=== PATIENT | female | born 1960 | race Caucasian/White ===

== ENCOUNTER → 2017-07-28 | Outpatient (CLI) | payer BC ==
--- NOTE | 2017-07-28 18:06 | Diagnostic Imaging Report ---
INDICATION: Peripheral vascular disease. FINDINGS: The right ankle-brachial index was 1.08. Left ankle-brachial index was 1.18. IMPRESSION: Normal bilateral ankle-brachial indices. Dictated by: Dictated on workstation # [id number]
== END ==
LOC: RAD 16:49
PROVIDERS: ATTEND Nurse Practitioner Family
DX: I73.9 Peripheral vascular disease, unspecified (principal)
CPT/HCPCS: 93922

== ENCOUNTER 2018-07-08 19:09 | Emergency (ER) | payer BC ==
[~2018-07-08] VITALS: Ht 160 cm; Wt 72.1 kg
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
--- OUTSIDE RECORDS SUMMARY | 2018-07-08 19:15 | XMS REPORT ---
Author Author MATTHIEU VALENZUELA Organization [facility] Address [address] 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 Active 003005684 Problem Allergic rhinitis, unspecified allergic rhinitis trigger, unspecified rhinitis seasonality J30.9 Active 62472833 Problem Peripheral polyneuropathy G62.9 Active 30238585 Problem Peripheral vascular disease I73.9 Active 950415795 Problem 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 580373113 ALLERGIES No Information ENCOUNTERS Encounter Location Date Diagnosis [facility] [id number] [place] [address] 34745- 0440 Mar, [facility] [id number] [place] [address] 44038- 4626 Mar, 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 and Hepatitis C B19.20 [facility] [id number] [place] [address] 77842- 5060 Mar, Methamphetamine abuse, 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 ; Hepatitis C B19.20 ; 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 and 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 [facility] [id number] [place] [address] 50997- 8094 Mar, Rheumatoid arthritis with positive rheumatoid factor, involving unspecified site M05.9 ; Hepatitis C B19.20 ; 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 ; 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 and Essential hypertension I10 [facility] [address] [address]- 3062 Dec, Rheumatoid arthritis with positive rheumatoid factor, involving unspecified site M05.9 [facility] [id number] [place] [address] 83472- 7791 Nov, Pain in joint involving right ankle and foot M25.571 [place] [address] 09598- 9147 Sep, Essential hypertension I10 ; Rheumatoid arthritis with positive rheumatoid factor, involving unspecified site M05.9 and 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 [place] [address] 66592- 6621 Sep, [place] [address] 11516- 9031 Sep, [place] [address] 79435- 7904 Aug, Essential hypertension I10 ; Acute midline low back pain, with sciatica presence unspecified M54.5 and Localized edema R60.0 [place] [address] 83205- 1811 Aug, [place] [id number] [place] [address] 88300- 5267 Aug, Rheumatoid arthritis with positive rheumatoid factor, involving unspecified site M05.9 ; Raynauds disease without gangrene I73.00 ; 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 and Hepatitis C B19.20 [place] [address] 32442- 5257 Aug, Peripheral polyneuropathy G62.9 and Essential hypertension I10 [facility] [id number] [place] [address] 81424- 5114 Jul, Essential hypertension I10 [facility] [address] 36[address] -2151 Jun, [place] [id number] [place] [address] 68068- 8753 Jun, [place] [id number] [place] [address] 05124- 1753 May, Peripheral polyneuropathy G62.9 [place] [id number] [place] [address] 69503- 8950 May, Essential hypertension I10 ; Chest discomfort R07.89 ; Peripheral vascular disease I73.9 and Rheumatoid arthritis with positive rheumatoid factor, involving unspecified site M05.9 [place] [id number] [place] [address] 33079- 4661 May, Essential hypertension I10 ; Peripheral vascular disease I73.9 ; Rheumatoid arthritis with positive rheumatoid factor, involving unspecified site M05.9 and Chest discomfort R07.89 [facility] [place] [id number] [place] [address] 99700 -1489 Mar, Peripheral vascular disease I73.9 [place] [id number] [place] [address] 31279- 6628 Mar, Essential hypertension I10 ; Rheumatoid arthritis with positive rheumatoid factor, involving unspecified site M05.9 ; Peripheral polyneuropathy G62.9 and 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 [place] [id number] [place] [address] 30640- 3326 Feb, Cellulitis of right lower extremity L03.115 [place] [address] [place] [address] 91297- 5556 Feb, [facility] [id number] [place] [address] 12255 -4945 Feb, Cellulitis of right lower extremity L03.115 and Cellulitis of left lower limb L03.116 [place] [id number] [place] [address] 26923- 3827 15 Feb, 2017 Essential hypertension I10 [place] [address] [address]- 2442 October, [facility] [address] [place] [address] 27426- 6671 October, Rheumatoid arthritis with positive rheumatoid factor, involving unspecified site M05.9 [facility] [address] [address]- 3989 October, [facility] [address] [address] -4990 Sep, Cellulitis of left leg L03.116 [facility] [address] [place] [address] 48572- 4961 Sep, [facility] [address] [place] [address] 96264- 3515 Aug, [place] [address] [place] [address] 09721- 2734 Aug, [facility] [address] [place] [address] 32257- 6982 Aug, Peripheral polyneuropathy G62.9 ; Essential hypertension I10 ; Raynauds disease without gangrene I73.00 ; Rheumatoid arthritis with positive rheumatoid factor, involving unspecified site M05.9 and Allergic rhinitis, unspecified allergic rhinitis trigger, unspecified rhinitis seasonality J30.9 [facility] [address] [address]- 5157 Jul, [facility] [address] [address]- 4532 May, Peripheral polyneuropathy G62.9 ; Essential hypertension I10 ; Raynauds disease without gangrene I73.00 and Rheumatoid arthritis with positive rheumatoid factor, involving unspecified site M05.9 [facility] [address] [address]- 4064 Feb, Essential hypertension I10 and Numbness in feet R20.0 [facility] [id number] [place] [address] 88631 -8209 17 Nov, 2015 Rash R21 [facility] [id number] [place] [address] 795800- 5244 10 Aug, 2015 Essential hypertension I10 ; 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 ; Numbness in feet R20.0 ; Hepatitis C B19.20 and Left shoulder pain M25.512 [facility] [address] 261486- 3535 07 Jun, 2015 Essential hypertension I10 ; Hepatitis C B19.20 ; Numbness in feet R20.0 and 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 [facility] [address] 564144- 0887 30 May, 2015 Essential hypertension I10 ; 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 ; Numbness in feet R20.0 ; Hepatitis C B19.20 and Left shoulder pain M25.512 [facility] [id number] [place] [address] 98697- 8587 14 Sep, 2014 [facility] [id number] [place] [address] 25824- 1954 Sep, [facility] [id number] [place] [address] 28104- 8328 May, [facility] [id number] [place] [address] 092084- 2127 May, [facility] [id number] [place] [address] 059913- 3197 Apr, [facility] [id number] [place] [address] 822906- 8947 Apr, [facility] [id number] [place] [address] 66300- 3096 Mar, [facility] [id number] [place] [address] 71227- 1486 Mar, [facility] [id number] [place] [address] 11122- 9575 13 Nov, 2013 [facility] [place] [facility] [address] [id number] [place] [address]- 5874 13 Nov, 2013 [facility] [place] [facility] [address] [id number] [place] [address]- 7859 October, [facility] [place] [facility] [address] [id number] [place] [address]- 0842 October, [facility] [place] [facility] [address] [id number] [place] [address]- 9544 13 Aug, 2013 [facility] [place] [facility] [address] [id number] [place] [address]- 4522 13 Aug, 2013 [facility] [place] [facility] [address] [id number] [place] [address]- 1719 13 Aug, 2013 [facility] [place] [facility] [address] [id number] [place] [address]- 8164 Aug, [facility] [place] [facility] [address] [id number] [place] [address]- 3479 Aug, [facility] [place] [facility] [address] [id number] [place] [address]- 6766 Aug, [facility] [place] [facility] [address] [id number] [place] [address]- 2683 Aug, [facility] [place] [facility] [address] [id number] [address]- 9985 Aug, [facility] [place] [facility] [address] [id number] [address]- 9556 Apr, [facility] [place] [facility] [address] [id number] [place] [address]- 5721 Apr, [facility] [place] [facility] [address] [id number] [place] [address]- 4018 Mar, [facility] [place] [facility] [address] [id number] [place] [address]- 9844 Mar, [facility] [place] [facility] [address] [id number] [place] [address]- 3330 18 Mar, 2013 [facility] [address] [id number] [place] [id number] 25 Feb, 2013 [facility] [address] [id number] [place] 6476 17 Feb, 2013 [facility] [address] [id number] [place] [address]- 8166 16 Feb, 2013 [facility] [address] [id number] [place] [address]- 6688 Jan, [facility] [address] [id number] [place] [address]- 1470 Jan, [facility] [address] [id number] [place] [address]- 6354 Jan, [facility] [address] [id number] [place] [address]- 1171 Jan, [facility] [address] [id number] [place] [address]- 5926 Nov, [facility] [address] [id number] [place] [address]- 6052 Nov, [facility] [address] [id number] [place] [address]- 7018 Nov, [facility] [address] [id number] [place] 6739 October, [facility] [address] [id number] [place] [address]- 8239 October, [facility] [address] [id number] [place] [address]- 3811 October, [facility] [place] [facility] [address] [id number] [place] 2345 October, [facility] [address] [id number] [place] [address]- 6414 October, [facility] [address] [id number] [place] [address]- 9220 16 Oct, 2012 [facility] [address] [id number] [place] [address]- 8098 October, [facility] [address] [id number] [place] [address]- 8950 October, [facility] [address] [id number] [place] [address]- 5278 20 Sep, 2012 [facility] [address] [id number] [place] [address]- 5190 19 Sep, 2012 [facility] [address] [id number] [place] [address]- 6313 15 Sep, 2012 [facility] [address] [id number] [place] [address]- 6850 Sep, [facility] [address] [id number] [place] [address]- 4022 Sep, [facility] [address] [id number] [place] [address]- 5062 22 Aug, 2012 [facility] [address] [id number] [place] [address]- 1852 14 Aug, 2012 [facility] [address] [id number] [place] [address]- 5301 13 Aug, 2012 [facility] [address] [id number] [place] [address]- 4028 08 Aug, 2012 [facility] [address] [id number] [place] [address]- 0759 06 Aug, 2012 [facility] [place] [facility] [address] [id number] [place] [address]- 3033 05 Aug, 2012 [facility] [address] [id number] [place] [address]- 2316 04 Aug, 2012 [facility] [address] [id number] [place] [address]- 8710 Aug, [facility] [place] [facility] [address] [id number] [place] [address]- 3971 May, [facility] [place] [facility] [address] [id number] [place] [address]- 7057 May, [facility] [place] [facility] [address] [facility] [id number] [place] [address]- 4293 Apr, [facility] [place] [facility] [address] [id number] [place] [address]- 4304 Apr, [facility] [place] [facility] [address] [id number] [place] [address]- 5238 Apr, [facility] [place] [facility] [address] [id number] [place] [address]- 3610 16 Apr, 2012 [facility] [place] [facility] [address] [id number] [place] [address]- 5795 16 Apr, 2012 [facility] [place] [facility] [address] [id number] [place] [address]- 3829 14 Apr, 2012 [facility] [place] [facility] [address] [id number] [place] [address]- 9759 Apr, [facility] [place] [facility] [address] [id number] [place] [address]- 3927 Apr, [facility] [place] [facility] [address] [id number] [place] [address]- 3281 05 Apr, 2012 [facility] [place] [facility] [address] [id number] [address]- 3521 Apr, [facility] [place] [facility] [address] [id number] [place] [address]- 9602 Apr, [facility] [place] [facility] [address] [facility] [id number] [address]- 9618 Apr, [facility] [place] [facility] [address] [id number] [place] [address]- 9166 Mar, [facility] [place] [facility] [address] [address]- 1380 Mar, [facility] [address] [address]- 5612 Feb, [facility] [address] [address]- 7085 Nov, [facility] [address] [address]- 8438 Nov, [facility] [address] [address]- 8025 October, [facility] [address] [address]- 2140 October, [facility] [address] [address]- 6917 October, [facility] [address] [address]- 9532 October, [facility] [address] [address]- 6733 Sep, [facility] [address] [address]- 9816 Sep, [facility] [address] [address]- 4442 Sep, [facility] [id number] [address]- 0031 Sep, IMMUNIZATIONS No Known Immunizations SOCIAL HISTORY Never Assessed REASON FOR VISIT Refill request PLAN OF CARE VITAL SIGNS MEDICATIONS Medication Instructions Dosage Frequency Start Date End Date Duration Status Potassium Chloride [facility] ER 10 MEQ TAKE ONE TABLET BY MOUTH ONCE DAILY Jun, 90 days Active Zoloft 100 mg Orally Once a day 1 tablet 24h Mar, 90 days Active Celebrex 200 mg TAKE ONE CAPSULE BY MOUTH ONCE DAILY Jun, 90 days Active Hydrochlorothiazide 25 mg oral daily 1 tablet by Oral route 1 time per day 24h 90 days Active Losartan Potassium 50 mg Orally Once a day at hs 1 tablet 90 days Active RESULTS No Results PROCEDURES No Known procedures [...]
--- OUTSIDE RECORDS SUMMARY | 2018-07-08 19:15 | XMS REPORT ---
Author Author MATTHIEU VALENZUELA Organization [facility] Address [address] 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 Active 022049089 Problem Allergic rhinitis, unspecified allergic rhinitis trigger, unspecified rhinitis seasonality J30.9 Active 82568780 Problem Peripheral polyneuropathy G62.9 Active 20907296 Problem Peripheral vascular disease I73.9 Active 408099904 Problem 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 451937723 ALLERGIES No Information ENCOUNTERS Encounter Location Date Diagnosis [facility] [id number] [place] [address] 37779- 0733 Apr, [facility] [id number] [place] [address] 17635- 3565 Mar, [facility] [id number] [place] [address] 23380- 8185 Mar, [facility] [id number] [place] [address] 17339- 2188 Mar, 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 and Hepatitis C B19.20 [facility] [id number] [place] [address] 01795- 6950 04 Mar, 2018 Methamphetamine abuse, 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 ; Hepatitis C B19.20 ; 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 and 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 [facility] [address] [address] Mar, Rheumatoid arthritis with positive rheumatoid factor, involving unspecified site M05.9 ; Hepatitis C B19.20 ; 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 ; 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 and Essential hypertension I10 [facility] [id number] [place] [address] 72171- 7967 Dec, Rheumatoid arthritis with positive rheumatoid factor, involving unspecified site M05.9 [facility] [id number] [place] [address] 37749- 8066 Nov, Pain in joint involving right ankle and foot M25.571 [facility] [id number] [place] [address] 02228- 2890 Sep, Essential hypertension I10 ; Rheumatoid arthritis with positive rheumatoid factor, involving unspecified site M05.9 and 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 [facility] [id number] [place] [address] 66674- 2697 Sep, [facility] [id number] [place] [address] 53116- 7773 Sep, [facility] [id number] [place] [address] 54798- 9767 Aug, Essential hypertension I10 ; Acute midline low back pain, with sciatica presence unspecified M54.5 and Localized edema R60.0 [facility] [id number] [place] [address] 45572- 9280 Aug, [facility] [id number] [place] [address] 07780- 7563 Aug, Rheumatoid arthritis with positive rheumatoid factor, involving unspecified site M05.9 ; Raynauds disease without gangrene I73.00 ; 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 and Hepatitis C B19.20 [facility] [id number] [place] [address] 49098- 6589 Aug, Peripheral polyneuropathy G62.9 and Essential hypertension I10 [facility] [address], [place] [address] 0190 Jul, Essential hypertension I10 [facility] [id number] [place] [address] 80728 -1195 Jun, [facility] [id number] [place] [address] 84800- 8674 Jun, [facility] [id number] [place] [address] 73771- 8047 May, Peripheral polyneuropathy G62.9 [facility] [id number] [place] [address] 87830- 1302 May, Essential hypertension I10 ; Chest discomfort R07.89 ; Peripheral vascular disease I73.9 and Rheumatoid arthritis with positive rheumatoid factor, involving unspecified site M05.9 [facility] [id number] [place] [address] 64726- 0087 May, Essential hypertension I10 ; Peripheral vascular disease I73.9 ; Rheumatoid arthritis with positive rheumatoid factor, involving unspecified site M05.9 and Chest discomfort R07.89 [facility] [id number] [place] [address] 09857 -7964 Mar, Peripheral vascular disease I73.9 [facility] [id number] [place] [address] 79024- 3628 Mar, Essential hypertension I10 ; Rheumatoid arthritis with positive rheumatoid factor, involving unspecified site M05.9 ; Peripheral polyneuropathy G62.9 and 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 [facility] [address], [place] [address]- 1435 Feb, Cellulitis of right lower extremity L03.115 [facility] [id number] [place] [address] 31739- 5029 Feb, [facility] [address] [place] [address] 74309 -5897 Feb, Cellulitis of right lower extremity L03.115 and Cellulitis of left lower limb L03.116 [facility] [address] [place] [address] 6620 Feb, Essential hypertension I10 [facility] [address], [place] [address]- 0400 October, [facility] [id number] [place] [address] 02401- 2388 October, Rheumatoid arthritis with positive rheumatoid factor, involving unspecified site M05.9 [facility] [address], [place] [address]- 2888 October, [facility] [address] [place] [address] 53601 -4388 Sep, Cellulitis of left leg L03.116 [facility] [address] [place] [address] 44730- 0692 Sep, [facility] [address] [address]- 7750 Aug, [facility] [address] [address]- 2178 Aug, [facility] [address] [place] [address]- 1493 Aug, Peripheral polyneuropathy G62.9 ; Essential hypertension I10 ; Raynauds disease without gangrene I73.00 ; Rheumatoid arthritis with positive rheumatoid factor, involving unspecified site M05.9 and Allergic rhinitis, unspecified allergic rhinitis trigger, unspecified rhinitis seasonality J30.9 [facility] [address], [place] [address]- 6755 Jul, [facility] [address] [place] [address] 88707- 8639 May, Peripheral polyneuropathy G62.9 ; Essential hypertension I10 ; Raynauds disease without gangrene I73.00 and Rheumatoid arthritis with positive rheumatoid factor, involving unspecified site M05.9 [facility] [address] [address]- 3535 28 Feb, 2016 Essential hypertension I10 and Numbness in feet R20.0 [facility] [address] [address] 17 Nov, 2015 Rash R21 [facility] [id number] [place] [address] 07375- 6813 10 Aug, 2015 Essential hypertension I10 ; 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 ; Numbness in feet R20.0 ; Hepatitis C B19.20 and Left shoulder pain M25.512 [facility] [id number] [place] [address] 97602- 6635 07 Jun, 2015 Essential hypertension I10 ; Hepatitis C B19.20 ; Numbness in feet R20.0 and 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 [facility] [id number] [place] [address] 23185- 7976 30 May, 2015 Essential hypertension I10 ; 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 ; Numbness in feet R20.0 ; Hepatitis C B19.20 and Left shoulder pain M25.512 [facility] [id number] [place] [address] 54982- 9286 14 Sep, 2014 [facility] [id number] [place] [address] 13591- 9825 Sep, [facility] [id number] [place] [address] 66179- 2209 May, [facility] [id number] [place] [address] 75698- 0495 May, [facility] [id number] [place] [address] 83236- 8493 Apr, [facility] [id number] [place] [address] 53069- 0323 Apr, [facility] [id number] [place] [address] 59078- 7624 07 Mar, 2014 [facility] [place] [facility] [address] [id number] [place] [address]- 6070 07 Mar, 2014 [facility] [place] [facility] [address] [id number] [place] [address]- 8728 13 Nov, 2013 [facility] [place] [facility] [address] [id number] [place] [address]- 9206 Nov, [facility] [place] [facility] [address] [id number] [place] [address]- 0886 October, [facility] [place] [facility] [address] [id number] [place] [address]- 7557 October, [facility] [place] [facility] [address] [id number] [place] [address]- 7997 Aug, [facility] [place] [facility] [address] [id number] [place] [address]- 5783 Aug, [facility] [place] [facility] [address] [id number] [place] [address]- 8183 Aug, [facility] [place] [facility] [address] [id number] [place] [address]- 7577 Aug, [facility] [place] [facility] [address] [id number] [place] [address]- 8723 Aug, [facility] [place] [facility] [address] [id number] [place] [address]- 1944 Aug, [facility] [place] [facility] [address] [id number] [address]- 2703 Aug, [facility] [place] [facility] [address] [id number] [place] [address]- 5083 Aug, [facility] [place] [facility] [address] [id number] [place] [address]- 7153 Apr, [facility] [place] [facility] [address] [id number] [place] [address]- 8704 Apr, [facility] [place] [facility] [address] [id number] [place] [address]- 0438 Mar, [facility] [address] [id number] [place] [address]- 3590 Mar, [facility] [address] [id number] [place] [address]- 1157 Mar, [facility] [address] [id number] [place] [id number] Feb, [facility] [address] [id number] [place] [address]- 6805 17 Feb, 2013 [facility] [address] [id number] [place] [address]- 1450 16 Feb, 2013 [facility] [address] [id number] [place] [address]- 5654 Jan, [facility] [address] [id number] [place] [address]- 5909 Jan, [facility] [address] [id number] [place] [address]- 5441 Jan, [facility] [address] [id number] [place] 9126 Jan, [facility] [address] [id number] [place] [address]- 6154 Nov, [facility] [address] [id number] [place] [address]- 0276 Nov, [facility] [address] [id number] [place] [address]- 4561 Nov, [facility] [address] [id number] [place] [address]- 6230 October, [facility] [address] [id number] [place] [address]- 3657 October, [facility] [address] [id number] [place] [address]- 5376 October, [facility] [address] [id number] [place] [address]- 8558 October, [facility] [address] [id number] [place] [address]- 8428 October, [facility] [address] [id number] [place] [address]- 1926 October, [facility] [address] [id number] [place] [address]- 3741 October, [facility] [address] [id number] [place] [address]- 1328 October, [facility] [address] [id number] [place] [address]- 4361 Sep, [facility] [address] [id number] [place] [address]- 9812 Sep, [facility] [address] [id number] [place] [address]- 3035 15 Sep, 2012 [facility] [address] [id number] [place] [address]- 6725 Sep, [facility] [address] [id number] [place] [address]- 2377 Sep, [facility] [address] [id number] [place] [address]- 0795 22 Aug, 2012 [facility] [address] [id number] [place] [address]- 7035 14 Aug, 2012 [facility] [address] [id number] [place] [address]- 7032 13 Aug, 2012 [facility] [place] [facility] [address] [id number] [place] [address]- 7571 08 Aug, 2012 [facility] [address] [id number] [place] [address]- 8889 06 Aug, 2012 [facility] [address] [id number] [place] [address]- 6071 05 Aug, 2012 [facility] [place] [facility] [address] [id number] [place] [address]- 5706 Aug, [facility] [place] [facility] [address] [id number] [place] [address]- 4141 04 Aug, 2012 [facility] [place] [facility] [address] [facility] [id number] [place] [address]- 7976 May, [facility] [place] [facility] [address] [id number] [place] [address]- 8556 May, [facility] [place] [facility] [address] [id number] [place] [address]- 9143 Apr, [facility] [place] [facility] [address] [id number] [place] [address]- 9461 Apr, [facility] [place] [facility] [address] [id number] [place] [address]- 5769 Apr, [facility] [place] [facility] [address] [id number] [place] [address]- 0407 16 Apr, 2012 [facility] [place] [facility] [address] [id number] [place] [address]- 5301 16 Apr, 2012 [facility] [place] [facility] [address] [id number] [place] [address]- 2561 14 Apr, 2012 [facility] [place] [facility] [address] [id number], [place] [address]- 4096 Apr, [facility] [place] [facility] [address] [id number], [place] [address]- 0717 06 Apr, 2012 [facility] [place] [facility] [address] [id number] [place] [address]- 7895 05 Apr, 2012 [facility] [place] [facility] [address] [facility] [id number], [place] [address]- 0636 03 Apr, 2012 [facility] [place] [facility] [address] [id number] [place] [address]- 4092 Apr, [facility] [place] [facility] [address], [place] [address]- 7217 Apr, [facility] [address] [place] [address]- 8335 Mar, [facility] [address] [place] [address]- 0189 Mar, [facility] [address], [place] [address]- 4321 Feb, [facility] [address] [place] [address]- 3672 Nov, [facility] [address] [place] [address] 173885- 2523 Nov, [facility] [address] [place] [address]- 8046 October, [facility] [address] [place] [address] 45629- 7958 October, [facility] [address], [place] [address]- 3418 October, [facility] [address] [place] [address]- 9291 October, [facility] [address] [place] [address]- 0772 Sep, [facility] [address] [place] [address]- 0257 Sep, [facility] [id number] [address]- 2983 Sep, [facility] [address] [address] 7463 Sep, IMMUNIZATIONS No Known Immunizations SOCIAL HISTORY Never Assessed REASON FOR VISIT Hep C note PLAN OF CARE VITAL SIGNS MEDICATIONS Unknown Medications RESULTS No Results PROCEDURES No Known procedures INSTRUCTIONS MEDICATIONS ADMINISTERED No Known Medications MEDICAL (GENERAL) HISTORY Type Description Date Medical History Osteoporosis Medical History Rheumatoid Arthritis Medical History Hepatitis C- backed out of 2013 Medical History Hypertension Medical History Meth Addiction -2015 Medical History 

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
--- OUTSIDE RECORDS SUMMARY | 2018-07-08 19:16 | XMS REPORT ---
Author Author MATTHIEU VALENZUELA Organization [facility] Address [address] 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 243628452 Problem Raynauds disease without gangrene I73.00 Active 803356150 Problem Hepatitis C B19.20 Active 02824891 Problem Allergic rhinitis, unspecified allergic rhinitis trigger, unspecified rhinitis seasonality J30.9 Active 43500530 Problem Peripheral polyneuropathy G62.9 Active 77720546 ALLERGIES No Information ENCOUNTERS Encounter Location Date Diagnosis [place] [id number] [id number] [place] [address]- [address]289 Dec, Rheumatoid arthritis with positive rheumatoid factor, involving unspecified site M05.9 [place] [address] [address] Nov, Pain in joint involving right ankle and foot M25.571 [facility] [id number] [place] [address] 95927- 4481 Sep, Essential hypertension I10 ; Rheumatoid arthritis with positive rheumatoid factor, involving unspecified site M05.9 and 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 [facility] [id number] [place] [address] 54097- 5706 16 Sep, 2017 [place] [address] [address] Sep, [place] [id number] [place] [address] 62075- 6486 Aug, Essential hypertension I10 ; Acute midline low back pain, with sciatica presence unspecified M54.5 and Localized edema R60.0 [facility] [id number] [place] [address] 19999- 2564 Aug, [facility] [address] [address]- [address] Aug, Rheumatoid arthritis with positive rheumatoid factor, involving unspecified site M05.9 ; Raynauds disease without gangrene I73.00 ; 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 and Hepatitis C B19.20 [place] [address] 16308- 4479 Aug, Peripheral polyneuropathy G62.9 and Essential hypertension I10 [place] [address] [address]- [address]394 Jul, Essential hypertension I10 [facility] [id number] [place] [address]45 -0289 Jun, [place] [address] [address]- 244[address] Jun, [facility] [address] [address]62- 7865 May, Peripheral polyneuropathy G62.9 [facility] [id number] [place] [address] 22238- 0166 May, Essential hypertension I10 ; Chest discomfort R07.89 ; Peripheral vascular disease I73.9 and Rheumatoid arthritis with positive rheumatoid factor, involving unspecified site M05.9 [facility] [address] 64645- 8931 May, Essential hypertension I10 ; Peripheral vascular disease I73.9 ; Rheumatoid arthritis with positive rheumatoid factor, involving unspecified site M05.9 and Chest discomfort R07.89 [facility] [address] [address]39 -6105 Mar, Peripheral vascular disease I73.9 [facility] [id number] [place] [address] 46576- 2883 Mar, Essential hypertension I10 ; Rheumatoid arthritis with positive rheumatoid factor, involving unspecified site M05.9 ; Peripheral polyneuropathy G62.9 and 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 [place] [id number] [place] [address] 67855- 3517 Feb, Cellulitis of right lower extremity L03.115 [place] [id number] [place] [address] 15588- 9779 Feb, [facility] [id number] [place] [address] 64760 -2532 Feb, Cellulitis of right lower extremity L03.115 and Cellulitis of left lower limb L03.116 [place] [id number] [place] [address] 18550- 8052 Feb, Essential hypertension I10 [place] [id number] [place] [address] 34265- 6205 October, [place] [id number] [place] [address] 89759- 8429 October, Rheumatoid arthritis with positive rheumatoid factor, involving unspecified site M05.9 [place] [id number] [place] [address] 26869- 5281 October, [facility] [id number] [place] [address] 63177 -3038 Sep, Cellulitis of left leg L03.116 [place] [id number] [place] [address] 77172- 1010 Sep, [place] [id number] [place] [address] 96668- 0615 Aug, [place] [id number] [place] [address] 07976- 0095 Aug, [place] [id number] [place] [address] 97921- 1042 Aug, Peripheral polyneuropathy G62.9 ; Essential hypertension I10 ; Raynauds disease without gangrene I73.00 ; Rheumatoid arthritis with positive rheumatoid factor, involving unspecified site M05.9 and Allergic rhinitis, unspecified allergic rhinitis trigger, unspecified rhinitis seasonality J30.9 [place] [address] 61247- 4434 Jul, [place] [address] 14356- 3962 May, Peripheral polyneuropathy G62.9 ; Essential hypertension I10 ; Raynauds disease without gangrene I73.00 and Rheumatoid arthritis with positive rheumatoid factor, involving unspecified site M05.9 [place] [address] 04066- 0066 Feb, Essential hypertension I10 and Numbness in feet R20.0 [facility] [place] [address] 89940 -3486 Nov, Rash R21 [address] [address]- 1877 Aug, Essential hypertension I10 ; 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 ; Numbness in feet R20.0 ; Hepatitis C B19.20 and Left shoulder pain M25.512 [place] [id number] [place] [address] 18385- 5979 Jun, Essential hypertension I10 ; Hepatitis C B19.20 ; Numbness in feet R20.0 and 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 [address]- 4640 30 May, 2015 Essential hypertension I10 ; 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 ; Numbness in feet R20.0 ; Hepatitis C B19.20 and Left shoulder pain M25.512 [place] [address] 29501- 1402 14 Sep, 2014 [facility] [place] [facility] [address] [id number] [place] [address] 2521 Sep, [facility] [place] [facility] [address] [id number] [place] [address]- 3457 May, [facility] [place] [facility] [address] [id number] [place] [address]- 9214 May, [facility] [place] [facility] [address] [id number] [place] [address]- 0565 Apr, [facility] [place] [facility] [address] [id number] [place] [address]- 5013 Apr, [facility] [place] [facility] [address] [id number] [place] [address]- 2316 Mar, [facility] [place] [facility] [address] [id number] [place] [address]- 0790 Mar, [facility] [place] [facility] [address] [id number] [place] [address]- 2305 Nov, [facility] [place] [facility] [address] [id number] [place] [address]- 8159 Nov, [facility] [place] [facility] [address] [id number] [place] [address]- 9098 October, [facility] [place] [facility] [address] [id number] [address]- 6748 October, [facility] [place] [facility] [address] [id number] [address]- 7619 13 Aug, 2013 [facility] [place] [facility] [address] [id number] [place] [address]- 1904 13 Aug, 2013 [facility] [place] [facility] [address] [id number] [place] [address]- 1155 13 Aug, 2013 [facility] [place] [facility] [address] [id number] [place] [address]- 4771 13 Aug, 2013 [facility] [place] [facility] [address] [id number] [place] [address]- 1088 Aug, [facility] [place] [facility] [address] [id number] [place] [address]- 7480 Aug, [facility] [place] [facility] [address] [id number] [place] [address] Aug, [facility] [place] [facility] [address] [id number] [place] [address]- 9449 Aug, [facility] [place] [facility] [address] [id number] [place] [address]- 1224 Apr, [facility] [place] [facility] [address] [id number] [place] [address]- 8473 Apr, [facility] [place] [facility] [address] [id number] [place] [address]- 0970 Mar, [facility] [place] [facility] [address] [id number] [place] [address]- 1637 Mar, [facility] [place] [facility] [address] [id number] [place] [address]- 8895 Mar, [facility] [place] [facility] [address] [facility] [id number] [place] [address] 25 Feb, 2013 [facility] [place] [facility] [address] [id number] [place] [address]- 2065 17 Feb, 2013 [facility] [place] [facility] [address] [id number] [place] [address]- 1723 16 Feb, 2013 [facility] [place] [facility] [address] [id number] [place] [address]- 2060 Jan, [facility] [place] [facility] [address] [id number] [place] [address]- 9763 Jan, [facility] [place] [facility] [address] [id number] [place] [address]- 9918 Jan, [facility] [place] [facility] [address] [facility] [id number] [place] [address]- 4439 Jan, [facility] [place] [facility] [address] [id number] [place] [address]- 5967 Nov, [facility] [address] [id number] [place] [address]- 8734 Nov, [facility] [address] [id number] [place] [address]- 3539 Nov, [facility] [address] [id number] [place] [address]- 5192 October, [facility] [address] [id number] [place] [address]- 7018 October, [facility] [address] [id number] [place] [address]- 3654 October, [facility] [address] [id number] [place] [address]- 7241 October, [facility] [address] [id number] [place] [address]- 2061 October, [facility] [address] [id number] [place] [address]- 7624 October, [facility] [address] [id number] [place] [address]- 0588 October, [facility] [address] [id number] [place] [address]- 7807 October, [facility] [address] [id number] [place] [address]- 6402 Sep, [facility] [address] [id number] [place] [address]- 2008 19 Sep, 2012 [facility] [place] [facility] [address] [id number] [place] [address]- 4102 15 Sep, 2012 [facility] [place] [facility] [address] [id number] [place] [address]- 6661 11 Sep, 2012 [facility] [place] [facility] [address] [id number] [place] [address]- 0672 11 Sep, 2012 [facility] [place] [facility] [address] [id number] [place] [address]- 8421 22 Aug, 2012 [facility] [place] [facility] [address] [id number] [place] [address]- 0158 14 Aug, 2012 [facility] [place] [facility] [address] [id number] [place] [address]- 0017 13 Aug, 2012 [facility] [place] [facility] [address] [id number] [place] [address]- 2496 08 Aug, 2012 [facility] [place] [facility] [address] [id number] [place] [address]- 9468 06 Aug, 2012 [facility] [place] [facility] [address] [id number] [place] [address]- 1558 05 Aug, 2012 [facility] [place] [facility] [address] [id number] [place] [address]- 3672 04 Aug, 2012 [facility] [place] [facility] [address] [id number] [place] [address]- 3984 04 Aug, 2012 [facility] [place] [facility] [address] [id number] [place] [address]- 7584 May, [facility] [place] [facility] [address] [id number] [place] [address]- 4910 May, [facility] [place] [facility] [address] [id number] [address]- 4754 Apr, [facility] [place] [facility] [address] [id number] [address]- 3904 Apr, [facility] [place] [facility] [address] [id number] [place] [address]- 7606 Apr, [facility] [place] [facility] [address] [id number] [place] [address]- 3151 16 Apr, 2012 [facility] [place] [facility] [address] [id number] [place] [address]- 5301 16 Apr, 2012 [facility] [place] [facility] [address] [id number] [place] [address]- 8747 Apr, [facility] [address] [id number] [place] [address]- 0542 Apr, [facility] [place] [facility] [address] [id number] [place] [address]250 Apr, [facility] [address] [id number] [place] [address]- 0579 Apr, [facility] [place] [facility] [address] [id number] [place] [address]- 1918 Apr, [facility] [place] [facility] [address] [id number] [place] [address]- 3540 Apr, [facility] [place] [facility] [address] [id number] [place] [address]- 7462 Apr, [facility] [place] [facility] [address] [id number] [place] [address]- 2824 Mar, [facility] [place] [facility] [address] [id number] [place] [address]- 9111 Mar, [facility] [place] [facility] [address] [id number] [place] [address]- 3399 Feb, [facility] [place] [facility] [address] [id number] [place] [address]- 8649 Nov, [facility] [place] [facility] [address] [id number] [place] [address]- 4995 Nov, [facility] [place] [facility] [address] [id number] [place] [address]- 8307 October, [facility] [place] [facility] [address] [id number] [place] [address]- 8321 October, [facility] [place] [facility] [address] [id number] [place] [address]- 0597 October, [facility] [place] [facility] [address] [id number] [place] [address]- 3839 October, [facility] [address] [facility] [id number] [place] [address]- 9076 Sep, [facility] [address] [facility] [id number] [address] 2546 Sep, [facility] [address] [facility] [id number] [place] [address]- 1576 Sep, [facility] [address] [facility] [id number] [address] 2546 Sep, IMMUNIZATIONS No Known Immunizations SOCIAL HISTORY Never Assessed REASON FOR VISIT Refill request PLAN OF CARE VITAL SIGNS MEDICATIONS Medication Instructions Dosage Frequency Start Date End Date Duration Status Gabapentin 100 MG Orally 2 times a day 1 capsule 12h Aug, 30 days Active RESULTS No Results PROCEDURES No [...]
--- OUTSIDE RECORDS SUMMARY | 2018-07-08 19:16 | XMS REPORT ---
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 896672102 Problem Raynauds disease without gangrene I73.00 Active 586269581 Problem Hepatitis C B19.20 Active 85669759 Problem Allergic rhinitis, unspecified allergic rhinitis trigger, unspecified rhinitis seasonality J30.9 Active 68105753 Problem Peripheral polyneuropathy G62.9 Active 23228823 ALLERGIES Substance Reaction Event Type Date Status Indomethacin hives Drug Allergy Sep, Active Clindamycin HCl rash/swelling Drug Allergy Sep, Active Hydrocodone Failed UDS Non Drug Allergy Sep, Active Benzodiazepines Failed UDS Non Drug Allergy Sep, Active Amphetamine Failed UDS Non Drug Allergy Sep, Active ENCOUNTERS Encounter Location Date Diagnosis [facility] [id number] [address] Jan, [facility] [id number] [address] Dec, Rheumatoid arthritis with positive rheumatoid factor, involving unspecified site M05.9 [facility] [id number] [address] Nov, Pain in joint involving right ankle and foot M25.571 [id number] [address] Sep, Essential hypertension I10 ; Rheumatoid arthritis with positive rheumatoid factor, involving unspecified site M05.9 and 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 [facility] [id number] [place] [address] 09660- 2776 Sep, [facility] [id number] [place] [address] 82256- 7971 Sep, [facility] [id number] [place] [address] 09876- 1670 Aug, Essential hypertension I10 ; Acute midline low back pain, with sciatica presence unspecified M54.5 and Localized edema R60.0 [facility] [id number] [place] [address] 76620- 0597 Aug, [facility] [id number] [place] [address] 17460- 4295 Aug, Rheumatoid arthritis with positive rheumatoid factor, involving unspecified site M05.9 ; Raynauds disease without gangrene I73.00 ; 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 and Hepatitis C B19.20 [facility] [id number] [place] [address] 02459- 6530 Aug, Peripheral polyneuropathy G62.9 and Essential hypertension I10 [facility] [address] [place] [address] 17309- 3885 Jul, Essential hypertension I10 [facility] [id number] [place] [address] 56189 -5164 Jun, [facility] [id number] [place] [address] 06686- 3211 Jun, [facility] [id number] [place] [address] 46603- 8543 May, Peripheral polyneuropathy G62.9 [facility] [address] [place] [address] 78285- 7561 May, Essential hypertension I10 ; Chest discomfort R07.89 ; Peripheral vascular disease I73.9 and Rheumatoid arthritis with positive rheumatoid factor, involving unspecified site M05.9 [facility] [address], [place] [address] May, Essential hypertension I10 ; Peripheral vascular disease I73.9 ; Rheumatoid arthritis with positive rheumatoid factor, involving unspecified site M05.9 and Chest discomfort R07.89 [facility] [id number] [place] [address] 64992 -0408 Mar, Peripheral vascular disease I73.9 [facility] [id number] [place] [address] 28474- 7441 Mar, Essential hypertension I10 ; Rheumatoid arthritis with positive rheumatoid factor, involving unspecified site M05.9 ; Peripheral polyneuropathy G62.9 and 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 [place] [id number] [place] [address] 07334- 0926 Feb, Cellulitis of right lower extremity L03.115 [place] [id number] [place] [address] 23453- 7718 Feb, [facility] [id number] [place] [address] 70867 -0209 Feb, Cellulitis of right lower extremity L03.115 and Cellulitis of left lower limb L03.116 [place] [id number] [address] Feb, Essential hypertension I10 [place] [id number] [place] [address] 45319- 6905 October, [place] [id number] [place] [address] 98879- 3697 October, Rheumatoid arthritis with positive rheumatoid factor, involving unspecified site M05.9 [place] [address] [place] [address] 71609- 5089 October, [facility] [id number] [place] [address] 68132 -1304 Sep, Cellulitis of left leg L03.116 [address] [address], [place] [address] 0161 Sep, [place] [id number] [place] [address] 62901- 7304 Aug, [place] [id number] [place] [address] 21611- 3600 Aug, [place] [id number] [place] [address] 68489- 3610 Aug, Peripheral polyneuropathy G62.9 ; Essential hypertension I10 ; Raynauds disease without gangrene I73.00 ; Rheumatoid arthritis with positive rheumatoid factor, involving unspecified site M05.9 and Allergic rhinitis, unspecified allergic rhinitis trigger, unspecified rhinitis seasonality J30.9 [place] [id number] [place] [address] 42542- 2095 Jul, [place] [id number] [place] [address] 06273- 8321 May, Peripheral polyneuropathy G62.9 ; Essential hypertension I10 ; Raynauds disease without gangrene I73.00 and Rheumatoid arthritis with positive rheumatoid factor, involving unspecified site M05.9 [place] [address] [place] [address] 38048- 3008 Feb, Essential hypertension I10 and Numbness in feet R20.0 [facility] [address] [place] [address] 96290 -3160 17 Nov, 2015 Rash R21 [place] [id number] [place] [address] 49507- 7083 10 Aug, 2015 Essential hypertension I10 ; 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 ; Numbness in feet R20.0 ; Hepatitis C B19.20 and Left shoulder pain M25.512 [address] [address] [address] 95[address] Jun, Essential hypertension I10 ; Hepatitis C B19.20 ; Numbness in feet R20.0 and 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 [facility] [address] [address] 30 May, 2015 Essential hypertension I10 ; 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 ; Numbness in feet R20.0 ; Hepatitis C B19.20 and Left shoulder pain M25.512 [facility] [address] [address]- 8791 14 Sep, 2014 [facility] [address] [facility] [id number] [place] [address] 11692- 3859 Sep, [facility] [id number] [place] [address] 88635- 3226 May, [facility] [id number] [place] [address] 12962- 6013 May, [facility] [id number] [place] [address] 10696- 5068 Apr, [facility] [id number] [place] [address] 80527- 2862 Apr, [facility] [id number] [place] [address] 76958- 9946 Mar, [facility] [id number] [address]- 5125 Mar, [facility] [address] [address]- 1069 Nov, [facility] [address] [address]- 2299 Nov, [facility] [id number] [place] [address] 41306- 6816 October, [facility] [id number] [address]- 1554 October, [facility] [address], [place] [address]- 2903 Aug, [facility] [place] [facility] [address] [facility] [id number] [place] [address]- 8077 13 Aug, 2013 [facility] [place] [facility] [address] [id number] [place] [address]- 7852 13 Aug, 2013 [facility] [place] [facility] [address] [id number] [place] [address]- 7159 13 Aug, 2013 [facility] [place] [facility] [address] [id number] [place] [address]- 0831 12 Aug, 2013 [facility] [place] [facility] [address] [id number] [place] [address]- 9681 12 Aug, 2013 [facility] [place] [facility] [address] [id number] [place] [address]263 12 Aug, 2013 [facility] [place] [facility] [address] [id number] [place] [address]- 6703 Aug, [facility] [place] [facility] [address] [id number] [place] [address]- 1763 Apr, [facility] [place] [facility] [address] [id number] [place] [address]- 2955 Apr, [facility] [place] [facility] [address] [id number] [place] [address]- 2496 Mar, [facility] [place] [facility] [address] [id number] [place] [address]- 7601 Mar, [facility] [place] [facility] [address] [id number] [place] [address]- 0023 18 Mar, 2013 [facility] [place] [facility] [address] [id number] [place] [id number] 25 Feb, 2013 [facility] [place] [facility] [address] [id number] [place] [address]- 1835 17 Feb, 2013 [facility] [place] [facility] [address] [id number] [place] [address]- 1636 16 Feb, 2013 [facility] [place] [facility] [address] [id number] [place] [address] Jan, [facility] [address] [id number] [place] [address]- 8214 Jan, [facility] [place] [facility] [address] [id number] [place] [address]- 7974 Jan, [facility] [place] [facility] [address] [id number] [place] [address]- 2144 Jan, [facility] [place] [facility] [address] [id number] [place] [address]- 9563 Nov, [facility] [place] [facility] [address] [id number] [place] [address]- 9994 Nov, [facility] [place] [facility] [address] [id number] [place] [address]- 4109 Nov, [facility] [place] [facility] [address] [id number] [place] [address]- 4191 October, [facility] [place] [facility] [address] [id number] [place] [address]- 2815 October, [facility] [place] [facility] [address] [id number] [place] [address]- 5751 October, [facility] [place] [facility] [address] [id number] [place] [address]- 6956 October, [facility] [place] [facility] [address] [id number] [place] [address]- 4970 October, [facility] [place] [facility] [address] [id number] [address]- 7000 October, [facility] [place] [facility] [address] [id number] [place] [address]- 7879 October, [facility] [place] [facility] [address] [id number] [place] [address]- 1792 October, [facility] [place] [facility] [address] [id number] [place] [address]- 7856 Sep, [facility] [place] [facility] [address] [id number] [address]- 6505 19 Sep, 2012 [facility] [address] [id number] [place] [address]- 4788 15 Sep, 2012 [facility] [address] [id number] [place] [address]- 6807 11 Sep, 2012 [facility] [address] [facility] [id number] [place] [address]- 7846 11 Sep, 2012 [facility] [address] [id number] [place] [address]- 7576 22 Aug, 2012 [facility] [address] [id number] [place] [address]- 1099 14 Aug, 2012 [facility] [address] [id number] [place] [address]- 2036 13 Aug, 2012 [facility] [address] [facility] [id number] [place] [address]- 8007 08 Aug, 2012 [facility] [address] [id number] [place] [address]- 8320 06 Aug, 2012 [facility] [address] [facility] [id number] [place] [address]- 5495 05 Aug, 2012 [facility] [address] [facility] [id number] [place] [address]- 7726 04 Aug, 2012 [facility] [address] [id number] [place] [address]- 2459 04 Aug, 2012 [facility] [address] [id number] [place] [address]- 1748 May, [facility] [address] [id number] [place] [address]- 2197 May, [facility] [address] [facility] [id number] [place] [address]- 1530 Apr, [facility] [address] [facility] [id number] [place] [address]- 7813 Apr, [facility] [place] [facility] [address] [id number] [place] [address]- 3067 Apr, [facility] [place] [facility] [address] [id number] [place] [address]- 6506 16 Apr, 2012 [facility] [place] [facility] [address] [id number] [place] [address]- 4608 16 Apr, 2012 [facility] [place] [facility] [address] [id number] [place] [address]- 8111 14 Apr, 2012 [facility] [place] [facility] [address] [id number] [place] [address]- 5778 Apr, [facility] [place] [facility] [address] [id number] [place] [address]- 6410 Apr, [facility] [place] [facility] [address] [id number] [place] [address]- 9497 Apr, [facility] [place] [facility] [address] [id number] [place] [address]- 2946 Apr, [facility] [place] [facility] [address] [id number] [place] [address]- 3726 Apr, [facility] [place] [facility] [address] [id number] [place] [address]- 4155 Apr, [facility] [place] [facility] [address] [id number] [place] [address]- 5845 Mar, [facility] [place] [facility] [address] [id number] [place] [address]- 4341 Mar, [facility] [place] [facility] [address] [id number] [place] [address]- 5791 Feb, [facility] [place] [facility] [address] [id number] [place] [address]- 2937 Nov, [facility] [place] [facility] [address] [id number] [place] [address]- 3227 Nov, [facility] [place] [facility] [address] [id number] [place] [address]- 3226 October, [facility] [address] [facility] [id number] [address]- 7467 October, [facility] [address] 5123 October, [facility] [id number] [address]- 3424 October, [facility] [address] 7064 Sep, [facility] [address] 5793 Sep, [facility] [address] 9911 Sep, [facility] [address] [place] [address]- 8069 Sep, IMMUNIZATIONS No Known Immunizations SOCIAL HISTORY Never Assessed REASON FOR VISIT BP/Headache--Chetan pt explains she has been having daily headaches PLAN OF CARE Activity Details Follow Up 2 Weeks Reason:HTN f/u VITAL SIGNS Height 64 in 2017-10-16 Weight 158.8 lbs 2017-10-16 Temperature 98.3 degrees Fahrenheit 2017-10-16 Heart Rate 90 bpm 2017-10-16 Respiratory Rate 20 2017-10-16 BMI 27.25 kg/m2 2017-10-16 Blood pressure systolic 128 mmHg 2017-10-16 Blood pressure diastolic 80 mmHg 2017-10-16 MEDICATIONS Medication Instructions Dosage Frequency Start Date End Date Duration Status Potassium Chloride Aubree ER 10 MEQ TAKE ONE TABLET BY MOUTH ONCE DAILY. Active Vitamin D 1000 UNIT Orally Once a day 1 tablet 24h Active Methotrexate 2.5 MG Orally once weekly 4 tablets 90 days Active Hydrochlorothiazide 25 mg oral daily 1 tablet by Oral route 1 time per day 24h Active Fish Oil Concentrate 1000 mg 1 Capsule by Oral route 1 time per day Mar, Active Losartan Potassium 50 MG Orally twice daily 1 tablet Active Celebrex 200 mg Orally Once a day 1 capsule with food 24h May, Active Gabapentin 100 mg Orally 2 times a day 1 capsule 12h Aug, Active Folic Acid 1 MG Orally Once a day 1 tablet 24h 90 Active RESULTS No Results PROCEDURES No Known [...]
--- OUTSIDE RECORDS SUMMARY | 2018-07-08 19:16 | XMS REPORT ---
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 456865448 Problem Raynauds disease without gangrene I73.00 Active 171206519 Problem Hepatitis C B19.20 Active 13976942 Problem Allergic rhinitis, unspecified allergic rhinitis trigger, unspecified rhinitis seasonality J30.9 Active 42102934 Problem Peripheral polyneuropathy G62.9 Active 90751924 ALLERGIES No Information ENCOUNTERS Encounter Location Date Diagnosis [place] [address] [address] Jan, [place] [address] [place] [id number] [place] [address] 14847- 0895 Dec, Rheumatoid arthritis with positive rheumatoid factor, involving unspecified site M05.9 [place] [address] [place] [id number] [place] [address] 05384- 7142 Nov, Pain in joint involving right ankle and foot M25.571 [place] [address] [place] [id number] [place] [address] 70136- 1189 Sep, Essential hypertension I10 ; Rheumatoid arthritis with positive rheumatoid factor, involving unspecified site M05.9 and 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 [place] [address] [place] [id number] [place] [address] 51906- 7082 Sep, [place] [address] [place] [id number] [place] [address] 42496- 7890 Sep, [place] [address] 89378- [address]15 Aug, Essential hypertension I10 ; Acute midline low back pain, with sciatica presence unspecified M54.5 and Localized edema R60.0 [place] [address] 65382- 2088 Aug, [facility] [address] [address]30- 6811 Aug, Rheumatoid arthritis with positive rheumatoid factor, involving unspecified site M05.9 ; Raynauds disease without gangrene I73.00 ; 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 and Hepatitis C B19.20 [place] [address] [place] [id number] [place] [address] 57780- 8075 Aug, Peripheral polyneuropathy G62.9 and Essential hypertension I10 [place] [address] [place] [id number] [place] [address] 47564- 9360 Jul, Essential hypertension I10 [facility] [address] [place] [id number] [place] [address] 73836 -2197 Jun, [facility] [address] [place] [id number] [place] [address] 67042- 7600 Jun, [place] [address] [place] [id number] [place] [address] 73867- 5675 May, Peripheral polyneuropathy G62.9 [place] [address] [place] [id number] [place] [address] 60502- 7710 May, Essential hypertension I10 ; Chest discomfort R07.89 ; Peripheral vascular disease I73.9 and Rheumatoid arthritis with positive rheumatoid factor, involving unspecified site M05.9 [facility] [address] [place] [id number] [place] [address] 83161- 0826 May, Essential hypertension I10 ; Peripheral vascular disease I73.9 ; Rheumatoid arthritis with positive rheumatoid factor, involving unspecified site M05.9 and Chest discomfort R07.89 [facility] [address] [address] Mar, Peripheral vascular disease I73.9 [facility] [address] [place] [id number] [place] [address] 51599- 3877 Mar, Essential hypertension I10 ; Rheumatoid arthritis with positive rheumatoid factor, involving unspecified site M05.9 ; Peripheral polyneuropathy G62.9 and 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 [facility] [address] [place] [id number] [place] [address] 88689- 5770 Feb, Cellulitis of right lower extremity L03.115 [place] [address] [place] [id number] [place] [address] 35135- 3630 Feb, [facility] [address] [place] [id number] [place] [address] 74171 -3321 Feb, Cellulitis of right lower extremity L03.115 and Cellulitis of left lower limb L03.116 [facility] [address] [place] [id number] [place] [address] 69833- 9982 Feb, Essential hypertension I10 [place] [address] [place] [id number] [place] [address] 84329- 1825 October, [facility] [address] [place] [id number] [place] [address] 03191- 2850 October, Rheumatoid arthritis with positive rheumatoid factor, involving unspecified site M05.9 [facility] [address] [place] [id number] [place] [address] 34113- 8877 October, [facility] [address] [place] [id number] [place] [address] 02349 -1478 Sep, Cellulitis of left leg L03.116 [facility] [address] [place] [id number] [place] [address] 46678- 1819 Sep, [place] [address] [place] [id number] [place] [address] 77426- 4718 Aug, [place] [id number] [place] [address] 81041- 7091 Aug, [place] [address] [place] [id number] [place] [address] 13027- 7389 Aug, Peripheral polyneuropathy G62.9 ; Essential hypertension I10 ; Raynauds disease without gangrene I73.00 ; Rheumatoid arthritis with positive rheumatoid factor, involving unspecified site M05.9 and Allergic rhinitis, unspecified allergic rhinitis trigger, unspecified rhinitis seasonality J30.9 [place] [address] [place] [id number] [place] [address] 53466- 8074 Jul, [place] [address] [place] [id number] [place] [address] 13851- 2185 May, Peripheral polyneuropathy G62.9 ; Essential hypertension I10 ; Raynauds disease without gangrene I73.00 and Rheumatoid arthritis with positive rheumatoid factor, involving unspecified site M05.9 [place] [address] [place] [id number] [place] [address] 77179- 7422 Feb, Essential hypertension I10 and Numbness in feet R20.0 [facility] [address] [place] [id number] [place] [address] 50553 -2797 Nov, Rash R21 [place] [address] [place] [id number] [place] [address] 33666- 3072 Aug, Essential hypertension I10 ; 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 ; Numbness in feet R20.0 ; Hepatitis C B19.20 and Left shoulder pain M25.512 [place] [address] [place] [address] 49577- 0636 Jun, Essential hypertension I10 ; Hepatitis C B19.20 ; Numbness in feet R20.0 and 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 [place] [address] [place] [address] 01484- 5671 May, Essential hypertension I10 ; 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 ; Numbness in feet R20.0 ; Hepatitis C B19.20 and Left shoulder pain M25.512 [facility] [address] [id number] [place] [address]- 3090 14 Sep, 2014 [facility] [address] [id number] [address] 0851 Sep, [facility] [address] [facility] [id number] [place] [address]- 3376 May, [facility] [address] [id number] [address]- 4356 May, [facility] [address] [id number] [place] [address]- 2400 Apr, [facility] [address] [facility] [id number] [address]- 8334 Apr, [facility] [address] [id number] [address]- 4516 Mar, [facility] [address] [id number] [address]- 8848 Mar, [facility] [address] [id number] [address]- 5548 Nov, [facility] [address] [facility] [id number] [address]- 3372 Nov, [facility] [address] [id number] [address]- 4158 October, [facility] [address] [id number] [address]- 1532 October, [facility] [address] [id number] [address]- 5259 Aug, [facility] [place] [facility] [address] [facility] [id number] [address]- 8253 Aug, [facility] [address] [facility] [id number] [address]- 0161 Aug, [facility] [place] [facility] [address] [id number] [place] [address]- 4386 13 Aug, 2013 [facility] [place] [facility] [address] [id number] [place] [address]- 8880 Aug, [facility] [place] [facility] [address] [id number] [place] [address]- 4376 Aug, [facility] [place] [facility] [address] [id number] [place] [address]- 1038 Aug, [facility] [place] [facility] [address] [id number] [place] [address]- 7206 Aug, [facility] [place] [facility] [address] [id number] [place] [address]- 7351 Apr, [facility] [place] [facility] [address] [id number] [place] [address]- 5575 Apr, [facility] [place] [facility] [address] [id number] [place] [address]- 8095 Mar, [facility] [address] [id number] [place] [address]- 4883 Mar, [facility] [place] [facility] [address] [id number] [place] [address]- 5277 Mar, [facility] [address] [id number] [place] [id number] Feb, [facility] [place] [facility] [address] [id number] [place] [address]- 4978 17 Feb, 2013 [facility] [place] [facility] [address] [id number] [place] [address]- 0101 16 Feb, 2013 [facility] [place] [facility] [address] [id number] [place] [address]- 5018 Jan, [facility] [place] [facility] [address] [id number] [place] [address]- 6156 Jan, [facility] [place] [facility] [address] [id number] [place] [address]- 4717 Jan, [facility] [address] [id number] [place] [address]- 4672 Jan, [facility] [address] [id number] [place] [address]- 7773 Nov, [facility] [place] [facility] [address] [id number] [place] [address]- 7524 Nov, [facility] [place] [facility] [address] [id number] [place] [address]- 3236 Nov, [facility] [address] [id number] [place] [address]- 2360 October, [facility] [place] [facility] [address] [id number] [place] [address]- 2994 October, [facility] [address] [id number] [place] [address]- 4692 October, [facility] [address] [id number] [place] [address]- 0863 October, [facility] [address] [id number] [place] [address]- 9020 October, [facility] [address] [id number] [place] [address]- 2051 October, [facility] [place] [facility] [address] [id number] [place] [address]- 0109 October, [facility] [place] [facility] [address] [id number] [place] [address]- 4617 October, [facility] [place] [facility] [address] [id number] [place] [address]- 5865 Sep, [facility] [place] [facility] [address] [id number] [place] [address]- 5221 Sep, [facility] [place] [facility] [address] [id number] [place] [address]- 6933 Sep, [facility] [place] [facility] [address] [id number] [place] [address]- 2224 11 Sep, 2012 [facility] [address] [id number] [place] [address]- 2770 11 Sep, 2012 [facility] [place] [facility] [address] [id number] [place] [address]- 0928 22 Aug, 2012 [facility] [address] [id number] [place] [address]- 7648 14 Aug, 2012 [facility] [place] [facility] [address] [id number] [place] [address]- 0717 13 Aug, 2012 [facility] [address] [id number] [place] [address]- 4250 08 Aug, 2012 [facility] [place] [facility] [address] [id number] [place] [address]- 7041 06 Aug, 2012 [facility] [address] [facility] [id number] [place] [address]- 1806 05 Aug, 2012 [facility] [place] [facility] [address] [id number] [place] [address]- 0613 04 Aug, 2012 [facility] [address] [id number] [place] [address]- 1989 04 Aug, 2012 [facility] [place] [facility] [address] [facility] [id number] [place] [address]- 0654 May, [facility] [address] [id number] [place] [address]- 4088 07 May, 2012 [facility] [place] [facility] [address] [id number] [place] [address]- 1126 27 Apr, 2012 [facility] [place] [facility] [address] [id number] [place] [address]- 4621 20 Apr, 2012 [facility] [place] [facility] [address] [id number] [place] [address]- 1484 20 Apr, 2012 [facility] [place] [facility] [address] [facility] [id number] [place] [address]- 9722 16 Apr, 2012 [facility] [place] [facility] [address] [id number] [place] [address]- 6563 16 Apr, 2012 [facility] [place] [facility] [address] [id number] [place] [address]- 1821 14 Apr, 2012 [facility] [place] [facility] [address] [id number] [place] [address]- 7846 Apr, [facility] [place] [facility] [address] [id number] [place] [address]- 2459 Apr, [facility] [place] [facility] [address] [id number] [place] [address]- 0648 Apr, [facility] [place] [facility] [address] [id number] [place] [address]- 9061 Apr, [facility] [place] [facility] [address] [id number] [place] [address]- 7502 Apr, [facility] [place] [facility] [address] [id number] [place] [address]- 5502 Apr, [facility] [place] [facility] [address] [id number] [place] [address]- 0116 Mar, [facility] [place] [facility] [address] [id number] [place] [address]- 1341 Mar, [facility] [place] [facility] [address] [facility] [id number] [place] [address]- 5219 Feb, [facility] [place] [facility] [address] [id number] [place] [address]- 4797 Nov, [facility] [place] [facility] [address] [id number] [place] [address]- 8795 Nov, [facility] [place] [facility] [address] [id number] [place] [address]- 8453 October, [facility] [place] [facility] [address] [id number] [place] [address]- 3866 October, [facility] [place] [facility] [address] [id number] [place] [address]- 0862 October, [facility] [address] [facility] [id number] [address]- 3874 October, [facility] [address] [id number] [address]- 5627 Sep, [facility] [address] [facility] [id number], [place] [address]- 4524 Sep, [facility] [address] [place] [id number] [address]- 6732 Sep, [facility] [address] [facility] [id number] 8546 Sep, IMMUNIZATIONS No Known Immunizations SOCIAL HISTORY Never Assessed REASON FOR VISIT medication questions PLAN OF CARE VITAL SIGNS MEDICATIONS Unknown [...]
--- OUTSIDE RECORDS SUMMARY | 2018-07-08 19:16 | XMS REPORT ---
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 872542706 Problem Raynauds disease without gangrene I73.00 Active 839561270 Problem Hepatitis C B19.20 Active 29394087 Problem Allergic rhinitis, unspecified allergic rhinitis trigger, unspecified rhinitis seasonality J30.9 Active 45537238 Problem Peripheral polyneuropathy G62.9 Active 10963239 ALLERGIES Substance Reaction Event Type Date Status Indomethacin hives Drug Allergy Nov, Active Clindamycin HCl rash/swelling Drug Allergy Nov, Active Hydrocodone Failed UDS Non Drug Allergy Nov, Active Benzodiazepines Failed UDS Non Drug Allergy Nov, Active Amphetamine Failed UDS Non Drug Allergy Nov, Active ENCOUNTERS Encounter Location Date Diagnosis [facility] [address] [id number], [place] [address] Dec, Rheumatoid arthritis with positive rheumatoid factor, involving unspecified site M05.9 [facility] [address] [id number], [place] [address] Nov, Pain in joint involving right ankle and foot M25.571 [facility] [address] [id number], [place] [address] Sep, Essential hypertension I10 ; Rheumatoid arthritis with positive rheumatoid factor, involving unspecified site M05.9 and 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 [facility] [id number] [place] [address] 75895- 2685 Sep, [facility] [id number] [place] [address] 65728- 7736 Sep, [facility] [id number] [place] [address] 51825- 0453 Aug, Essential hypertension I10 ; Acute midline low back pain, with sciatica presence unspecified M54.5 and Localized edema R60.0 [facility] [id number] [place] [address] 09068- 2476 Aug, [facility] [id number] [place] [address] 18927- 9036 Aug, Rheumatoid arthritis with positive rheumatoid factor, involving unspecified site M05.9 ; Raynauds disease without gangrene I73.00 ; 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 and Hepatitis C B19.20 [place] [id number] [place] [address] 90855- 3372 Aug, Peripheral polyneuropathy G62.9 and Essential hypertension I10 [facility] [id number] [place] [address] 92479- 2013 Jul, Essential hypertension I10 [facility] [id number] [place] [address] 56924 -0920 Jun, [facility] [id number] [place] [address] 20479- 9544 Jun, [facility] [id number] [place] [address] 84050- 5627 May, Peripheral polyneuropathy G62.9 [facility] [id number] [place] [address] 40259- 0991 May, Essential hypertension I10 ; Chest discomfort R07.89 ; Peripheral vascular disease I73.9 and Rheumatoid arthritis with positive rheumatoid factor, involving unspecified site M05.9 [facility] [id number] [place] [address] 32973- 4527 May, Essential hypertension I10 ; Peripheral vascular disease I73.9 ; Rheumatoid arthritis with positive rheumatoid factor, involving unspecified site M05.9 and Chest discomfort R07.89 [facility] [id number] [place] [address] 64343 -1563 Mar, Peripheral vascular disease I73.9 [facility] [id number] [place] [address] 82746- 3780 Mar, Essential hypertension I10 ; Rheumatoid arthritis with positive rheumatoid factor, involving unspecified site M05.9 ; Peripheral polyneuropathy G62.9 and 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 [place] [address] [address] Feb, Cellulitis of right lower extremity L03.115 [place] [id number] [place] [address] 74911- 7065 Feb, [facility] [address] [address] -[address] Feb, Cellulitis of right lower extremity L03.115 and Cellulitis of left lower limb L03.116 [place] [address] 60846- 3329 Feb, Essential hypertension I10 [place] [id number] [place] [address] 79358- 7049 October, [place] [id number] [place] [address] 69363- 8583 October, Rheumatoid arthritis with positive rheumatoid factor, involving unspecified site M05.9 [place] [id number] [place] [address] 91086- 1948 October, [facility] [id number] [place] [address] 78103 -1309 Sep, Cellulitis of left leg L03.116 [place] [id number] [place] [address] 86872- 0348 Sep, [facility] [id number] [place] [address] 41957- 9086 Aug, [facility] [id number] [place] [address] 29986- 4172 Aug, [place] [id number] [place] [address] 08709- 5650 Aug, Peripheral polyneuropathy G62.9 ; Essential hypertension I10 ; Raynauds disease without gangrene I73.00 ; Rheumatoid arthritis with positive rheumatoid factor, involving unspecified site M05.9 and Allergic rhinitis, unspecified allergic rhinitis trigger, unspecified rhinitis seasonality J30.9 [place] [id number] [place] [address] 32176- 0268 Jul, [place] [id number] [place] [address] 84704- 8672 May, Peripheral polyneuropathy G62.9 ; Essential hypertension I10 ; Raynauds disease without gangrene I73.00 and Rheumatoid arthritis with positive rheumatoid factor, involving unspecified site M05.9 [place] [id number] [place] [address] 82796- 5794 Feb, Essential hypertension I10 and Numbness in feet R20.0 [facility] [id number] [place] [address] 82522 -4526 Nov, Rash R21 [facility] [id number] [place] [address] 00530- 7400 Aug, Essential hypertension I10 ; 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 ; Numbness in feet R20.0 ; Hepatitis C B19.20 and Left shoulder pain M25.512 [place] [id number] [place] [address] 64711- 3819 Jun, Essential hypertension I10 ; Hepatitis C B19.20 ; Numbness in feet R20.0 and 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 [place] [id number] [place] [address] 66516- 4821 May, Essential hypertension I10 ; 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 ; Numbness in feet R20.0 ; Hepatitis C B19.20 and Left shoulder pain M25.512 [facility] [address], [place] [address]36 14 Sep, 2014 [facility] [address], [place] [address] 6552 Sep, [facility] [id number], [place] [address] 5268 May, [facility] [address] [address] May, [facility] [id number] [place] [address] 801148- 5665 Apr, [facility] [address] Apr, [facility] [address], [place] [address] 0440 Mar, [facility] [address] 7[address] Mar, [facility] [address], [place] [address]- 0880 Nov, [facility] [address], [place] [address] 2081 Nov, [facility] [address] 2958 October, [facility] [address] [address]201 October, [facility] [address], [place] [address]- 1093 Aug, [facility] [address], [place] [address]- 1648 Aug, [facility] [id number] [place] [address]- 1394 13 Aug, 2013 [facility] [address] [id number] [place] [address] 13 Aug, 2013 [facility] [place] [facility] [address] [id number] [place] [address]86 12 Aug, 2013 [facility] [address] [id number] [place] [address]- 7320 Aug, [facility] [place] [facility] [address] [id number] [place] [address]- 6797 Aug, [facility] [address] [id number] [place] 9576 Aug, [facility] [place] [facility] [address] [id number] [place] [address]- 1036 Apr, [facility] [address] [id number] [place] [address]- 1796 Apr, [facility] [address] [id number] [place] [address]- 7442 Mar, [facility] [place] [facility] [address] [id number] [place] [address]- 9230 Mar, [facility] [address] [facility] [id number] [place] [address]- 5501 Mar, [facility] [place] [facility] [address] [id number] [place] [id number] Feb, [facility] [place] [facility] [address] [id number] [place] [address]- 2224 17 Feb, 2013 [facility] [place] [facility] [address] [id number] [place] [address]- 7950 16 Feb, 2013 [facility] [place] [facility] [address] [id number] [place] [address]- 2966 Jan, [facility] [place] [facility] [address] [id number] [place] [address]- 2017 Jan, [facility] [place] [facility] [address] [id number] [place] [address]- 1484 Jan, [facility] [address] [id number] [place] [address]- 9460 Jan, [facility] [address] [id number] [place] [address]- 1309 Nov, [facility] [address] [id number] [place] [address]- 6058 Nov, [facility] [address] [id number] [place] [address]- 4841 Nov, [facility] [address] [id number] [place] [address]- 8302 October, [facility] [address] [id number] [place] [address]- 8607 October, [facility] [address] [id number] [place] [address]- 4210 October, [facility] [address] [id number] [place] [address]- 1560 October, [facility] [address] [id number] [place] [address]- 0255 October, [facility] [address] [id number] [place] [address]- 5350 October, [facility] [address] [id number] [place] [address]- 0948 October, [facility] [address] [id number] [place] [address]- 9100 October, [facility] [address] [id number] [place] [address]- 0367 Sep, [facility] [address] [id number] [place] [address]- 5448 Sep, [facility] [address] [id number] [place] [address]- 2546 15 Sep, 2012 [facility] [address] [id number] [place] [address]- 8318 11 Sep, 2012 [facility] [place] [facility] [address] [id number] [place] [address]- 6599 11 Sep, 2012 [facility] [place] [facility] [address] [id number] [place] [address]- 9817 22 Aug, 2012 [facility] [place] [facility] [address] [id number] [place] [address]- 3937 14 Aug, 2012 [facility] [place] [facility] [address] [id number] [place] [address]- 2598 13 Aug, 2012 [facility] [place] [facility] [address] [id number] [place] [address]- 2142 08 Aug, 2012 [facility] [place] [facility] [address] [id number] [place] [address]- 4383 06 Aug, 2012 [facility] [place] [facility] [address] [id number] [place] [address]- 3191 05 Aug, 2012 [facility] [place] [facility] [address] [id number] [place] [address]- 3411 04 Aug, 2012 [facility] [place] [facility] [address] [id number] [place] [address]- 9290 04 Aug, 2012 [facility] [place] [facility] [address] [id number] [place] [address]- 5357 May, [facility] [place] [facility] [address] [id number] [place] [address]- 8095 May, [facility] [place] [facility] [address] [id number] [place] [address]- 5492 Apr, [facility] [place] [facility] [address] [id number] [place] [address]- 1597 Apr, [facility] [place] [facility] [address] [id number] [place] [address]- 2781 Apr, [facility] [place] [facility] [address] [id number] [place] [address]- 2110 16 Apr, 2012 [facility] [place] [facility] [address] [id number] [place] [address]- 7955 16 Apr, 2012 [facility] [place] [facility] [address] [id number] [place] [address]- 6863 14 Apr, 2012 [facility] [place] [facility] [address] [id number] [place] [address]- 0515 Apr, [facility] [place] [facility] [address] [id number] [place] [address]- 5206 Apr, [facility] [place] [facility] [address] [id number] [place] [address]- 6471 Apr, [facility] [place] [facility] [address] [id number] [place] [address]- 1802 Apr, [facility] [place] [facility] [address] [id number] [place] [address]- 6845 Apr, [facility] [place] [facility] [address] [id number] [place] [address]- 0538 Apr, [facility] [place] [facility] [address] [id number] [place] [address]- 0018 Mar, [facility] [place] [facility] [address] [id number] [place] [address]- 5239 Mar, [facility] [place] [facility] [address] [id number] [place] [address]- 0021 Feb, [facility] [place] [facility] [address] [id number] [place] [address]- 7240 Nov, [facility] [place] [facility] [address] [id number] [place] [address]- 7323 Nov, [facility] [place] [facility] [address] [id number] [place] [address]- 4615 October, [facility] [place] [facility] [address] [id number] [place] [address]- 2341 October, [facility] [address] [facility] [id number] [address]- 3166 October, [facility] [address] [facility] [id number], [place] [address]- 5416 October, [facility] [address] [facility] [id number], [place] [address]- 1204 Sep, [facility] [address] [facility] [id number], [place] [address]- 4206 Sep, [facility] [address] [facility] [id number], [place] [address]- 4630 Sep, [facility] [address] [facility] [id number], [place] [address]- 2446 Sep, IMMUNIZATIONS No Known Immunizations SOCIAL HISTORY Never Assessed REASON FOR VISIT Swelling in bilat feet and ankles x 3 days, states goes down slightly as day goes on, worse in mornings todd fu, Would like to discuss increasing neurontin PLAN OF CARE Activity Details Follow Up prn Reason: VITAL SIGNS Height 64 in 2017-12-21 Weight 156.9 lbs 2017-12-21 Temperature 98.1 degrees Fahrenheit 2017-12-21 Heart Rate 92 bpm 2017-12-21 Respiratory Rate 20 2017-12-21 BMI 26.93 kg/m2 2017-12-21 Blood pressure systolic 134 mmHg 2017-12-21 Blood pressure diastolic 80 mmHg 2017-12-21 MEDICATIONS Medication Instructions Dosage Frequency Start Date End Date Duration Status Losartan Potassium 50 MG Orally twice daily 1 tablet Active Fish Oil Concentrate 1000 mg 1 Capsule by Oral route 1 time per day Mar, Active Gabapentin 100 mg Orally 2 times a day 1 capsule 12h 07 Aug, 2016 Active Methotrexate 2.5 MG Orally once weekly 4 tablets 90 days Active PredniSONE 20 mg Orally Once a day 2 tablets 24h Nov, Nov, 05 days Active Vitamin D 1000 UNIT Orally Once a day 1 tablet 24h Active Potassium Chloride Aubree ER 10 MEQ TAKE ONE TABLET BY MOUTH ONCE DAILY 30 Active Hydrochlorothiazide 25 mg oral daily 1 tablet by Oral route 1 time per day 24h Active Celebrex 200 MG TAKE ONE CAPSULE BY MOUTH ONCE DAILY 30 Active Folic Acid 1 MG Orally Once [...]
--- OUTSIDE RECORDS SUMMARY | 2018-07-08 19:17 | XMS REPORT ---
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 531177239 Problem Raynauds disease without gangrene I73.00 Active 451730309 Problem Hepatitis C B19.20 Active 65789867 Problem Allergic rhinitis, unspecified allergic rhinitis trigger, unspecified rhinitis seasonality J30.9 Active 77609667 Problem Peripheral polyneuropathy G62.9 Active 25818213 ALLERGIES No Information ENCOUNTERS Encounter Location Date Diagnosis [place] [address] [address] Jan, [place] [address] [place] [id number] [place] [address]472- 3086 Dec, Rheumatoid arthritis with positive rheumatoid factor, involving unspecified site M05.9 [place] [address] [place] [id number] [place] [address] 95179- 1335 Nov, Pain in joint involving right ankle and foot M25.571 [place] [address] [place] [id number] [place] [address] 63140- 1042 Sep, Essential hypertension I10 ; Rheumatoid arthritis with positive rheumatoid factor, involving unspecified site M05.9 and 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 [place] [address] [place] [id number] [place] [address] 04445- 9948 Sep, [place] [address] [place] [id number] [place] [address] 83813- 9066 Sep, [place] [address] [address]- [address] Aug, Essential hypertension I10 ; Acute midline low back pain, with sciatica presence unspecified M54.5 and Localized edema R60.0 [place] [address] 7[address]98- 0357 Aug, [facility] [address] [address]- [address]89 Aug, Rheumatoid arthritis with positive rheumatoid factor, involving unspecified site M05.9 ; Raynauds disease without gangrene I73.00 ; 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 and Hepatitis C B19.20 [place] [address] [place] [id number] [place] [address] 12587- 0615 Aug, Peripheral polyneuropathy G62.9 and Essential hypertension I10 [place] [address] [place] [id number] [place] [address] 37863- 7694 Jul, Essential hypertension I10 [facility] IN [facility] [address] [place] [id number] [place] [address] 42405 -4635 Jun, [facility] [address] [place] [id number] [place] [address] 09058- 2077 Jun, [place] [address] [place] [id number] [place] [address] 27757- 2893 May, Peripheral polyneuropathy G62.9 [place] [address] [place] [id number] [place] [address] 19435- 3266 May, Essential hypertension I10 ; Chest discomfort R07.89 ; Peripheral vascular disease I73.9 and Rheumatoid arthritis with positive rheumatoid factor, involving unspecified site M05.9 [facility] [address] [place] [id number] [place] [address] 99131- 1147 May, Essential hypertension I10 ; Peripheral vascular disease I73.9 ; Rheumatoid arthritis with positive rheumatoid factor, involving unspecified site M05.9 and Chest discomfort R07.89 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 [address] [place] [id number] [place] [address] 71733 -0505 Feb, Cellulitis of right lower extremity L03.115 and Cellulitis of left lower limb L03.116 [facility] [address] [place] [id number] [place] [address] 86986- 6167 Feb, Essential hypertension I10 [place] [address] [place] [id number] [place] [address] 78359- 1493 October, [facility] [address] [place] [id number] [place] [address] 08534- 0551 October, Rheumatoid arthritis with positive rheumatoid factor, involving unspecified site M05.9 [facility] [address] [place] [id number] [place] [address] 74599- 6885 October, [facility] [address] [place] [id number] [place] [address] 39043 -5561 Sep, Cellulitis of left leg L03.116 [facility] [address] [place] [id number] [place] [address] 68040- 6433 Sep, [place] [address] [place] [id number] [place] [address] 35003- 1845 Aug, [place] [id number] [place] [address] 92924- 4108 Aug, [place] [address] [place] [id number] [place] [address] 75980- 1471 Aug, Peripheral polyneuropathy G62.9 ; Essential hypertension I10 ; Raynauds disease without gangrene I73.00 ; Rheumatoid arthritis with positive rheumatoid factor, involving unspecified site M05.9 and Allergic rhinitis, unspecified allergic rhinitis trigger, unspecified rhinitis seasonality J30.9 [place] [address] [place] [id number] [place] [address] 64963- 0543 Jul, [place] [address] [place] [id number] [place] [address] 94082- 3363 May, Peripheral polyneuropathy G62.9 ; Essential hypertension I10 ; Raynauds disease without gangrene I73.00 and Rheumatoid arthritis with positive rheumatoid factor, involving unspecified site M05.9 [place] [address] [place] [id number] [place] [address] 45631- 8508 Feb, Essential hypertension I10 and Numbness in feet R20.0 [facility] [address] [place] [id number] [place] [address] 81457 -9753 Nov, Rash R21 [place] [address] [place] [id number] [place] [address] 95894- 7378 Aug, Essential hypertension I10 ; 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 ; Numbness in feet R20.0 ; Hepatitis C B19.20 and Left shoulder pain M25.512 [place] [address] [place] [address] 38870- 2923 Jun, Essential hypertension I10 ; Hepatitis C B19.20 ; Numbness in feet R20.0 and 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 [place] [address] [place] [address] 75604- 1370 May, Essential hypertension I10 ; 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 ; Numbness in feet R20.0 ; Hepatitis C B19.20 and Left shoulder pain M25.512 [facility] [address] [id number] [place] [address]- 4879 14 Sep, 2014 [facility] [address] [id number] [address]- 0723 Sep, [facility] [address] [facility] [id number] [place] [address]- 6549 May, [facility] [address] [id number] [address]- 4410 May, [facility] [address] [id number] [place] [address]- 7388 Apr, [facility] [address] [facility] [id number], [place] [address]- 1475 Apr, [facility] [address] [id number] [address]- 3640 Mar, [facility] [address] [id number], [place] [address]- 5215 Mar, [facility] [address] [id number][place] [address]- 3042 Nov, [facility] [address] [facility] [id number] [address]- [address] Nov, [facility] [address] [id number], [place] [address]- 3528 October, [facility] [address] [id number], [place] [address]- 6198 October, [facility] [address] [id number] [address]- 1187 Aug, [facility] [place] [facility] [address] [facility] [id number], [place] [address]- 0956 Aug, [facility] [address] [facility] [id number], [place] [address]- 2553 Aug, [facility] [place] [facility] [address] [id number] [place] [address]- 4656 13 Aug, 2013 [facility] [place] [facility] [address] [id number] [place] [address]- 1664 Aug, [facility] [place] [facility] [address] [id number] [place] [address]- 3426 Aug, [facility] [place] [facility] [address] [id number] [place] [address]- 9481 Aug, [facility] [place] [facility] [address] [id number] [place] [address]- 5242 Aug, [facility] [place] [facility] [address] [id number] [place] [address]- 2630 Apr, [facility] [place] [facility] [address] [id number] [place] [address]- 3098 Apr, [facility] [place] [facility] [address] [id number] [place] [address]- 2474 Mar, [facility] [address] [id number] [place] [address]- 9680 Mar, [facility] [place] [facility] [address] [id number] [place] [address]- 5257 Mar, [facility] [address] [id number] [place] [id number] Feb, [facility] [place] [facility] [address] [id number] [place] [address]- 4268 17 Feb, 2013 [facility] [place] [facility] [address] [id number] [place] [address]- 8663 16 Feb, 2013 [facility] [place] [facility] [address] [id number] [place] [address]- 8486 Jan, [facility] [place] [facility] [address] [id number] [place] [address]- 0706 Jan, [facility] [place] [facility] [address] [id number] [place] [address]- 6905 Jan, [facility] [address] [id number] [place] [address]- 8142 Jan, [facility] [address] [id number] [place] [address]- 0000 Nov, [facility] [place] [facility] [address] [id number] [place] [address]- 2856 Nov, [facility] [place] [facility] [address] [id number] [place] [address]- 6898 Nov, [facility] [address] [id number] [place] [address]- 5239 October, [facility] [place] [facility] [address] [id number] [place] [address]- 4241 October, [facility] [address] [id number] [place] [address]- 1592 October, [facility] [address] [id number] [place] [address]- 5867 October, [facility] [address] [id number] [place] [address]- 8681 October, [facility] [address] [id number] [place] [address]- 1619 October, [facility] [place] [facility] [address] [id number] [place] [address]- 8948 October, [facility] [place] [facility] [address] [id number] [place] [address]- 0294 October, [facility] [place] [facility] [address] [id number] [place] [address]- 2069 Sep, [facility] [place] [facility] [address] [id number] [place] [address]- 9017 Sep, [facility] [place] [facility] [address] [id number] [place] [address]- 1020 Sep, [facility] [place] [facility] [address] [id number] [place] [address]- 5678 11 Sep, 2012 [facility] [address] [id number] [place] [address]- 5367 11 Sep, 2012 [facility] [place] [facility] [address] [id number] [place] [address]- 3065 22 Aug, 2012 [facility] [address] [id number] [place] [address]- 4401 14 Aug, 2012 [facility] [place] [facility] [address] [id number] [place] [address]- 1079 13 Aug, 2012 [facility] [address] [id number] [place] [address]- 3112 08 Aug, 2012 [facility] [place] [facility] [address] [id number] [place] [address]- 0609 06 Aug, 2012 [facility] [address] [facility] [id number] [place] [address]- 7632 05 Aug, 2012 [facility] [place] [facility] [address] [id number] [place] [address]- 9005 04 Aug, 2012 [facility] [address] [id number] [place] [address]- 5159 04 Aug, 2012 [facility] [place] [facility] [address] [facility] [id number] [place] [address]- 1812 May, [facility] [address] [id number] [place] [address]- 1574 07 May, 2012 [facility] [place] [facility] [address] [id number] [place] [address]- 8121 27 Apr, 2012 [facility] [place] [facility] [address] [id number] [place] [address]- 4863 20 Apr, 2012 [facility] [place] [facility] [address] [id number] [place] [address]- 1007 20 Apr, 2012 [facility] [place] [facility] [address] [facility] [id number] [place] [address]- 1742 16 Apr, 2012 [facility] [place] [facility] [address] [id number] [place] [address]- 5027 16 Apr, 2012 [facility] [place] [facility] [address] [id number] [place] [address]- 2184 14 Apr, 2012 [facility] [place] [facility] [address] [id number] [place] [address]- 4906 Apr, [facility] [place] [facility] [address] [id number] [place] [address]- 7862 Apr, [facility] [place] [facility] [address] [id number] [place] [address]- 0738 Apr, [facility] [place] [facility] [address] [id number] [place] [address]- 8451 Apr, [facility] [place] [facility] [address] [id number] [place] [address]- 1703 Apr, [facility] [place] [facility] [address] [id number] [place] [address]- 9749 Apr, [facility] [place] [facility] [address] [id number] [place] [address]- 2549 Mar, [facility] [place] [facility] [address] [id number] [place] [address]- 6914 Mar, [facility] [place] [facility] [address] [facility] [id number] [place] [address]- 3003 Feb, [facility] [place] [facility] [address] [id number] [place] [address]- 0757 Nov, [facility] [place] [facility] [address] [id number] [place] [address]- 4996 Nov, [facility] [place] [facility] [address] [id number] [place] [address]- 1262 October, [facility] [place] [facility] [address] [id number] [place] [address]- 3156 October, [facility] [place] [facility] [address] [id number] [place] [address]- 2284 October, [facility] [address] [facility] [id number], [place] [address]- 5532 October, [facility] [address] [id number], [place] [address]- 9341 Sep, [facility] [address] [facility] [id number], [place] [address]- 3146 Sep, [facility] [address] [place] [id number], [place] [address]- 0046 Sep, [facility] [address] [facility] [id number] [address]303 Sep, IMMUNIZATIONS No Known Immunizations SOCIAL HISTORY Never Assessed REASON FOR VISIT eye exam PLAN OF CARE VITAL SIGNS MEDICATIONS Unknown [...]
--- OUTSIDE RECORDS SUMMARY | 2018-07-08 19:17 | XMS REPORT ---
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 937850264 Problem Raynauds disease without gangrene I73.00 Active 527992396 Problem Hepatitis C B19.20 Active 84266558 Problem Allergic rhinitis, unspecified allergic rhinitis trigger, unspecified rhinitis seasonality J30.9 Active 28776117 Problem Peripheral polyneuropathy G62.9 Active 33326959 ALLERGIES No Information ENCOUNTERS Encounter Location Date Diagnosis [place] [id number] [place] [address] 10359- 7976 Jan, [place] [id number] [place] [address] 69455- 8343 Dec, Rheumatoid arthritis with positive rheumatoid factor, involving unspecified site M05.9 [place] [id number] [place] [address] 06855- 6029 Nov, Pain in joint involving right ankle and foot M25.571 [place] [id number] [place] [address] 26995- 6070 Sep, Essential hypertension I10 ; Rheumatoid arthritis with positive rheumatoid factor, involving unspecified site M05.9 and 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 [place] [id number] [place] [address] 16769- 6906 Sep, [place] [id number] [place] [address] 9649 Sep, [facility] [id number] [place] [address] 14163- 7690 Aug, Essential hypertension I10 ; Acute midline low back pain, with sciatica presence unspecified M54.5 and Localized edema R60.0 [facility] [id number] [place] [address] 64617- 0050 Aug, [facility] [address] 23555- 4947 Aug, Rheumatoid arthritis with positive rheumatoid factor, involving unspecified site M05.9 ; Raynauds disease without gangrene I73.00 ; 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 and Hepatitis C B19.20 [place] [id number] [place] [address] 74642- 4371 Aug, Peripheral polyneuropathy G62.9 and Essential hypertension I10 [place] [id number] [place] [address] 53695- 8480 Jul, Essential hypertension I10 [facility] [id number] [place] [address] 01400 -5268 Jun, [facility] [id number] [place] [address] 20085- 9724 Jun, [place] [id number] [place] [address] 98979- 6123 May, Peripheral polyneuropathy G62.9 [facility] [id number] [place] [address] 97991- 1406 May, Essential hypertension I10 ; Chest discomfort R07.89 ; Peripheral vascular disease I73.9 and Rheumatoid arthritis with positive rheumatoid factor, involving unspecified site M05.9 [facility] [id number] [place] [address] 37169- 1557 May, Essential hypertension I10 ; Peripheral vascular disease I73.9 ; Rheumatoid arthritis with positive rheumatoid factor, involving unspecified site M05.9 and Chest discomfort R07.89 [facility] [id number] [place] [address] 19226 -6820 Mar, Peripheral vascular disease I73.9 [facility] [id number] [place] [address] 87946- 6190 Mar, Essential hypertension I10 ; Rheumatoid arthritis with positive rheumatoid factor, involving unspecified site M05.9 ; Peripheral polyneuropathy G62.9 and 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 [facility] [id number] [place] [address] 26971- 8414 Feb, Cellulitis of right lower extremity L03.115 [place] [id number] [place] [address] 17388- 0706 Feb, [facility] [id number] [place] [address] 03392 -9719 Feb, Cellulitis of right lower extremity L03.115 and Cellulitis of left lower limb L03.116 [place] [id number] [place] [address] 50145- 2022 Feb, Essential hypertension I10 [place] [id number] [place] [address] 11333- 6958 October, [place] [id number] [place] [address] 81227- 2722 October, Rheumatoid arthritis with positive rheumatoid factor, involving unspecified site M05.9 [facility] [id number] [place] [address] 95027- 7220 October, [facility] [id number] [place] [address] 19223 -2193 Sep, Cellulitis of left leg L03.116 [facility] [id number] [place] [address] 87706- 0880 Sep, [place] [id number] [place] [address] 09139- 8168 Aug, [place] [id number] [place] [address] 65964- 6914 Aug, [place] [id number] [place] [address] 37229- 8789 Aug, Peripheral polyneuropathy G62.9 ; Essential hypertension I10 ; Raynauds disease without gangrene I73.00 ; Rheumatoid arthritis with positive rheumatoid factor, involving unspecified site M05.9 and Allergic rhinitis, unspecified allergic rhinitis trigger, unspecified rhinitis seasonality J30.9 [place] [id number] [place] [address] 93409- 6006 Jul, [place] [address] 63611- 2545 May, Peripheral polyneuropathy G62.9 ; Essential hypertension I10 ; Raynauds disease without gangrene I73.00 and Rheumatoid arthritis with positive rheumatoid factor, involving unspecified site M05.9 [place] [id number] [place] [address] 55417- 6209 Feb, Essential hypertension I10 and Numbness in feet R20.0 [place] [id number] [place] [address] 73718 -9087 Nov, Rash R21 [place] [address] 93507- 1921 10 Aug, 2015 Essential hypertension I10 ; 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 ; Numbness in feet R20.0 ; Hepatitis C B19.20 and Left shoulder pain M25.512 [place] [id number] [place] [address] 27518- 7858 Jun, Essential hypertension I10 ; Hepatitis C B19.20 ; Numbness in feet R20.0 and 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 [place] [id number] [place] [address] 33343- 1589 30 May, 2015 Essential hypertension I10 ; 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 ; Numbness in feet R20.0 ; Hepatitis C B19.20 and Left shoulder pain M25.512 [facility] [address] [id number] [place] [address]- 1543 14 Sep, 2014 [facility] [address] [id number] [place] [address]- 2728 Sep, [facility] [address] [facility] [id number] [place] 7053 May, [facility] [place] [facility] [address] [id number] [place] 5929 May, [facility] [address] [id number] [place] 5847 Apr, [facility] [address] [id number] [place] 8465 Apr, [facility] [address] [facility] [id number] [place] [address]- 6329 Mar, [facility] [place] [facility] [address] [id number] [place] [address]- 6490 Mar, [facility] [address] [id number] [place] [address]- 8894 Nov, [facility] [place] [facility] [address] [facility] [id number] [place] [address]- 3522 Nov, [facility] [place] [facility] [address] [id number] [place] [address]- 9700 October, [facility] [place] [facility] [address] [id number] [place] [address]- 3114 October, [facility] [place] [facility] [address] [id number] [place] [address]- 9726 Aug, [facility] [place] [facility] [address] [id number] [place] 5786 Aug, [facility] [place] [facility] [address] [facility] [id number] [place] [address]- 4570 Aug, [facility] [place] [facility] [address] [id number] [place] [address]- 2152 13 Aug, 2013 [facility] [place] [facility] [address] [id number] [place] [address]- 9276 Aug, [facility] [place] [facility] [address] [id number] [place] [address]- 7378 Aug, [facility] [place] [facility] [address] [id number] [place] [address]- 5508 Aug, [facility] [place] [facility] [address] [id number] [place] [address]- 8075 Aug, [facility] [place] [facility] [address] [id number] [place] [address]- 0930 Apr, [facility] [place] [facility] [address] [id number] [place] [address]- 3308 Apr, [facility] [place] [facility] [address] [id number] [place] [address]- 5445 Mar, [facility] [place] [facility] [address] [id number] [place] [address]- 4772 Mar, [facility] [place] [facility] [address] [id number] [place] [address]- 4239 Mar, [facility] [place] [facility] [address] [facility] [id number] [place] [id number] Feb, [facility] [place] [facility] [address] [id number] [place] [address]- 3557 17 Feb, 2013 [facility] [place] [facility] [address] [id number] [place] [address]- 2924 16 Feb, 2013 [facility] [place] [facility] [address] [id number] [place] [address]- 6453 Jan, [facility] [place] [facility] [address] [id number] [place] [address]- 6151 Jan, [facility] [place] [facility] [address] [id number] [place] [address]- 4909 Jan, [facility] [place] [facility] [address] [id number] [place] [address]- 1854 Jan, [facility] [address] [id number] [place] [address]- 5321 Nov, [facility] [address] [id number] [place] [address]- 5897 Nov, [facility] [address] [id number] [place] [address]- 8174 Nov, [facility] [address] [id number] [place] [address]- 7735 October, [facility] [address] [id number] [place] [address]- 3399 October, [facility] [address] [id number] [place] [address]- 7941 October, [facility] [address] [id number] [place] [address]- 2724 October, [facility] [address] [id number] [place] [address]- 9354 October, [facility] [address] [id number] [place] [address]- 9379 October, [facility] [address] [id number] [place] [address]- 6543 October, [facility] [address] [id number] [place] [address]- 7705 October, [facility] [address] [id number] [place] [address]- 6790 Sep, [facility] [place] [facility] [address] [id number] [place] [address]- 0107 Sep, [facility] [address] [id number] [place] [address]- 6901 15 Sep, 2012 [facility] [address] [id number] [place] [address]- 4782 11 Sep, 2012 [facility] [place] [facility] [address] [id number] [place] [address]- 1606 11 Sep, 2012 [facility] [place] [facility] [address] [id number] [place] [address]- 3353 22 Aug, 2012 [facility] [place] [facility] [address] [id number] [place] [address]- 3671 14 Aug, 2012 [facility] [place] [facility] [address] [id number] [place] [address]- 2660 13 Aug, 2012 [facility] [place] [facility] [address] [id number] [place] [address]- 2535 08 Aug, 2012 [facility] [place] [facility] [address] [id number] [place] [address]- 5484 06 Aug, 2012 [facility] [place] [facility] [address] [id number] [place] [address]- 4121 05 Aug, 2012 [facility] [place] [facility] [address] [id number] [place] [address]- 6531 04 Aug, 2012 [facility] [place] [facility] [address] [id number] [place] [address]- 7495 04 Aug, 2012 [facility] [place] [facility] [address] [id number] [place] [address]- 4995 May, [facility] [place] [facility] [address] [id number] [place] [address]- 9123 May, [facility] [place] [facility] [address] [id number] [place] [address]- 0173 27 Apr, 2012 [facility] [place] [facility] [address] [id number] [place] [address]- 8569 Apr, [facility] [place] [facility] [address] [id number] [place] [address]- 8120 Apr, [facility] [place] [facility] [address] [id number] [place] [address]- 2568 16 Apr, 2012 [facility] [place] [facility] [address] [id number] [place] [address]- 7632 16 Apr, 2012 [facility] [address] [id number] [place] [address]- 8993 14 Apr, 2012 [facility] [place] [facility] [address] [id number] [place] [address]- 8601 Apr, [facility] [place] [facility] [address] [id number] [place] [address]- 3590 Apr, [facility] [place] [facility] [address] [id number] [place] [address]- 4900 Apr, [facility] [place] [facility] [address] [id number] [place] [address]- 8458 Apr, [facility] [place] [facility] [address] [id number] [place] [address]- 2864 Apr, [facility] [place] [facility] [address] [id number] [place] [address]- 6264 Apr, [facility] [place] [facility] [address] [id number] [place] [address]- 4537 Mar, [facility] [place] [facility] [address] [id number] [place] [address]- 9002 Mar, [facility] [place] [facility] [address] [facility] [id number] [place] [address]- 6595 Feb, [facility] [place] [facility] [address] [id number] [place] [address]- 9852 Nov, [facility] [place] [facility] [address] [id number] [place] [address]- 0405 Nov, [facility] [place] [facility] [address] [id number] [place] [address]- 8870 October, [facility] [place] [facility] [address] [id number] [place] [address]- 3777 October, [facility] [place] [facility] [address] [id number] [place] [address]- 6735 October, [facility] [address] [facility] [id number] [place] [address]- 6666 October, [facility] [address] [facility] [id number] [place] [address]- 0556 Sep, [facility] [address] [facility] [id number] [place] [address]- 9168 Sep, [facility] [address] [facility] [id number] [place] [address]- 0144 Sep, [facility] [address] [facility] [id number] [place] [address]- 1512 Sep, IMMUNIZATIONS No Known Immunizations SOCIAL HISTORY Never Assessed REASON FOR VISIT Brief PLAN OF CARE VITAL SIGNS MEDICATIONS Unknown Medications RESULTS No Results PROCEDURES Procedure Date Ordered Result Body Site Alcohol and/or drug services September 07, 2017 INSTRUCTIONS MEDICATIONS ADMINISTERED No Known Medications MEDICAL [...]
--- OUTSIDE RECORDS SUMMARY | 2018-07-08 19:17 | XMS REPORT ---
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 660376553 Problem Raynauds disease without gangrene I73.00 Active 886580821 Problem Hepatitis C B19.20 Active 54288972 Problem Allergic rhinitis, unspecified allergic rhinitis trigger, unspecified rhinitis seasonality J30.9 Active 35618239 Problem Peripheral polyneuropathy G62.9 Active 90790368 ALLERGIES Substance Reaction Event Type Date Status Indomethacin hives Drug Allergy Aug, Active Clindamycin HCl rash/swelling Drug Allergy Aug, Active Hydrocodone Failed UDS Non Drug Allergy Aug, Active Benzodiazepines Failed UDS Non Drug Allergy Aug, Active Amphetamine Failed UDS Non Drug Allergy Aug, Active ENCOUNTERS Encounter Location Date Diagnosis [facility] [id number], [place] [address] Jan, [facility] [id number], [place] [address] Dec, Rheumatoid arthritis with positive rheumatoid factor, involving unspecified site M05.9 [facility] [id number], [place] [address] Nov, Pain in joint involving right ankle and foot M25.571 [id number], [place] [address] Sep, Essential hypertension I10 ; Rheumatoid arthritis with positive rheumatoid factor, involving unspecified site M05.9 and 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 [facility] [id number] [place] [address] 13050- 8179 Sep, [facility] [id number] [place] [address] 42263- 9007 Sep, [facility] [id number] [place] [address] 14167- 9481 Aug, Essential hypertension I10 ; Acute midline low back pain, with sciatica presence unspecified M54.5 and Localized edema R60.0 [facility] [id number] [place] [address] 97611- 5131 Aug, [facility] [id number] [place] [address] 12287- 8013 Aug, Rheumatoid arthritis with positive rheumatoid factor, involving unspecified site M05.9 ; Raynauds disease without gangrene I73.00 ; 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 [id number] [place] [address] 59930 -9540 Jun, [facility] [id number] [place] [address] 28286- 4942 Jun, [facility] [id number] [place] [address] 66695- 4235 May, Peripheral polyneuropathy G62.9 [facility] [id number] [place] [address] 16986- 0188 May, Essential hypertension I10 ; Chest discomfort R07.89 ; Peripheral vascular disease I73.9 and Rheumatoid arthritis with positive rheumatoid factor, involving unspecified site M05.9 [facility] [address], [place] [address] 57[address] May, Essential hypertension I10 ; Peripheral vascular disease I73.9 ; Rheumatoid arthritis with positive rheumatoid factor, involving unspecified site M05.9 and Chest discomfort R07.89 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 [id number] [place] [address] 54262 -8747 Feb, Cellulitis of right lower extremity L03.115 and Cellulitis of left lower limb L03.116 [place] [id number], [place] [address] 0474 Feb, Essential hypertension I10 [place] [id number] [place] [address] 99707- 4725 October, [place] [id number] [place] [address] 42855- 5670 October, Rheumatoid arthritis with positive rheumatoid factor, involving unspecified site M05.9 [place] [id number] [place] [address] 33087- 6076 October, [facility] [id number] [place] [address] 44838 -1058 Sep, Cellulitis of left leg L03.116 [place] [address], [place] [address]- 7264 Sep, [place] [facility] [id number] [place] [address] 18188- 4097 Aug, [place] [id number] [place] [address] 28286- 8041 Aug, [place] [id number] [place] [address] 87733- 3890 Aug, Peripheral polyneuropathy G62.9 ; Essential hypertension I10 ; Raynauds disease without gangrene I73.00 ; Rheumatoid arthritis with positive rheumatoid factor, involving unspecified site M05.9 and Allergic rhinitis, unspecified allergic rhinitis trigger, unspecified rhinitis seasonality J30.9 [place] [id number] [place] [address] 13531- 1388 Jul, [place] [id number] [place] [address] 19686- 2559 May, Peripheral polyneuropathy G62.9 ; Essential hypertension I10 ; Raynauds disease without gangrene I73.00 and Rheumatoid arthritis with positive rheumatoid factor, involving unspecified site M05.9 [place] [id number] [place] [address] 07544- 7366 Feb, Essential hypertension I10 and Numbness in feet R20.0 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 [facility] [address], [place] [address]- 5077 30 May, 2015 Essential hypertension I10 ; 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 ; Numbness in feet R20.0 ; Hepatitis C B19.20 and Left shoulder pain M25.512 [facility] [address], [place] [address]- 4871 14 Sep, 2014 [facility] [address] [facility] [id number] [place] [address] 05025- 4084 Sep, [facility] [id number] [place] [address] 15661- 4943 May, [facility] [id number] [place] [address] 09661- 9551 May, [facility] [id number] [place] [address] 13771- 0510 Apr, [facility] [id number] [place] [address] 04749- 4014 Apr, [facility] [id number] [place] [address] 67966- 9010 Mar, [facility] [id number] [address]- 1173 Mar, [facility] [address], [place] [address]- 4939 Nov, [facility] [id number] [address]- 2551 Nov, [facility] [id number] [place] [address] 71307- 9469 October, [facility] [id number] [address] 5318 October, [facility] [address], [place] [address]- 5008 Aug, [facility] [place] [facility] [address] [facility] [id number] [place] [address]- 5329 13 Aug, 2013 [facility] [place] [facility] [address] [id number] [place] [address]- 5057 13 Aug, 2013 [facility] [place] [facility] [address] [id number] [place] [address]- 0798 13 Aug, 2013 [facility] [place] [facility] [address] [id number] [place] [address]- 0198 12 Aug, 2013 [facility] [place] [facility] [address] [id number] [place] [address]- 8625 12 Aug, 2013 [facility] [place] [facility] [address] [id number] [place] [address]49 12 Aug, 2013 [facility] [place] [facility] [address] [id number] [place] [address]- 1335 Aug, [facility] [place] [facility] [address] [id number] [place] [address]- 4878 Apr, [facility] [place] [facility] [address] [id number] [place] [address]- 5444 Apr, [facility] [place] [facility] [address] [id number] [place] [address]- 7564 Mar, [facility] [place] [facility] [address] [id number] [place] [address]- 4361 Mar, [facility] [place] [facility] [address] [id number] [place] [address]- 8816 18 Mar, 2013 [facility] [place] [facility] [address] [id number] [place] [id number] 25 Feb, 2013 [facility] [place] [facility] [address] [id number] [place] [address]- 6676 17 Feb, 2013 [facility] [place] [facility] [address] [id number] [place] [address]- 9086 16 Feb, 2013 [facility] [place] [facility] [address] [id number] [place] [address]145 Jan, [facility] [address] [id number] [place] [address]- 7913 Jan, [facility] [place] [facility] [address] [id number] [place] [address]- 0640 Jan, [facility] [place] [facility] [address] [id number] [place] [address]- 4996 Jan, [facility] [place] [facility] [address] [id number] [place] [address]- 9615 Nov, [facility] [place] [facility] [address] [id number] [place] [address]- 4504 Nov, [facility] [place] [facility] [address] [id number] [place] [address]- 5850 Nov, [facility] [place] [facility] [address] [id number] [place] [address]- 6452 October, [facility] [place] [facility] [address] [id number] [place] [address]- 7613 October, [facility] [place] [facility] [address] [id number] [place] [address]- 4806 October, [facility] [place] [facility] [address] [id number] [place] [address]- 8960 October, [facility] [place] [facility] [address] [id number] [place] [address]- 9795 October, [facility] [place] [facility] [address] [id number], [place] [address]- 5542 October, [facility] [place] [facility] [address] [id number] [place] [address]- 0693 October, [facility] [place] [facility] [address] [id number] [place] [address]- 0525 October, [facility] [place] [facility] [address] [id number] [place] [address]- 3990 Sep, [facility] [place] [facility] [address] [id number], [place] [address]- 0645 19 Sep, 2012 [facility] [address] [id number] [place] [address]- 1798 15 Sep, 2012 [facility] [address] [id number] [place] [address]- 4008 11 Sep, 2012 [facility] [address] [facility] [id number] [place] [address]- 9214 11 Sep, 2012 [facility] [address] [id number] [place] [address]- 7757 22 Aug, 2012 [facility] [address] [id number] [place] [address]- 2242 14 Aug, 2012 [facility] [address] [id number] [place] [address]- 9180 13 Aug, 2012 [facility] [address] [facility] [id number] [place] [address]- 9943 08 Aug, 2012 [facility] [address] [id number] [place] [address]- 2416 06 Aug, 2012 [facility] [address] [facility] [id number] [place] [address]- 4068 05 Aug, 2012 [facility] [address] [facility] [id number] [place] [address]- 0333 04 Aug, 2012 [facility] [address] [id number] [place] [address]- 5967 04 Aug, 2012 [facility] [address] [id number] [place] [address]- 0427 May, [facility] [address] [id number] [place] [address]- 5671 May, [facility] [address] [facility] [id number] [place] [address]- 3194 Apr, [facility] [address] [facility] [id number] [place] [address]- 1048 Apr, [facility] [place] [facility] [address] [id number] [place] [address]- 4670 Apr, [facility] [place] [facility] [address] [id number] [place] [address]- 3318 16 Apr, 2012 [facility] [place] [facility] [address] [id number] [place] [address]- 6101 16 Apr, 2012 [facility] [place] [facility] [address] [id number] [place] [address]- 6991 14 Apr, 2012 [facility] [place] [facility] [address] [id number] [place] [address]- 9273 Apr, [facility] [place] [facility] [address] [id number] [place] [address]- 1872 Apr, [facility] [place] [facility] [address] [id number] [place] [address]- 9977 Apr, [facility] [place] [facility] [address] [id number] [place] [address]- 8953 Apr, [facility] [place] [facility] [address] [id number] [place] [address]- 0281 Apr, [facility] [place] [facility] [address] [id number] [place] [address]- 5211 Apr, [facility] [place] [facility] [address] [id number] [place] [address]- 9020 Mar, [facility] [place] [facility] [address] [id number] [place] [address]- 8762 Mar, [facility] [place] [facility] [address] [id number] [place] [address]- 2881 Feb, [facility] [place] [facility] [address] [id number] [place] [address]- 1247 Nov, [facility] [place] [facility] [address] [id number] [place] [address]- 2104 Nov, [facility] [place] [facility] [address] [id number] [place] [address]- 6878 October, [facility] [address] [facility] [id number], [place] [address]- 7125 October, [facility] [address], [place] [address]- 9816 October, [facility] [id number], [place] [address]- 4016 October, [facility] [address], [place] [address]- 3008 Sep, [facility] [address], [place] [address]- 2335 Sep, [facility] [address], [place] [address]- 8385 Sep, [facility] [address], [place] [address]- 2913 Sep, IMMUNIZATIONS No Known Immunizations SOCIAL HISTORY Never Assessed REASON FOR VISIT Blood Pressure-Adair, States back has hurt since last week at work, 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 PLAN OF CARE Activity Details Follow Up 4 Weeks Reason:BP VITAL SIGNS Height 64 in 2017-09-15 Weight 157.1 lbs 2017-09-15 Temperature 97.6 degrees Fahrenheit 2017-09-15 Heart Rate 84 bpm 2017-09-15 Respiratory Rate 20 2017-09-15 BMI 26.96 kg/m2 2017-09-15 Blood pressure systolic 130 mmHg 2017-09-15 Blood pressure diastolic 78 mmHg 2017-09-15 MEDICATIONS Medication Instructions Dosage Frequency Start Date End Date Duration Status Cyclobenzaprine HCl 5 mg Orally at bedtime 1 tablet Aug,Aug 7 days Active Celebrex 200 mg Orally Once a day 1 capsule with food 24h May, 90 days Active Potassium Chloride Aubree ER 10 MEQ TAKE ONE TABLET BY MOUTH ONCE DAILY. Active Gabapentin 100 mg Orally at bedtime 1 capsule Aug, Active Fish Oil Concentrate 1000 mg 1 Capsule by Oral route 1 time per day Mar, Active Vitamin D 1000 UNIT Orally Once a day 1 tablet 24h Active Methotrexate 2.5 MG Orally once weekly 4 tablets 90 days Active Folic Acid 1 MG Orally Once a day 1 tablet 24h 90 Active Losartan Potassium 50 MG Orally twice daily 1 tablet 30 days Active Hydrochlorothiazide 25 mg oral daily 1 tablet by Oral route 1 time per day 24h Active RESULTS No Results PROCEDURES No Known [...]
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
--- OUTSIDE RECORDS SUMMARY | 2018-07-08 19:18 | XMS REPORT ---
Author Author MATTHIEU VALENZUELA Organization [facility] Address [address] 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 067064207 Problem Raynauds disease without gangrene I73.00 Active 658400130 Problem Hepatitis C B19.20 Active 11730052 Problem Allergic rhinitis, unspecified allergic rhinitis trigger, unspecified rhinitis seasonality J30.9 Active 45864653 Problem Peripheral polyneuropathy G62.9 Active 51735246 ALLERGIES Substance Reaction Event Type Date Status Indomethacin hives Drug Allergy Aug, Active Clindamycin HCl rash/swelling Drug Allergy Aug, Active Hydrocodone Failed UDS Non Drug Allergy Aug, Active Benzodiazepines Failed UDS Non Drug Allergy Aug, Active Amphetamine Failed UDS Non Drug Allergy Aug, Active ENCOUNTERS Encounter Location Date Diagnosis [facility] [id number], [place] [address] Nov, Pain in joint involving right ankle and foot M25.571 [facility] [id number], [place] [address] Sep, Essential hypertension I10 ; Rheumatoid arthritis with positive rheumatoid factor, involving unspecified site M05.9 and 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 [facility] [id number], [place] [address] 16 Sep, 2017 [facility] [id number], [place] [address] Sep, [place] [id number] [place] [address]- [address]708 Aug, Essential hypertension I10 ; Acute midline low back pain, with sciatica presence unspecified M54.5 and Localized edema R60.0 [place] [id number] [place] [address]8890- 1864 Aug, [place] [address] [address] Aug, Rheumatoid arthritis with positive rheumatoid factor, involving unspecified site M05.9 ; Raynauds disease without gangrene I73.00 ; 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 and Hepatitis C B19.20 [place] [id number] [place] [address]11- 8136 Aug, Peripheral polyneuropathy G62.9 and Essential hypertension I10 [place] [address] [address] Jul, Essential hypertension I10 [facility] [id number] [place] [address]33 -3803 Jun, [place] [id number] [place] [address] 09868- 0425 Jun, [place] [id number] [place] [address] 82135- 9574 May, Peripheral polyneuropathy G62.9 [place] [id number] [place] [address] 44851- 1086 May, Essential hypertension I10 ; Chest discomfort R07.89 ; Peripheral vascular disease I73.9 and Rheumatoid arthritis with positive rheumatoid factor, involving unspecified site M05.9 [place] [id number] [place] [address] 66616- 0438 May, Essential hypertension I10 ; Peripheral vascular disease I73.9 ; Rheumatoid arthritis with positive rheumatoid factor, involving unspecified site M05.9 and Chest discomfort R07.89 [facility] [address], [place] [address] Mar, Peripheral vascular disease I73.9 [facility] [id number] [place] [address] 54910- 6764 Mar, Essential hypertension I10 ; Rheumatoid arthritis with positive rheumatoid factor, involving unspecified site M05.9 ; Peripheral polyneuropathy G62.9 and 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 [facility] [id number] [place] [address] 05686- 1333 Feb, Cellulitis of right lower extremity L03.115 [place] [id number] [place] [address] 96638- 0344 Feb, [facility] [id number] [place] [address]9931 -[address]951 Feb, Cellulitis of right lower extremity L03.115 and Cellulitis of left lower limb L03.116 [place] [id number] [place] [address] 90558- 6145 Feb, Essential hypertension I10 [place] [id number] [place] [address] 29916- 9900 October, [place] [id number] [place] [address] 51738- 4315 October, Rheumatoid arthritis with positive rheumatoid factor, involving unspecified site M05.9 [facility] [id number] [place] [address] 29543- 1365 October, [facility] [id number] [place] [address] 25178 -9985 Sep, Cellulitis of left leg L03.116 [facility] [id number] [place] [address] 18139- 2470 Sep, [place] [id number] [place] [address] 96737- 4993 Aug, [facility] [id number] [place] [address] 30173- 6314 Aug, [place] [id number] [place] [address] 64754- 0193 Aug, Peripheral polyneuropathy G62.9 ; Essential hypertension I10 ; Raynauds disease without gangrene I73.00 ; Rheumatoid arthritis with positive rheumatoid factor, involving unspecified site M05.9 and Allergic rhinitis, unspecified allergic rhinitis trigger, unspecified rhinitis seasonality J30.9 [place] [id number] [place] [address] 75184- 8485 Jul, [place] [address] [address]- 3[address] May, Peripheral polyneuropathy G62.9 ; Essential hypertension I10 ; Raynauds disease without gangrene I73.00 and Rheumatoid arthritis with positive rheumatoid factor, involving unspecified site M05.9 [place] [id number] [place] [address] 23619- 0405 Feb, Essential hypertension I10 and Numbness in feet R20.0 [facility] [address] [place] [id number] [place] [address]3919 -[address]79 Nov, Rash R21 [place] [address] [address]- 9491 Aug, Essential hypertension I10 ; 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 ; Numbness in feet R20.0 ; Hepatitis C B19.20 and Left shoulder pain M25.512 [place] [id number] [place] [address] 64599- 0737 Jun, Essential hypertension I10 ; Hepatitis C B19.20 ; Numbness in feet R20.0 and 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 [place] [id number] [place] [address] 27088- 3103 30 May, 2015 Essential hypertension I10 ; 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 ; Numbness in feet R20.0 ; Hepatitis C B19.20 and Left shoulder pain M25.512 [place] [address] [facility] [id number] [place] [address]- 0928 14 Sep, 2014 [facility] [address] [id number] [place] [address]- 1721 13 Sep, 2014 [facility] [place] [facility] [address] [id number] [place] [address]- 1786 May, [facility] [place] [facility] [address] [id number] [place] [address]- 1516 May, [facility] [place] [facility] [address] [id number] [place] [address]- 9427 Apr, [facility] [place] [facility] [address] [id number] [place] [address]- 2698 Apr, [facility] [place] [facility] [address] [id number] [place] [address]- 2613 Mar, [facility] [place] [facility] [address] [id number] [place] [address]- 0304 Mar, [facility] [place] [facility] [address] [id number] [place] [address]- 6580 Nov, [facility] [place] [facility] [address] [id number] [place] [address]- 3443 Nov, [facility] [place] [facility] [address] [id number] [place] [address]- 5873 October, [facility] [place] [facility] [address] [id number] [place] [address]- 3243 October, [facility] [place] [facility] [address] [id number] [place] [address]- 4299 Aug, [facility] [place] [facility] [address] [id number] [place] [address]- 5628 Aug, [facility] [place] [facility] [address] [id number] [place] [address]- 4693 13 Aug, 2013 [facility] [place] [facility] [address] [id number] [place] [address]- 4881 Aug, [facility] [place] [facility] [address] [id number] [place] [address]- 2424 Aug, [facility] [place] [facility] [address] [id number] [place] [address]- 9324 Aug, [facility] [place] [facility] [address] [id number] [place] [address]- 8877 Aug, [facility] [place] [facility] [address] [id number] [place] [address]- 0918 Aug, [facility] [place] [facility] [address] [id number] [place] [address] Apr, [facility] [place] [facility] [address] [id number] [place] [address]- 7850 Apr, [facility] [place] [facility] [address] [id number] [place] [address]- 7512 Mar, [facility] [place] [facility] [address] [id number], [place] [address]- 9114 Mar, [facility] [place] [facility] [address] [id number] [place] [address]- 1899 Mar, [facility] [place] [facility] [address] [facility] [id number] [address] Feb, [facility] [place] [facility] [address] [id number], [place] [address]- 4834 17 Feb, 2013 [facility] [place] [facility] [address] [id number], [place] [address]- 0551 16 Feb, 2013 [facility] [place] [facility] [address] [id number], [place] [address]- 5175 Jan, [facility] [place] [facility] [address] [id number], [place] [address]- 5909 Jan, [facility] [place] [facility] [address] [id number] 0813 Jan, [facility] [place] [facility] [address] [id number], [place] [address]- 7888 Jan, [facility] [address] [id number] [place] [address]- 5951 Nov, [facility] [address] [id number] [place] [address]- 5823 Nov, [facility] [address] [id number] [place] [address]- 1030 Nov, [facility] [address] [id number] [place] [address]- 3403 October, [facility] [address] [id number] [place] [address]- 9008 October, [facility] [address] [id number] [place] [address]- 6392 October, [facility] [address] [id number] [place] [address]- 7818 October, [facility] [address] [id number] [place] [address]- 8117 October, [facility] [address] [id number] [place] [address]- 9083 October, [facility] [address] [id number] [place] [address]- 6389 October, [facility] [address] [id number] [place] [address]- 2476 October, [facility] [address] [id number] [place] [address]- 8139 Sep, [facility] [address] [id number] [place] [address]- 8717 19 Sep, 2012 [facility] [address] [id number] [place] [address]- 5547 15 Sep, 2012 [facility] [address] [id number] [place] [address]- 0459 Sep, [facility] [place] [facility] [address] [id number] [place] [address]- 9277 11 Sep, 2012 [facility] [place] [facility] [address] [id number] [place] [address]- 8918 22 Aug, 2012 [facility] [place] [facility] [address] [id number] [place] [address]- 4576 14 Aug, 2012 [facility] [place] [facility] [address] [id number] [place] [address]- 9036 13 Aug, 2012 [facility] [place] [facility] [address] [id number] [place] [address]- 2520 08 Aug, 2012 [facility] [place] [facility] [address] [id number] [place] [address]- 8069 06 Aug, 2012 [facility] [place] [facility] [address] [id number] [place] [address]- 4680 05 Aug, 2012 [facility] [place] [facility] [address] [id number] [place] [address]- 2369 04 Aug, 2012 [facility] [place] [facility] [address] [id number] [place] [address]- 3750 04 Aug, 2012 [facility] [place] [facility] [address] [id number] [place] [address]- 6307 07 May, 2012 [facility] [place] [facility] [address] [id number] [place] [address]- 1932 07 May, 2012 [facility] [place] [facility] [address] [id number] [place] [address]- 7245 27 Apr, 2012 [facility] [place] [facility] [address] [id number] [place] [address]- 2815 Apr, [facility] [place] [facility] [address] [id number] [place] [address]- 0194 20 Apr, 2012 [facility] [place] [facility] [address] [id number] [place] [address]- 2546 16 Apr, 2012 [facility] [place] [facility] [address] [id number] [place] [address]- 3598 Apr, [facility] [place] [facility] [address] [id number] [place] [address]- 2544 Apr, [facility] [place] [facility] [address] [id number] [place] [address]- 2187 Apr, [facility] [place] [facility] [address] [facility] [id number] [place] [address]- 4501 Apr, [facility] [place] [facility] [address] [id number] [place] [address]- 2222 Apr, [facility] [place] [facility] [address] [id number] [place] [address]- 9291 Apr, [facility] [place] [facility] [address] [id number] [place] [address]- 0484 Apr, [facility] [place] [facility] [address] [facility] [id number] [place] [address]- 8150 Apr, [facility] [place] [facility] [address] [id number] [place] [address]- 1091 Mar, [facility] [place] [facility] [address] [id number] [place] [address]- 6699 Mar, [facility] [place] [facility] [address] [facility] [id number] [place] [address]- 2981 Feb, [facility] [place] [facility] [address] [id number], [place] [address]- 6314 Nov, [facility] [place] [facility] [address] [id number], [place] [address]- 6860 Nov, [facility] [place] [facility] [address] [id number], [place] [address]- 0062 October, [facility] [place] [facility] [address] [facility] [id number], [place] [address]- 4811 October, [facility] [place] [facility] [address] [facility] [id number], [place] [address]- 5013 October, [facility] [place] [facility] [address] [facility] [id number] [place] [address]- 1330 October, [facility] [address] [facility] [id number], [place] [address]- 7480 Sep, [facility] [address] [facility] [id number], [place] [address]- 9015 Sep, [facility] [address] [facility] [id number], [place] [address]- 3809 Sep, [facility] [address] [facility] [id number], [place] [address]- 2245 Sep, IMMUNIZATIONS No Known Immunizations SOCIAL HISTORY Never Assessed REASON FOR VISIT RA debbie/aisha Riddle RN, Interested in ATS services PLAN OF CARE Activity Details Follow Up 3 Months Reason:RA VITAL SIGNS Height 64 in 2017-09-07 Weight 154.5 lbs 2017-09-07 Temperature 98.3 degrees Fahrenheit 2017-09-07 Heart Rate 80 bpm 2017-09-07 Respiratory Rate 20 2017-09-07 BMI 26.52 kg/m2 2017-09-07 Blood pressure systolic 120 mmHg 2017-09-07 Blood pressure diastolic 72 mmHg 2017-09-07 MEDICATIONS Medication Instructions Dosage Frequency Start Date End Date Duration Status Folic Acid 1 MG Orally Once a day 1 tablet 24h 90 Active Methotrexate 2.5 MG Orally once weekly 4 tablets 90 days Active Fish Oil Concentrate 1000 mg 1 Capsule by Oral route 1 time per day Mar, Active Potassium Chloride Aubree ER 10 MEQ TAKE ONE TABLET BY MOUTH ONCE DAILY. Active Vitamin D 1000 UNIT Orally Once a day 1 tablet 24h Active amlodipine 5 mg oral daily 1 tablet by Oral route 1 time per day 24h Active Gabapentin 100 mg Orally at bedtime 1 capsule Aug, Active Celebrex 200 mg Orally Once a day 1 capsule with food 24h May, 90 days Active Losartan Potassium 50 MG Orally Once a day at hs 1 tablet 30 days Active Hydrochlorothiazide 25 [...]
--- OUTSIDE RECORDS SUMMARY | 2018-07-08 19:18 | XMS REPORT ---
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 017684387 Problem Raynauds disease without gangrene I73.00 Active 302829134 Problem Hepatitis C B19.20 Active 11771185 Problem Allergic rhinitis, unspecified allergic rhinitis trigger, unspecified rhinitis seasonality J30.9 Active 50516241 Problem Peripheral polyneuropathy G62.9 Active 25585934 ALLERGIES No Information ENCOUNTERS Encounter Location Date Diagnosis [place] [id number] [place] [address] 74307- 4061 Nov, Pain in joint involving right ankle and foot M25.571 [place] [id number] [place] [address] 12700- 2472 Sep, Essential hypertension I10 ; Rheumatoid arthritis with positive rheumatoid factor, involving unspecified site M05.9 and 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 [facility] [id number] [place] [address] 88492- 0315 Sep, [facility] [id number] [place] [address] 67967- 0859 Sep, [facility] [id number] [place] [address] 92837- 6648 Aug, Essential hypertension I10 ; Acute midline low back pain, with sciatica presence unspecified M54.5 and Localized edema R60.0 [place] [id number] [place] [address] 11031- 0926 Aug, [place] [address] 80666- 1561 Aug, Rheumatoid arthritis with positive rheumatoid factor, involving unspecified site M05.9 ; Raynauds disease without gangrene I73.00 ; 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 and Hepatitis C B19.20 [place] [id number] [place] [address] 00409- 0410 Aug, Peripheral polyneuropathy G62.9 and Essential hypertension I10 [place] [address] 94374- 8219 Jul, Essential hypertension I10 [facility] [place] [id number] [place] [address] 36140 -0219 Jun, [place] [id number] [place] [address] 70796- 1154 Jun, [place] [id number] [place] [address] 71167- 7751 May, Peripheral polyneuropathy G62.9 [place] [id number] [place] [address] 47805- 2383 May, Essential hypertension I10 ; Chest discomfort R07.89 ; Peripheral vascular disease I73.9 and Rheumatoid arthritis with positive rheumatoid factor, involving unspecified site M05.9 [place] [id number] [place] [address] 59553- 6603 May, Essential hypertension I10 ; Peripheral vascular disease I73.9 ; Rheumatoid arthritis with positive rheumatoid factor, involving unspecified site M05.9 and Chest discomfort R07.89 [facility] [id number] [place] [address] 53012 -8030 Mar, Peripheral vascular disease I73.9 [place] [id number] [place] [address] 62317- 5776 Mar, Essential hypertension I10 ; Rheumatoid arthritis with positive rheumatoid factor, involving unspecified site M05.9 ; Peripheral polyneuropathy G62.9 and 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 [facility] [id number] [place] [address] 84852- 6175 Feb, Cellulitis of right lower extremity L03.115 [facility] [id number] [place] [address] 11731- 6300 Feb, [facility] [id number] [place] [address] 44062 -2083 Feb, Cellulitis of right lower extremity L03.115 and Cellulitis of left lower limb L03.116 [place] [id number] [place] [address] 09100- 1679 Feb, Essential hypertension I10 [place] [id number] [place] [address] 65868- 9289 October, [facility] [id number] [place] [address] 63152- 2785 October, Rheumatoid arthritis with positive rheumatoid factor, involving unspecified site M05.9 [facility] [id number] [place] [address] 57724- 5669 October, [facility] [id number] [place] [address] 57415 -1240 Sep, Cellulitis of left leg L03.116 [facility] [id number] [place] [address] 42485- 7581 Sep, [facility] [id number] [place] [address] 50693- 2794 Aug, [place] [id number] [place] [address] 29727- 1529 Aug, [facility] [id number] [place] [address] 65600- 1653 Aug, Peripheral polyneuropathy G62.9 ; Essential hypertension I10 ; Raynauds disease without gangrene I73.00 ; Rheumatoid arthritis with positive rheumatoid factor, involving unspecified site M05.9 and Allergic rhinitis, unspecified allergic rhinitis trigger, unspecified rhinitis seasonality J30.9 [place] [id number] [place] [address] 10646- 8332 15 Jul, 2016 [place] [address] 12387- 7817 May, Peripheral polyneuropathy G62.9 ; Essential hypertension I10 ; Raynauds disease without gangrene I73.00 and Rheumatoid arthritis with positive rheumatoid factor, involving unspecified site M05.9 [place] [address] 56517- 5118 28 Feb, 2016 Essential hypertension I10 and Numbness in feet R20.0 [facility] [address] 43736 -2533 17 Nov, 2015 Rash R21 [place] [address] 96925- 8381 10 Aug, 2015 Essential hypertension I10 ; 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 ; Numbness in feet R20.0 ; Hepatitis C B19.20 and Left shoulder pain M25.512 [place] [id number] [place] [address] 16450- 3263 07 Jun, 2015 Essential hypertension I10 ; Hepatitis C B19.20 ; Numbness in feet R20.0 and 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 [place] [id number] [place] [address] 46425- 5478 30 May, 2015 Essential hypertension I10 ; 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 ; Numbness in feet R20.0 ; Hepatitis C B19.20 and Left shoulder pain M25.512 [place] [id number] [place] [address] 40662- 5290 Sep, [place] [address] 75795- 1778 Sep, [facility] [place] [facility] [address] [id number] [place] [address]- 5890 May, [facility] [place] [facility] [address] [id number] [place] [address]62 May, [facility] [place] [facility] [address] [id number] [place] [address]- 0030 Apr, [facility] [place] [facility] [address] [id number] [place] [address]- 6716 Apr, [facility] [place] [facility] [address] [id number] [place] [address]- 2328 Mar, [facility] [place] [facility] [address] [id number] [place] [address]- 1382 Mar, [facility] [place] [facility] [address] [id number] [place] [address]- 4965 Nov, [facility] [place] [facility] [address] [id number] [place] [address]- 5527 Nov, [facility] [place] [facility] [address] [id number] [place] [address]- 9812 October, [facility] [place] [facility] [address] [id number] [place] [address]- 0461 October, [facility] [place] [facility] [address] [id number] [place] [address]- 3053 13 Aug, 2013 [facility] [place] [facility] [address] [id number] [place] [address]- 8073 13 Aug, 2013 [facility] [place] [facility] [address] [id number] [place] [address]- 4486 13 Aug, 2013 [facility] [place] [facility] [address] [id number] [place] [address]- 7821 13 Aug, 2013 [facility] [place] [facility] [address] [id number] [place] [address]- 4311 12 Aug, 2013 [facility] [place] [facility] [address] [id number] [place] [address]- 7015 Aug, [facility] [place] [facility] [address] [id number] [place] Aug, [facility] [place] [facility] [address] [id number] [place] [address]90 Aug, [facility] [place] [facility] [address] [id number] [place] [address]- 1964 Apr, [facility] [place] [facility] [address] [id number] [place] [address]- 9269 Apr, [facility] [place] [facility] [address] [id number] [place] [address]- 9738 Mar, [facility] [place] [facility] [address] [id number] [place] [address]- 0386 Mar, [facility] [place] [facility] [address] [id number] [place] [address]- 2533 Mar, [facility] [place] [facility] [address] [id number] [id number] 25 Feb, 2013 [facility] [place] [facility] [address] [id number] [place] [address]- 1755 17 Feb, 2013 [facility] [place] [facility] [address] [id number] [place] [address]- 8909 16 Feb, 2013 [facility] [place] [facility] [address] [id number], [place] [address]- 4688 Jan, [facility] [place] [facility] [address] [id number], [place] [address]- 7900 Jan, [facility] [place] [facility] [address] [id number] [place] [address]- 7407 Jan, [facility] [place] [facility] [address] [id number] [place] 2959 Jan, [facility] [place] [facility] [address] [id number] [place] [address]- 0109 Nov, [facility] [place] [facility] [address] [id number] [place] [address]- 0128 Nov, [facility] [address] [id number] [place] [address]- 7330 Nov, [facility] [address] [id number] [place] [address]- 1564 October, [facility] [address] [id number] [place] [address]- 9329 October, [facility] [address] [id number] [place] [address]- 3527 October, [facility] [address] [id number] [place] 5076 October, [facility] [address] [id number] [place] [address]- 2114 October, [facility] [address] [id number] [place] [address]- 5632 October, [facility] [address] [id number] [place] [address]- 4870 October, [facility] [address] [id number] [place] [address]- 2570 October, [facility] [address] [id number] [place] [address]- 0533 Sep, [facility] [address] [id number] [place] [address]- 4681 19 Sep, 2012 [facility] [address] [id number] [place] [address]- 2088 15 Sep, 2012 [facility] [place] [facility] [address] [id number] [place] [address]- 9738 Sep, [facility] [place] [facility] [address] [id number] [place] [address]- 8293 Sep, [facility] [address] [id number] [place] [address]- 0270 Aug, [facility] [address] [id number] [place] [address]- 9831 14 Aug, 2012 [facility] [place] [facility] [address] [id number] [place] [address]- 5065 13 Aug, 2012 [facility] [place] [facility] [address] [id number] [place] [address]- 5404 08 Aug, 2012 [facility] [address] [id number] [place] [address]- 1445 06 Aug, 2012 [facility] [address] [id number] [place] [address]- 7806 05 Aug, 2012 [facility] [address] [id number] [place] [address]- 8659 04 Aug, 2012 [facility] [address] [id number] [place] [address]- 3588 04 Aug, 2012 [facility] [address] [id number] [place] [address]- 6848 07 May, 2012 [facility] [address] [id number] [place] [address]- 6377 07 May, 2012 [facility] [address] [id number] [place] [address]- 0391 27 Apr, 2012 [facility] [address] [id number] [place] [address]- 7097 20 Apr, 2012 [facility] [place] [facility] [address] [id number] [place] [address]- 3949 20 Apr, 2012 [facility] [place] [facility] [address] [id number] [place] [address]- 7789 16 Apr, 2012 [facility] [place] [facility] [address] [id number] [place] [address]- 0590 16 Apr, 2012 [facility] [place] [facility] [address] [id number] [place] [address]- 5410 14 Apr, 2012 [facility] [place] [facility] [address] [id number] [place] [address]- 2546 Apr, [facility] [place] [facility] [address] [id number] [place] 5051 Apr, [facility] [place] [facility] [address] [id number] [place] [address]- 8387 Apr, [facility] [place] [facility] [address] [id number] [place] [address]- 9871 Apr, [facility] [place] [facility] [address] [id number] [place] [address]- 1331 Apr, [facility] [place] [facility] [address] [id number] [place] [address]- 0083 Apr, [facility] [place] [facility] [address] [id number] [place] [address]- 7502 Mar, [facility] [place] [facility] [address] [id number] [place] [address]- 9490 Mar, [facility] [place] [facility] [address] [id number] [place] [address]- 9465 Feb, [facility] [place] [facility] [address] [id number] [place] [address]- 6916 Nov, [facility] [place] [facility] [address] [id number] [place] [address]- 3232 Nov, [facility] [place] [facility] [address] [id number] [place] [address]- 3020 October, [facility] [place] [facility] [address] [id number] [place] [address]- 8506 October, [facility] [place] [facility] [address] [id number] [place] [address]- 3601 October, [facility] [place] [facility] [address] [id number] [place] [address]- 1266 October, [facility] [place] [facility] [address] [id number] [place] [address]- 9501 Sep, [facility] [place] [facility] [address] [facility] [id number] [place] [address]- 8587 Sep, [facility] [address] [facility] [id number] [place] [address]- 0163 Sep, [facility] [address] [facility] [id number] [place] [address]- 5277 Sep, IMMUNIZATIONS No Known Immunizations SOCIAL HISTORY Never Assessed REASON FOR VISIT Repository Medication PLAN OF CARE VITAL SIGNS MEDICATIONS Medication Instructions Dosage Frequency Start Date End Date Duration Status Losartan Potassium 50 MG Orally Once a day at hs 1 tablet 30 days Active amlodipine 5 mg oral daily 1 tablet by Oral route 1 time per day 24h Active Gabapentin 100 mg Orally at bedtime 1 capsule Aug, Active Hydrochlorothiazide 25 mg oral daily 1 [...]
--- OUTSIDE RECORDS SUMMARY | 2018-07-08 19:19 | XMS REPORT ---
Author Author RICARDO BURCH [facility] [place] eClinical[employer] Address Unknown Phone Unavailable Care Team Providers Care Talk Show Host Name Role Phone RICARDO BRUCH CP Unavailable Allergies, Adverse Reactions, Alerts Substance Reaction Event Type Amphetamine Failed UDS Non Drug Allergy Benzodiazepines Failed UDS Non Drug Allergy Hydrocodone Failed UDS Non Drug Allergy Problems Problem Type Condition Code Onset Dates Condition Status Problem Chest pain, unspecified 786.50 Active Assessment Left shoulder pain M25.512 Active Problem Raynaud's syndrome 443.0 Active Assessment Hepatitis C B19.20 Active Problem STATE HEP A (ADULT) DX V05.3 Active Problem Varices of other sites 456.8 Active Problem Unspecified urticaria 708.9 Active Problem 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 Active Problem Numbness in feet R20.0 Active Assessment Essential hypertension I10 Active Assessment 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 Active Problem Essential hypertension I10 Active Assessment Numbness in feet R20.0 Active Problem Pain in joint, site unspecified 719.40 Active Problem Rheumatoid arthritis 714.0 Active Problem Hepatitis C B19.20 Active Problem Left shoulder pain M25.512 Active Problem Unspecified breast screening V76.10 Active Problem Unspecified viral hepatitis C without hepatic coma 070.70 Active Problem Viral warts, unspecified 078.10 Active Problem Screening for malignant neoplasm of the cervix V76.2 Active Problem Essential hypertension, benign 401.1 Active Problem Accidental cut, puncture, perforation, or hemorrhage during injection or vaccination E870.3 Active Problem Unspecified arthropathy, site unspecified 716.90 Active Problem Routine general medical examination at health care facility V70.0 Active Medications Medication Code System Code Instructions Start Date End Date Status Dosage amlodipine [facility] [address]-52 5 mg oral daily Jun 16, 2014 1 tablet by Oral route 1 time per day Hydrochlorothiazide [facility] [address]-53 25 mg oral daily Jun 16, 2014 1 tablet by Oral route 1 time per day Potassium Chloride [facility] [address]-81 10 mEq oral daily Jun 16, 2014 10 mEq by Oral route 1 time per day Celebrex [facility] [address]-68 200 mg oral daily Jun 16, 2014 1 capsule by Oral route 1 time per day Procedures Procedure Coding System Code Date Office Visit, Est Pt., Level 5 CPT-4 81852 Jun 27, 2015 Vital Signs Date/Time: Jun 27, 2015 Temperature 98.1 F Weight 158.9 lbs Height 64 in BMI 27.27 Index Blood Pressure Diastolic 98 mmHg Blood Pressure Systolic 136 mmHg Cardiac Monitoring Heart Rate 96 bpm Results No Known Results Summary Purpose eClinicalWorks Submission
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
--- OUTSIDE RECORDS SUMMARY | 2018-07-08 19:19 | XMS REPORT ---
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 749081169 Problem Raynauds disease without gangrene I73.00 Active 528793288 Problem Hepatitis C B19.20 Active 10465163 Problem Allergic rhinitis, unspecified allergic rhinitis trigger, unspecified rhinitis seasonality J30.9 Active 08222962 Problem Peripheral polyneuropathy G62.9 Active 72663165 ALLERGIES No Information ENCOUNTERS Encounter Location Date Diagnosis [place] [id number] [place] [address] 91178- 7285 Nov, Pain in joint involving right ankle and foot M25.571 [place] [id number] [place] [address] 27230- 4341 Sep, Essential hypertension I10 ; Rheumatoid arthritis with positive rheumatoid factor, involving unspecified site M05.9 and 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 [facility] [id number] [place] [address] 32990- 1098 Sep, [facility] [id number] [place] [address] 96795- 1811 Sep, [facility] [id number] [place] [address] 63055- 3050 Aug, Essential hypertension I10 ; Acute midline low back pain, with sciatica presence unspecified M54.5 and Localized edema R60.0 [place] [id number] [place] [address] 16979- 3305 Aug, [place] [address] 87161- 4267 Aug, Rheumatoid arthritis with positive rheumatoid factor, involving unspecified site M05.9 ; Raynauds disease without gangrene I73.00 ; 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 and Hepatitis C B19.20 [place] [id number] [place] [address] 30263- 3718 Aug, Peripheral polyneuropathy G62.9 and Essential hypertension I10 [place] [address] 41259- 8077 Jul, Essential hypertension I10 [facility] [place] [id number] [place] [address] 71277 -5798 Jun, [place] [id number] [place] [address] 36879- 0211 Jun, [place] [id number] [place] [address] 36002- 4406 May, Peripheral polyneuropathy G62.9 [place] [id number] [place] [address] 14245- 4604 May, Essential hypertension I10 ; Chest discomfort R07.89 ; Peripheral vascular disease I73.9 and Rheumatoid arthritis with positive rheumatoid factor, involving unspecified site M05.9 [place] [id number] [place] [address] 13196- 8461 May, Essential hypertension I10 ; Peripheral vascular disease I73.9 ; Rheumatoid arthritis with positive rheumatoid factor, involving unspecified site M05.9 and Chest discomfort R07.89 [facility] [id number] [place] [address] 47498 -6676 Mar, Peripheral vascular disease I73.9 [place] [id number] [place] [address] 72273- 9641 Mar, Essential hypertension I10 ; Rheumatoid arthritis with positive rheumatoid factor, involving unspecified site M05.9 ; Peripheral polyneuropathy G62.9 and 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 [facility] [id number] [place] [address] 46367- 9629 Feb, Cellulitis of right lower extremity L03.115 [facility] [id number] [place] [address] 48141- 9469 Feb, [facility] [id number] [place] [address] 28065 -5545 Feb, Cellulitis of right lower extremity L03.115 and Cellulitis of left lower limb L03.116 [place] [id number] [place] [address] 95251- 4884 Feb, Essential hypertension I10 [place] [id number] [place] [address] 69539- 7950 October, [facility] [id number] [place] [address] 11700- 9522 October, Rheumatoid arthritis with positive rheumatoid factor, involving unspecified site M05.9 [facility] [id number] [place] [address] 27058- 0597 October, [facility] [id number] [place] [address] 23196 -8919 Sep, Cellulitis of left leg L03.116 [facility] [address] [place] [address] 72790- 7080 Sep, [facility] [id number] [place] [address] 28826- 3797 Aug, [place] [id number] [place] [address] 49070- 9333 Aug, [facility] [id number] [place] [address] 92633- 3008 Aug, Peripheral polyneuropathy G62.9 ; Essential hypertension I10 ; Raynauds disease without gangrene I73.00 ; Rheumatoid arthritis with positive rheumatoid factor, involving unspecified site M05.9 and Allergic rhinitis, unspecified allergic rhinitis trigger, unspecified rhinitis seasonality J30.9 [place] [id number] [place] [address] 41457- 8117 15 Jul, 2016 [place] [address] 76159- 0152 May, Peripheral polyneuropathy G62.9 ; Essential hypertension I10 ; Raynauds disease without gangrene I73.00 and Rheumatoid arthritis with positive rheumatoid factor, involving unspecified site M05.9 [place] [address] 10264- 0462 28 Feb, 2016 Essential hypertension I10 and Numbness in feet R20.0 [facility] [address] 89391 -2151 17 Nov, 2015 Rash R21 [place] [address] 00614- 6571 10 Aug, 2015 Essential hypertension I10 ; 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 ; Numbness in feet R20.0 ; Hepatitis C B19.20 and Left shoulder pain M25.512 [place] [id number] [place] [address] 56205- 9962 07 Jun, 2015 Essential hypertension I10 ; Hepatitis C B19.20 ; Numbness in feet R20.0 and 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 [place] [id number] [place] [address] 75436- 4156 30 May, 2015 Essential hypertension I10 ; 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 ; Numbness in feet R20.0 ; Hepatitis C B19.20 and Left shoulder pain M25.512 [place] [id number] [place] [address] 46317- 6601 Sep, [place] [address] 46730- 1324 Sep, [facility] [place] [facility] [address] [id number] [place] [address]- 2311 May, [facility] [place] [facility] [address] [id number] [place] [address]63 May, [facility] [place] [facility] [address] [id number] [place] [address]- 0843 Apr, [facility] [place] [facility] [address] [id number] [place] [address]- 6921 Apr, [facility] [place] [facility] [address] [id number] [place] [address]- 6025 Mar, [facility] [place] [facility] [address] [id number] [place] [address]- 9422 Mar, [facility] [place] [facility] [address] [id number] [place] [address]- 8685 Nov, [facility] [place] [facility] [address] [id number] [place] [address]- 5835 Nov, [facility] [place] [facility] [address] [id number] [place] [address]- 6986 October, [facility] [place] [facility] [address] [id number] [place] [address]- 5151 October, [facility] [place] [facility] [address] [id number] [place] [address]- 2252 13 Aug, 2013 [facility] [place] [facility] [address] [id number] [place] [address]- 3050 13 Aug, 2013 [facility] [place] [facility] [address] [id number] [place] [address]- 6280 13 Aug, 2013 [facility] [place] [facility] [address] [id number] [place] [address]- 9092 13 Aug, 2013 [facility] [place] [facility] [address] [id number] [place] [address]- 6547 12 Aug, 2013 [facility] [place] [facility] [address] [id number] [place] [address]- 4502 Aug, [facility] [place] [facility] [address] [id number] [place] [address]861 Aug, [facility] [place] [facility] [address] [id number] [place] 0235 Aug, [facility] [place] [facility] [address] [id number] [place] [address]- 1157 Apr, [facility] [place] [facility] [address] [id number] [place] [address]- 9622 Apr, [facility] [place] [facility] [address] [id number] [place] [address]- 7634 Mar, [facility] [place] [facility] [address] [id number] [place] [address]- 2311 Mar, [facility] [place] [facility] [address] [id number] [place] [address]- 0067 Mar, [facility] [place] [facility] [address] [id number] [address] 25 Feb, 2013 [facility] [place] [facility] [address] [id number] [place] [address]- 4384 17 Feb, 2013 [facility] [place] [facility] [address] [id number] [place] [address]- 6024 16 Feb, 2013 [facility] [place] [facility] [address] [id number] [address]- 6104 Jan, [facility] [place] [facility] [address] [id number] [address]- 8327 Jan, [facility] [place] [facility] [address] [id number] [place] [address]- 7143 Jan, [facility] [place] [facility] [address] [id number] [place] 5588 Jan, [facility] [place] [facility] [address] [id number] [place] [address]- 7078 Nov, [facility] [place] [facility] [address] [id number] [place] [address]- 7080 Nov, [facility] [address] [id number] [place] [address]- 6700 Nov, [facility] [address] [id number] [place] [address]- 6547 October, [facility] [address] [id number] [place] [address]- 4399 October, [facility] [address] [id number] [place] [address]- 3231 October, [facility] [address] [id number] [place] 8810 October, [facility] [address] [id number] [place] [address]- 5349 October, [facility] [address] [id number] [place] [address]- 7134 October, [facility] [address] [id number] [place] [address]- 9355 October, [facility] [address] [id number] [place] [address]- 0312 October, [facility] [address] [id number] [place] [address]- 8204 Sep, [facility] [address] [id number] [place] [address]- 0902 19 Sep, 2012 [facility] [address] [id number] [place] [address]- 6464 15 Sep, 2012 [facility] [place] [facility] [address] [id number] [place] [address]- 1397 Sep, [facility] [place] [facility] [address] [id number] [place] [address]- 3230 Sep, [facility] [address] [id number] [place] [address]- 3972 Aug, [facility] [address] [id number] [place] [address]- 0047 14 Aug, 2012 [facility] [place] [facility] [address] [id number] [place] [address]- 0720 13 Aug, 2012 [facility] [place] [facility] [address] [id number] [place] [address]- 3868 08 Aug, 2012 [facility] [address] [id number] [place] [address]- 5314 06 Aug, 2012 [facility] [address] [id number] [place] [address]- 0650 05 Aug, 2012 [facility] [address] [id number] [place] [address]- 4879 04 Aug, 2012 [facility] [address] [id number] [place] [address]- 8656 04 Aug, 2012 [facility] [address] [id number] [place] [address]- 4211 07 May, 2012 [facility] [address] [id number] [place] [address]- 2965 07 May, 2012 [facility] [address] [id number] [place] [address]- 0929 27 Apr, 2012 [facility] [address] [id number] [place] [address]- 1159 20 Apr, 2012 [facility] [place] [facility] [address] [id number] [place] [address]- 5546 20 Apr, 2012 [facility] [place] [facility] [address] [id number] [place] [address]- 7465 16 Apr, 2012 [facility] [place] [facility] [address] [id number] [place] [address]- 5349 16 Apr, 2012 [facility] [place] [facility] [address] [id number] [place] [address]- 3601 14 Apr, 2012 [facility] [place] [facility] [address] [id number] [place] [address]- 2546 Apr, [facility] [place] [facility] [address] [id number] [place] 0385 Apr, [facility] [place] [facility] [address] [id number] [place] [address]- 3063 Apr, [facility] [place] [facility] [address] [id number] [place] [address]- 9473 Apr, [facility] [place] [facility] [address] [id number] [place] [address]- 2387 Apr, [facility] [place] [facility] [address] [id number] [place] [address]- 6153 Apr, [facility] [place] [facility] [address] [id number] [place] [address]- 0867 Mar, [facility] [place] [facility] [address] [id number] [place] [address]- 9335 Mar, [facility] [place] [facility] [address] [id number] [place] [address]- 3243 Feb, [facility] [place] [facility] [address] [id number] [place] [address]- 2851 Nov, [facility] [place] [facility] [address] [id number] [place] [address]- 7255 Nov, [facility] [place] [facility] [address] [id number] [place] [address]- 9478 October, [facility] [place] [facility] [address] [id number] [place] [address]- 0498 October, [facility] [place] [facility] [address] [id number] [place] [address]- 3378 October, [facility] [place] [facility] [address] [id number] [place] [address]- 1674 October, [facility] [place] [facility] [address] [id number] [place] [address]- 6934 Sep, [facility] [place] [facility] [address] [facility] [id number] [place] [address]- 0914 Sep, [facility] [address] [facility] [id number] [place] [address]- 1472 Sep, [facility] [address] [facility] [id number] [place] [address]- 7481 Sep, IMMUNIZATIONS No Known Immunizations SOCIAL HISTORY Never Assessed REASON FOR VISIT Refill PLAN OF CARE VITAL SIGNS MEDICATIONS Medication Instructions Dosage Frequency Start Date End Date Duration Status Losartan Potassium 50 MG Orally Once a day at hs 1 tablet 30 days Active RESULTS No Results PROCEDURES [...]
--- OUTSIDE RECORDS SUMMARY | 2018-07-08 19:19 | XMS REPORT ---
Author Author RICARDO BURCH Organization [facility] Address [address] [place] [address] Care Team Providers Care Strand Galvanizer Name Role Phone RICARDO BURCH Unavailable PROBLEMS Type Condition ICD9-CM Code EQO20-XY Code Onset Dates Condition Status SNOMED Code Problem Numbness in feet R20.0 Active 997393716 Problem Rheumatoid arthritis with positive rheumatoid factor, involving unspecified site M05.9 Active 605398178 Problem Allergic rhinitis, unspecified allergic rhinitis trigger, unspecified rhinitis seasonality J30.9 Active 13287961 Problem Peripheral polyneuropathy G62.9 Active 53176944 Problem Essential hypertension I10 Active 88855697 Problem Left shoulder pain M25.512 Active 68154988 Problem Raynauds disease without gangrene I73.00 Active 623249382 Problem Hepatitis C B19.20 Active 41392994 ALLERGIES No Information SOCIAL HISTORY Never Assessed PLAN OF CARE VITAL SIGNS MEDICATIONS Medication Instructions Dosage Frequency Start Date End Date Duration Status Gabapentin 100 mg Orally at bedtime 1 capsule Aug, 90 days Active RESULTS No Results PROCEDURES No Known procedures IMMUNIZATIONS No Known Immunizations MEDICAL (GENERAL) HISTORY Type Description Date Medical [...]
--- OUTSIDE RECORDS SUMMARY | 2018-07-08 19:20 | XMS REPORT ---
Author Author RICARDO BURCH Organization [facility] Address [address] [place] [address] Care Team Providers Care Steel Plate Printer Name Role Phone RICARDO BURCH Unavailable PROBLEMS Type Condition ICD9-CM Code EAD11-YI Code Onset Dates Condition Status SNOMED Code Problem Numbness in feet R20.0 Active 950806343 Problem Rheumatoid arthritis with positive rheumatoid factor, involving unspecified site M05.9 Active 526701178 Problem Allergic rhinitis, unspecified allergic rhinitis trigger, unspecified rhinitis seasonality J30.9 Active 24692643 Problem Peripheral polyneuropathy G62.9 Active 73416824 Problem Essential hypertension I10 Active 19088188 Problem Left shoulder pain M25.512 Active 33345853 Problem Raynauds disease without gangrene I73.00 Active 171977286 Problem Hepatitis C B19.20 Active 02312641 ALLERGIES Substance Reaction Event Type Date Status Hydrocodone Failed UDS Non Drug Allergy Aug, Active Benzodiazepines Failed UDS Non Drug Allergy Aug, Active Amphetamine Failed UDS Non Drug Allergy Aug, Active SOCIAL HISTORY Never Assessed PLAN OF CARE Activity Details Follow Up 6 Months RA sooner with Dr. Chamberlain Reason:BP VITAL SIGNS Height 64 in 2016-08-27 Weight 165.4 lbs 2016-08-27 Temperature 98.5 degrees Fahrenheit 2016-08-27 Heart Rate 90 bpm 2016-08-27 Respiratory Rate 18 2016-08-27 BMI 28.39 kg/m2 2016-08-27 Blood pressure systolic 136 mmHg 2016-08-27 Blood pressure diastolic 82 mmHg 2016-08-27 MEDICATIONS Medication Instructions Dosage Frequency Start Date End Date Duration Status Fish Oil Concentrate 1000 mg 1 Capsule by Oral route 1 time per day Mar, Active amlodipine 5 mg oral daily 1 tablet by Oral route 1 time per day 24h Active Indomethacin 50 mg Orally Twice a day 1 capsule with food or milk 12h Aug, October, 90 days Active Amlodipine Besylate 5 MG TAKE ONE TABLET BY MOUTH ONCE DAILY 90 Active Losartan Potassium 100 mg Orally Once a day at hs 1/2 tablet 10 Aug, 2015 90 Active Potassium Chloride 10 mEq oral daily 10 mEq by Oral route 1 time per day 24h Active Hydrochlorothiazide 25 mg oral daily 1 tablet by Oral route 1 time per day 24h Active PredniSONE 20 mg Orally Once a day 1 tablet 24h Aug, Aug, 07 days Active Potassium Chloride Aubree ER 10 MEQ TAKE ONE TABLET BY MOUTH ONCE DAILY. 90 Active Gabapentin 300 MG Orally at bedtime 1 capsule 30 Active RESULTS No Results PROCEDURES No Known [...]
--- OUTSIDE RECORDS SUMMARY | 2018-07-08 19:20 | XMS REPORT ---
Author Author RICARDO BURCH Organization [facility] Address [address] [place] [address] Care Team Providers Care Finisher Fine Diamond Dies Name Role Phone RICARDO BURCH Unavailable PROBLEMS Type Condition ICD9-CM Code [id number] Code Onset Dates Condition Status SNOMED Code Problem Left shoulder pain M25.512 Active 01465915 Problem Rheumatoid arthritis with positive rheumatoid factor, involving unspecified site M05.9 Active 531368075 Problem Allergic rhinitis, unspecified allergic rhinitis trigger, unspecified rhinitis seasonality J30.9 Active 61150205 Problem Peripheral polyneuropathy G62.9 Active 53533488 Problem Numbness in feet R20.0 Active 909812996 Problem Hepatitis C B19.20 Active 22054512 Problem Raynauds disease without gangrene I73.00 Active 489306886 Problem Essential hypertension I10 Active 68573054 ALLERGIES Substance Reaction Event Type Date Status Benzodiazepines Failed UDS Non Drug Allergy May, Active Amphetamine Failed UDS Non Drug Allergy May, Active Hydrocodone Failed UDS Non Drug Allergy May, Active SOCIAL HISTORY No smoking Hx information available PLAN OF CARE Activity Details Follow Up 2-3 months for Amira, referral to Dr. Chamberlain for rhematoid treatmetnt Reason: VITAL SIGNS Height 64 in 2016-06-12 Weight 167.8 lbs 2016-06-12 Temperature 97.4 degrees Fahrenheit 2016-06-12 Heart Rate 88 bpm 2016-06-12 Respiratory Rate 20 2016-06-12 BMI 28.80 kg/m2 2016-06-12 Blood pressure systolic 136 mmHg 2016-06-12 Blood pressure diastolic 80 mmHg 2016-06-12 MEDICATIONS Medication Instructions Dosage Frequency Start Date End Date Duration Status Potassium Chloride 10 mEq oral daily 10 mEq by Oral route 1 time per day 24h Active Hydrochlorothiazide 25 mg oral daily 1 tablet by Oral route 1 time per day 24h Active amlodipine 5 mg oral daily 1 tablet by Oral route 1 time per day 24h Active Losartan Potassium 100 MG Orally Once a day at hs 1/2 tablet Aug, 90 Active Fish Oil Concentrate 1000 mg 1 Capsule by Oral route 1 time per day Mar, Active HydrOXYzine HCl 10 mg 1 tablet by Oral route 4 times per day PRN for anxiety May, Active Celebrex 200 mg oral daily 1 capsule by Oral route 1 time per day 24h Active Gabapentin 300 MG Orally at bedtime 1 capsule May, 30 day(s) Active RESULTS No Results PROCEDURES Procedure Date Ordered Related Diagnosis Body Site Office Visit, Est Pt., Level 4 Jun 12, 2016 IMMUNIZATIONS No Known Immunizations
--- OUTSIDE RECORDS SUMMARY | 2018-07-08 19:20 | XMS REPORT ---
Author Author MATTHIEU VALENZUELA Organization [facility] Address [address] 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 389563290 Problem Raynauds disease without gangrene I73.00 Active 234789398 Problem Hepatitis C B19.20 Active 19725044 Problem Allergic rhinitis, unspecified allergic rhinitis trigger, unspecified rhinitis seasonality J30.9 Active 61937936 Problem Peripheral polyneuropathy G62.9 Active 53630630 ALLERGIES No Information ENCOUNTERS Encounter Location Date Diagnosis [facility] [address] [address] Sep, Essential hypertension I10 ; Rheumatoid arthritis with positive rheumatoid factor, involving unspecified site M05.9 and 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 [place] [id number] [place] [address]006- 6415 Sep, [facility] [address] [id number] [place] [address] 41625- 6976 Sep, [facility] [id number] [place] [address] 81008- 4878 Aug, Essential hypertension I10 ; Acute midline low back pain, with sciatica presence unspecified M54.5 and Localized edema R60.0 [facility] [address] [place] [id number] [place] [address] 07016- 9279 Aug, [facility] [address] [place] [address] Aug, Rheumatoid arthritis with positive rheumatoid factor, involving unspecified site M05.9 ; Raynauds disease without gangrene I73.00 ; 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 and Hepatitis C B19.20 [facility] [address] [id number] [place] [address] 59445- 7630 Aug, Peripheral polyneuropathy G62.9 and Essential hypertension I10 [facility] [address] [place] [id number] [place] [address] 12034- 5453 Jul, Essential hypertension I10 [facility] [id number] [place] [address] 27262 -3682 Jun, [facility] [id number] [place] [address] 96345- 5563 Jun, [place] [id number] [place] [address] 31224- 2580 May, Peripheral polyneuropathy G62.9 [place] [id number] [place] [id number] [place] [address] 24005- 7273 May, Essential hypertension I10 ; Chest discomfort R07.89 ; Peripheral vascular disease I73.9 and Rheumatoid arthritis with positive rheumatoid factor, involving unspecified site M05.9 [place] [id number] [place] [address] 98367- 5057 May, Essential hypertension I10 ; Peripheral vascular disease I73.9 ; Rheumatoid arthritis with positive rheumatoid factor, involving unspecified site M05.9 and Chest discomfort R07.89 [facility] [id number] [place] [address] 83723 -1121 Mar, Peripheral vascular disease I73.9 [place] [address] [id number] [place] [address] 52678- 1474 Mar, Essential hypertension I10 ; Rheumatoid arthritis with positive rheumatoid factor, involving unspecified site M05.9 ; Peripheral polyneuropathy G62.9 and 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 [facility] [address] [address] 26 Feb, 2017 Cellulitis of right lower extremity L03.115 [facility] [address] [address] [id number] [place] [address] 57552- 8099 Feb, [facility] [id number] [place] [address] 00934 -0408 Feb, Cellulitis of right lower extremity L03.115 and Cellulitis of left lower limb L03.116 [facility] [address] [place] [id number] [place] [address] 30807- 0905 15 Feb, 2017 Essential hypertension I10 [place] [address] [address] [id number] [place] [address] 59968- 5705 October, [place] [address] [place] [id number] [place] [address] 02068- 1738 October, Rheumatoid arthritis with positive rheumatoid factor, involving unspecified site M05.9 [place] [id number] [place] [address] 92155- 4645 October, [facility] [id number] [place] [address] 12152 -1041 Sep, Cellulitis of left leg L03.116 [place] [id number] [place] [address] 59549- 1211 Sep, [place] [id number] [place] [address] 47334- 1764 Aug, [place] [id number] [place] [address] 37788- 5018 Aug, [place] [address] [place] [id number] [place] [address] 21765- 6772 Aug, Peripheral polyneuropathy G62.9 ; Essential hypertension I10 ; Raynauds disease without gangrene I73.00 ; Rheumatoid arthritis with positive rheumatoid factor, involving unspecified site M05.9 and Allergic rhinitis, unspecified allergic rhinitis trigger, unspecified rhinitis seasonality J30.9 [place] [id number] [place] [address] 09923- 2870 15 Jul, 2016 [facility] [address] [place] [id number] [place] [address] 39290- 7477 15 May, 2016 Peripheral polyneuropathy G62.9 ; Essential hypertension I10 ; Raynauds disease without gangrene I73.00 and Rheumatoid arthritis with positive rheumatoid factor, involving unspecified site M05.9 [facility] [address] [place] [id number] [place] [address] 36485- 0422 28 Feb, 2016 Essential hypertension I10 and Numbness in feet R20.0 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 [place] [address] [place] [id number] [place] [address] 60366- 6284 30 May, 2015 Essential hypertension I10 ; 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 ; Numbness in feet R20.0 ; Hepatitis C B19.20 and Left shoulder pain M25.512 [facility] [address] [place] [id number] [place] [address] 72723- 3682 Sep, [place] [address] [address]- 8934 Sep, [facility] [address] [place] [id number] [place] [address] 93484- 1913 May, [facility] [address] [address]376- 5310 May, [facility] [place] [facility] [address] [id number] [place] [address] Apr, [facility] [place] [facility] [address] [id number] [place] [address]- 0285 Apr, [facility] [place] [facility] [address] [id number] [place] [address]204 Mar, [facility] [place] [facility] [address] [id number] [place] 7912 Mar, [facility] [place] [facility] [address] [id number] [place] [address]- 1615 Nov, [facility] [place] [facility] [address] [id number] [place] [address]- 5041 Nov, [facility] [place] [facility] [address] [id number] [place] [address]- 6678 October, [facility] [place] [facility] [address] [id number] [place] [address]- 5605 October, [facility] [place] [facility] [address] [id number] [place] [address]- 6234 Aug, [facility] [place] [facility] [address] [id number] [place] [address]- 9062 Aug, [facility] [place] [facility] [address] [id number] [address] 1213 Aug, [facility] [place] [facility] [address] [id number] [address]- 0413 Aug, [facility] [place] [facility] [address] [id number] [place] [address]- 2723 Aug, [facility] [place] [facility] [address] [id number] [place] [address]- 2444 Aug, [facility] [place] [facility] [address] [id number] [place] [address]- 2257 Aug, [facility] [place] [facility] [address] [id number] [place] [address]- 8161 Aug, [facility] [address] [id number] [place] [address]- 3454 Apr, [facility] [address] [id number] [place] [address]- 8730 Apr, [facility] [address] [id number] [place] [address]- 0980 Mar, [facility] [address] [id number] [place] [address]- 4673 Mar, [facility] [address] [id number] [place] [address]- 5184 Mar, [facility] [address] [id number] [place] [id number] Feb, [facility] [address] [id number] [place] [address]- 6321 17 Feb, 2013 [facility] [address] [id number] [place] [address]- 7351 16 Feb, 2013 [facility] [address] [id number] [place] [address]- 3247 Jan, [facility] [address] [id number] [place] [address]- 6221 Jan, [facility] [place] [facility] [address] [id number] [place] [address]- 2845 Jan, [facility] [address] [id number] [place] [address]- 6240 Jan, [facility] [place] [facility] [address] [id number] [place] 9249 Nov, [facility] [place] [facility] [address] [id number] [place] 2022 Nov, [facility] [place] [facility] [address] [id number] [place] [address]- 7600 Nov, [facility] [place] [facility] [address] [id number] [place] [address]- 5561 October, [facility] [address] [id number] [place] [address]- 1577 October, [facility] [address] [id number] [place] [address]- 4918 October, [facility] [address] [id number] [place] [address]- 2895 October, [facility] [address] [id number] [place] [address]- 3960 October, [facility] [address] [id number] [place] [address]- 6623 October, [facility] [address] [id number] [place] [address]- 5134 October, [facility] [address] [id number] [place] [address]- 5828 October, [facility] [address] [id number] [place] [address]- 8633 Sep, [facility] [address] [id number] [place] [address]- 1620 Sep, [facility] [address] [id number] [place] [address]- 7234 15 Sep, 2012 [facility] [address] [id number] [place] [address]- 4663 Sep, [facility] [address] [id number] [place] [address]- 6965 Sep, [facility] [address] [id number] [place] [address]- 6266 22 Aug, 2012 [facility] [address] [id number] [place] [address]- 7393 14 Aug, 2012 [facility] [address] [id number] [place] [address]- 4786 13 Aug, 2012 [facility] [place] [facility] [address] [id number] [place] [address]- 4265 08 Aug, 2012 [facility] [place] [facility] [address] [id number] [place] 4232 06 Aug, 2012 [facility] [place] [facility] [address] [id number] [place] [address]- 2381 05 Aug, 2012 [facility] [place] [facility] [address] [id number] [place] [address]- 0086 04 Aug, 2012 [facility] [place] [facility] [address] [id number] [place] [address]- 4409 04 Aug, 2012 [facility] [place] [facility] [address] [id number] [place] [address]- 8906 07 May, 2012 [facility] [place] [facility] [address] [id number] [place] [address]- 0919 May, [facility] [place] [facility] [address] [id number] [place] [address]- 6249 27 Apr, 2012 [facility] [place] [facility] [address] [id number] [place] [address]- 7354 Apr, [facility] [place] [facility] [address] [id number] [place] [address]- 9996 20 Apr, 2012 [facility] [place] [facility] [address] [id number] [place] [address]- 6252 16 Apr, 2012 [facility] [place] [facility] [address] [id number] [place] [address]- 4434 16 Apr, 2012 [facility] [place] [facility] [address] [id number] [place] [address]- 5132 14 Apr, 2012 [facility] [place] [facility] [address] [id number] [place] [address]- 0311 09 Apr, 2012 [facility] [place] [facility] [address] [id number] [place] [address]- 4600 06 Apr, 2012 [facility] [place] [facility] [address] [id number] [place] [address]- 5164 05 Apr, 2012 [facility] [place] [facility] [address] [id number] [place] [address]- 7015 Apr, [facility] [place] [facility] [address] [id number] [place] [address]- 2246 Apr, [facility] [place] [facility] [address] [id number] [place] [address]- 5342 Apr, [facility] [place] [facility] [address] [id number] [place] [address]- 4278 Mar, [facility] [place] [facility] [address] [id number] [place] [address]- 2162 Mar, [facility] [place] [facility] [address] [id number] [place] [address]- 4993 Feb, [facility] [place] [facility] [address] [id number] [place] [address]- 1505 Nov, [facility] [address] [id number] [place] [address]- 6613 Nov, [facility] [place] [facility] [address] [id number] [place] [address]- 6365 October, [facility] [address] [id number] [place] [address]- 4993 October, [facility] [place] [facility] [address] [id number] [place] [address]- 6650 October, [facility] [place] [facility] [address] [id number] [place] [address]- 7364 October, [facility] [place] [facility] [address] [id number] [place] [address]- 2917 Sep, [facility] [place] [facility] [address] [id number] [place] [address]- 3405 Sep, [facility] [place] [facility] [address] [id number] [place] [address]- 7480 Sep, [facility] [address] [facility] [id number] [place] [address]- 3674 Sep, IMMUNIZATIONS No Known Immunizations SOCIAL HISTORY Never Assessed REASON FOR VISIT Repository Medication PLAN OF CARE VITAL SIGNS MEDICATIONS Medication Instructions Dosage Frequency Start Date End Date Duration Status Potassium Chloride Aubree ER 10 MEQ TAKE ONE TABLET BY MOUTH ONCE DAILY. 90 Active Losartan Potassium 50 MG Orally Once a day at hs 1 tablet Aug, 90 Active Gabapentin 100 mg Orally at bedtime 1 capsule Aug, Active Folic Acid 1 MG Orally Once a day 1 tablet 24h October, 90 days Active Hydrochlorothiazide 25 mg oral daily 1 tablet by Oral route 1 time per day 24h Active Meloxicam 7.5 MG Orally twice a day 1 tablet 12h October, Apr, 30 day(s) Active Methotrexate 2.5 MG Orally once weekly 4 tablets October, Active amlodipine 5 mg oral daily 1 [...]
--- OUTSIDE RECORDS SUMMARY | 2018-07-08 19:20 | XMS REPORT ---
Author Author MATTHIEU VALENZUELA Organization [facility] Address [address] [place] [address] Care Team Providers Care Medical Billing Associate Name Role Phone MATTHIEU VALENZUELA Unavailable PROBLEMS Type Condition ICD9-CM Code UBD16-HJ Code Onset Dates Condition Status SNOMED Code Problem Essential hypertension I10 Active 89632921 Problem Rheumatoid arthritis with positive rheumatoid factor, involving unspecified site M05.9 Active 699809092 Problem Peripheral vascular disease I73.9 Active 788513849 Problem 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 453019053 Problem Raynauds disease without gangrene I73.00 Active 549781194 Problem Hepatitis C B19.20 Active 18685746 Problem Allergic rhinitis, unspecified allergic rhinitis trigger, unspecified rhinitis seasonality J30.9 Active 38632330 Problem Peripheral polyneuropathy G62.9 Active [id number] ALLERGIES No Information ENCOUNTERS Encounter Location Date Diagnosis [place] [id number] [address] Sep, Essential hypertension I10 ; Rheumatoid arthritis with positive rheumatoid factor, involving unspecified site M05.9 and 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 [place] [id number] [place] [address] 69211- 1035 Sep, [facility] [place] [address] [place] [id number] [place] [address] 69573- 1215 Sep, [facility] [place] [id number] [place] [address] 30455- 5587 Aug, Essential hypertension I10 ; Acute midline low back pain, with sciatica presence unspecified M54.5 and Localized edema R60.0 [facility] [place] [id number] [place] [address] 05170- 4415 Aug, [facility] [place] [address] [place] [address] 7180 Aug, Rheumatoid arthritis with positive rheumatoid factor, involving unspecified site M05.9 ; Raynauds disease without gangrene I73.00 ; 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 and Hepatitis C B19.20 [facility] [place] [id number] [place] [address] 86324- 0152 Aug, Peripheral polyneuropathy G62.9 and Essential hypertension I10 [facility] [place] [address] [place] [id number] [place] [address] 04048- 1941 Jul, Essential hypertension I10 [facility] [id number] [place] [address] 36492 -3001 Jun, [facility] [place] [id number] [place] [address] 39862- 2124 Jun, [place] [address] [id number] [place] [address] 93715- 3821 May, Peripheral polyneuropathy G62.9 [place] [address] [place] [id number] [place] [address] 52822- 1916 May, Essential hypertension I10 ; Chest discomfort R07.89 ; Peripheral vascular disease I73.9 and Rheumatoid arthritis with positive rheumatoid factor, involving unspecified site M05.9 [place] [address] [place] [address] 81857- 5808 May, Essential hypertension I10 ; Peripheral vascular disease I73.9 ; Rheumatoid arthritis with positive rheumatoid factor, involving unspecified site M05.9 and Chest discomfort R07.89 [facility] [id number] [place] [address] 79242 -5068 Mar, Peripheral vascular disease I73.9 [place] [address] [id number] [place] [address] 35775- 9598 Mar, Essential hypertension I10 ; Rheumatoid arthritis with positive rheumatoid factor, involving unspecified site M05.9 ; Peripheral polyneuropathy G62.9 and 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 [facility] [place] [address] [address] 26 Feb, 2017 Cellulitis of right lower extremity L03.115 [facility] [place] [address] [id number] [place] [address] 63427- 2196 Feb, [facility] [address] [address] [id number] [place] [address] 91175 -1959 Feb, Cellulitis of right lower extremity L03.115 and Cellulitis of left lower limb L03.116 [facility] [place] [address] [place] [id number] [place] [address] 27169- 4677 15 Feb, 2017 Essential hypertension I10 [place] [address] [place] [id number] [place] [address] 66650- 9281 October, [place] [address] [place] [id number] [place] [address] 06207- 2190 October, Rheumatoid arthritis with positive rheumatoid factor, involving unspecified site M05.9 [place] [address] [place] [address] 42485- 9132 October, [facility] [id number] [place] [address] 72580 -9057 Sep, Cellulitis of left leg L03.116 [place] [address] [place] [address] 90318- 1101 Sep, [place] [address] [place] [address] 72611- 5162 Aug, [place] [address] [place] [address] 66462- 3573 Aug, [place] [address] [place] [id number] [place] [address] 18771- 1922 Aug, Peripheral polyneuropathy G62.9 ; Essential hypertension I10 ; Raynauds disease without gangrene I73.00 ; Rheumatoid arthritis with positive rheumatoid factor, involving unspecified site M05.9 and Allergic rhinitis, unspecified allergic rhinitis trigger, unspecified rhinitis seasonality J30.9 [place] [address] [place] [address] 35386- 3666 15 Jul, 2016 [facility] [place] [address] [place] [id number] [place] [address] 43746- 9300 15 May, 2016 Peripheral polyneuropathy G62.9 ; Essential hypertension I10 ; Raynauds disease without gangrene I73.00 and Rheumatoid arthritis with positive rheumatoid factor, involving unspecified site M05.9 [facility] [address] [place] [id number] [place] [address] 38784- 2673 28 Feb, 2016 Essential hypertension I10 and Numbness in feet R20.0 [facility] [address] [id number] [place] [address] 17760 -5841 17 Nov, 2015 Rash R21 [facility] [place] [address] [place] [id number] [place] [address] 47777- 9610 10 Aug, 2015 Essential hypertension I10 ; 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 ; Numbness in feet R20.0 ; Hepatitis C B19.20 and Left shoulder pain M25.512 [place] [address] [place] [id number] [place] [address] 84303- 5165 07 Jun, 2015 Essential hypertension I10 ; Hepatitis C B19.20 ; Numbness in feet R20.0 and 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 [place] [address] [id number] [place] [address] 25453- 6176 30 May, 2015 Essential hypertension I10 ; 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 ; Numbness in feet R20.0 ; Hepatitis C B19.20 and Left shoulder pain M25.512 [facility] [place] [address] [place] [id number] [place] [address] 44454- 2540 Sep, [place] [address] 6[address]37- 4666 Sep, [facility] [place] [address] [address] [id number] [place] [address] 49052- 9115 May, [facility] [place] [address] 26478- 1048 May, [facility] [place] [facility] [address] [id number] [place] [address] Apr, [facility] [place] [facility] [address] [id number] [place] [address]- 8252 Apr, [facility] [place] [facility] [address] [id number] [place] 8529 Mar, [facility] [place] [facility] [address] [id number] [place] 9439 Mar, [facility] [place] [facility] [address] [id number] [place] [address]- 4431 Nov, [facility] [place] [facility] [address] [id number] [place] [address]- 9507 Nov, [facility] [place] [facility] [address] [id number] [place] [address]- 9073 October, [facility] [place] [facility] [address] [id number] [place] [address]- 1940 October, [facility] [place] [facility] [address] [id number] [place] [address]- 7639 Aug, [facility] [place] [facility] [address] [id number] [place] [address]- 5773 Aug, [facility] [place] [facility] [address] [id number] [address]- 6000 Aug, [facility] [place] [facility] [address] [id number] [address]- 4171 Aug, [facility] [place] [facility] [address] [id number] [place] [address]- 3777 Aug, [facility] [place] [facility] [address] [id number] [place] [address]- 1703 Aug, [facility] [place] [facility] [address] [id number] [place] [address]- 1750 Aug, [facility] [place] [facility] [address] [id number] [place] [address]- 7659 Aug, [facility] [address] [id number] [place] [address]- 3599 Apr, [facility] [address] [id number] [place] [address]- 8211 Apr, [facility] [address] [id number] [place] [address]- 9005 Mar, [facility] [address] [id number] [place] [address]- 3084 Mar, [facility] [address] [id number] [place] [address]- 4628 Mar, [facility] [address] [id number] [place] [id number] Feb, [facility] [address] [id number] [place] [address]- 7499 17 Feb, 2013 [facility] [address] [id number] [place] [address]- 6286 16 Feb, 2013 [facility] [address] [id number] [place] [address]- 2910 Jan, [facility] [address] [id number] [place] [address]- 2599 Jan, [facility] [place] [facility] [address] [id number] [place] [address]- 8094 Jan, [facility] [address] [id number] [place] [address]- 0205 Jan, [facility] [place] [facility] [address] [id number] [place] 4395 Nov, [facility] [place] [facility] [address] [id number] [place] 6689 Nov, [facility] [place] [facility] [address] [id number] [place] [address]- 1351 Nov, [facility] [place] [facility] [address] [id number] [place] [address]- 1313 October, [facility] [address] [id number] [place] [address]- 3868 October, [facility] [address] [id number] [place] [address]- 0918 October, [facility] [address] [id number] [place] [address]- 8520 October, [facility] [address] [id number] [place] [address]- 7116 October, [facility] [address] [id number] [place] [address]- 3917 October, [facility] [address] [id number] [place] [address]- 1057 October, [facility] [address] [id number] [place] [address]- 3910 October, [facility] [address] [id number] [place] [address]- 2706 Sep, [facility] [address] [id number] [place] [address]- 3901 Sep, [facility] [address] [id number] [place] [address]- 7646 15 Sep, 2012 [facility] [address] [id number] [place] [address]- 6079 Sep, [facility] [address] [id number] [place] [address]- 0607 Sep, [facility] [address] [id number] [place] [address]- 0349 22 Aug, 2012 [facility] [address] [id number] [place] [address]- 8458 14 Aug, 2012 [facility] [address] [id number] [place] [address]- 9517 13 Aug, 2012 [facility] [place] [facility] [address] [id number] [place] [address]- 3819 08 Aug, 2012 [facility] [place] [facility] [address] [id number] [place] 3182 06 Aug, 2012 [facility] [place] [facility] [address] [id number] [place] [address]- 1411 05 Aug, 2012 [facility] [place] [facility] [address] [id number] [place] [address]- 3783 04 Aug, 2012 [facility] [place] [facility] [address] [id number] [place] [address]- 8820 04 Aug, 2012 [facility] [place] [facility] [address] [id number] [place] [address]- 8312 07 May, 2012 [facility] [place] [facility] [address] [id number] [place] [address]- 4403 May, [facility] [place] [facility] [address] [id number] [place] [address]- 6699 27 Apr, 2012 [facility] [place] [facility] [address] [id number] [place] [address]- 1835 Apr, [facility] [place] [facility] [address] [id number] [place] [address]- 6191 20 Apr, 2012 [facility] [place] [facility] [address] [id number] [place] [address]- 8109 16 Apr, 2012 [facility] [place] [facility] [address] [id number] [place] [address]- 2037 16 Apr, 2012 [facility] [place] [facility] [address] [id number] [place] [address]- 3343 14 Apr, 2012 [facility] [place] [facility] [address] [id number] [place] [address]- 5894 09 Apr, 2012 [facility] [place] [facility] [address] [id number] [place] [address]- 3543 06 Apr, 2012 [facility] [place] [facility] [address] [id number] [place] [address]- 0168 05 Apr, 2012 [facility] [place] [facility] [address] [id number] [place] [address]- 2872 Apr, [facility] [place] [facility] [address] [id number] [place] [address]- 4726 Apr, [facility] [place] [facility] [address] [id number] [place] [address]- 6020 Apr, [facility] [place] [facility] [address] [id number] [place] [address]- 8627 Mar, [facility] [place] [facility] [address] [id number] [place] [address]- 7876 Mar, [facility] [place] [facility] [address] [id number] [place] [address]- 5662 Feb, [facility] [place] [facility] [address] [id number] [place] [address]- 0370 Nov, [facility] [address] [id number] [place] [address]- 8372 Nov, [facility] [place] [facility] [address] [id number] [place] [address]- 9618 October, [facility] [address] [id number] [place] [address]- 8827 October, [facility] [place] [facility] [address] [id number] [place] [address]- 7837 October, [facility] [place] [facility] [address] [id number] [place] [address]- 4235 October, [facility] [place] [facility] [address] [id number] [place] [address]- 8681 Sep, [facility] [place] [facility] [address] [id number] [place] [address]- 9747 Sep, [facility] [place] [facility] [address] [id number] [id number] 8160 Sep, [facility] [address] [facility] [id number] [place] [address]- 6455 Sep, IMMUNIZATIONS No Known Immunizations SOCIAL HISTORY Never Assessed REASON FOR VISIT Rx rxn PLAN OF CARE VITAL SIGNS MEDICATIONS No Known Medications RESULTS No Results PROCEDURES No Known [...]
--- OUTSIDE RECORDS SUMMARY | 2018-07-08 19:20 | XMS REPORT ---
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 278331546 Problem Raynauds disease without gangrene I73.00 Active 144266531 Problem Hepatitis C B19.20 Active 39594006 Problem Allergic rhinitis, unspecified allergic rhinitis trigger, unspecified rhinitis seasonality J30.9 Active 55532777 Problem Peripheral polyneuropathy G62.9 Active 05544944 ALLERGIES Substance Reaction Event Type Date Status Indomethacin hives Drug Allergy May, Active Clindamycin HCl rash/swelling Drug Allergy May, Active Hydrocodone Failed UDS Non Drug Allergy May, Active Benzodiazepines Failed UDS Non Drug Allergy May, Active Amphetamine Failed UDS Non Drug Allergy May, Active ENCOUNTERS Encounter Location Date Diagnosis [facility] [id number], [place] [address] Sep, Essential hypertension I10 ; Rheumatoid arthritis with positive rheumatoid factor, involving unspecified site M05.9 and 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 [facility] [id number], [place] [address] Sep, [facility] [id number], [place] [address] Sep, [facility] [id number], [place] [address] Aug, Essential hypertension I10 ; Acute midline low back pain, with sciatica presence unspecified M54.5 and Localized edema R60.0 [place] [id number] [place] [address]893- [address]100 Aug, [facility] [id number] [place] [address] 01041- 8192 Aug, Rheumatoid arthritis with positive rheumatoid factor, involving unspecified site M05.9 ; Raynauds disease without gangrene I73.00 ; 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 and Hepatitis C B19.20 [place] [facility] [id number] [place] [address] 06555- 4284 Aug, Peripheral polyneuropathy G62.9 and Essential hypertension I10 [facility] [id number] [place] [address] 34443- 5218 Jul, Essential hypertension I10 [facility] [id number] [place] [address]49 -2169 Jun, [facility] [id number] [place] [address] 81964- 6131 Jun, [facility] [id number] [place] [address] 30720- 9352 May, Peripheral polyneuropathy G62.9 [place] [id number] [place] [address] 46705- 1348 May, Essential hypertension I10 ; Chest discomfort R07.89 ; Peripheral vascular disease I73.9 and Rheumatoid arthritis with positive rheumatoid factor, involving unspecified site M05.9 [facility] [id number] [place] [address] 96994- 8109 May, Essential hypertension I10 ; Peripheral vascular disease I73.9 ; Rheumatoid arthritis with positive rheumatoid factor, involving unspecified site M05.9 and Chest discomfort R07.89 [facility] [id number] [place] [address] 73822 -9972 Mar, Peripheral vascular disease I73.9 [place] [address] [address] Mar, Essential hypertension I10 ; Rheumatoid arthritis with positive rheumatoid factor, involving unspecified site M05.9 ; Peripheral polyneuropathy G62.9 and 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 [facility] [address], [place] [address] 26 Feb, 2017 Cellulitis of right lower extremity L03.115 [facility] [id number] [place] [address] 33785- 5377 Feb, [facility] [id number] [place] [address] 83008 -5117 Feb, Cellulitis of right lower extremity L03.115 and Cellulitis of left lower limb L03.116 [facility] [id number], [place] [address] 15 Feb, 2017 Essential hypertension I10 [facility] [id number] [place] [address] 25949- 5463 October, [facility] [id number] [place] [address] 13395- 8638 October, Rheumatoid arthritis with positive rheumatoid factor, involving unspecified site M05.9 [facility] [address], [place] [address] 7[address] October, [facility] [address], [place] [address] Sep, Cellulitis of left leg L03.116 [facility] [address], [place] [address] 9473 Sep, [facility] [id number] [place] [address] 56834- 6050 Aug, [facility] [address], [place] [address] Aug, [facility] [id number] [place] [address] 93229- 4170 Aug, Peripheral polyneuropathy G62.9 ; Essential hypertension I10 ; Raynauds disease without gangrene I73.00 ; Rheumatoid arthritis with positive rheumatoid factor, involving unspecified site M05.9 and Allergic rhinitis, unspecified allergic rhinitis trigger, unspecified rhinitis seasonality J30.9 [place] [id number] [place] [address] 28539- 6770 15 Jul, 2016 [facility] [address] [address]- [address] May, Peripheral polyneuropathy G62.9 ; Essential hypertension I10 ; Raynauds disease without gangrene I73.00 and Rheumatoid arthritis with positive rheumatoid factor, involving unspecified site M05.9 [facility] [id number] [place] [address] 59605- 4846 28 Feb, 2016 Essential hypertension I10 and Numbness in feet R20.0 [facility] [address] [address] Nov, Rash R21 [place] [address] [address]- [address] Aug, Essential hypertension I10 ; 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 ; Numbness in feet R20.0 ; Hepatitis C B19.20 and Left shoulder pain M25.512 [place] [id number] [place] [address] 77901- 0588 Jun, Essential hypertension I10 ; Hepatitis C B19.20 ; Numbness in feet R20.0 and 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 [facility] [id number] [place] [address] 92030- 3282 May, Essential hypertension I10 ; 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 ; Numbness in feet R20.0 ; Hepatitis C B19.20 and Left shoulder pain M25.512 [place] [id number] [place] [address] 72587- 9033 Sep, [place] [address] [place] [address]- 5[address] 13 Sep, 2014 [facility] [place] [facility] [address] [id number] [place] [address]- 3672 May, [facility] [place] [facility] [address] [id number] [place] [address]- 6979 May, [facility] [place] [facility] [address] [id number] [place] [address]- 2342 Apr, [facility] [place] [facility] [address] [id number] [place] [address]- 2154 Apr, [facility] [place] [facility] [address] [id number] [place] [address]- 9383 Mar, [facility] [place] [facility] [address] [id number] [place] [address]- 9448 Mar, [facility] [place] [facility] [address] [id number] [place] [address]- 8480 Nov, [facility] [place] [facility] [address] [id number] [place] [address]- 9976 Nov, [facility] [place] [facility] [address] [id number] [place] [address]- 7850 October, [facility] [place] [facility] [address] [id number] [place] [address]- 9098 October, [facility] [place] [facility] [address] [id number] [place] [address]- 7729 13 Aug, 2013 [facility] [place] [facility] [address] [id number] [address]- 1268 13 Aug, 2013 [facility] [place] [facility] [address] [id number] [place] [address]- 2364 13 Aug, 2013 [facility] [place] [facility] [address] [id number] [place] [address]- 0635 13 Aug, 2013 [facility] [place] [facility] [address] [id number] [place] [address]- 4435 12 Aug, 2013 [facility] [place] [facility] [address] [id number] [place] [address]- 4003 Aug, [facility] [place] [facility] [address] [id number] [place] [address]- 1170 Aug, [facility] [place] [facility] [address] [id number] [place] [address]- 3466 Aug, [facility] [place] [facility] [address] [id number] [place] [address]- 1060 Apr, [facility] [place] [facility] [address] [id number] [place] [address]- 1841 Apr, [facility] [place] [facility] [address] [id number] [place] [address]- 7959 Mar, [facility] [place] [facility] [address] [id number] [place] [address]- 5497 Mar, [facility] [place] [facility] [address] [id number] [place] [address]- 9995 Mar, [facility] [place] [facility] [address] [id number] [place] [address] Feb, [facility] [place] [facility] [address] [id number] [place] [address]- 0230 17 Feb, 2013 [facility] [place] [facility] [address] [id number] [place] [address]- 8967 16 Feb, 2013 [facility] [place] [facility] [address] [id number] [place] [address]- 0597 Jan, [facility] [place] [facility] [address] [id number] [place] [address]- 1103 Jan, [facility] [place] [facility] [address] [id number] [place] [address]- 2876 Jan, [facility] [place] [facility] [address] [id number] [place] [address]- 0526 Jan, [facility] [place] [facility] [address] [id number] [place] [address]- 6437 Nov, [facility] [address] [id number] [place] [address]- 2998 Nov, [facility] [place] [facility] [address] [id number] [place] [address]- 8572 Nov, [facility] [place] [facility] [address] [id number] [place] [address]- 7807 October, [facility] [place] [facility] [address] [id number] [place] [address]- 4717 October, [facility] [address] [id number] [place] [address]- 0248 October, [facility] [place] [facility] [address] [id number] [place] [address]- 8286 October, [facility] [address] [id number] [place] [address]- 3567 October, [facility] [place] [facility] [address] [id number] [place] [address]- 1029 October, [facility] [place] [facility] [address] [id number] [place] [address]- 0058 October, [facility] [place] [facility] [address] [id number] [place] [address]- 5041 October, [facility] [place] [facility] [address] [id number] [place] [address]- 7210 Sep, [facility] [place] [facility] [address] [id number] [place] [address]- 6985 19 Sep, 2012 [facility] [place] [facility] [address] [id number] [place] [address]- 6717 15 Sep, 2012 [facility] [place] [facility] [address] [id number] [place] [address]- 3822 Sep, [facility] [place] [facility] [address] [id number] [place] [address]- 6247 Sep, [facility] [place] [facility] [address] [id number] [place] [address]- 0469 22 Aug, 2012 [facility] [address] [id number] [place] [address]- 3358 14 Aug, 2012 [facility] [place] [facility] [address] [id number] [place] [address]- 2296 13 Aug, 2012 [facility] [address] [id number] [place] [address]- 5730 08 Aug, 2012 [facility] [place] [facility] [address] [id number] [place] [address]- 7120 06 Aug, 2012 [facility] [place] [facility] [address] [id number] [place] [address]- 8212 05 Aug, 2012 [facility] [place] [facility] [address] [id number] [place] [address]- 1360 04 Aug, 2012 [facility] [address] [id number] [place] [address]- 9939 04 Aug, 2012 [facility] [place] [facility] [address] [id number] [place] [address]- 6170 07 May, 2012 [facility] [place] [facility] [address] [id number] [place] [address]- 8112 07 May, 2012 [facility] [place] [facility] [address] [id number] [place] [address]- 6445 27 Apr, 2012 [facility] [place] [facility] [address] [id number] [place] [address]- 5556 20 Apr, 2012 [facility] [place] [facility] [address] [id number] [place] [address]- 6820 20 Apr, 2012 [facility] [place] [facility] [address] [id number] [place] [address]- 6916 16 Apr, 2012 [facility] [place] [facility] [address] [id number] [place] [address]- 8245 16 Apr, 2012 [facility] [place] [facility] [address] [id number] [place] [address]- 8499 14 Apr, 2012 [facility] [place] [facility] [address] [id number] [place] [address]- 2572 Apr, [facility] [place] [facility] [address] [id number] [place] [address]- 6850 Apr, [facility] [place] [facility] [address] [id number] [place] [address]- 8082 Apr, [facility] [place] [facility] [address] [id number] [place] [address]- 5692 Apr, [facility] [place] [facility] [address] [id number] [place] [address]- 8720 Apr, [facility] [place] [facility] [address] [id number] [place] [address]- 7693 Apr, [facility] [place] [facility] [address] [id number] [place] [address]- 6415 Mar, [facility] [place] [facility] [address] [id number] [place] [address]- 1052 Mar, [facility] [place] [facility] [address] [id number] [place] [address]- 6444 Feb, [facility] [place] [facility] [address] [id number] [place] [address]- 9072 Nov, [facility] [place] [facility] [address] [id number] [place] [address]- 0998 Nov, [facility] [place] [facility] [address] [id number] [place] [address]- 7886 October, [facility] [place] [facility] [address] [id number] [place] [address]- 8247 October, [facility] [place] [facility] [address] [id number] [place] [address]- 8161 October, [facility] [place] [facility] [address] [id number] [place] [address]- 4637 October, [facility] [place] [facility] [address] [id number], [place] [address]- 7364 Sep, [facility] [address] [facility] [id number] [place] [address]- 3134 Sep, [facility] [address] [facility] [id number] [address] Sep, [facility] [address] [facility] [id number], [place] [address]- 6279 Sep, IMMUNIZATIONS No Known Immunizations SOCIAL HISTORY Never Assessed REASON FOR VISIT leg pain walkin f/u-Wild[employer], Was taken off Celebrex (which was working) and started on meloxicam and it is not working PLAN OF CARE Activity Details Follow Up card referral and Dr. Chamberlain Reason:RA VITAL SIGNS Height 64 in 2017-06-10 Weight 156.5 lbs 2017-06-10 Temperature 99.2 degrees Fahrenheit 2017-06-10 Heart Rate 84 bpm 2017-06-10 Respiratory Rate 20 2017-06-10 BMI 26.86 kg/m2 2017-06-10 Blood pressure systolic 112 mmHg 2017-06-10 Blood pressure diastolic 68 mmHg 2017-06-10 MEDICATIONS Medication Instructions Dosage Frequency Start Date End Date Duration Status Hydrochlorothiazide 25 mg oral daily 1 tablet by Oral route 1 time per day 24h Active Celebrex 200 mg Orally Once a day 1 capsule with food 24h May, 90 days Active Fish Oil Concentrate 1000 mg 1 Capsule by Oral route 1 time per day Mar, Active Potassium Chloride Aubree ER 10 MEQ TAKE ONE TABLET BY MOUTH ONCE DAILY. Active Losartan Potassium 50 MG Orally Once a day at hs 1 tablet 30 days Active Gabapentin 100 mg Orally at bedtime 1 capsule Aug, Active Methotrexate 2.5 MG Orally once weekly 4 tablets October, Active amlodipine 5 mg oral daily 1 tablet by Oral route 1 time per day 24h Active Folic Acid 1 MG Orally Once a day 1 tablet 24h October, 90 days Active Vitamin D 1000 UNIT Orally Once a day 1 tablet 24h Active RESULTS Name Result Date Reference Range YISEL 2017-06-25 YISEL 2017-06-25 PROCEDURES Procedure Date Ordered Result Body Site EKG, TRACING (IN-HOUSE) 2017-06-10 N/A ELECTROCARDIOGRAM, TRACING Jun 10, 2017 INSTRUCTIONS MEDICATIONS ADMINISTERED No Known Medications [...]
--- OUTSIDE RECORDS SUMMARY | 2018-07-08 19:21 | XMS REPORT ---
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 150556644 Problem Raynauds disease without gangrene I73.00 Active 163693875 Problem Hepatitis C B19.20 Active 33796459 Problem Allergic rhinitis, unspecified allergic rhinitis trigger, unspecified rhinitis seasonality J30.9 Active 74450213 Problem Peripheral polyneuropathy G62.9 Active 69340211 ALLERGIES No Information ENCOUNTERS Encounter Location Date Diagnosis [place] [id number] [address] Sep, Essential hypertension I10 ; Rheumatoid arthritis with positive rheumatoid factor, involving unspecified site M05.9 and 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 [place] [address] [place] [address]67- 8682 Sep, [facility] [address] [place] [id number] [place] [address] 43387- 9509 Sep, [facility] [address] [place] [id number] [place] [address] 35235- 4076 Aug, Essential hypertension I10 ; Acute midline low back pain, with sciatica presence unspecified M54.5 and Localized edema R60.0 [facility] [address] [place] [id number] [place] [address]31- 9713 Aug, [facility] [address] [address] Aug, Rheumatoid arthritis with positive rheumatoid factor, involving unspecified site M05.9 ; Raynauds disease without gangrene I73.00 ; 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 and Hepatitis C B19.20 [facility] [address] [place] [id number] [place] [address] 25696- 3703 Aug, Peripheral polyneuropathy G62.9 and Essential hypertension I10 [facility] [address] [place] [id number] [place] [address] 84372- 7693 Jul, Essential hypertension I10 [facility] [address] [place] [id number] [place] [address]308 -2525 Jun, [facility] [address] [place] [id number] [place] [address] 73382- 5803 Jun, [place] [address] [place] [id number] [place] [address] 21667- 4434 May, Peripheral polyneuropathy G62.9 [place] [address] [place] [id number] [place] [address] 77044- 5042 May, Essential hypertension I10 ; Chest discomfort R07.89 ; Peripheral vascular disease I73.9 and Rheumatoid arthritis with positive rheumatoid factor, involving unspecified site M05.9 [place] [address] [place] [address] 84864- 7847 May, Essential hypertension I10 ; Peripheral vascular disease I73.9 ; Rheumatoid arthritis with positive rheumatoid factor, involving unspecified site M05.9 and Chest discomfort R07.89 [facility] [address] [place] [address] 59388 -0802 Mar, Peripheral vascular disease I73.9 [place] [address] [place] [address] 88071- 8023 Mar, Essential hypertension I10 ; Rheumatoid arthritis with positive rheumatoid factor, involving unspecified site M05.9 ; Peripheral polyneuropathy G62.9 and 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 [place] [address] [address] 89[address] 26 Feb, 2017 Cellulitis of right lower extremity L03.115 [facility] [address] [address] Feb, [facility] [address] [place] [address]47 -4122 Feb, Cellulitis of right lower extremity L03.115 and Cellulitis of left lower limb L03.116 [facility] [address] [address] 7328 15 Feb, 2017 Essential hypertension I10 [facility] [address] [place] [id number] [place] [address] 28895- 1865 October, [place] [address] [place] [id number] [place] [address] 51380- 7111 October, Rheumatoid arthritis with positive rheumatoid factor, involving unspecified site M05.9 [facility] [address] [address] 8892 October, [facility] [address] [address] Sep, Cellulitis of left leg L03.116 [facility] [address] [address] 0167 Sep, [facility] [address] [address] 4[address] Aug, [facility] [address] [address] 7288 Aug, [facility] [address] [address]- 9065 Aug, Peripheral polyneuropathy G62.9 ; Essential hypertension I10 ; Raynauds disease without gangrene I73.00 ; Rheumatoid arthritis with positive rheumatoid factor, involving unspecified site M05.9 and Allergic rhinitis, unspecified allergic rhinitis trigger, unspecified rhinitis seasonality J30.9 [facility] [address] [place] [id number] [place] [address] 31771- 2661 15 Jul, 2016 [facility] [address] [address]- 7598 May, Peripheral polyneuropathy G62.9 ; Essential hypertension I10 ; Raynauds disease without gangrene I73.00 and Rheumatoid arthritis with positive rheumatoid factor, involving unspecified site M05.9 [facility] [address] [place] [id number] [place] [address] 13492- 6453 28 Feb, 2016 Essential hypertension I10 and Numbness in feet R20.0 [facility] [address] [address] -5822 17 Nov, 2015 Rash R21 [place] [address] [address]- 8588 10 Aug, 2015 Essential hypertension I10 ; 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 ; Numbness in feet R20.0 ; Hepatitis C B19.20 and Left shoulder pain M25.512 [place] [address] [place] [id number] [place] [address] 83173- 2746 Jun, Essential hypertension I10 ; Hepatitis C B19.20 ; Numbness in feet R20.0 and 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 [place] [address] [place] [id number] [place] [address] 83481- 5907 30 May, 2015 Essential hypertension I10 ; 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 ; Numbness in feet R20.0 ; Hepatitis C B19.20 and Left shoulder pain M25.512 [place] [address] [place] [id number] [place] [address] 89829- 4012 Sep, [place] [address] 39609- 9365 Sep, [place] [address] [place] [id number] [place] [address] 70645- 0225 May, [place] [address] 38801- 7217 May, [facility] [place] [facility] [address] [id number] [place] [address]- 4913 Apr, [facility] [place] [facility] [address] [id number] [place] [address]- 2218 Apr, [facility] [place] [facility] [address] [facility] [id number] [place] [address]- 8586 Mar, [facility] [place] [facility] [address] [id number] [place] [address]- 7338 Mar, [facility] [place] [facility] [address] [id number] [place] [address]- 3527 Nov, [facility] [place] [facility] [address] [id number] [place] [address]- 5652 Nov, [facility] [place] [facility] [address] [facility] [id number] [place] [address]- 6634 October, [facility] [place] [facility] [address] [id number] [place] [address]- 4697 October, [facility] [place] [facility] [address] [id number] [place] [address]- 9235 Aug, [facility] [place] [facility] [address] [facility] [id number] [place] [address]- 1203 Aug, [facility] [place] [facility] [address] [id number] [place] [address]- 3200 Aug, [facility] [place] [facility] [address] [id number] [address]- 7896 Aug, [facility] [place] [facility] [address] [id number] [place] [address]- 3966 Aug, [facility] [place] [facility] [address] [id number] [place] [address]- 6699 Aug, [facility] [place] [facility] [address] [facility] [id number] [place] [address]- 4931 Aug, [facility] [place] [facility] [address] [id number] [place] [address]- 4757 Aug, [facility] [place] [facility] [address] [id number] [place] [address]- 4410 Apr, [facility] [place] [facility] [address] [id number] [place] [address]- 7946 Apr, [facility] [place] [facility] [address] [id number] [place] [address]- 4532 Mar, [facility] [place] [facility] [address] [id number] [place] [address]- 1003 Mar, [facility] [place] [facility] [address] [id number] [place] [address]- 4420 Mar, [facility] [place] [facility] [address] [id number] [place] [address] Feb, [facility] [place] [facility] [address] [id number] [place] [address]- 3188 17 Feb, 2013 [facility] [place] [facility] [address] [id number] [place] [address]- 8355 16 Feb, 2013 [facility] [place] [facility] [address] [id number] [place] [address]- 3804 Jan, [facility] [place] [facility] [address] [id number] [place] [address] Jan, [facility] [place] [facility] [address] [id number] [place] [address]- 8146 Jan, [facility] [place] [facility] [address] [id number] [place] [address]- 2261 Jan, [facility] [place] [facility] [address] [id number] [place] [address]- 3064 Nov, [facility] [place] [facility] [address] [id number] [place] [address] 2546 Nov, [facility] [place] [facility] [address] [id number] [place] [address]- 3494 Nov, [facility] [address] [id number] [place] [address]- 1025 October, [facility] [place] [facility] [address] [id number] [place] [address]- 1376 October, [facility] [place] [facility] [address] [id number] [place] [address]- 1540 October, [facility] [place] [facility] [address] [id number] [place] [address]- 9635 October, [facility] [place] [facility] [address] [id number] [place] [address]- 8190 October, [facility] [place] [facility] [address] [id number] [place] [address]- 4719 October, [facility] [place] [facility] [address] [id number] [place] [address]- 3000 October, [facility] [place] [facility] [address] [id number] [place] [address]- 4013 October, [facility] [place] [facility] [address] [id number] [place] [address]- 7656 Sep, [facility] [place] [facility] [address] [id number] [place] [address]- 8588 Sep, [facility] [place] [facility] [address] [id number] [place] [address]- 5091 15 Sep, 2012 [facility] [place] [facility] [address] [id number] [place] [address]- 0277 Sep, [facility] [place] [facility] [address] [id number] [place] [address]- 6030 Sep, [facility] [place] [facility] [address] [id number] [place] [address]- 1104 22 Aug, 2012 [facility] [place] [facility] [address] [id number] [place] [address]- 1615 14 Aug, 2012 [facility] [place] [facility] [address] [id number] [place] [address]- 0319 13 Aug, 2012 [facility] [place] [facility] [address] [id number] [place] [address]- 0102 08 Aug, 2012 [facility] [place] [facility] [address] [id number] [place] [address]- 2824 06 Aug, 2012 [facility] [place] [facility] [address] [id number] [place] [address]- 5555 05 Aug, 2012 [facility] [place] [facility] [address] [id number] [place] [address]- 6552 04 Aug, 2012 [facility] [place] [facility] [address] [id number] [place] [address]- 3557 04 Aug, 2012 [facility] [place] [facility] [address] [id number] [place] [address]- 4927 07 May, 2012 [facility] [place] [facility] [address] [id number] [place] [address]- 2293 07 May, 2012 [facility] [place] [facility] [address] [id number] [place] [address]- 0016 27 Apr, 2012 [facility] [place] [facility] [address] [id number] [place] [address]- 8768 20 Apr, 2012 [facility] [place] [facility] [address] [facility] [id number] [place] [address]- 3137 20 Apr, 2012 [facility] [place] [facility] [address] [id number] [place] [address]- 5421 16 Apr, 2012 [facility] [place] [facility] [address] [id number] [place] [address]- 5496 16 Apr, 2012 [facility] [place] [facility] [address] [id number] [place] [address]- 7112 14 Apr, 2012 [facility] [place] [facility] [address] [id number] [place] [address]- 0576 09 Apr, 2012 [facility] [place] [facility] [address] [id number] [place] [address]- 7269 06 Apr, 2012 [facility] [place] [facility] [address] [id number] [place] [address]- 9171 Apr, [facility] [place] [facility] [address] [id number] [place] [address]- 0296 Apr, [facility] [place] [facility] [address] [id number] [place] [address]- 0872 Apr, [facility] [place] [facility] [address] [id number] [place] [address]- 6313 Apr, [facility] [place] [facility] [address] [id number] [place] [address]- 4093 Mar, [facility] [place] [facility] [address] [id number] [place] [address]- 6290 Mar, [facility] [place] [facility] [address] [id number] [place] [address]- 5272 Feb, [facility] [place] [facility] [address] [id number] [place] [address]- 8915 Nov, [facility] [place] [facility] [address] [id number] [place] [address]- 3552 Nov, [facility] [place] [facility] [address] [id number] [place] [address]- 1522 October, [facility] [place] [facility] [address] [id number] [place] [address]- 7460 October, [facility] [place] [facility] [address] [id number] [place] [address]- 0372 October, [facility] [place] [facility] [address] [id number] [place] [address]- 5011 October, [facility] [place] [facility] [address] [id number] [place] [address]- 7166 Sep, [facility] [place] [facility] [address] [id number] [place] [address]- 9695 Sep, [facility] [place] [facility] [address] [id number] [place] [address]- 5924 Sep, [facility] [address] [facility] [id number] [place] [address]- 3376 Sep, IMMUNIZATIONS No Known Immunizations SOCIAL HISTORY Never Assessed REASON FOR VISIT Repository Medication PLAN OF CARE VITAL SIGNS MEDICATIONS Medication Instructions Dosage Frequency Start Date End Date Duration Status Gabapentin 100 mg Orally at bedtime 1 capsule Aug, Active Folic Acid 1 MG Orally Once a day 1 tablet 24h October, 90 days Active RESULTS No Results PROCEDURES [...]
--- OUTSIDE RECORDS SUMMARY | 2018-07-08 19:21 | XMS REPORT ---
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 174592425 Problem Allergic rhinitis, unspecified allergic rhinitis trigger, unspecified rhinitis seasonality J30.9 Active 73016660 Problem Numbness in feet R20.0 Active 871579128 Problem Left shoulder pain M25.512 Active 40291284 Problem Raynauds disease without gangrene I73.00 Active 841603502 Problem Peripheral polyneuropathy G62.9 Active 54759931 ALLERGIES No Information SOCIAL HISTORY Never Assessed PLAN OF CARE VITAL SIGNS MEDICATIONS Medication Instructions Dosage Frequency Start Date End Date Duration Status Bactrim DS 800-160 MG Orally twice a day 1 tablet 12h October, October, 07 days Active RESULTS No Results PROCEDURES No [...]
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
--- OUTSIDE RECORDS SUMMARY | 2018-07-08 19:21 | XMS REPORT ---
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 Assessment Essential hypertension I10 Active Problem Numbness in feet R20.0 Active Assessment Hepatitis C B19.20 Active Assessment Numbness in feet R20.0 Active Problem Essential hypertension I10 Active Problem Pain in joint, site unspecified [...] Unspecified arthropathy, site unspecified 716.90 Active Problem Chest pain, unspecified 786.50 Active Assessment 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
--- OUTSIDE RECORDS SUMMARY | 2018-07-08 19:21 | XMS REPORT ---
Author Author RICARDO BURCH Organization [facility] Address [address] [place] [address] Care Team Providers Care Marketing Technologist Name Role Phone RICARDO BURCH Unavailable PROBLEMS Type Condition ICD9-CM Code XHL51-CX Code Onset Dates Condition Status SNOMED Code Problem Numbness in feet R20.0 Active 001385974 Problem Rheumatoid arthritis with positive rheumatoid factor, involving unspecified site M05.9 Active 117518008 Problem Allergic rhinitis, unspecified allergic rhinitis trigger, unspecified rhinitis seasonality J30.9 Active 25624635 Problem Peripheral polyneuropathy G62.9 Active 56050259 Problem Essential hypertension I10 Active 95460263 Problem Left shoulder pain M25.512 Active 36704377 Problem Raynauds disease without gangrene I73.00 Active 511705248 Problem Hepatitis C B19.20 Active 09785123 ALLERGIES No Information SOCIAL HISTORY Never Assessed [...]
--- OUTSIDE RECORDS SUMMARY | 2018-07-08 19:21 | XMS REPORT ---
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6-33.0 MCHC 34.6 31.5-35.7 RDW 13.5 12.3-15.4 Platelets 200 150-379 Neutrophils 70 Lymphs 21 Monocytes 5 Eos 4 Basos 0 Neutrophils (Absolute) 4.2 1.4-7.0 Lymphs (Absolute) 1.3 0.7-3.1 Monocytes(Absolute) 0.3 0.1-0.9 Eos (Absolute) 0.2 0.0-0.4 Baso (Absolute) 0.0 0.0-0.2 Immature Granulocytes 0 Immature Grans (Abs) 0.0 0.0-0.1 RA (RHEUMATOID) FACTOR 2016-03-26 RA Latex Turbid. 121.1 0.0-13.9 CMP 2016-03-26 Glucose, Serum 157 65-99 BUN 14 6-24 Creatinine, Serum 0.71 0.57-1.00 eGFR If NonAfricn Am 97 >59 eGFR If Africn Am 112 >59 BUN/Creatinine Ratio 20 9-23 Sodium, Serum 143 134-144 Potassium, Serum 4.2 3.5-5.2 Chloride, Serum 101 97-108 Carbon Dioxide, Total 23 18-29 Calcium, Serum 9.2 8.7-10.2 Protein, Total, Serum 7.2 6.0-8.5 Albumin, Serum 4.4 3.5-5.5 Globulin, Total 2.8 1.5-4.5 A/G Ratio 1.6 1.1-2.5 Bilirubin, Total 0.5 0.0-1.2 Alkaline Phosphatase, S 84 39-117 AST (SGOT) 66 0-40 ALT (SGPT) 92 0-32 PROCEDURES Procedure Date Ordered Related Diagnosis Body Site COMPLETE CBC W/AUTO DIFF WBC Mar 26, 2016 COMPREHEN METABOLIC PANEL Mar 26, 2016 VITAMIN B-12 Mar 26, 2016 ASSAY THYROID STIM HORMONE Mar 26, 2016 VENIPUNCT, ROUTINE* Mar 26, 2016 RHEUMATOID FACTOR, QUANT Mar 26, 2016 IMMUNIZATIONS No Known Immunizations
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
[2018-07-08 21:08] LABS: BASOPHILS % (AUTO) 0 % (0-10); EOSINOPHILS # (AUTO) 0.1 10^3/uL (0.0-0.3); EOSINOPHILS % (AUTO) 2 % (0-10); HEMATOCRIT 38 % (35-52); HEMOGLOBIN 13.1 G/DL (11.5-16.0); LYMPHOCYTES # (AUTO) 0.8 X 10^3 (1.0-4.0); LYMPHOCYTES % (AUTO) 23 % (12-44); MEAN CORPUSCULAR HEMOGLOBIN 31 PG (25-34); MEAN CORPUSCULAR HGB CONC 35 G/DL (32-36); MEAN CORPUSCULAR VOLUME 89 FL (80-99); MEAN PLATELET VOLUME 9.8 FL (7.4-10.4); MONOCYTES # (AUTO) 0.2 X 10^3 (0.0-1.0); MONOCYTES % (AUTO) 6 % (0-12); NEUTROPHILS # (AUTO) 2.3 X 10^3 (1.8-7.8); NEUTROPHILS % (AUTO) 70 % (42-75); PLATELET COUNT 144 10^3/uL (130-400); RED BLOOD COUNT 4.23 10^6/uL (4.35-5.85); RED CELL DISTRIBUTION WIDTH 13.3 % (10.0-14.5); WHITE BLOOD COUNT 3.3 10^3/uL (4.3-11.0)
--- NOTE | 2018-07-08 21:08 | Diagnostic Imaging Report ---
PATIENT HISTORY: Swelling in the lower extremities. TECHNIQUE: Two views of the chest. COMPARISON: None. FINDINGS: Lung volumes are normal. There is linear opacity in the left lung base, likely atelectasis or scarring. No focal airspace consolidation is seen. There is no pleural effusion or pneumothorax. The cardiac silhouette is normal in size. No acute osseous abnormality is seen. IMPRESSION: No acute pulmonary abnormality is seen. Dictated by: Dictated on workstation # [id number]
[2018-07-08 21:20] LABS: PROTHROMBIN TIME PATIENT 13.5 SEC (12.2-14.7)
[2018-07-08 21:29] LABS: ALANINE AMINOTRANSFERASE 43 U/L (0-55); ALBUMIN 3.7 GM/DL (3.2-4.5); ALKALINE PHOSPHATASE 151 U/L (40-136); BILIRUBIN,TOTAL 0.7 MG/DL (0.1-1.0); BUN/CREATININE RATIO 14; CALCIUM 9.2 MG/DL (8.5-10.1); CARBON DIOXIDE 21 MMOL/L (21-32); CHLORIDE 107 MMOL/L (98-107); CREATININE SERUM 0.73 MG/DL (0.60-1.30); GFR ESTIMATED > 60; GLUCOSE 139 MG/DL (70-105); MAGNESIUM 1.7 MG/DL (1.8-2.4); POTASSIUM 3.8 MMOL/L (3.6-5.0); SODIUM 140 MMOL/L (135-145); TOTAL PROTEIN 6.7 GM/DL (6.4-8.2)
--- NOTE | 2018-07-08 21:30 | NUR ---
After being poked several times by multiple care providers, pt did not want to have anymore IV attempts. Provider was notified.
[2018-07-08 21:49] LABS: TSH (THYROID ANALYZER) 1.29 UIU/ML (0.35-4.94)
[2018-07-08 21:56] LABS: ERYTHROCYTE SEDIMENTATION RATE 13 MM/HR (0-30)
--- NOTE | 2018-07-08 22:07 | ED Lower Extremity ---
General Chief Complaint: Lower Extremity Stated Complaint: RED, PAINFUL, SWOLLEN LEGS Nursing Triage Note: Pt has had bilateral leg swelling for the past two days. Both lower legs are bright red and swollen and fingers are swollen. Friend that drove pt stated that they were worried about congestive heart failure, because that happened to her mom. Nursing Sepsis Screen: No Definite Risk Allergies and Home Medications Allergies Coded Allergies: hydrocodone (Verified Allergy, Unknown, 07/08/18) Past Nsrwins-Ifmywg-Kvzfjf Hx Patient Social History Alcohol Use: Denies Use Recreational Drug Use: Yes (last used 07/08/2018) Drug of Choice: Meth Smoking Status: Current Everyday Smoker Type Used: Cigarettes 2nd Hand Smoke Exposure: Yes Recent Foreign Travel: No Contact w/Someone Who Travel: No Recent Infectious Disease Expo: No Recent Hopitalizations: No Physical Abuse: No Sexual Abuse: No Mistreated: No Fear: No Seasonal Allergies Seasonal Allergies: No Past Medical History Surgeries: Yes Section Cardiac: Yes Hypertension, Peripheral Vascular Neuropathy [employer]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 0oz. [id number]; BMI Method:Stated Progress/Results/Core Measures Results/Orders Lab Results Laboratory Tests Test 07/08/18 21:03 07/08/18 22:12 Range/Units White Blood Count 3.3 L 4.3-11.0 10^3/uL Red Blood Count 4.23 L 4.35-5.85 10^6/uL Hemoglobin 13.1 11.5-16.0 G/DL Hematocrit 38 35-52 % Mean Corpuscular Volume 89 80-99 FL Mean Corpuscular Hemoglobin 31 25-34 PG Mean Corpuscular Hemoglobin Concent 35 32-36 G/DL Red Cell Distribution Width 13.3 10.0-14.5 % Platelet Count 144 130-400 10^3/uL Mean Platelet Volume 9.8 7.4-10.4 FL Neutrophils (%) (Auto) 70 42-75 % Lymphocytes (%) (Auto) 23 12-44 % Monocytes (%) (Auto) 6 0-12 % Eosinophils (%) (Auto) 2 0-10 % Basophils (%) (Auto) 0 0-10 % Neutrophils # (Auto) 2.3 1.8-7.8 X 10^3 Lymphocytes # (Auto) 0.8 L 1.0-4.0 X 10^3 Monocytes # (Auto) 0.2 0.0-1.0 X 10^3 Eosinophils # (Auto) 0.1 0.0-0.3 10^3/uL Basophils # (Auto) 0.0 0.0-0.1 10^3/uL Erythrocyte Sedimentation Rate 13 0-30 MM/HR Prothrombin Time 13.5 12.2-14.7 SEC INR Comment 1.0 0.8-1.4 Activated Partial Thromboplast Time 24 24-35 SEC Sodium Level 140 135-145 MMOL/L Potassium Level 3.8 3.6-5.0 MMOL/L Chloride Level 107 98-107 MMOL/L Carbon Dioxide Level 21 21-32 MMOL/L Anion Gap 12 5-14 MMOL/L Blood Urea Nitrogen 10 7-18 MG/DL Creatinine 0.73 0.60-1.30 MG/DL Estimat Glomerular Filtration Rate > 60 BUN/Creatinine Ratio 14 Glucose Level 139 H 70-105 MG/DL Calcium Level 9.2 8.5-10.1 MG/DL Corrected Calcium 9.4 8.5-10.1 MG/DL Magnesium Level 1.7 L 1.8-2.4 MG/DL Total Bilirubin 0.7 0.1-1.0 MG/DL Aspartate Amino Transf (AST/SGOT) 36 H 5-34 U/L Alanine Aminotransferase (ALT/SGPT) 43 0-55 U/L Alkaline Phosphatase 151 H 40-136 U/L Troponin I < 0.028 <0.028 NG/ML C-Reactive Protein High Sensitivity 2.55 H 0.00-0.50 MG/DL B-Type Natriuretic Peptide 36.0 <100.0 PG/ML Total Protein 6.7 6.4-8.2 GM/DL Albumin 3.7 3.2-4.5 GM/DL TSH Howe Testing 1.29 0.35-4.94 UIU/ML Serum Alcohol < 10 <10 MG/DL Urine Color LAYLA H Urine Clarity SLIGHTLY CLOUDY Urine pH 6 5-9 Urine Specific [place] 1.025 H 1.016-1.022 Urine Protein 1+ H NEGATIVE Urine Glucose (UA) NEGATIVE NEGATIVE Urine Ketones NEGATIVE NEGATIVE Urine Nitrite NEGATIVE NEGATIVE Urine Bilirubin NEGATIVE NEGATIVE Urine Urobilinogen 4 H NORMAL MG/DL Urine Leukocyte Esterase 2+ H NEGATIVE Urine RBC (Auto) 2+ H NEGATIVE Urine RBC 5-10 H /HPF Urine WBC 25-50 H /HPF Urine Squamous Epithelial Cells 2-5 /HPF Urine Crystals PRESENT H /LPF Urine Calcium Oxalate Crystals FEW H /LPF Urine Bacteria FEW H /HPF Urine Casts NONE /LPF Urine Mucus SMALL H /LPF Urine Culture Indicated YES Urine Opiates Screen NEGATIVE NEGATIVE Urine Oxycodone Screen NEGATIVE NEGATIVE Urine Methadone Screen NEGATIVE NEGATIVE Urine Propoxyphene Screen NEGATIVE NEGATIVE Urine Barbiturates Screen NEGATIVE NEGATIVE Ur Tricyclic Antidepressants Screen NEGATIVE NEGATIVE Urine Phencyclidine Screen NEGATIVE NEGATIVE Urine Amphetamines Screen POSITIVE H NEGATIVE Urine Methamphetamines Screen NEGATIVE NEGATIVE Urine Benzodiazepines Screen NEGATIVE NEGATIVE Urine Cocaine Screen NEGATIVE NEGATIVE Urine Cannabinoids Screen NEGATIVE NEGATIVE My Orders Orders - ELIZABETH KUMARA K DO Saline Lock/Iv-Start (07/08/18 19:38) Ekg Tracing (07/08/18 19:38) Monitor-Rhythm Ecg Trace Only (07/08/18 19:38) Alcohol (07/08/18 19:38) BNP (07/08/18 19:38) Cbc With Automated Diff (07/08/18 19:38) Comprehensive Metabolic Panel (07/08/18 19:38) Hs C Reactive Protein (07/08/18 19:38) Erythrocyte Sedimentation Rate (07/08/18 19:38) Drug Screen Stat (Urine) (07/08/18 19:38) Magnesium (07/08/18 19:38) Protime With Inr (07/08/18 19:38) Partial Thromboplastin Time (07/08/18 19:38) Thyroid Analyzer (07/08/18 19:38) Troponin I (07/08/18 19:38) Ua Culture If Indicated (07/08/18 19:38) Chest Pa/Lat (2 View) (07/08/18 19:38) Clindamycin Injection (Cleocin Injection (07/08/18 22:15) Ketorolac Injection (Toradol Injection) (07/08/18 22:15) Sulfamethoxazole/Trimet Ds Tab (Bactrim (07/08/18 22:15) Clindamycin Injection (Cleocin Injection (07/08/18 22:15) Urine Culture (07/08/18 22:12) Medications Given in ED Current Medications Medications Dose Ordered Sig/Rosario Route Start Time Stop Time Status Last Admin Dose Admin Clindamycin Phosphate 300 mg STK-MED ONCE .ROUTE 07/08/18 22:15 07/08/18 22:19 DC 07/08/18 22:31 600 MG Ketorolac Tromethamine 60 mg ONCE ONCE IM 07/08/18 22:15 07/08/18 22:16 UNV 07/08/18 22:26 60 MG Trimethoprim/ Sulfamethoxazole 2 ea ONCE ONCE PO 07/08/18 22:15 07/08/18 22:16 UNV 07/08/18 22:27 2 EA Vital Signs/I&O 07/08/18 19:34 Temp 97.7 Pulse 105 Resp 20 B/P (MAP) 163/96 (118) Pulse Ox 100 O2 Delivery Room Air Blood Pressure Mean: 118 Diagnostic Imaging Comments CXR--NO ACUTE PROCESS, PER RADIOLOGIST REPORT @ 2202 Departure Impression Primary Impression: EXACERBATION OF CHRONIC BILATERAL LOWER LEG CELLULITIS Additional Impressions: UTI (urinary tract infection) Illicit drug use Disposition: 01 HOME, SELF-CARE Condition: Stable Departure-Patient Inst. Referrals: [facility] [place] Primary Care Physician MATTHIEU VALENZUELA MD (Family) Primary Care Physician Patient Instructions: Cellulitis (Skin Infection), Adult (DC), Drug Abuse Treatment, Drug Abuse and Drug Addiction (DC), Urinary Tract Infection, Adult ( DC) Add. Discharge Instructions: FOLLOW UP WITH [facility] [place]-CALL IN AM FOR APPOINTMENT TYLENOL AND MOTRIN NEEDED FOR PAIN All discharge instructions reviewed with patient and/or family. Voiced understanding. Scripts Sulfamethoxazole/Trimethoprim (Bactrim Ds Tablet) 1 Each Tablet 2 EACH PO BID, #40 TAB Prov: HIEN KUMAR DO 07/08/18 HIEN KUMAR DO Jul 08, 2018 22:07
[2018-07-08] MEDS ORDERED: TRIM/SULFAMETH 160/800 (SEPTRA DS) TAB PO ONE (22:15)
[2018-07-08] MEDS ORDERED: CLINDAMYCIN 300 MG/2ML (CLEOCIN) VIAL ONE (22:15)
[2018-07-08] MEDS ORDERED: CLINDAMYCIN 600 MG/4ML (CLEOCIN) VIAL IM ONE (22:15)
[2018-07-08] MEDS ORDERED: KETOROLAC 60 MG/2 ML VIAL IM ONE (22:15)
[2018-07-08 22:18] LABS: BILIRUBIN,URINE NEGATIVE (NEGATIVE); CLARITY,URINE SLIGHTLY CLOUDY; COLOR,URINE AMBER; GLUCOSE, URINE (UA) NEGATIVE (NEGATIVE); KETONES,URINE NEGATIVE (NEGATIVE); LEUKOCYTE ESTERASE ,URINE 2+ (NEGATIVE); NITRITE,URINE NEGATIVE (NEGATIVE); PH,URINE 6 (5-9); PROTEIN,URINE 1+ (NEGATIVE); UROBILINOGEN,URINE 4 MG/DL (NORMAL)
[2018-07-08 22:27] LABS: BACTERIA,URINE FEW /HPF; WBC,URINE 25-50 /HPF
[2018-07-08 22:28] LABS: CALCIUM OXALATE CRYSTALS,UR FEW /LPF
[2018-07-08 22:34] LABS: AMPHETAMINE SCREEN, URINE POSITIVE (NEGATIVE); BARBITURATE SCREEN URINE NEGATIVE (NEGATIVE); BENZODIAZEPINES SCREEN URINE NEGATIVE (NEGATIVE); CANNABINOID SCREEN, URINE NEGATIVE (NEGATIVE); COCAINE SCREEN URINE NEGATIVE (NEGATIVE); METHADONE STAT NEGATIVE (NEGATIVE); METHAMPHETAMINE SCREEN URINE S NEGATIVE (NEGATIVE); OPIATE SCREEN URINE NEGATIVE (NEGATIVE); OXYCODONE STAT NEGATIVE (NEGATIVE); PROPOXYPHENE STAT NEGATIVE (NEGATIVE); TRICYCLIC ANTIDEPRESSANTS SCRE NEGATIVE (NEGATIVE)
[2018-07-08] MEDS ORDERED: SULF1TAB35 PO (22:39)
[2018-07-08 22:45] VITALS: BP 151/97
== END 2018-07-08 22:45 | disposition home or self-care (01) ==
LOC: EDUNIT# 19:09 → ER 19:10
DX: L03.115 Cellulitis of right lower limb (principal); L03.116 Cellulitis of left lower limb; N39.0 Urinary tract infection, site not specified; F19.10 Other psychoactive substance abuse, uncomplicated; I10 Essential (primary) hypertension; I73.9 Peripheral vascular disease, unspecified; M06.9 Rheumatoid arthritis, unspecified; F41.9 Anxiety disorder, unspecified; F17.210 Nicotine dependence, cigarettes, uncomplicated; Z88.5 Allergy status to narcotic agent; Z98.890 Other specified postprocedural states
CPT/HCPCS: 36415; 71046; 80053; 80306; 80320; 81000; 83735; 83880; 84443; 84484; 85025; 85610; 85652; 85730; 86141; 87088; 93005; 93041; 96372

== ENCOUNTER 2019-05-10 20:22 | Inpatient (IN) | payer BC ==
[~2019-05-10] VITALS: Ht 160 cm; Wt 69.7 kg
[~2019-05-10 20:22] MED LIST: SULF1TAB35 PO
[2019-05-10] MEDS ORDERED: POTA10TA36 PO (20:46)
[2019-05-10] MEDS ORDERED: METF-397 PO (20:46)
[2019-05-10] MEDS ORDERED: CELE-63 PO (20:46)
[2019-05-10] MEDS ORDERED: LOSA50TA63 PO (20:46)
[2019-05-10] MEDS ORDERED: GABA-486 PO (20:46)
[2019-05-10] MEDS ORDERED: PIPERACILLIN SODIUM/TAZOBACTAM 4.5 GM in NS (IVPB) 100 ML IV ONE (21:00)
[2019-05-10] MEDS ORDERED: VANCOMYCIN INJECTION 1,000 MG in NS (IVPB) 250 ML IV ONE (21:00)
--- NOTE | 2019-05-10 21:06 | ED Integumentary General ---
General Chief Complaint: Skin/Wound Problems Stated Complaint: L LEG WOUND INFECTION Nursing Triage Note: INJURED LEG IN JANUARY AND IS NOT HEALING SAW MATTHIEU VALENZUELA TODAY AND WAS TOLD TO COME TO THE ER FOR POTENTIAL IV ANTIBIOTICS, NOTED SCAB , REDNESS, WARMNESS TO ANTERIOR LEFT INTERIANO Source: patient History of Present Illness Date Seen by Provider: May 10, 2019 Time Seen by Provider: 20:47 Initial Comments PT ARRIVES VIA POV STATES SHE WAS TOLD TO COME HERE BY DR. Vasquez VALENZUELA-- "MIGHT NEED ANTIBIOTICS" PT HAS WOUND TO LEFT MID INTERIANO AREA SINCE NOVEMBER--STATES SHE POKED HER LEG ON A W ICKER BASKET, AND HAS NOT HEALED HAS NOT SOUGHT CARE FOR IT UNTIL TODAY, WHEN SHE SAW DR. VALENZUELA AT [facility] SYMPTOMS ARE NO DIFFERENT TODAY IN ANY WAY NO FEVER ONLY DRAINAGE FROM IT WAS WHEN SHE HAD COVERED IT WITH A BANDAID, AND THE SCAB CAME OFF WITH THE BANDAID--THIS WAS NOT RECENTLY. IT IS NOT DRAINING NOW, AND IS SCABBED OVER HAS REDNESS, SWELLING AND WARMTH TO THE AREA PT IS DIABETIC, BUT HAS NOT BEEN TAKING HER MEDICATION ( PILLS) ON ANY REGULAR BASIS PT ONLY OCCASIONALLY CHECKS HER BLOOD SUGAR--STATES IT WAS 165 YESTERDAY PT STATES SHE WAS IN [place] IN FOR "VASCULITIS" OF HER LEGS FOR 3 DAYS. STATES SHE HAD THIS WOUND ON HER LEG THEN, "BUT IT WASN'T LIKE IT IS NOW" MESSAGE WAS LEFT WITH ER STAFF, BY DR. Vasquez VALENZUELA--SHE HAD SENT TEXT MESSAGE TO DR. DOAN WITH WOUND CARE AND SHE WANTS PT ADMITTED AND IV ANTIBIOTICS STARTED. 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 Vasquez VALENZUELA, [facility] Allergies and Home Medications Allergies Coded Allergies: hydrocodone (Verified Allergy, Unknown, 07/08/18) Home Medications Sulfamethoxazole/Trimethoprim 1 Each Tablet, 2 EACH PO BID Prescribed by: HIEN KUMAR on 07/08/18 4582 Patient Home Medication List Home Medication List Reviewed: Yes Review of Systems Review of Systems Constitutional: no symptoms reported Respiratory: no symptoms reported Cardiovascular: no symptoms reported Gastrointestinal: no symptoms reported Musculoskeletal: see HPI Skin: see HPI Psychiatric/Neurological: No Symptoms Reported Endocrine: See HPI Hematologic/Lymphatic: No Symptoms Reported Past Ogzpfju-Djgqvd-Bsyzri Hx Past Med/Social Hx: Reviewed and Corrections made Patient Social History Alcohol Use: Past History (HISTORY OF ABUSE, CLAIMS NO RECENT USE) Recreational Drug Use: Yes (+ IV METH USE) 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 Smoking Status: Current Everyday Smoker (1 PPD) Type Used: Cigarettes (1 PPD) 2nd Hand Smoke Exposure: Yes Recent Foreign Travel: No Contact w/Someone Who Travel: No Recent Infectious Disease Expo: No Recent Hopitalizations: No Physical Abuse: No Sexual Abuse: No Mistreated: No Fear: No Immunizations Up To Date Tetanus Booster (TDap): More than 5yrs (2005) Seasonal Allergies Seasonal Allergies: No Past Medical History Surgeries: Yes (LITHOTRIPSY; FACIAL RECONSTRUCTION; X 1-TWINS) Section, Renal, Tubal Ligation Respiratory: No Cardiac: Yes (VASCULITIS OF LEGS) Chronic Edema/Swelling, Hypertension, Peripheral Vascular Neurological: Yes Neuropathy : No [employer] History: Menopausal Genitourinary: Yes Kidney Stones Gastrointestinal: Yes (HEPATITIS C--NO TREATMENT) Hepatitis Musculoskeletal: Yes (CRYOGLOBULINEMIA; CHRONIC LEG EDEMA, CELLULITIS AND VASCULITIS; PT CLAIMS "RA" BUT HAS NEVER SEEN SCHOOL EXAMINER OR BEEN ON ANY MEDICATION FOR RHEUMATOID; ALSO CLAIMS "RAYNAUD'S" BUT ALSO HAS NEVER BEEN SEEN BY SPECIALIST OR BEEN ON ANY MEDICATION FOR IT. ) Arthritis, Rheumatoid Arthritis Endocrine: Yes Diabetes, Non-Insulin dep HEENT: No Cancer: No Psychosocial: Yes Anxiety Integumentary: Yes (CHRONIC LEG EDEMA AND CELLULITIS ; VASCULITIS) Blood Disorders: No Physical Exam Vital Signs Vital Signs - First Documented 05/10/19 05/10/19 20:26 21:00 Temp 37.0 Pulse 108 Resp 20 B/P (MAP) 151/92 (111) Pulse Ox 100 O2 Delivery Room Air Capillary Refill : Less Than 3 Seconds General Appearance: WD/WN, no apparent distress, other (REEKS OF CIGARETTES) Cardiovascular: normal peripheral pulses, regular rate, rhythm, no murmur Respiratory: normal breath sounds, no respiratory distress, no accessory muscle use Gastrointestinal: non tender, soft Extremities: normal range of motion, no calf tenderness, other (BOTH LEGS WITH CHRONIC VENOUS STASIS CHANGES AND BRAWNY INDURATION; HAS EXTENSIVE MOTTLING FROM JUST BELOW KNEES UP TO GROIN BILATERALLY. NO EDEMA NOTED AT THIS TIME. ANTERIOR ASPECT OF LEFT LOWER LEG/MID INTERIANO AREA WITH SCABBED WOUND WITH SWELLING, ERYTHEMA, WARMTH AND TENDERNESS. NO AREAS OF FLUCTUANCE, NO DRAINAGE. NO STREAKS. BOTH FEET ARE VERY COOL, BUT ARE PINK. CAPILLARY REFILL IS < 5 SECONDS TO FEET. NO WOUNDS TO FEET. HANDS ALSO ARE VERY COOL AND BOTH ARE DUSKY--RIGHT > LEFT. PEDAL PULSES +1 ON LEFT, AND VERY FAINT /BARELY PALPABLE ON LEFT. RADIAL PULSES ARE FAINT BILATERALLY. 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 ) Progress/Results/Core Measures Results/Orders Lab Results Laboratory Tests Test 05/10/19 21:03 05/10/19 21:15 Range/Units Glucometer 254 H 70-110 MG/DL White Blood Count 3.7 L 4.3-11.0 10^3/uL Red Blood Count 3.78 L 4.35-5.85 10^6/uL Hemoglobin 10.6 L 11.5-16.0 G/DL Hematocrit 33 L 35-52 % Mean Corpuscular Volume 87 80-99 FL Mean Corpuscular Hemoglobin 28 25-34 PG Mean Corpuscular Hemoglobin Concent 32 32-36 G/DL Red Cell Distribution Width 15.4 H 10.0-14.5 % Platelet Count 176 130-400 10^3/uL Mean Platelet Volume 10.3 7.4-10.4 FL Neutrophils (%) (Auto) 84 H 42-75 % Lymphocytes (%) (Auto) 9 L 12-44 % Monocytes (%) (Auto) 6 0-12 % Eosinophils (%) (Auto) 1 0-10 % Basophils (%) (Auto) 0 0-10 % Neutrophils # (Auto) 3.1 1.8-7.8 X 10^3 Lymphocytes # (Auto) 0.3 L 1.0-4.0 X 10^3 Monocytes # (Auto) 0.2 0.0-1.0 X 10^3 Eosinophils # (Auto) 0.0 0.0-0.3 10^3/uL Basophils # (Auto) 0.0 0.0-0.1 10^3/uL Erythrocyte Sedimentation Rate 18 0-30 MM/HR Prothrombin Time 14.1 12.2-14.7 SEC INR Comment 1.1 0.8-1.4 Activated Partial Thromboplast Time 24 24-35 SEC Sodium Level 137 135-145 MMOL/L Potassium Level 3.8 3.6-5.0 MMOL/L Chloride Level 107 98-107 MMOL/L Carbon Dioxide Level 20 L 21-32 MMOL/L Anion Gap 10 5-14 MMOL/L Blood Urea Nitrogen 23 H 7-18 MG/DL Creatinine 0.75 0.60-1.30 MG/DL Estimat Glomerular Filtration Rate > 60 BUN/Creatinine Ratio 31 Glucose Level 246 H 70-105 MG/DL Lactic Acid Level 1.68 0.50-2.00 MMOL/L Calcium Level 8.5 8.5-10.1 MG/DL Corrected Calcium 9.1 8.5-10.1 MG/DL Total Bilirubin 0.6 0.1-1.0 MG/DL Aspartate Amino Transf (AST/SGOT) 28 5-34 U/L Alanine Aminotransferase (ALT/SGPT) 24 0-55 U/L Alkaline Phosphatase 144 H 40-136 U/L C-Reactive Protein High Sensitivity 3.15 H 0.00-0.50 MG/DL Total Protein 6.1 L 6.4-8.2 GM/DL Albumin 3.3 3.2-4.5 GM/DL Serum Alcohol < 10 <10 MG/DL My Orders Orders - HIEN KUMAR DO Accucheck Stat ONCE (05/10/19 20:57) Ed Iv/Invasive Line Start (05/10/19 20:57) Tibia/Fibula, Left, 2 Views (05/10/19 20:57) Alcohol (05/10/19 20:57) Cbc With Automated Diff (05/10/19 20:57) Comprehensive Metabolic Panel (05/10/19 20:57) Hs C Reactive Protein (05/10/19 20:57) Drug Screen Stat (Urine) (05/10/19 20:57) Lactic Acid Analyzer (05/10/19 20:57) Protime With Inr (05/10/19 20:57) Partial Thromboplastin Time (05/10/19 20:57) Ua Culture If Indicated (05/10/19 20:57) Blood Culture (05/10/19 20:57) Erythrocyte Sedimentation Rate (05/10/19 20:57) Piperacillin Sodium/Tazobactam (Zosyn Vi (05/10/19 21:00) Vancomycin Injection (Vancomycin Injecti (05/10/19 21:00) Ed Iv/Invasive Line Start (05/10/19 21:23) Ns Iv 1000 Ml (Sodium Chloride 0.9%) (05/10/19 21:23) Medications Given in ED Current Medications Medications Dose Ordered Sig/Rosario Route Start Time Stop Time Status Last Admin Dose Admin Piperacillin Sod/ Tazobactam Sod 4.5 gm/Sodium Chloride 100 ml @ 200 mls/hr ONCE ONCE IV 05/10/19 21:00 05/10/19 21:29 DC 05/10/19 21:37 200 MLS/HR Vancomycin HCl 1000 mg/Sodium Chloride 250 ml @ 250 mls/hr ONCE ONCE IV 05/10/19 21:00 05/10/19 21:59 DC 05/10/19 22:11 250 MLS/HR Vital Signs/I&O 05/10/19 05/10/19 05/10/19 05/10/19 20:26 21:00 21:15 21:30 Temp 37.0 Pulse 108 99 95 105 Resp 20 18 18 18 B/P (MAP) 151/92 (111) 145/89 140/91 156/96 Pulse Ox 100 99 100 98 O2 Delivery Room Air Room Air 05/10/19 21:45 Temp 36.5 Pulse 104 Resp 18 B/P (MAP) 131/91 Pulse Ox 100 O2 Delivery Room Air Blood Pressure Mean: 111 POS Progress Progress Note : Progress Note UNEVENTFUL ER STAY PT REMAINED CALM AND COOPERATIVE FOR ENTIRE ER STAY VITALS STABLE. Diagnostic Imaging Comments XRAYS LEFT TIB-FIB--NO ACUTE PROCESS, PER RADIOLOGIST REPORT AT 2220 Reviewed: Reviewed by Me Departure Communication (Admissions) 2154--SPOKE WITH DR. MAIN, ACCEPTS PT FOR ADMIT. Impression Primary Impression: CELLULITIS LEFT LOWER LEG Additional Impressions: CHRONIC WOUND LEFT LOWER LEG NIDDM Methamphetamine use HX OF UNTREATED HEPATITIS C IV drug abuse Disposition: ADMITTED INPATIENT Condition: Stable Admissions Decision to Admit Reason: Admit from ER (General) Decision to Admit/Date: May 10, 2019 Time/Decision to Admit Time: 21:55 Departure-Patient Inst. Referrals: [facility] (PCP) Primary Care Physician MATTHIEU VALENZUELA MD (Family) Primary Care Physician HIEN KUMAR DO May 10, 2019 21:06 POS
[2019-05-10] MEDS ORDERED: NS IV 1000 ML 1,000 ML IV SCH (21:23)
[2019-05-10 21:26] LABS: BASOPHILS % (AUTO) 0 % (0-10); EOSINOPHILS % (AUTO) 1 % (0-10); HEMATOCRIT 33 % (35-52); HEMOGLOBIN 10.6 G/DL (11.5-16.0); LYMPHOCYTES # (AUTO) 0.3 X 10^3 (1.0-4.0); LYMPHOCYTES % (AUTO) 9 % (12-44); MEAN CORPUSCULAR HEMOGLOBIN 28 PG (25-34); MEAN CORPUSCULAR HGB CONC 32 G/DL (32-36); MEAN CORPUSCULAR VOLUME 87 FL (80-99); MEAN PLATELET VOLUME 10.3 FL (7.4-10.4); MONOCYTES # (AUTO) 0.2 X 10^3 (0.0-1.0); MONOCYTES % (AUTO) 6 % (0-12); NEUTROPHILS # (AUTO) 3.1 X 10^3 (1.8-7.8); NEUTROPHILS % (AUTO) 84 % (42-75); PLATELET COUNT 176 10^3/uL (130-400); RED CELL DISTRIBUTION WIDTH 15.4 % (10.0-14.5); WHITE BLOOD COUNT 3.7 10^3/uL (4.3-11.0)
[2019-05-10] MEDS ORDERED: NS IV 1000 ML 1,000 ML ONE (21:32)
[2019-05-10 21:39] LABS: INR 1.1 (0.8-1.4); PROTHROMBIN TIME PATIENT 14.1 SEC (12.2-14.7)
[2019-05-10 21:46] LABS: ERYTHROCYTE SEDIMENTATION RATE 18 MM/HR (0-30)
[2019-05-10 21:47] LABS: ALANINE AMINOTRANSFERASE 24 U/L (0-55); ALBUMIN 3.3 GM/DL (3.2-4.5); ALKALINE PHOSPHATASE 144 U/L (40-136); BILIRUBIN,TOTAL 0.6 MG/DL (0.1-1.0); BUN/CREATININE RATIO 31; CALCIUM 8.5 MG/DL (8.5-10.1); CARBON DIOXIDE 20 MMOL/L (21-32); CHLORIDE 107 MMOL/L (98-107); CREATININE SERUM 0.75 MG/DL (0.60-1.30); GFR ESTIMATED > 60; GLUCOSE 246 MG/DL (70-105); POTASSIUM 3.8 MMOL/L (3.6-5.0); SODIUM 137 MMOL/L (135-145); TOTAL PROTEIN 6.1 GM/DL (6.4-8.2)
--- NOTE | 2019-05-10 22:17 | Diagnostic Imaging Report ---
CLINICAL HISTORY: Leg pain. COMPARISON: None TECHNIQUE: 2 views of the left tibia and fibula. FINDINGS: There is no acute fracture or dislocation of the tibia and fibula. Alignment is anatomic. The imaged joint spaces are preserved. No joint effusion is seen in the left knee. The soft tissues are unremarkable. IMPRESSION: 1. No acute fracture or dislocation in the left tibia and fibula. No focal osseous lesions. Dictated by: Dictated on workstation # [id number]
[2019-05-10 22:25] LABS: BILIRUBIN,URINE NEGATIVE (NEGATIVE); CLARITY,URINE SL CLOUDY; COLOR,URINE DARK YELLOW; GLUCOSE, URINE (UA) 1+ (NEGATIVE); KETONES,URINE NEGATIVE (NEGATIVE); LEUKOCYTE ESTERASE ,URINE NEGATIVE (NEGATIVE); NITRITE,URINE NEGATIVE (NEGATIVE); PH,URINE 5.5 (5-9); PROTEIN,URINE TRACE (NEGATIVE)
[2019-05-10 22:41] LABS: AMPHETAMINE SCREEN, URINE POSITIVE (NEGATIVE); BARBITURATE SCREEN URINE NEGATIVE (NEGATIVE); BENZODIAZEPINES SCREEN URINE NEGATIVE (NEGATIVE); CANNABINOID SCREEN, URINE NEGATIVE (NEGATIVE); COCAINE SCREEN URINE NEGATIVE (NEGATIVE); METHADONE STAT NEGATIVE (NEGATIVE); METHAMPHETAMINE SCREEN URINE S POSITIVE (NEGATIVE); OPIATE SCREEN URINE NEGATIVE (NEGATIVE); OXYCODONE STAT NEGATIVE (NEGATIVE); PROPOXYPHENE STAT NEGATIVE (NEGATIVE); TRICYCLIC ANTIDEPRESSANTS SCRE NEGATIVE (NEGATIVE)
[2019-05-10 22:43] LABS: AMORPHOUS SEDIMENT,UR FEW AMOR URATES /LPF; BACTERIA,URINE TRACE /HPF; CALCIUM OXALATE CRYSTALS,UR RARE /LPF
--- NOTE | 2019-05-10 23:05 | NUR ---
MARY ANNE BARROW admitted to room 430-1, with an admitting diagnosis of LEFT LEG CELLULITIS, on 05/10/19 from ED via WHEELCHAIR, accompanied by STAFF.MARY ANNE BARROW introduced to surroundings, call light, bed controls, phone, TV, temperature control, lights, meal times, smoking policy, visitor policy, side rail policy, bathrooms and showers. Patient Rights given to patient in the handbook. MARY ANNE BARROW verbalizes understanding that [facility] is not responsible for the loss or damage to any personal effects or valuables that are kept in the patients posession during their hospitalization.
[2019-05-10] MEDS ORDERED: TETANUS,DIPTH,PERTUSS P/F (BOOSTRIX) 0.5 ML VIAL IM ONE (23:30)
[2019-05-10] MEDS: NS IV 1000 ML 1,000 ML IV SCH (23:59)
[2019-05-11] VITALS (7 sets, daily range): BP systolic 153–175; BP diastolic 79–104
[2019-05-11] MEDS ORDERED: NS (IVPB) 100 ML ONE (04:27)
[2019-05-11] MEDS ORDERED: PIPERACILLIN/TAZO 4.5 GM VIAL (ZOSYN) IV ONE (04:27)
[2019-05-11] MEDS: PIPERACILLIN/TAZO 4.5 GM/NS 100 ML IV SCH ×6 (05:10→18:38)
[2019-05-11] MEDS: inSUlin ASPART (NovoLOG) 1 UNIT/0.01 ML (CHARGE PER UNIT) SC SCH ×4 (05:10→21:37)
[2019-05-11 05:38] LABS: BASOPHILS % (AUTO) 0 % (0-10); EOSINOPHILS % (AUTO) 1 % (0-10); HEMATOCRIT 32 % (35-52); HEMOGLOBIN 10.5 G/DL (11.5-16.0); LYMPHOCYTES # (AUTO) 0.4 X 10^3 (1.0-4.0); LYMPHOCYTES % (AUTO) 10 % (12-44); MEAN CORPUSCULAR HEMOGLOBIN 28 PG (25-34); MEAN CORPUSCULAR HGB CONC 33 G/DL (32-36); MEAN CORPUSCULAR VOLUME 87 FL (80-99); MEAN PLATELET VOLUME 9.8 FL (7.4-10.4); MONOCYTES # (AUTO) 0.2 X 10^3 (0.0-1.0); MONOCYTES % (AUTO) 7 % (0-12); NEUTROPHILS # (AUTO) 2.9 X 10^3 (1.8-7.8); NEUTROPHILS % (AUTO) 82 % (42-75); PLATELET COUNT 127 10^3/uL (130-400); RED CELL DISTRIBUTION WIDTH 15.3 % (10.0-14.5); WHITE BLOOD COUNT 3.5 10^3/uL (4.3-11.0)
[2019-05-11 05:58] LABS: BUN/CREATININE RATIO 26; CARBON DIOXIDE 17 MMOL/L (21-32); CHLORIDE 111 MMOL/L (98-107); CREATININE SERUM 0.73 MG/DL (0.60-1.30); POTASSIUM 3.8 MMOL/L (3.6-5.0); SODIUM 138 MMOL/L (135-145)
[2019-05-11 05:59] LABS: ALANINE AMINOTRANSFERASE 23 U/L (0-55); ALKALINE PHOSPHATASE 171 U/L (40-136); BILIRUBIN,TOTAL 0.5 MG/DL (0.1-1.0); CALCIUM 8.1 MG/DL (8.5-10.1); GFR ESTIMATED > 60; GLUCOSE 193 MG/DL (70-105); TOTAL PROTEIN 5.4 GM/DL (6.4-8.2)
--- NOTE | 2019-05-11 06:53 | NUR ---
VANCOMYCIN DOSING SCR 0.73; CRCL ~ 79; VANC 15 MG/KG X 69 KG ~ 1 GM Q12H CHECK TROUGH LEVEL 05/12 0900 HOLD DOSE AND CONTACT PHARMACY IF LEVEL IS GREATER THAN 20
[2019-05-11] MEDS ORDERED: METH2.5T PO (08:46)
[2019-05-11] MEDS ORDERED: HYDR25TA4 PO (08:46)
[2019-05-11] MEDS ORDERED: FOLI1TAB24 PO (08:46)
[2019-05-11] MEDS ORDERED: OMG1KC PO (09:54)
--- NOTE | 2019-05-11 10:12 | NUR ---
SPOKE WITH THE PATIENT ABOUT HER MEDICATIONS. SHE LISTED WHAT SHE IS TAKING. SHE IS PAST DUE FOR REFILL ON SEVERAL AND ADMITS SHE WAS NOT TAKING THEM PRESCRIBED FOR AWHILE BUT HAS RESUMED RECENTLY. I NOTED THE PAST DUE FILL DATES ON THE MED REC. I HAD A LIST FAXED OVER FROM [facility] MEDICAL RECORDS WELL. IN ADDITION TO WHAT IS SHOWN ON THE EXT MED HX [facility] STATES THEY FILLED METHOTREXATE #16 TABS 12-17-18. SHE TAKES FISH OIL OTC. LEVSIN WAS ON THE LIST FROM [facility] FROM 03-04-19 HOWEVER NOT FILLED RECENTLY AND SHE DID NOT LIST SHE WAS TAKING IT SO I DID NOT INCLUDE IT ON THE MED REC AT THIS TIME. SHE THOUGHT SHE WAS GIVEN SOME OF HER METFORMIN FROM WHEN SHE WAS SENT HOME FROM THERE HOWEVER I CALLED AND THEY DID NOT HAVE RECORD OF DISPENSING ANY MEDICATIONS TO HER.
--- NOTE | 2019-05-11 10:13 | History & Physical ---
HPI History of Present Illness: Pt came to ER due to nonhealing wound on leg, hit on picnic basket this summer and didn't heal, started getting worse about a week ago and feeling sick. She has not been on antibiotics for it so far. She has felt drained, fatigued, sick to her stomach. No fever. She admits diarrhea as well as nasal congestion. No sore throat. She does admit cough. Date seen by provider: May 11, 2019 Time Seen by Provider: 10:11 Attending Physician Maxwell Bowen MD PCP [place] [place] Consult Date of Admission May 10, 2019 at 21:55 Home Medications Home Medications Reviewed patient Home Medication Reconciliation performed by pharmacy medication reconciliations serology technician and/or nursing. Patients Allergies have been reviewed. Allergies Coded Allergies: hydrocodone (Verified Allergy, Unknown, 07/08/18) UAT-Sglkmx-Xyarjj Hx Patient Social History Alcohol Use: Denies Use Recreational Drug Use: Yes (+ IV METH USE) 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 Smoking Status: Current Everyday Smoker (1 PPD) Type Used: Cigarettes (1 PPD) 2nd Hand Smoke Exposure: Yes Recent Foreign Travel: No Contact w/other who traveled: No Recent Hopitalizations: No Recent Infectious Disease Expo: No Immunizations Up To Date Tetanus Booster (TDap): More than 5yrs (2005) Date of Influenza Vaccine: Mar 29, 2019 Past Medical History PMHx: HTN DMII Hep C Rheumatoid arthritis Cryoglobulinemia SurgHx: Family Medical History Significant Family History: Heart Disease, Cancer (lung), Diabetes Review of Systems (CHC) Constitutional: see HPI Reviewed Test Results Reviewed Test Results Lab Laboratory Tests Test 05/10/19 21:03 05/10/19 21:15 05/10/19 22:17 05/11/19 04:57 Range/Units Glucometer 254 H 181 H 70-110 MG/DL White Blood Count 3.7 L 4.3-11.0 10^3/uL Red Blood Count 3.78 L 4.35-5.85 10^6/uL Hemoglobin 10.6 L 11.5-16.0 G/DL Hematocrit 33 L 35-52 % Mean Corpuscular Volume 87 80-99 FL Mean Corpuscular Hemoglobin 28 25-34 PG Mean Corpuscular Hemoglobin Concent 32 32-36 G/DL Red Cell Distribution Width 15.4 H 10.0-14.5 % Platelet Count 176 130-400 10^3/uL Mean Platelet Volume 10.3 7.4-10.4 FL Neutrophils (%) (Auto) 84 H 42-75 % Lymphocytes (%) (Auto) 9 L 12-44 % Monocytes (%) (Auto) 6 0-12 % Eosinophils (%) (Auto) 1 0-10 % Basophils (%) (Auto) 0 0-10 % Neutrophils # (Auto) 3.1 1.8-7.8 X 10^3 Lymphocytes # (Auto) 0.3 L 1.0-4.0 X 10^3 Monocytes # (Auto) 0.2 0.0-1.0 X 10^3 Eosinophils # (Auto) 0.0 0.0-0.3 10^3/uL Basophils # (Auto) 0.0 0.0-0.1 10^3/uL Erythrocyte Sedimentation Rate 18 0-30 MM/HR Prothrombin Time 14.1 12.2-14.7 SEC INR Comment 1.1 0.8-1.4 Activated Partial Thromboplast Time 24 24-35 SEC Sodium Level 137 135-145 MMOL/L Potassium Level 3.8 3.6-5.0 MMOL/L Chloride Level 107 98-107 MMOL/L Carbon Dioxide Level 20 L 21-32 MMOL/L Anion Gap 10 5-14 MMOL/L Blood Urea Nitrogen 23 H 7-18 MG/DL Creatinine 0.75 0.60-1.30 MG/DL Estimat Glomerular Filtration Rate > 60 BUN/Creatinine Ratio 31 Glucose Level 246 H 70-105 MG/DL Lactic Acid Level 1.68 0.50-2.00 MMOL/L Calcium Level 8.5 8.5-10.1 MG/DL Corrected Calcium 9.1 8.5-10.1 MG/DL Total Bilirubin 0.6 0.1-1.0 MG/DL Aspartate Amino Transf (AST/SGOT) 28 5-34 U/L Alanine Aminotransferase (ALT/SGPT) 24 0-55 U/L Alkaline Phosphatase 144 H 40-136 U/L C-Reactive Protein High Sensitivity 3.15 H 0.00-0.50 MG/DL Total Protein 6.1 L 6.4-8.2 GM/DL Albumin 3.3 3.2-4.5 GM/DL Serum Alcohol < 10 <10 MG/DL Urine Color DARK YELLOW Urine Clarity SL CLOUDY Urine pH 5.5 5-9 Urine Specific [place] >=1.030 1.016-1.022 Urine Protein TRACE NEGATIVE Urine Glucose (UA) 1+ H NEGATIVE Urine Ketones NEGATIVE NEGATIVE Urine Nitrite NEGATIVE NEGATIVE Urine Bilirubin NEGATIVE NEGATIVE Urine Urobilinogen 1.0 < = 1.0 MG/DL Urine Leukocyte Esterase NEGATIVE NEGATIVE Urine RBC (Auto) 3+ H NEGATIVE Urine RBC 5-10 H /HPF Urine WBC NONE /HPF Urine Squamous Epithelial Cells 2-5 /HPF Urine Crystals PRESENT H /LPF Urine Calcium Oxalate Crystals RARE H /LPF Urine Amorphous Sediment FEW DANE URATES H /LPF Urine Bacteria TRACE /HPF Urine Casts NONE /LPF Urine Mucus MODERATE H /LPF Urine Culture Indicated NO Urine Opiates Screen NEGATIVE NEGATIVE Urine Oxycodone Screen NEGATIVE NEGATIVE Urine Methadone Screen NEGATIVE NEGATIVE Urine Propoxyphene Screen NEGATIVE NEGATIVE Urine Barbiturates Screen NEGATIVE NEGATIVE Ur Tricyclic Antidepressants Screen NEGATIVE NEGATIVE Urine Phencyclidine Screen NEGATIVE NEGATIVE Urine Amphetamines Screen POSITIVE H NEGATIVE Urine Methamphetamines Screen POSITIVE H NEGATIVE Urine Benzodiazepines Screen NEGATIVE NEGATIVE Urine Cocaine Screen NEGATIVE NEGATIVE Urine Cannabinoids Screen NEGATIVE NEGATIVE Test 05/11/19 05:10 05/11/19 05:20 05/11/19 11:22 Range/Units Sodium Level 138 135-145 MMOL/L Potassium Level 3.8 3.6-5.0 MMOL/L Chloride Level 111 H 98-107 MMOL/L Carbon Dioxide Level 17 L 21-32 MMOL/L Anion Gap 10 5-14 MMOL/L Blood Urea Nitrogen 19 H 7-18 MG/DL Creatinine 0.73 0.60-1.30 MG/DL Estimat Glomerular Filtration Rate > 60 BUN/Creatinine Ratio 26 Glucose Level 193 H 70-105 MG/DL Calcium Level 8.1 L 8.5-10.1 MG/DL Corrected Calcium 8.9 8.5-10.1 MG/DL Total Bilirubin 0.5 0.1-1.0 MG/DL Aspartate Amino Transf (AST/SGOT) 24 5-34 U/L Alanine Aminotransferase (ALT/SGPT) 23 0-55 U/L Alkaline Phosphatase 171 H 40-136 U/L Total Protein 5.4 L 6.4-8.2 GM/DL Albumin 3.0 L 3.2-4.5 GM/DL White Blood Count 3.5 L 4.3-11.0 10^3/uL Red Blood Count 3.70 L 4.35-5.85 10^6/uL Hemoglobin 10.5 L 11.5-16.0 G/DL Hematocrit 32 L 35-52 % Mean Corpuscular Volume 87 80-99 FL Mean Corpuscular Hemoglobin 28 25-34 PG Mean Corpuscular Hemoglobin Concent 33 32-36 G/DL Red Cell Distribution Width 15.3 H 10.0-14.5 % Platelet Count 127 L 130-400 10^3/uL Mean Platelet Volume 9.8 7.4-10.4 FL Neutrophils (%) (Auto) 82 H 42-75 % Lymphocytes (%) (Auto) 10 L 12-44 % Monocytes (%) (Auto) 7 0-12 % Eosinophils (%) (Auto) 1 0-10 % Basophils (%) (Auto) 0 0-10 % Neutrophils # (Auto) 2.9 1.8-7.8 X 10^3 Lymphocytes # (Auto) 0.4 L 1.0-4.0 X 10^3 Monocytes # (Auto) 0.2 0.0-1.0 X 10^3 Eosinophils # (Auto) 0.0 0.0-0.3 10^3/uL Basophils # (Auto) 0.0 0.0-0.1 10^3/uL Glucometer 165 H 70-110 MG/DL Radiology 05/10 Left tib/fib x-ray unremarkable Physical Exam-(CHC) Physical Exam Vital Signs VS - Last 72 Hours, by Label POS 05/10/19 05/10/19 05/10/19 05/10/19 20:26 21:00 21:15 21:30 Temp 37.0 Pulse 108 99 95 105 Resp 20 18 18 18 B/P (MAP) 151/92 (111) 145/89 140/91 156/96 Pulse Ox 100 99 100 98 O2 Delivery Room Air Room Air 05/10/19 05/10/19 05/10/19 05/10/19 21:45 22:00 22:15 22:30 Temp 36.5 Pulse 104 102 102 101 Resp 18 18 18 18 B/P (MAP) 131/91 132/93 141/85 135/96 Pulse Ox 100 99 99 99 O2 Delivery Room Air Room Air 1105/11/19 05/11/19 05/11/19 22:42 00:26 01:47 04:00 Temp 36.5 36.7 37.2 Pulse 101 102 109 Resp 18 18 20 B/P (MAP) 135/96 (104) 153/92 161/97 (118) Pulse Ox 99 100 100 O2 Delivery Room Air Room Air Room Air Room Air 05/11/19 05/11/19 08:00 12:00 Temp 37.1 37.3 Pulse 107 105 Resp 24 24 B/P (MAP) 164/85 (111) 169/96 (120) Pulse Ox 96 97 O2 Delivery Room Air Room Air Capillary Refill : Less Than 3 Seconds General Appearance: no apparent distress Respiratory: lungs clear, normal breath sounds Cardiovascular: regular rate, rhythm, no murmur Gastrointestinal: normal bowel sounds, non tender, soft Extremities: no pedal edema Neurologic/Psychiatric: normal mood/affect Skin: other (both legs with hemosiderin staining to knees, left anterior nguyen with scabbed lesion about 4 cm in diameter without current drainage with mild surrounding erythema and peeling skin) Assessment/Plan Assessment/Plan Admission Status: Observation (1) Left leg cellulitis Assessment & Plan: Started vancomycin and zosyn in ER. Will transition to oral when tolerating PO well. (2) chronic leg wound Assessment & Plan: Dr. Pacheco consulted, appreciate recommendations. (3) Hypertension Status: Chronic Assessment & Plan: Resume home meds. 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 Holding metformin. Qualifiers: (6) Rheumatoid arthritis Status: Chronic Assessment & Plan: On methotrexate weekly outpatient. (7) Methamphetamine use Status: Acute Assessment & Plan: Getting set up with addiction treatment outpatient at [facility], someone to come see her inpatient today. (8) Chronic hepatitis C Status: Chronic Assessment & Plan: In the process of getting started on treatment. (9) Pancytopenia Status: Acute Assessment & Plan: Suspect related to hepatitis C. Monitor. (10) Hematuria Status: Acute Assessment & Plan: Without clear evidence of infection. May need further work- up outpatient. (11) DVT prophylaxis Status: Acute Assessment & Plan: Enoxaparin Clinical Quality Measures DVT/VTE Risk/Contraindication: Risk Factor Score Per Nursin RFS Level Per Nursing on Admit: 4+=Very High MAXWELL BOWEN MD May 11, 2019 10:13 POS
[2019-05-11] MEDS: VANCOMYCIN 1 GM/NS 250 ML IVPB IV SCH ×4 (10:31→21:29)
--- NOTE | 2019-05-11 12:12 | NUR ---
CM/SS spoke with the patient to assess for needs. CM/SS asked the patient and her visitor if she needed assistance or help with anything. The patient verbalized that she did not have any needs at this time. Will continue to follow to assess for needs.
--- NOTE | 2019-05-11 12:41 | Wound Care Assessment ---
Wound Care Assessment Date Seen by Provider: May 11, 2019 Time Seen by Provider: 12:20 Chief Complaint Ulcer L calf. 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 Arterial studies ordered. Smoking Status: Current Everyday Smoker (1 PPD) Recreational Drug Use: Yes (+ IV METH USE) Alcohol Use: Denies Use Exam Vital Signs Date Time Temp Pulse Resp B/P (MAP) Pulse Ox O2 Delivery O2 Flow Rate FiO2 05/11/19 08:00 37.1 107 24 164/85 (111) 96 Room Air Capillary Refill : Less Than 3 Seconds Results Laboratory Tests 05/10/19 21:03: Glucometer 254H 05/10/19 21:15: White Blood Count 3.7L, Red Blood Count 3.78L, Hemoglobin 10.6L, Hematocrit 33L, Mean Corpuscular Volume 87, Mean Corpuscular Hemoglobin 28, Mean Corpuscular Hemoglobin Concent 32, Red Cell Distribution Width 15.4H, Platelet Count 176, Mean Platelet Volume 10.3, Neutrophils (%) (Auto) 84H, Lymphocytes (%) (Auto) 9L , Monocytes (%) (Auto) 6, Eosinophils (%) (Auto) 1, Basophils (%) (Auto) 0, Neutrophils # (Auto) 3.1, Lymphocytes # (Auto) 0.3L, Monocytes # (Auto) 0.2, Eosinophils # (Auto) 0.0, Basophils # (Auto) 0.0, Erythrocyte Sedimentation Rate 18, Prothrombin Time 14.1, INR Comment 1.1, Activated Partial Thromboplast Time 24, Sodium Level 137, Potassium Level 3.8, Chloride Level 107, Carbon Dioxide Level 20L, Anion Gap 10, Blood Urea Nitrogen 23H, Creatinine 0.75, Estimat Glomerular Filtration Rate > 60, BUN/Creatinine Ratio 31, Glucose Level 246H, La ctic Acid Level 1.68, Calcium Level 8.5, Corrected Calcium 9.1, Total Bilirubin 0.6, Aspartate Amino Transf (AST/SGOT) 28, Alanine Aminotransferase (ALT/SGPT) 24, Alkaline Phosphatase 144H, C-Reactive Protein High Sensitivity 3.15H, Total Protein 6.1L, Albumin 3.3, Serum Alcohol < 10 05/10/19 22:17: Urine Color DARK YELLOW, Urine Clarity SL CLOUDY, Urine pH 5.5, Urine Specific [place] >=1.030, Urine Protein TRACE, Urine Glucose (UA) 1+H, Urine Ketones NEGATIVE, Urine Nitrite NEGATIVE, Urine Bilirubin NEGATIVE, Urine Urobilinogen 1.0, Urine Leukocyte Esterase NEGATIVE, Urine RBC (Auto) 3+H, Urine RBC 5-10H, Urine WBC NONE, Urine Squamous Epithelial Cells 2-5, Urine Crystals PRESENTH, Urine Calcium Oxalate Crystals RAREH, Urine Amorphous Sediment FEW DANE URATESH, Urine Bacteria TRACE, Urine Casts NONE, Urine Mucus MODERATEH, Urine Culture Indicated NO, Urine Opiates Screen NEGATIVE, Urine Oxycodone Screen NEGATIVE, Urine Methadone Screen NEGATIVE, Urine Propoxyphene Screen NEGATIVE, Urine Barbiturates Screen NEGATIVE, Ur Tricyclic Antidepressants Screen NEGATIVE, Urine Phencyclidine Screen NEGATIVE, Urine Amphetamines Screen POSITIVEH, Urine Methamphetamines Screen POSITIVEH, Urine Benzodiazepines Screen NEGATIVE, Urine Cocaine Screen NEGATIVE, Urine Cannabinoids Screen NEGATIVE 05/11/19 04:57: Glucometer 181H 05/11/19 05:10: Sodium Level 138, Potassium Level 3.8, Chloride Level 111H, Carbon Dioxide Level 17L, Anion Gap 10, Blood Urea Nitrogen 19H, Creatinine 0.73, Estimat Glomerular Filtration Rate > 60, BUN/Creatinine Ratio 26, Glucose Level 193H, Calcium Level 8.1L, Corrected Calcium 8.9, Total Bilirubin 0.5, Aspartate Amino Transf (AST/SGOT) 24, Alanine Aminotransferase (ALT/SGPT) 23, Alkaline Phosphatase 171H , Total Protein 5.4L, Albumin 3.0L 05/11/19 05:20: White Blood Count 3.5L, Red Blood Count 3.70L, Hemoglobin 10.5L, Hematocrit 32L, Mean Corpuscular Volume 87, Mean Corpuscular Hemoglobin 28, Mean Corpuscular Hemoglobin Concent 33, Red Cell Distribution Width 15.3H, Platelet Count 127L, Mean Platelet Volume 9.8, Neutrophils (%) (Auto) 82H, Lymphocytes (%) (Auto) 10L , Monocytes (%) (Auto) 7, Eosinophils (%) (Auto) 1, Basophils (%) (Auto) 0, Neutrophils # (Auto) 2.9, Lymphocytes # (Auto) 0.4L, Monocytes # (Auto) 0.2, Eosinophils # (Auto) 0.0, Basophils # (Auto) 0.0 05/11/19 11:22: Glucometer 165H MORAIMA DOAN MD May 11, 2019 12:41 POS
--- NOTE | 2019-05-11 15:05 | NUR ---
RD ASSESSMENT PMHx: HTN; Hep-C; cellulitis; DM PT INTERACTION: Pt was awake and pleasant during nutrition assessment. Pt states current appetite is pretty poor and has been for the past 2 days. Pt states follwoing a regular diet at home, and currently has no difficulties chewing/swallowing food. Pt states recent issues with nausea, but not vomiting over the last few days. Pt states episodes of diarrhea during this timeframe as well. Note no BM has been recorded and pt not currently on bowel regimen per chart review. Pt states no recent wt changes. Note unable to determine recent wt hx, per chart review. Pt states current DM management is "pretty good" and that she tries to keep her blood sugar levels where they should be. Note pt has wound on left lower leg. ABNORMAL NUTRITION-RELATED LAB VALUES: Cl 111 (H); BUN 19 (H); glu 193 (H); alkphos 171 (H); Ca 8.1 (L); Pro 5.4 (L); alb 3.0 (L) Est. kcal needs: 0244-3863 kcal (20-25 kcal/kg) Est. Pro needs: 83-98 g Pro (1.2-1.4 g Pro/kg) PES STATEMENT: Inadequate oral intake (NI-2.1) related to loss of appetite | nausea as evidenced by pt interview Inadequate protein intake (NI-5.6.1) related to increased protein needs as evidenced by wounds (lower left leg wound) INTERVENTION: Continue with current diet order of CHO 45g/m 1 snack diet. Add Ensure HP to meals BID. Provides 160 kcal and 16 g Pro per serving for perceived benefit to wound healing. MONITOR/EVALUATE: PO Intake; Plan of Care; Hydration Status; Weight Status; Lab Values Escobar Miner, MS, RD, LD
[2019-05-11] MEDS: ENOXAPARIN 40 MG/0.4 ML (LOVENOX) SYR SQ SCH (16:47)
[2019-05-11] MEDS: LOSARTAN 50 MG (COZAAR) TAB PO SCH (16:48)
[2019-05-11] MEDS: NS IV 1000 ML 1,000 ML IV SCH ×2 (16:54→20:46)
--- NOTE | 2019-05-11 17:04 | Diagnostic Imaging Report ---
INDICATION: Peripheral artery disease. FINDINGS: Ankle brachial indices are approximately 1.1 on the right and 1.2 on the left. IMPRESSION: Normal bilateral ankle brachial indices. Dictated by: Dictated on workstation # [id number]
[2019-05-11] MEDS: GABAPENTIN 100 MG (NEURONTIN) CAP PO SCH (20:44)
[2019-05-12] VITALS (7 sets, daily range): BP systolic 111–152; BP diastolic 55–100
--- NOTE | 2019-05-12 00:10 | NUR ---
Dr. Bowen notified of bp at 152/100 with hr at 105. New order rec to continue home med of HCTZ 25mg po daily and give one dose now. Will continue to monitor.
[2019-05-12] MEDS ORDERED: HYDROCHLOROTHIAZIDE 25 MG (HCTZ) TAB ONE (00:21)
[2019-05-12] MEDS: HYDROCHLOROTHIAZIDE 25 MG (HCTZ) TAB PO SCH ×2 (00:25→08:45)
[2019-05-12] MEDS: PIPERACILLIN/TAZO 4.5 GM/NS 100 ML IV SCH ×4 (02:57→11:33)
[2019-05-12] MEDS: inSUlin ASPART (NovoLOG) 1 UNIT/0.01 ML (CHARGE PER UNIT) SC SCH ×4 (05:15→21:04)
[2019-05-12] MEDS: NS IV 1000 ML 1,000 ML IV SCH ×2 (05:50→18:29)
--- NOTE | 2019-05-12 08:17 | NUR ---
Dr. Bowen notified of pt's complaint of CP (sharp, substernal) 8 out of 10, STAT EKG ordered, pt placed on 2L O2. Order for Nitro SL placed.
[2019-05-12] MEDS: NITROGLYCERIN 0.4 MG SL TABS BTL 25'S SL PRN ×2 (08:30→08:45)
[2019-05-12] MEDS: LOSARTAN 50 MG (COZAAR) TAB PO SCH (08:45)
[2019-05-12] MEDS: GABAPENTIN 100 MG (NEURONTIN) CAP PO SCH ×2 (08:45→20:09)
[2019-05-12] MEDS: FOLIC ACID 1 MG TAB PO SCH (08:45)
[2019-05-12] MEDS: CELECOXIB 100 MG (CeleBREX) CAP PO SCH (08:45)
--- NOTE | 2019-05-12 08:54 | NUR ---
Pt given SL nitro x2, pain has decreased from 8 to 4 out of 10. Morning meds given, pt asked to hold up on eating or drinking until seen by physician.
[2019-05-12] MEDS ORDERED: NON-FORMULARY MEDICATION 1 EA EA (Hydrochlorothiazide 25 MG) PO SCH (09:00)
[2019-05-12] MEDS ORDERED: NON-FORMULARY MEDICATION 1 EA EA (Celecoxib 200 MG) PO SCH (09:00)
[2019-05-12] MEDS ORDERED: NON-FORMULARY MEDICATION 1 EA EA (Losartan Potassium 50 MG) PO SCH (09:00)
[2019-05-12] MEDS ORDERED: TROUGH ORDER-PHARMACY XX NR (09:00)
[2019-05-12 09:11] LABS: BASOPHILS % (AUTO) 0 % (0-10); EOSINOPHILS % (AUTO) 0 % (0-10); HEMATOCRIT 33 % (35-52); HEMOGLOBIN 10.6 G/DL (11.5-16.0); LYMPHOCYTES # (AUTO) 0.4 X 10^3 (1.0-4.0); LYMPHOCYTES % (AUTO) 6 % (12-44); MEAN CORPUSCULAR HEMOGLOBIN 28 PG (25-34); MEAN CORPUSCULAR HGB CONC 32 G/DL (32-36); MEAN CORPUSCULAR VOLUME 86 FL (80-99); MONOCYTES # (AUTO) 0.5 X 10^3 (0.0-1.0); MONOCYTES % (AUTO) 7 % (0-12); NEUTROPHILS # (AUTO) 5.8 X 10^3 (1.8-7.8); NEUTROPHILS % (AUTO) 87 % (42-75); PLATELET COUNT 150 10^3/uL (130-400); WHITE BLOOD COUNT 6.7 10^3/uL (4.3-11.0)
[2019-05-12 09:31] LABS: ALANINE AMINOTRANSFERASE 27 U/L (0-55); ALBUMIN 3.1 GM/DL (3.2-4.5); ALKALINE PHOSPHATASE 165 U/L (40-136); BILIRUBIN,TOTAL 1.4 MG/DL (0.1-1.0); BUN/CREATININE RATIO 16; CALCIUM 7.8 MG/DL (8.5-10.1); CARBON DIOXIDE 16 MMOL/L (21-32); CHLORIDE 110 MMOL/L (98-107); CREATININE SERUM 0.67 MG/DL (0.60-1.30); GFR ESTIMATED > 60; GLUCOSE 165 MG/DL (70-105); POTASSIUM 3.9 MMOL/L (3.6-5.0); SODIUM 137 MMOL/L (135-145); TOTAL PROTEIN 5.6 GM/DL (6.4-8.2)
[2019-05-12 09:43] LABS: ANISOCYTOSIS SLIGHT; BAND NEUTROPHILS 7 %; ELLIPT/OVALOCYTES MODERATE; LYMPHOCYTES % (MANUAL) 2 %; MONOCYTES % (MANUAL) 5 %; NEUTROPHILS % (MANUAL) 86 %; POIKILOCYTOSIS SLIGHT; TOXIC GRANULATION/VACUOLAZATIO 2+
[2019-05-12 09:54] LABS: VANCOMYCIN,TROUGH 8.2 UG/ML (10.0-20.0)
[2019-05-12] MEDS: VANCOMYCIN 1 GM/NS 250 ML IVPB IV SCH ×2 (10:30)
[2019-05-12] MEDS ORDERED: VANCOMYCIN 500 MG/NS 100 ML IV NR ×2 (11:30)
--- NOTE | 2019-05-12 11:31 | NUR ---
VANCOMYCIN DOSING TROUGH LEVEL 8.2 - GIVE ADDITIONAL DOSE OF VANC 500 MG (TO MAKE 1500 MG TOTAL) THEN CHANGE DOSE TO VANC 1500 MG Q12H CHECK LEVEL 05/13 0900 BEFORE 3RD DOSE HOLD DOSE AND CONTACT PHARMACY IF LEVEL IS GREATER THAN 20
--- NOTE | 2019-05-12 12:43 | Consultation-Cardiology ---
HPI-Cardiology Cardiology Consultation Date of Consultation 05/12/19 Date of Admission Time Seen by Provider: 12:40 Indication: Chest pain HPI 59-year-old lady with history of diabetes mellitus, hypertension hyperlipidemia, had nonhealing wound in her left leg for the past few months, she was seen and treated at in February with no full recovery. Still an active smoker. Was in the hospital receiving antibiotic when she had sudden onset of chest pain described it as dull in nature in the retrosternal area radiating to left arm. Resolved at this time, troponin was mildly elevated. Currently not having any chest pain. No shortness of breath. No syncope or near syncopal episodes Home Medications & Allergies Allergies: Coded Allergies: hydrocodone (Verified Allergy, Unknown, 07/08/18) Home Medication List Reviewed: Yes [id number] Hx Patient Social History Marital Status: Alcohol Use: Denies Use Recreational Drug Use: Yes (+ IV METH USE) 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 Smoking Status: Current Everyday Smoker (1 PPD) Type Used: Cigarettes (1 PPD) 2nd Hand Smoke Exposure: Yes Recent Foreign Travel: No Recent Infectious Disease Expo: No Recent Hopitalizations: No Immunizations Up To Date Tetanus Booster (TDap): More than 5yrs (2005) Date of Influenza Vaccine: Mar 29, 2019 Past Medical History Discussed below Family Medical History Significant Family History: Heart Disease, Cancer (lung), Diabetes Family Medical Hx Strong family history of heart disease Review of Systems-General Review of Systems Constitutional: see HPI EENTM: see HPI, no symptoms reported Respiratory: see HPI; No cough, No dyspnea on exertion, No hemoptysis, No orthopnea, No phlegm, No short of breath, No stridor, No wheezing, No other Cardiovascular: see HPI, chest pain; No edema, No Hx of Intervention, No palpitations, No syncope, No vascular heart diseas, No other Gastrointestinal: no symptoms reported, see HPI Genitourinary: no symptoms reported, see HPI Musculoskeletal: see HPI Skin: see HPI, other (Ulceration on the left leg) Psychiatric/Neurological: No Symptoms Reported, See HPI Reviewed Test Results Reviewed Test Results Lab Laboratory Tests Test 05/11/19 16:19 05/11/19 20:48 05/12/19 05:12 05/12/19 09:00 Range/Units Glucometer 192 H 151 H 157 H 70-110 MG/DL White Blood Count 6.7 4.3-11.0 10^3/uL Red Blood Count 3.80 L 4.35-5.85 10^6/uL Hemoglobin 10.6 L 11.5-16.0 G/DL Hematocrit 33 L 35-52 % Mean Corpuscular Volume 86 80-99 FL Mean Corpuscular Hemoglobin 28 25-34 PG Mean Corpuscular Hemoglobin Concent 32 32-36 G/DL Red Cell Distribution Width 15.0 H 10.0-14.5 % Platelet Count 150 130-400 10^3/uL Mean Platelet Volume 10.0 7.4-10.4 FL Neutrophils (%) (Auto) 87 H 42-75 % Lymphocytes (%) (Auto) 6 L 12-44 % Monocytes (%) (Auto) 7 0-12 % Eosinophils (%) (Auto) 0 0-10 % Basophils (%) (Auto) 0 0-10 % Neutrophils # (Auto) 5.8 1.8-7.8 X 10^3 Lymphocytes # (Auto) 0.4 L 1.0-4.0 X 10^3 Monocytes # (Auto) 0.5 0.0-1.0 X 10^3 Eosinophils # (Auto) 0.0 0.0-0.3 10^3/uL Basophils # (Auto) 0.0 0.0-0.1 10^3/uL Neutrophils % (Manual) 86 % Lymphocytes % (Manual) 2 % Monocytes % (Manual) 5 % Band Neutrophils 7 % Toxic Granulation 2+ Poikilocytosis SLIGHT Anisocytosis SLIGHT Elliptocytes MODERATE Sodium Level 137 135-145 MMOL/L Potassium Level 3.9 3.6-5.0 MMOL/L Chloride Level 110 H 98-107 MMOL/L Carbon Dioxide Level 16 L 21-32 MMOL/L Anion Gap 11 5-14 MMOL/L Blood Urea Nitrogen 11 7-18 MG/DL Creatinine 0.67 0.60-1.30 MG/DL Estimat Glomerular Filtration Rate > 60 BUN/Creatinine Ratio 16 Glucose Level 165 H 70-105 MG/DL Calcium Level 7.8 L 8.5-10.1 MG/DL Corrected Calcium 8.5 8.5-10.1 MG/DL Total Bilirubin 1.4 H 0.1-1.0 MG/DL Aspartate Amino Transf (AST/SGOT) 27 5-34 U/L Alanine Aminotransferase (ALT/SGPT) 27 0-55 U/L Alkaline Phosphatase 165 H 40-136 U/L Troponin I 0.083 H <0.028 NG/ML Total Protein 5.6 L 6.4-8.2 GM/DL Albumin 3.1 L 3.2-4.5 GM/DL Vancomycin Level Trough 8.2 L 10.0-20.0 UG/ML Test 05/12/19 10:49 Range/Units Glucometer 156 H 70-110 MG/DL Radiology 05/10 Left tib/fib x-ray unremarkable Physical Exam Physical Exam Vital Signs Vital Signs - First Documented 05/10/19 05/10/19 05/12/19 20:26 21:00 12:00 Temp 37.0 Pulse 108 Resp 20 B/P (MAP) 151/92 (111) Pulse Ox 100 O2 Delivery Room Air O2 Flow Rate 2.00 Capillary Refill : Less Than 3 Seconds Height, Weight, BMI Height: 5'3.00" Weight: 159lbs. 0oz. 72.789500lb; 27.22 BMI Method:Stated General Appearance: No Apparent Distress, WD/WN Eyes: Bilateral Eye Normal Inspection, Bilateral Eye PERRL, Bilateral Eye EOMI HEENT: PERRL/EOMI, TMs Normal, Normal ENT Inspection, Pharynx Normal, Moist Mucous Membranes Neck: Full Range of Motion, Normal Inspection, Non Tender, Supple, Carotid Bruit Respiratory: Chest Non Tender, Normal Breath Sounds, No Accessory Muscle Use, No Respiratory Distress Cardiovascular: Regular Rate, Rhythm, No Edema, No Gallop, No JVD, No Murmur, Normal Peripheral Pulses Gastrointestinal: Normal Bowel Sounds, No Organomegaly, No Pulsatile Mass, Non Tender, Soft Back: Normal Inspection, No CVA Tenderness, No Vertebral Tenderness Extremity: Normal Capillary Refill, Normal Inspection, Normal Range of Motion, Non Tender, No Calf Tenderness, No Pedal Edema Neurologic/Psychiatric: Alert, Oriented x3, No Motor/Sensory Deficits, Normal Mood/Affect Skin: Normal Color, Warm/Dry Lymphatic: No Adenopathy A/P-Cardiology Admission Diagnosis Chest pain Coronary artery disease Hypertension Hyperlipidemia Assessment/Plan Chest pain nonspecific etiology resulting in angina, mild elevation in troponin, I will start aspirin, monitor troponin level. Educated on risk factors for coronary artery disease next Coronary artery disease, continue to monitor, if troponin persisted to be elevated or rise I would consider cardiac catheterization otherwise we'll monitor and planning for stress test as an outpatient Nonhealing leg ulcer, had a trauma in May, normal YSIEL, seen in , currently being treated and healing slowly Hypertension, continue home medication monitor blood pressure next Hyperlipidemia, monitor lipids Diabetes mellitus, followed and managed by primary care physician next Tobaccoism, educated on smoking cessation Strong family history of atherosclerosis History of methamphetamine use, educated on avoiding illicit drugs Clinical Quality Measures DVT/VTE Risk/Contraindication: Risk Factor Score Per Nursin RFS Level Per Nursing on Admit: 4+=Very High SHANNA ARGUETA MD May 12, 2019 12:43 POS
[2019-05-12] MEDS ORDERED: ASPIRIN E.C. 325 MG (ECOTRIN) TABLET PO NR (12:45)
[2019-05-12] MEDS: PANTOPRAZOLE 40 MG (PROTONIX) TAB PO SCH (14:44)
[2019-05-12] MEDS: ENOXAPARIN 40 MG/0.4 ML (LOVENOX) SYR SQ SCH (14:45)
--- NOTE | 2019-05-12 16:27 | Progress Note ---
Subjective Subjective/Events-last exam Seen at 1030 am. Had an episode of pressure like chest pain this morning with diaphoresis. EKG at the time was unremarkable, but troponin slightly elevated. She is feeling well now, denies concerns. Focused Exam Lactate Level 05/10/19 21:15: Lactic Acid Level 1.68 Objective Exam Last Set of Vital Signs Vital Signs Date Time Temp Pulse Resp B/P (MAP) Pulse Ox O2 Delivery O2 Flow Rate FiO2 05/12/19 12:00 35.4 91 24 112/67 (82) 98 Nasal Cannula 2.00 Capillary Refill : Less Than 3 Seconds I&O Intake and Output 05/11/19 23:59 Intake Total 2400 ml Balance 2400 ml Intake Oral 1760 ml IV Total 640 ml # Voids 4 Daily Weight Change No No General: Alert, No Acute Distress Lungs: Clear to Auscultation, Normal Air Movement Heart: Regular Rate, No Murmurs Abdomen: Normal Bowel Sounds, Soft Skin: Other (hemosiderin staining of both legs to knees, mild erythema surrounding scabbed lesion on left anterior nguyen) Neuro: Normal Speech Results/Procedures Lab Laboratory Tests 05/11/19 20:48: Glucometer 151H 05/12/19 05:12: Glucometer 157H 05/12/19 09:00: White Blood Count 6.7, Red Blood Count 3.80L, Hemoglobin 10.6L, Hematocrit 33L, Mean Corpuscular Volume 86, Mean Corpuscular Hemoglobin 28, Mean Corpuscular Hemoglobin Concent 32, Red Cell Distribution Width 15.0H, Platelet Count 150, Mean Platelet Volume 10.0, Neutrophils (%) (Auto) 87H, Lymphocytes (%) (Auto) 6L , Monocytes (%) (Auto) 7, Eosinophils (%) (Auto) 0, Basophils (%) (Auto) 0, Neutrophils # (Auto) 5.8, Lymphocytes # (Auto) 0.4L, Monocytes # (Auto) 0.5, Eosinophils # (Auto) 0.0, Basophils # (Auto) 0.0, Neutrophils % (Manual) 86, Lymphocytes % (Manual) 2, Monocytes % (Manual) 5, Band Neutrophils 7, Toxic Granulation 2+, Poikilocytosis SLIGHT, Anisocytosis SLIGHT, Elliptocytes MODERATE, Sodium Level 137, Potassium Level 3.9, Chloride Level 110H, Carbon Dioxide Level 16L, Anion Gap 11, Blood Urea Nitrogen 11, Creatinine 0.67, Estimat Glomerular Filtration Rate > 60, BUN/Creatinine Ratio 16, Glucose Level 165H, Calcium Level 7.8L, Corrected Calcium 8.5, Total Bilirubin 1.4H, Aspartate Amino Transf (AST/SGOT) 27, Alanine Aminotransferase (ALT/SGPT) 27, Alkaline Phosphatase 165H, Troponin I 0.083H, Total Protein 5.6L, Albumin 3.1L, Vancomycin Level Trough 8.2L 05/12/19 10:49: Glucometer 156H Microbiology 05/10/19 Blood Culture - Preliminary, Resulted No growth Radiology 05/10 Left tib/fib x-ray unremarkable Assessment/Plan Assessment/Plan (1) Left leg cellulitis Assessment & Plan: Started vancomycin and zosyn in ER. Will transition to oral when tolerating PO well. 05/12 change to PO clindamycin. Blood cx with no growth so far. (2) chronic leg wound Assessment & Plan: Dr. Pacheco consulted, appreciate recommendations. (3) Hypertension Status: Chronic Assessment & Plan: Resume home meds. 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 Holding metformin. Qualifiers: (6) Rheumatoid arthritis Status: Chronic Assessment & Plan: On methotrexate weekly outpatient. (7) Methamphetamine use Status: Acute Assessment & Plan: Getting set up with addiction treatment outpatient at [facility], someone to come see her inpatient. (8) Chronic hepatitis C Status: Chronic Assessment & Plan: In the process of getting started on treatment. (9) Pancytopenia Status: Acute Assessment & Plan: Suspect related to hepatitis C. Monitor. (10) Hematuria Status: Acute Assessment & Plan: Without clear evidence of infection. May need further work- up outpatient. (11) DVT prophylaxis Status: Acute Assessment & Plan: Enoxaparin (12) Chest pain Status: Acute Assessment & Plan: EKG okay, troponin slight elevation, Cardiology consulted, appreciate recommendations. Clinical Quality Measures DVT/VTE Risk/Contraindication: Risk Factor Score Per Nursin RFS Level Per Nursing on Admit: 4+=Very High MAXWELL MAIN MD May 12, 2019 16:27 POS
--- NOTE | 2019-05-12 18:14 | Wound Care Assessment ---
Wound Care Assessment Date Seen by Provider: May 12, 2019 Time Seen by Provider: 17:20 Chief Complaint Ulcer L calf. 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 Arterial studies ordered. 05/12/19 Interval Note: The wound appears much improved. There is a dry scab. Silvasorb dressings ordered. Will follow-up as out-patient post discharge. Smoking Status: Current Everyday Smoker (1 PPD) Recreational Drug Use: Yes (+ IV METH USE) Alcohol Use: Denies Use Exam Vital Signs Date Time Temp Pulse Resp B/P (MAP) Pulse Ox O2 Delivery O2 Flow Rate FiO2 05/12/19 16:00 37.5 98 18 117/73 (88) 98 Room Air 05/12/19 12:00 2.00 Capillary Refill : Less Than 3 Seconds Results Laboratory Tests 05/11/19 20:48: Glucometer 151H 05/12/19 05:12: Glucometer 157H 05/12/19 09:00: White Blood Count 6.7, Red Blood Count 3.80L, Hemoglobin 10.6L, Hematocrit 33L, Mean Corpuscular Volume 86, Mean Corpuscular Hemoglobin 28, Mean Corpuscular Hemoglobin Concent 32, Red Cell Distribution Width 15.0H, Platelet Count 150, Mean Platelet Volume 10.0, Neutrophils (%) (Auto) 87H, Lymphocytes (%) (Auto) 6L , Monocytes (%) (Auto) 7, Eosinophils (%) (Auto) 0, Basophils (%) (Auto) 0, Neutrophils # (Auto) 5.8, Lymphocytes # (Auto) 0.4L, Monocytes # (Auto) 0.5, Eosinophils # (Auto) 0.0, Basophils # (Auto) 0.0, Neutrophils % (Manual) 86, Lymphocytes % (Manual) 2, Monocytes % (Manual) 5, Band Neutrophils 7, Toxic Granulation 2+, Poikilocytosis SLIGHT, Anisocytosis SLIGHT, Elliptocytes MODERATE, Sodium Level 137, Potassium Level 3.9, Chloride Level 110H, Carbon Dioxide Level 16L, Anion Gap 11, Blood Urea Nitrogen 11, Creatinine 0.67, Estimat Glomerular Filtration Rate > 60, BUN/Creatinine Ratio 16, Glucose Level 165H, Calcium Level 7.8L, Corrected Calcium 8.5, Total Bilirubin 1.4H, Aspartate Amino Transf (AST/SGOT) 27, Alanine Aminotransferase (ALT/SGPT) 27, Alkaline Phosphatase 165H, Troponin I 0.083H, Total Protein 5.6L, Albumin 3.1L, Vancomycin Level Trough 8.2L 05/12/19 10:49: Glucometer 156H 05/12/19 16:25: Glucometer 196H Microbiology 05/10/19 Blood Culture - Preliminary, Resulted No growth Microbiology 05/10/19 Blood Culture - Preliminary, Resulted No growth 05/10/19 Blood Culture - Preliminary, Resulted No growth MORAIMA DOAN MD May 12, 2019 18:14 POS
[2019-05-12] MEDS: CLINDAMYCIN 150 MG (CLEOCIN) CAP PO SCH ×2 (18:28→23:42)
[2019-05-12] MEDS: SILVASORB GEL 1.5 OZ TP SCH (20:09)
[2019-05-12] MEDS ORDERED: VANCOMYCIN INJECTION 1,500 MG in NS IV 500 ML 500 ML IV SCH (22:00)
[2019-05-13 00:40] VITALS: BP 104/67
[2019-05-13] MEDS: NS IV 1000 ML 1,000 ML IV SCH ×3 (01:53→11:52)
[2019-05-13 04:00] VITALS: BP 117/74
[2019-05-13 05:31] LABS: HEMOGLOBIN 9.7 G/DL (11.5-16.0); MEAN PLATELET VOLUME 11.1 FL (7.4-10.4); WHITE BLOOD COUNT 3.7 10^3/uL (4.3-11.0)
[2019-05-13 05:51] LABS: ALBUMIN 2.7 GM/DL (3.2-4.5); BILIRUBIN,TOTAL 0.6 MG/DL (0.1-1.0); CALCIUM 7.6 MG/DL (8.5-10.1); CREATININE SERUM 1.57 MG/DL (0.60-1.30); POTASSIUM 3.6 MMOL/L (3.6-5.0); TOTAL PROTEIN 5.1 GM/DL (6.4-8.2)
[2019-05-13] MEDS: inSUlin ASPART (NovoLOG) 1 UNIT/0.01 ML (CHARGE PER UNIT) SC SCH ×2 (06:01→13:49)
[2019-05-13] MEDS: CLINDAMYCIN 150 MG (CLEOCIN) CAP PO SCH ×2 (06:04→15:01)
[2019-05-13 08:00] VITALS: BP 117/73
--- NOTE | 2019-05-13 08:19 | NUR ---
Attempted visit by Chaplain Margarita Chung: Pastoral department will follow up as able and/or requested for support. Pt is registered as [employer].
[2019-05-13] MEDS ORDERED: ASPI-983 PO (08:32)
[2019-05-13] MEDS ORDERED: SILV480G TP (08:32)
[2019-05-13] MEDS ORDERED: CLIN150C17 PO (08:32)
--- NOTE | 2019-05-13 08:39 | Discharge Summary ---
Discharge Summary Hospital Course Problems Reviewed?: Yes Problems/Diagnosis: (1) Left leg cellulitis Assessment & Plan: Started vancomycin and zosyn in ER. Will transition to oral when tolerating PO well. 05/12 change to PO clindamycin. Blood cx with no growth so far. (2) chronic leg wound Assessment & Plan: Dr. Pacheco consulted, appreciate recommendations. Silvasorb ordered. Will follow up with Dr. Pacheco outpatient. (3) Hypertension Status: Chronic Assessment & Plan: Resumed home meds. 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 Holding metformin. Metformin remains on hold at d/c due to elevated creatinine. Qualifiers: (6) Rheumatoid arthritis Status: Chronic Assessment & Plan: On methotrexate weekly outpatient. (7) Methamphetamine use Status: Acute Assessment & Plan: Getting set up with addiction treatment outpatient at [facility], someone to come see her inpatient. (8) Chronic hepatitis C Status: Chronic Assessment & Plan: In the process of getting started on treatment. (9) Pancytopenia Status: Acute Assessment & Plan: Suspect related to hepatitis C. Monitor. (10) Hematuria Status: Acute Assessment & Plan: Without clear evidence of infection. May need further work- up outpatient. (11) Chest pain Status: Acute Assessment & Plan: EKG okay, troponin slight elevation, Cardiology consulted, appreciate recommendations. Started on ASA, troponin decreased and no further chest pain. Echo 05/12/19 showed PFO, grade 1 diastolic dysfunction and normal systolic function. (12) Elevated serum creatinine Status: Acute Assessment & Plan: Perhaps secondary to vancomycin use, recheck outpatient. Hold metformin and celebrex. Hospital Course Date of Admission: May 10, 2019 at 21:55 Admission Diagnosis : Family Physician/Provider: Matthieu Valenzuela MD Date of Discharge: 05/13/19 Discharge Diagnosis: See problem list Hospital Course: See problem list Labs and Pending Lab Test: Laboratory Tests 05/12/19 09:00: White Blood Count 6.7, Red Blood Count 3.80L, Hemoglobin 10.6L, Hematocrit 33L, Mean Corpuscular Volume 86, Mean Corpuscular Hemoglobin 28, Mean Corpuscular Hemoglobin Concent 32, Red Cell Distribution Width 15.0H, Platelet Count 150, Mean Platelet Volume 10.0, Neutrophils (%) (Auto) 87H, Lymphocytes (%) (Auto) 6L , Monocytes (%) (Auto) 7, Eosinophils (%) (Auto) 0, Basophils (%) (Auto) 0, Neutrophils # (Auto) 5.8, Lymphocytes # (Auto) 0.4L, Monocytes # (Auto) 0.5, Eosinophils # (Auto) 0.0, Basophils # (Auto) 0.0, Neutrophils % (Manual) 86, Lymphocytes % (Manual) 2, Monocytes % (Manual) 5, Band Neutrophils 7, Toxic Granulation 2+, Poikilocytosis SLIGHT, Anisocytosis SLIGHT, Elliptocytes MODERATE, Sodium Level 137, Potassium Level 3.9, Chloride Level 110H, Carbon Dioxide Level 16L, Anion Gap 11, Blood Urea Nitrogen 11, Creatinine 0.67, Estimat Glomerular Filtration Rate > 60, BUN/Creatinine Ratio 16, Glucose Level 165H, Calcium Level 7.8L, Corrected Calcium 8.5, Total Bilirubin 1.4H, Aspartate Amino Transf (AST/SGOT) 27, Alanine Aminotransferase (ALT/SGPT) 27, Alkaline Phosphatase 165H, Troponin I 0.083H, Total Protein 5.6L, Albumin 3.1L, Vancomycin Level Trough 8.2L 05/12/19 10:49: Glucometer 156H 05/12/19 16:25: Glucometer 196H 05/12/19 20:52: Glucometer 155H 05/13/19 05:20: White Blood Count 3.7L, Red Blood Count 3.41L, Hemoglobin 9.7L, Hematocrit 30L, Mean Corpuscular Volume 87, Mean Corpuscular Hemoglobin 28, Mean Corpuscular Hemoglobin Concent 33, Red Cell Distribution Width 15.0H, Platelet Count 124L, Mean Platelet Volume 11.1H, Sodium Level 139, Potassium Level 3.6, Chloride Level 111H, Carbon Dioxide Level 17L, Anion Gap 11, Blood Urea Nitrogen 22H, Creatinine 1.57H, Estimat Glomerular Filtration Rate 34, BUN/Creatinine Ratio 14, Glucose Level 133H, Calcium Level 7.6L, Corrected Calcium 8.6, Total Bilirubin 0.6, Aspartate Amino Transf (AST/SGOT) 20, Alanine Aminotransferase (ALT/SGPT) 20, Alkaline Phosphatase 139H, Troponin I 0.038H, Total Protein 5.1L, Albumin 2.7L 05/13/19 05:55: Glucometer 140H Microbiology 05/10/19 Blood Culture - Preliminary, Resulted No growth Home Meds Active Silvasorb (Silver) 480 Ml Gel.er.ml. 0 Oz TP BID Aspirin EC (Aspirin) 81 Mg Tablet.dr 81 Mg PO DAILY Clindamycin HCl 150 Mg Capsule 300 Mg PO Q6HR 5 Days Reported Fish Oil 1,000 mg Capsule ([place] 3 Polyunsat Fatty Acids) 1,000 Mg Cap 1,000 Mg PO DAILY Hydrochlorothiazide 25 Mg Tablet 25 Mg PO DAILY LAST FILLED #30 12-17-18 Folic Acid 1 Mg Tablet 1 Mg PO DAILY LAST FILLED #30 12-17-18 Methotrexate (Methotrexate Sodium) 2.5 Mg Tablet 10 Tab PO SA LAST FILLED #16 12-17-18 TAKES 4 (2.5MG) TABLETS Metformin HCl 500 Mg Tablet 500 Mg PO 1800 LAST FILLED #30 02-24-19 Gabapentin 100 Mg Capsule 100 Mg PO BID Celecoxib 200 Mg Capsule 200 Mg PO DAILY Losartan Potassium 50 Mg Tablet 50 Mg PO DAILY Potassium Chloride 10 Meq Tab.er.prt 10 Meq PO DAILY Assessment/Pt DC Instructions Follow up with Dr. Valenzuela on 05/16 at 11:40 am. Follow up with Dr. Pacheco as directed. You need to get labs drawn on Thursday to recheck your kidney function. Until you get lab results, do not take metformin or celebrex. Orders-Post D/C & Referrals Pneu Vac Indicated: Yes Discharge Physical Examination Allergies: Coded Allergies: hydrocodone (Verified Allergy, Unknown, 07/08/18) General Appearance: No Apparent Distress Respiratory: Lungs Clear Cardiovascular: Regular Rate, Rhythm, No Murmur Gastrointestinal: Normal Bowel Sounds, Soft Extremity: Other (hemosiderin staining to both lower legs, left lower leg wrapped in gauze with no drainage.) Neurologic/Psychiatric: Alert, Normal Mood/Affect Copy Copies To 1: MATTHIEU VALENZUELA MD Discharge Summary Date of Admission May 10, 2019 at 21:55 Date of Discharge Clinical Quality Measures DVT/VTE Risk/Contraindication: Risk Factor Score Per Nursin RFS Level Per Nursing on Admit: 4+=Very High MAXWELL MAIN MD May 13, 2019 08:38 POS
[2019-05-13] MEDS ORDERED: TROUGH ORDER-PHARMACY XX NR (09:00)
[2019-05-13] MEDS ORDERED: ASPIRIN E.C. 81 MG (ECOTRIN) TAB PO SCH (09:00)
--- NOTE | 2019-05-13 10:22 | NUR ---
CALLED DR ARGUETA TO INQUIRE ABOUT NPO STATUS AND POSSIBLE STRESS TEST, HE IS NOT GOING TO DO THE STRESS TEST. ITIS OKAY FOR THE PATIENT TO EAT AND BE DISCHARGED HOMES.
--- NOTE | 2019-05-13 10:36 | NUR ---
PATIENT IS BEING DISCHARGED. SHE WILL TAKE HER MORNING MEDICATIONS WHEN SHE GETS HOME.
--- NOTE | 2019-05-13 10:43 | Cardiology Progress Note ---
Subjective Date Seen by Provider: May 13, 2019 Time Seen by Provider: 10:41 Subjective/Events-last exam Patient is in bed, feeling better, no new complaint Review of Systems General: No Chills, No Night Sweats, No Fatigue, No Malaise, No Appetite, No Other HEENT: No Head Aches, No Visual Changes, No Eye Pain, No Ear Pain, No Dysphasia, No Sinus Congestion, No Post Nasal Drip, No Sore Throat, No Other Pulmonary: No Dyspnea, No Cough, No Pleuritic Chest Pain, No Other Cardiovascular: No: Chest Pain, Palpitations, Orthopnea, Paroxysmal Noc. Dyspnea, Edema, Lt Headedness, Other Focused Exam Lactate Level 05/10/19 21:15: Lactic Acid Level 1.68 Objective-Cardiology Exam Last Set of Vital Signs Vital Signs 05/12/19 05/13/19 12:00 08:00 Temp 36.6 Pulse 101 Resp 20 B/P (MAP) 117/73 (88) Pulse Ox 97 O2 Delivery Room Air O2 Flow Rate 2.00 Capillary Refill : Less Than 3 Seconds I&O Intake and Output 05/13/19 00:00 Intake Total 5190 ml Balance 5190 ml Intake Oral 2590 ml IV Total 2600 ml # Voids 6 # Bowel Movements 1 General: Alert, Oriented X3, Cooperative, No Acute Distress HEENT: Atraumatic, PERRLA Neck: Supple, No JVD Lungs: Clear to Auscultation, Normal Air Movement Heart: Regular Rate, Normal S1, Normal S2, No Murmurs Abdomen: Normal Bowel Sounds, Soft Extremities: No Clubbing Skin: No Rashes, Other (hemosiderin staining of both legs to knees, mild erythema surrounding scabbed lesion on left anterior nguyen) Neuro: Normal Speech Psych/Mental Status: Mental Status NL Results Lab Laboratory Tests 05/13/19 05:20 A/P-Cardiology Admission Diagnosis Chest pain Coronary artery disease Hypertension Hyperlipidemia Assessment/Plan Chest pain nonspecific etiology resembling angina, mild elevation in troponin, I will proceed with a heart cath Coronary artery disease, planning for a heart cath Nonhealing leg ulcer, had a trauma in May, normal YISEL, seen in , currently being treated and healing slowly Hypertension, continue home medication monitor blood pressure next Hyperlipidemia, monitor lipids Diabetes mellitus, followed and managed by primary care physician next Tobaccoism, educated on smoking cessation Strong family history of atherosclerosis History of methamphetamine use, educated on avoiding illicit drugs Clinical Quality Measures DVT/VTE Risk/Contraindication: Risk Factor Score Per Nursin RFS Level Per Nursing on Admit: 4+=Very High SHANNA ARGUETA MD May 13, 2019 10:43 POS
--- NOTE | 2019-05-13 10:43 | Cardiac Procedure Note-CS/ASA ---
Pre-Procedure Note Pre-Op Procedure Note H&P Reviewed The H&P was reviewed, patient examined and no changes noted. Date H&P Reviewed: May 13, 2019 Time H&P Reviewed: 10:43 Conscious Sedation Pre-Proced Time 10:43 ASA Score 3 For ASA 3 and 4: Consider anesthesia and medical clearance. Also, for patients with a history of failed moderate sedation consider anesthesia. Airway Lungs Heart ASA score ASA 1: a normal healthy patient ASA 2: a patient with a mild systemic disease (mid diabetes, controlled hypertension, obesity x ASA 3: a patient with a severe systemic disease that limits activity (angina, COPD, prior Myocardial infarction) ASA 4: a patient with an incapacitating disease that is a constant threat to life (CHF, renal failure) ASA 5: a moribund patient not expected to survive 24 hrs. (ruptured aneurysm) ASA 6: a declared brain- patient whose organs are being harvested. For emergent operations, add the letter E after the classification Mallampati Classification Grade 3 Sedation Plan Analgesia, Amnesia, Plan communicated to team members, Discussed options with patient/fam, Discussed risks with patient/fam The patient is an appropriate candidate to undergo the planned procedure, sedation, and anesthesia. The patient immediately re-assessed prior to indication. SHANNA ARGUETA MD May 13, 2019 10:43 POS
--- NOTE | 2019-05-13 10:45 | NUR ---
DR ARGUETA ON THE FLOOR. TALKED TO THE PATIENT. WILL HEART CATH TODAY.
[2019-05-13] MEDS ORDERED: HEParin (CATH LAB) 2,000 ML IV ONE (11:22)
[2019-05-13] MEDS ORDERED: LIDOCAINE 1% INJ 20 ML 20 ML VIAL ONE (11:22)
[2019-05-13] MEDS: CELECOXIB 100 MG (CeleBREX) CAP PO SCH (11:24)
[2019-05-13] MEDS: LOSARTAN 50 MG (COZAAR) TAB PO SCH (11:24)
[2019-05-13] MEDS: HYDROCHLOROTHIAZIDE 25 MG (HCTZ) TAB PO SCH (11:25)
[2019-05-13] MEDS ORDERED: fentaNYL INJECTION 100 MCG/2 ML AMP ONE (11:25)
[2019-05-13] MEDS ORDERED: MIDAZOLAM 5 MG/5 ML (VERSED) VIAL ONE (11:25)
[2019-05-13] MEDS: SILVASORB GEL 1.5 OZ TP SCH (11:25)
[2019-05-13] MEDS: FOLIC ACID 1 MG TAB PO SCH (11:25)
[2019-05-13] MEDS: PANTOPRAZOLE 40 MG (PROTONIX) TAB PO SCH (11:25)
[2019-05-13] MEDS: GABAPENTIN 100 MG (NEURONTIN) CAP PO SCH (11:25)
[2019-05-13] MEDS ORDERED: NS IV 1000 ML 1,000 ML ONE (11:26)
[2019-05-13] MEDS ORDERED: NS IV 1000 ML 1,000 ML IV SCH (11:56)
[2019-05-13] MEDS ORDERED: PATIENT MAY USE OWN MEDS, ALL PO SCH (12:00)
--- NOTE | 2019-05-13 12:00 | Cardiac Cath Report ---
Cardiac Cath Report Physician (s)/Hydropulper (s) Physician SHANNA ARGUETA MD Pre-Procedure Diagnosis Pre-Procedure Diagnosis: Coronary artery disease Post-Procedure Note Procedure Start Date: May 13, 2019 Name of Procedure: Left heart catheterization Findings/Procedure Note PROCEDURE NOTE: 59-year-old lady admitted with cellulitis, had elevation in troponin and chest pain, mild renal insufficiency, received IV fluid and brought for cardiac catheterization possible PTCA. After explaining the procedure to the patient, all pros and cons were explained, all questions were answered. The patient signed the consent and then she was placed on the cardiac catheterization laboratory. Groin was prepped SL fashion local anesthesia was used. Sheath placed in the right femoral artery. Paulie right and left catheter were used to access the coronary system. JR catheter was prolapsed into the left ventricular cavity pressure was measured pullback LV to aorta was done, no left ventriculogram was done. At the end of the procedure the sheath was removed. Closure device FINDINGS: Hemodynamics LV 121/20, end-diastolic pressure of 20 Aorta 115/70 mean of 92 ANATOMY: Left Main is free of obstructive disease Left Anterior Descending has 40-50 percent stenosis proximally nonobstructive disease Left Circumflex has mild disease nonobstructive disease Right Coronory Artery is dominant artery with moderate disease at the distal PDA nonobstructive disease LV Gram was not done, pressure was measured CONCLUSION: 1. [id number] coronary artery disease nonobstructive disease 2. Normal left ventricular end-diastolic pressure DISCUSSION AND RECOMMENDATION: troponin elevation is probably due to small vessel disease. No intervention is warranted. Medical therapy is recommended Anesthesia Type: Conscious Sedation Estimated blood loss (mL): 10 ml Contrast Amount: 25 ml Total Radiation Dose: 286 mGy Post-Procedure Diagnosis Post-operative diagnosis: Chest pain Coronary artery disease Cellulitis Hypertension SHANNA ARGUETA MD May 13, 2019 12:00 POS
--- NOTE | 2019-05-13 12:27 | NUR ---
REPORT CALLED TO GINNY DAVIS. SHE WILL RECOVER THE PATIENT POST HEART-CATH.
[2019-05-13] MEDS: ENOXAPARIN 40 MG/0.4 ML (LOVENOX) SYR SQ SCH (14:44)
[2019-05-13 16:55] VITALS: BP 150/72
--- NOTE | 2019-05-18 07:37 | Physician Query Clarification ---
PQ-Intro New Diagnosis Admission/Discharge Admission Date: May 10, 2019 at 21:55 Discharge Date: May 13, 2019 at 17:00 The medical record reflects the following clinical scenario: History/Risk Factors: cellulitis lt lower extremity, Diabetes, HTN, Clinical Findings: Troponin 0.083, elevated troponin probably secondary to small vessel disease Treatment: Aspirin, monitor troponin, hearth cath, medical therapy Question: What condition best reflects the above clinical scenario? Please document a response in the Progress Noter or Discharge Summary. 1. NSTEMI 2. NM TYPE 2 3. Elevated troponin due to small vessel disease no NM 4. Other, with explanation of the clinical findings. 5. Clinically undetermined, no explanation for the clinical findings. PHYSICIAN RESPONSE What condition reflects above: Other, explanation/clinical finding Explanation of clincal finding 3 Please remember a lack of response to the above will prompt a phone page by CDI/Coding staff. In responding to this query, please exercise your independent professional judgment. The purpose of this communication is to more accurately reflect the complexity of your patients condition. The fact that a question is asked does not imply that any particular answer is desired or expected. Thank you for your timely response to this clarification. Requestors name: Sonny THIS PHYSICIAN QUERY FORM IS A PERMANENT PART OF THE MEDICAL RECORD SONNY KING May 18, 2019 07:37 SHANNA ZAVALETA MD May 18, 2019 17:43 POS
== END 2019-05-13 17:00 | disposition home or self-care (01) | DRG 603 ==
LOC: EDUNIT# 20:22 → ER 20:24 → 4TH 21:55 → ICU 05-13 16:04
PROVIDERS: ADMIT Family Medicine; ATTEND Family Medicine
PROC: 4A023N7 Measurement of Cardiac Sampling and Pressure, Left Heart, Percutaneous Approach (ICD-10-PCS; principal; 2019-05-13)
PROC: B2111ZZ Fluoroscopy of Multiple Coronary Arteries using Low Osmolar Contrast (ICD-10-PCS; 2019-05-13)
DX: L03.116 Cellulitis of left lower limb (principal); S81.832A Puncture wound without foreign body, left lower leg, initial encounter; L97.229 Non-pressure chronic ulcer of left calf with unspecified severity; I77.6 Arteritis, unspecified; D61.818 Other pancytopenia; I25.119 Atherosclerotic heart disease of native coronary artery with unspecified angina pectoris; E11.51 Type 2 diabetes mellitus with diabetic peripheral angiopathy without gangrene; E11.65 Type 2 diabetes mellitus with hyperglycemia; E11.40 Type 2 diabetes mellitus with diabetic neuropathy, unspecified; I87.8 Other specified disorders of veins; F41.9 Anxiety disorder, unspecified; R19.7 Diarrhea, unspecified; R09.81 Nasal congestion; R05 Cough; B19.20 Unspecified viral hepatitis C without hepatic coma; M06.9 Rheumatoid arthritis, unspecified; F17.210 Nicotine dependence, cigarettes, uncomplicated; I10 Essential (primary) hypertension; D89.1 Cryoglobulinemia; E78.5 Hyperlipidemia, unspecified; F15.90 Other stimulant use, unspecified, uncomplicated; R31.9 Hematuria, unspecified; N28.9 Disorder of kidney and ureter, unspecified; R78.89 Finding of other specified substances, not normally found in blood; Z91.14 Patient's other noncompliance with medication regimen; W45.8XXA Other foreign body or object entering through skin, initial encounter
CPT/HCPCS: 36415; 73590; 80053; 80202; 80306; 80320; 81000; 82962; 83605; 84484; 85007; 85025; 85027; 85610; 85652; 85730; 86141; 87040; 90715; 93005; 93306; 93458; 93923; 96361; 96365; 96367

== ENCOUNTER 2019-05-16 12:36 | Emergency (ER) | payer BC ==
[~2019-05-16] VITALS: Ht 160 cm; Wt 71.0 kg
[~2019-05-16 12:36] MED LIST changes: +ASPI-983 PO; +CELE-63 PO; +CLIN150C17 PO; +FOLI1TAB24 PO; +GABA-486 PO; +HYDR25TA4 PO; +LOSA50TA63 PO; +METF-397 PO; +METH2.5T PO; +OMG1KC PO; +POTA10TA36 PO; +SILV480G TP
[2019-05-16] MEDS ORDERED: FUROSEMIDE 40 MG/4 ML INJ (LASIX) IVP ONE (13:00)
--- NOTE | 2019-05-16 13:28 | ED Respiratory ---
General Chief Complaint: General Problems/Pain Stated Complaint: BLOATED Nursing Triage Note: PT AMB TO [facility] 8 WITH COMPLAINT OF BLOATING AND SOA. PT STATES SHE WAS ADMITTED AND DISCHARGED ON THURSDAY WITH CELLUITIS. STATES SHE FEELS SHE IS FULL OF FLUIDS Source: patient Exam Limitations: no limitations History of Present Illness Date Seen by Provider: May 16, 2019 Time Seen by Provider: 13:16 Initial Comments The patient presents to ER by private conveyance from the primary care clinic at [facility] sent by Dr. Valenzuela. She was having some shortness of breath ever since her stay in the hospital and she was in from Thursday to Thursday of last week or cellulitis. She is followed by Dr. 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 She has a history of diabetes not on insulin as well as hepatitis C. She was sent over from the clinic because they said she was tachypneic and tachycardic and would need IV Lasix but they did not think she would meet admission criteria. Patient says she's not having any pain nausea fever chills or cough just some shortness of breath and about 8 pounds weight gain since her admission. She has no history of coronary disease and had a heart catheter last week by Dr. Cheema and was told it was normal. Allergies and Home Medications Allergies Coded Allergies: hydrocodone (Verified Allergy, Unknown, 07/08/18) Home Medications Aspirin 81 Mg Tablet.dr, 81 MG PO DAILY Prescribed by: MAXWELL MAIN on 05/13/19 0832 Celecoxib 200 Mg Capsule, 200 MG PO DAILY, (Reported) Clindamycin HCl 150 Mg Capsule, 300 MG PO Q6HR Prescribed by: MAXWELL MAIN on 05/13/19 0832 Folic Acid 1 Mg Tablet, 1 MG PO DAILY, (Reported) LAST FILLED #30 12-17-18 Gabapentin 100 Mg Capsule, 100 MG PO BID, (Reported) Hydrochlorothiazide 25 Mg Tablet, 25 MG PO DAILY, (Reported) LAST FILLED #30 12-17-18 Losartan Potassium 50 Mg Tablet, 50 MG PO DAILY, (Reported) Methotrexate Sodium 2.5 Mg Tablet, 10 TAB PO Sa, (Reported) LAST FILLED #16 12-17-18 TAKES 4 (2.5MG) TABLETS [place] 3 Polyunsat Fatty Acids 1,000 Mg Cap, 1,000 MG PO DAILY, (Reported) Potassium Chloride 10 Meq Tab.er.prt, 10 MEQ PO DAILY, (Reported) Silver 480 Ml Gel.er.ml., 0 OZ TP BID Prescribed by: MAXWELL MAIN on 05/13/19 0832 Patient Home Medication List Home Medication List Reviewed: Yes Review of Systems Review of Systems Constitutional: No chills, No fever; malaise EENTM: No ear discharge Respiratory: No cough; short of breath Cardiovascular: No chest pain; edema; No Hx of Intervention, No palpitations, No vascular heart diseas Gastrointestinal: No abdominal pain, No constipation, No diarrhea Genitourinary: No discharge, No dysuria All Other Systems Reviewed Negative Unless Noted: Yes Past Upftfqw-Stlfwi-Rdvqcn Hx Patient Social History Alcohol Use: Denies Use Recreational Drug Use: No 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 Smoking Status: Current Everyday Smoker Type Used: Cigarettes 2nd Hand Smoke Exposure: Yes Recent Foreign Travel: No Contact w/Someone Who Travel: No Recent Infectious Disease Expo: No Recent Hopitalizations: No Physical Abuse: No Sexual Abuse: No Mistreated: No Fear: No Immunizations Up To Date Tetanus Booster (TDap): More than 5yrs Date of Influenza Vaccine: Mar 29, 2019 Seasonal Allergies Seasonal Allergies: No Past Medical History Surgeries: Yes (LITHOTRIPSY; FACIAL RECONSTRUCTION; X 1-TWINS) Section, Renal, Tubal Ligation Respiratory: No Cardiac: Yes (VASCULITIS OF LEGS) Chronic Edema/Swelling, Hypertension, Peripheral Vascular Neurological: Yes Neuropathy 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 0oz. [id number]; 27.00 BMI Method:Stated General Appearance: WD/WN, no apparent distress Eyes: Bilateral Eye Normal Inspection, Bilateral Eye PERRL, Bilateral Eye EOMI HEENT: PERRL/EOMI, normal ENT inspection, pharynx normal Neck: full range of motion, other (1 cm of mild JVD) Respiratory: lungs clear, normal breath sounds, no respiratory distress, no accessory muscle use Cardiovascular: normal peripheral pulses, regular rate, rhythm Gastrointestinal: non tender, soft Neurologic/Psychiatric: alert, normal mood/affect, oriented x 3 Skin: normal color, warm/dry Progress/Results/Core Measures Suspected Sepsis Recent Fever Within 48 Hours: No Infection Criteria Present: None New/Unexplained Altered Menta: No Sepsis Screen: No Definite Risk SIRS Temperature: Pulse: 95 Respiratory Rate: 20 Laboratory Tests 05/16/19 15:07: White Blood Count 6.3 Blood Pressure 181 /101 Mean: 127 Laboratory Tests 05/16/19 15:07: Creatinine 1.69H, Platelet Count 87L, Total Bilirubin 0.5 Results/Orders Lab Results Laboratory Tests Test 05/16/19 15:07 Range/Units White Blood Count 6.3 4.3-11.0 10^3/uL Red Blood Count 3.21 L 4.35-5.85 10^6/uL Hemoglobin 8.9 L 11.5-16.0 G/DL Hematocrit 27 L 35-52 % Mean Corpuscular Volume 84 80-99 FL Mean Corpuscular Hemoglobin 28 25-34 PG Mean Corpuscular Hemoglobin Concent 33 32-36 G/DL Red Cell Distribution Width 14.6 H 10.0-14.5 % Platelet Count 87 L 130-400 10^3/uL Mean Platelet Volume 10.4 7.4-10.4 FL Neutrophils (%) (Auto) 93 H 42-75 % Lymphocytes (%) (Auto) 3 L 12-44 % Monocytes (%) (Auto) 4 0-12 % Eosinophils (%) (Auto) 0 0-10 % Basophils (%) (Auto) 0 0-10 % Neutrophils # (Auto) 5.9 1.8-7.8 X 10^3 Lymphocytes # (Auto) 0.2 L 1.0-4.0 X 10^3 Monocytes # (Auto) 0.2 0.0-1.0 X 10^3 Eosinophils # (Auto) 0.0 0.0-0.3 10^3/uL Basophils # (Auto) 0.0 0.0-0.1 10^3/uL Neutrophils % (Manual) 93 % Lymphocytes % (Manual) 4 % Monocytes % (Manual) 3 % Tear Drop Cells SLIGHT Gurpreet Cells SLIGHT Elliptocytes SLIGHT Sodium Level 134 L 135-145 MMOL/L Potassium Level 3.8 3.6-5.0 MMOL/L Chloride Level 108 H 98-107 MMOL/L Carbon Dioxide Level 16 L 21-32 MMOL/L Anion Gap 10 5-14 MMOL/L Blood Urea Nitrogen 33 H 7-18 MG/DL Creatinine 1.69 H 0.60-1.30 MG/DL Estimat Glomerular Filtration Rate 31 BUN/Creatinine Ratio 20 Glucose Level 221 H 70-105 MG/DL Calcium Level 8.1 L 8.5-10.1 MG/DL Corrected Calcium 9.0 8.5-10.1 MG/DL Total Bilirubin 0.5 0.1-1.0 MG/DL Aspartate Amino Transf (AST/SGOT) 18 5-34 U/L Alanine Aminotransferase (ALT/SGPT) 17 0-55 U/L Alkaline Phosphatase 147 H 40-136 U/L C-Reactive Protein High Sensitivity 8.55 H 0.00-0.50 MG/DL B-Type Natriuretic Peptide 534.9 H <100.0 PG/ML Total Protein 5.8 L 6.4-8.2 GM/DL Albumin 2.9 L 3.2-4.5 GM/DL My Orders Orders - NADER MCKOY Cbc With Automated Diff (05/16/19 13:25) Comprehensive Metabolic Panel (05/16/19 13:25) Hs C Reactive Protein (05/16/19 13:25) BNP (05/16/19 13:25) Chest Pa/Lat (2 View) (05/16/19 13:25) Manual Differential (05/16/19 15:07) Vital Signs/I&O 05/16/19 12:54 Temp 37.1 Pulse 95 Resp 20 B/P (MAP) 181/101 (127) Pulse Ox 94 O2 Delivery Room Air Capillary Refill : Less Than 3 Seconds Blood Pressure Mean: 127 POS Progress Note : Time: 16:11 Progress Note Her BNP is 500 and her normal being double digits. She has some JVD distention and does appear to be mildly fluid overload so we'll give her a single dose of IV Lasix. Her creatinine is similar to her discharge creatinine a few days ago 1.57. We'll have her follow-up with primary care for reevaluation later in the week. Patient was a difficult IV stick so we attempted by several different providers to obtain blood which did cause a modicum of delayed. Departure Impression Primary Impression: Fluid overload, unspecified Qualified Codes: E87.79 - Other fluid overload Disposition: 01 HOME, SELF-CARE Condition: Stable Departure-Patient Inst. Decision time for Depature: 16:13 Referrals: [facility] [place] (PCP) Primary Care Physician MATTHIEU VALENZUELA MD (Family) Primary Care Physician Patient Instructions: Dependent Edema (DC) Add. Discharge Instructions: Take your feet up above the level of your heart to help with swelling. Tomorrow take one tablet of Lasix daily for the next 2 days in the morning. Take the potassium 20 mEq twice a day for the next 3 days. Tomorrow call for a follow-up appointment with your doctor later this week for reevaluation. If you cannot catch your breath or you start to have chest pain then please return to the nearest ER for further evaluation. All discharge instructions reviewed with patient and/or family. Voiced understanding. Scripts Furosemide (Furosemide) 20 Mg Tablet 20 MG PO DAILY for 2 Days, #2 TAB 0 Refills Prov: NADER MCKOY 05/16/19 Potassium Chloride (Potassium Chloride) 20 Meq Tablet.er 20 MEQ PO BID for 3 Days, #6 TAB 0 Refills Prov: NADER MCKOY 05/16/19 Copy Copies To 1: DEAN QUIÑONES DO NADER MCKOY May 16, 2019 13:28 POS
--- NOTE | 2019-05-16 14:16 | Diagnostic Imaging Report ---
INDICATION: Bloating and shortness of air. No priors. FINDINGS: Poor inspiratory volume. Crowding of the lung markings. There is bibasilar zones of partial atelectasis as well as the suggestion of some air bronchograms. Pneumonia superimposed upon atelectasis could not be excluded. No definite pleural fluid. No pneumothorax. IMPRESSION: Very poor inspiratory volume with basilar zones of partial atelectasis, superimposition of pneumonia could not be excluded. Dictated by: Dictated on workstation # [id number]
[2019-05-16 15:16] LABS: BASOPHILS % (AUTO) 0 % (0-10); EOSINOPHILS % (AUTO) 0 % (0-10); HEMATOCRIT 27 % (35-52); HEMOGLOBIN 8.9 G/DL (11.5-16.0); LYMPHOCYTES # (AUTO) 0.2 X 10^3 (1.0-4.0); LYMPHOCYTES % (AUTO) 3 % (12-44); MEAN CORPUSCULAR HEMOGLOBIN 28 PG (25-34); MEAN CORPUSCULAR HGB CONC 33 G/DL (32-36); MEAN CORPUSCULAR VOLUME 84 FL (80-99); MEAN PLATELET VOLUME 10.4 FL (7.4-10.4); MONOCYTES # (AUTO) 0.2 X 10^3 (0.0-1.0); MONOCYTES % (AUTO) 4 % (0-12); NEUTROPHILS # (AUTO) 5.9 X 10^3 (1.8-7.8); NEUTROPHILS % (AUTO) 93 % (42-75); PLATELET COUNT 87 10^3/uL (130-400); RED CELL DISTRIBUTION WIDTH 14.6 % (10.0-14.5); WHITE BLOOD COUNT 6.3 10^3/uL (4.3-11.0)
[2019-05-16 15:30] LABS: CREATININE SERUM 1.69 MG/DL (0.60-1.30); POTASSIUM 3.8 MMOL/L (3.6-5.0)
[2019-05-16 15:31] LABS: ALBUMIN 2.9 GM/DL (3.2-4.5); BILIRUBIN,TOTAL 0.5 MG/DL (0.1-1.0); CALCIUM 8.1 MG/DL (8.5-10.1); TOTAL PROTEIN 5.8 GM/DL (6.4-8.2)
[2019-05-16 15:50] LABS: LYMPHOCYTES % (MANUAL) 4 %; MONOCYTES % (MANUAL) 3 %; NEUTROPHILS % (MANUAL) 93 %
[2019-05-16 15:51] LABS: BURR CELLS SLIGHT; ELLIPT/OVALOCYTES SLIGHT; TEAR DROP CELLS SLIGHT
[2019-05-16] MEDS ORDERED: FURO20TA4 PO (16:15)
[2019-05-16] MEDS ORDERED: POTA-51 PO (16:15)
[2019-05-16] MEDS ORDERED: FUROSEMIDE 40 MG/4 ML INJ (LASIX) ONE (16:20)
[2019-05-16 16:29] VITALS: BP 165/91
== END 2019-05-16 16:29 | disposition home or self-care (01) ==
LOC: EDUNIT# 12:36 → ER 12:37
DX: E87.70 Fluid overload, unspecified (principal); E11.40 Type 2 diabetes mellitus with diabetic neuropathy, unspecified; I10 Essential (primary) hypertension; B19.20 Unspecified viral hepatitis C without hepatic coma; F41.9 Anxiety disorder, unspecified; M06.9 Rheumatoid arthritis, unspecified; F17.210 Nicotine dependence, cigarettes, uncomplicated; Z98.51 Tubal ligation status; Z87.442 Personal history of urinary calculi; Z88.5 Allergy status to narcotic agent; Z79.82 Long term (current) use of aspirin; Z82.49 Family history of ischemic heart disease and other diseases of the circulatory system
CPT/HCPCS: 36415; 71046; 80053; 83880; 85007; 85027; 86141

== ENCOUNTER 2019-06-28 18:28 | Inpatient (IN) | payer BC ==
[~2019-06-28] VITALS: Ht 157.4 cm; Wt 67.3 kg
[~2019-06-28 18:28] MED LIST changes: +FURO20TA4 PO; +POTA-51 PO
[2019-06-28] MEDS ORDERED: APAP 325 MG/10.15 ML LIQ (TYLENOL) UDC PO STA (19:01)
[2019-06-28] MEDS ORDERED: LACTATED RINGERS 1,000 ML IV ONE ×2 (19:01→22:04)
--- NOTE | 2019-06-28 19:20 | ED General ---
General Chief Complaint: Fever-Adult/Adol Stated Complaint: FEVER,COUGHING Nursing Triage Note: FEVER STARTING LAST NIGHT. TOOK EITHER ALEVE OR IBUPROFEN AT 1730 FOR A FEVER OF 102 Nursing Sepsis Screen: Possible Severe Sepsis Risk Source of Information: Patient, Family Exam Limitations: Other (clinical condition ) (DALIA WELLINGTON,MED STUDENT) History of Present Illness Date Seen by Provider: Jun 28, 2019 Time Seen by Provider: 19:01 Initial Comments Pt brought in by family with complaints of fever, cough, malaise and change in behavior. Symptoms started early yesterday. Highest recorded temperature by family was 102.0. Pt endorses headache, fever, chills, body ache, cough, nausea and shortness of breath. She denies vomiting, diarrhea. Pt took ibuprofen today for fever but cannot relate time or amount of dose. Pt somewhat somnolent and falls asleep while answering questions. Past medical history is notable for cirrhosis, hep. c infection, alcohol abuse and methamphetamine use. Timing/Duration: 12-24 Hours Severity: Moderate Associated Systoms: No Chest Pain; Cough, Fever/Chills, Headaches, Malaise; No Nausea/Vomiting, No Rash; Shortness of Air (DALIA WELLINGTON,MED STUDENT) Initial Comments Here with complaint of fever since yesterday, body aches, chills and cough. Symptoms worsening today and now she is becoming somewhat confused. She is answering questions but seems tired. No reported vomiting or diarrhea. Does have history of hepatitis. Does have a remote history of drug abuse but has been clean for a few years now. Timing/Duration: 1-2 Days Severity: Moderate Associated Systoms: Cough, Fever/Chills, Headaches, Malaise; No Nausea/Vomiting; Shortness of Air (ROSELIA AMAYA MD) Allergies and Home Medications Allergies Coded Allergies: hydrocodone (Verified Allergy, Unknown, 07/08/18) hydrochlorothiazide (Verified Adverse Reaction, Unknown, DIARRHEA, 06/28/19) Home Medications Albuterol Sulfate 2.5 Mg/3 Ml Vial.neb, 2.5 MG NEB Q4H PRN for SHORTNESS OF BREATH, (Reported) Aspirin 81 Mg Tablet.dr, 81 MG PO DAILY, (Reported) LAST FILLED #30 05-13-19 Celecoxib 200 Mg Capsule, 200 MG PO DAILY, (Reported) LAST FILLED #30 05-11-19 Folic Acid 1 Mg Tablet, 1 MG PO DAILY, (Reported) LAST FILLED #30 12-17-18 Gabapentin 100 Mg Capsule, 100 MG PO BID, (Reported) LAST FILLED #60 04-04-19 Hydrochlorothiazide 25 Mg Tablet, 25 MG PO DAILY, (Reported) LAST FILLED #30 12-17-18 Losartan Potassium 50 Mg Tablet, 50 MG PO DAILY, (Reported) LAST FILLED #30 05-11-19 Methotrexate Sodium 2.5 Mg Tablet, 10 MG PO Sa, (Reported) LAST FILLED #16 TABLETS 12-17-18 TAKES 4 (2.5MG) TABLETS Potassium Chloride 10 Meq Tab.er.prt, 10 MEQ PO DAILY, (Reported) LAST FILLED #30 05-11-19 Patient Home Medication List Home Medication List Reviewed: Yes (DALIA WELLINGTON MED STUDENT) Home Medication List Reviewed: Yes (ROSELIA AMAYA MD) Review of Systems Review of Systems Constitutional: chills, fever, malaise, weakness EENTM: No hearing loss, No ear pain, No eye pain, No vision loss Respiratory: cough, short of breath Gastrointestinal: No abdominal pain, No constipation, No diarrhea; nausea; No vomiting Skin: No lesions, No lumps, No rash Exam limited by clinical condition (DALIA WELLINGTON MED STUDENT) Constitutional: see HPI Respiratory: see HPI Cardiovascular: no symptoms reported Gastrointestinal: no symptoms reported Genitourinary: no symptoms reported (ROSELIA AMAYA MD) All Other Systems Reviewed Negative Unless Noted: Yes (ROSELIA AMAYA MD) Past Yvryojz-Juodrb-Fxejmv Hx Past Med/Social Hx: Reviewed Nursing Past Med/Soc Hx (ROSELIA AMAYA MD) Patient Social History Alcohol Use: Denies Use Recreational Drug Use: Yes (PAST HX METH) 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 Smoking Status: Current Everyday Smoker Type Used: Cigarettes 2nd Hand Smoke Exposure: Yes Recent Foreign Travel: No Contact w/Someone Who Travel: No Recent Infectious Disease Expo: No Recent Hopitalizations: No Physical Abuse: No Sexual Abuse: No Mistreated: No Fear: No (DALIA WELLINGTON MED STUDENT) Immunizations Up To Date Tetanus Booster (TDap): More than 5yrs Date of Influenza Vaccine: Mar 29, 2019 (DALIA WELLINGTON MED STUDENT) Seasonal Allergies Seasonal Allergies: No (DALIA WELLINGTON MED STUDENT) Past Medical History Surgeries: Yes (LITHOTRIPSY; FACIAL RECONSTRUCTION; X 1-TWINS) Section, Renal, Tubal Ligation Respiratory: No Cardiac: Yes (VASCULITIS OF LEGS) Chronic Edema/Swelling, Hypertension, Peripheral Vascular Neurological: Yes Neuropathy 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 Genitourinary: Yes Kidney Stones Gastrointestinal: Yes (HEPATITIS C--NO TREATMENT) Hepatitis, Cirrhosis Musculoskeletal: Yes Arthritis, Rheumatoid Arthritis Endocrine: Yes Diabetes, Non-Insulin dep HEENT: No Cancer: No Psychosocial: Yes Anxiety Integumentary: Yes (CHRONIC LEG EDEMA AND CELLULITIS ; VASCULITIS) Blood Disorders: No (DALIA WELLINGTON MED STUDENT) Family Medical History Reviewed Nursing Family Hx (ROSELIA AMAYA MD) Heart Disease, Cancer, Diabetes (DALIA WELLINGTON MED STUDENT) Physical Exam-Suspected Sepsis Physical Exam Vital Signs Vital Signs - First Documented 06/28/19 06/28/19 18:36 20:00 Temp 38.1 Pulse 121 Resp 16 B/P (MAP) 145/79 (101) Pulse Ox 97 O2 Delivery Room Air O2 Flow Rate 2.00 (ROSELIA AMAYA MD) Vital Signs Capillary Refill : Less Than 3 Seconds (DALIA WELLINGTON MED STUDENT) Blood Pressure Mean: 101 Height, Weight, BMI Height: 5'3.00" Weight: 159lbs. 0oz. [id number]; 25.00 BMI Method:Stated General Appearance: No Apparent Distress, WD/WN Eyes: Bilateral Eye PERRL, Bilateral Eye EOMI HEENT: TMs Normal, Other (dry mucous membranes, erythematous turbinates ) Neck: Non Tender, Supple Respiratory: Chest Non Tender, Lungs Clear, Normal Breath Sounds, No Accessory Muscle Use, No Respiratory Distress Cardiovascular: No Edema, No Gallop, No Murmur, Tachycardia Gastrointestinal: Non Tender, Soft Back: No CVA Tenderness, No Vertebral Tenderness Neurologic/Psychiatric: Oriented x3, Other (pt nods in and out of sleep during interview ) Skin: normal color, warm/dry Lymphatic: No Adenopathy (supra/infraclavicular, A/P cervical) (DALIA WELLINGTON,SHANTEL STUDENT) General Appearance: No Apparent Distress, WD/WN HEENT: TMs Normal, Pharynx Normal, Other (dry mucous membranes, erythematous turbinates ) Neck: Non Tender, Supple Respiratory: Lungs Clear, Normal Breath Sounds Cardiovascular: No Murmur, Tachycardia Gastrointestinal: Non Tender, Soft Back: No CVA Tenderness, No Vertebral Tenderness Extremity: Normal Range of Motion, Non Tender Neurologic/Psychiatric: Alert, Other (pt nods in and out of sleep during interview. Nose self and place but does seem somewhat confused and a bit drowsy.) Skin: warm/dry, other (venous stasis changes bilateral lower extremities) (ROSELIA AMAYA MD) Focused Exam Lactate Level 06/28/19 19:35: Lactic Acid Level 1.41 (ROSELIA AMAYA MD) Lactic Acid Level Laboratory Tests Test 06/28/19 19:35 Lactic Acid Level 1.41 MMOL/L (0.50-2.00) (ROSELIA AMAYA MD) Progress/Results/Core Measures Suspected Sepsis Recent Fever Within 48 Hours: Yes Infection Criteria Present: Suspected New Infection New/Unexplained Altered Menta: No Sepsis Screen: Possible Severe Sepsis Risk SIRS Temperature: Pulse: 121 Respiratory Rate: 16 Laboratory Tests 06/28/19 19:35: White Blood Count 7.7 06/29/19 04:55: White Blood Count 5.0 06/30/19 05:40: White Blood Count 2.8L Blood Pressure 145 /79 Mean: 101 06/28/19 19:35: Lactic Acid Level 1.41 Laboratory Tests 06/28/19 19:35: Creatinine 1.00, INR Comment 1.3, Platelet Count 172, Total Bilirubin 1.1H 06/29/19 04:55: Creatinine 0.80, Platelet Count 127L, Total Bilirubin 1.1H 06/30/19 05:40: Creatinine 0.73, INR Comment 1.3, Platelet Count 135, Total Bilirubin 0.4 (DALIA WELLINGTON,MED STUDENT) Results/Orders Lab Results Laboratory Tests Test 06/28/19 19:35 Range/Units White Blood Count 7.7 4.3-11.0 10^3/uL Red Blood Count 3.04 L 4.35-5.85 10^6/uL Hemoglobin 8.2 L 11.5-16.0 G/DL Hematocrit 26 L 35-52 % Mean Corpuscular Volume 86 80-99 FL Mean Corpuscular Hemoglobin 27 25-34 PG Mean Corpuscular Hemoglobin Concent 31 L 32-36 G/DL Red Cell Distribution Width 16.0 H 10.0-14.5 % Platelet Count 172 130-400 10^3/uL Mean Platelet Volume 10.6 H 7.4-10.4 FL Neutrophils (%) (Auto) 91 H 42-75 % Lymphocytes (%) (Auto) 4 L 12-44 % Monocytes (%) (Auto) 5 0-12 % Eosinophils (%) (Auto) 0 0-10 % Basophils (%) (Auto) 0 0-10 % Neutrophils # (Auto) 7.0 1.8-7.8 X 10^3 Lymphocytes # (Auto) 0.3 L 1.0-4.0 X 10^3 Monocytes # (Auto) 0.4 0.0-1.0 X 10^3 Eosinophils # (Auto) 0.0 0.0-0.3 10^3/uL Basophils # (Auto) 0.0 0.0-0.1 10^3/uL Neutrophils % (Manual) 85 % Lymphocytes % (Manual) 3 % Monocytes % (Manual) 7 % Eosinophils % (Manual) 0 % Basophils % (Manual) 0 % Band Neutrophils 4 % Reactive Lymphocytes 1 % Polychromasia SLIGHT Hypochromasia SLIGHT Anisocytosis SLIGHT Microcytosis SLIGHT Tear Drop Cells SLIGHT Elliptocytes SLIGHT Prothrombin Time 16.3 H 12.2-14.7 SEC INR Comment 1.3 0.8-1.4 Activated Partial Thromboplast Time 31 24-35 SEC Sodium Level 133 L 135-145 MMOL/L Potassium Level 3.7 3.6-5.0 MMOL/L Chloride Level 102 98-107 MMOL/L Carbon Dioxide Level 20 L 21-32 MMOL/L Anion Gap 11 5-14 MMOL/L Blood Urea Nitrogen 16 7-18 MG/DL Creatinine 1.00 0.60-1.30 MG/DL Estimat Glomerular Filtration Rate 57 BUN/Creatinine Ratio 16 Glucose Level 205 H 70-105 MG/DL Lactic Acid Level 1.41 0.50-2.00 MMOL/L Calcium Level 8.9 8.5-10.1 MG/DL Corrected Calcium 9.4 8.5-10.1 MG/DL Total Bilirubin 1.1 H 0.1-1.0 MG/DL Aspartate Amino Transf (AST/SGOT) 24 5-34 U/L Alanine Aminotransferase (ALT/SGPT) 20 0-55 U/L Alkaline Phosphatase 97 40-136 U/L Total Protein 6.6 6.4-8.2 GM/DL Albumin 3.4 3.2-4.5 GM/DL (ROSELIA AMAYA MD) Micro Results Microbiology 06/28/19 Influenza Types A,B Antigen (NIKKO) - Final, Complete (ROSELIA AMAYA MD) My Orders Orders - ROSELIA AMAYA MD Influenza A And B Antigens (06/28/19 18:53) Cbc With Automated Diff (06/28/19:) Comprehensive Metabolic Panel (06/28/19:) Blood Culture (06/28/19:) Sputum Culture (06/28/19) Urinalysis (06/28/19:) Urine Culture (06/28/19:) Protime With Inr (06/28/19:) Partial Thromboplastin Time (06/28/19:) Chest 1 View, Ap/Pa Only (06/28/19:) Ed Iv/Invasive Line Start (06/28/19:01) Ed Iv/Invasive Line Start (06/28/19:) Vital Signs Adult Sepsis Patie Q15M (06/28/19:) O2 (06/28/19:) Remove Rings In Anticipation O (06/28/19:) Lactic Acid Analyzer (06/28/19:) Ed Iv/Invasive Line Start (06/28/19:) Lactated Ringers (Lr 1000 Ml Iv Solution (06/28/19 19:01) Acetaminophen Oral Solution (Tylenol Ora (06/28/19 19:01) Manual Differential (06/28/19:35) Cefepime Injection (Maxipime Injection) (06/28/19:45) (ROSELIA AMAYA MD) Medications Given in ED Current Medications Medications Dose Ordered Sig/Rosario Route Start Time Stop Time Status Last Admin Dose Admin Lactated Ringer's 1,000 ml @ 0 mls/hr Q0M ONCE IV 06/28/19 19:01 06/28/19 19:04 DC 06/28/19 19:45 1,000 MLS/HR (ROSELIA AMAYA MD) Vital Signs/I&O 06/28/19 06/28/19 06/28/19 18:36 19:45 20:00 Temp 38.1 37.9 Pulse 121 Resp 16 B/P (MAP) 145/79 (101) Pulse Ox 97 96 O2 Delivery Room Air Nasal Cannula O2 Flow Rate 2.00 (ROSELIA AMAYA MD) Vital Signs/I&O Capillary Refill : Less Than 3 Seconds (DALIA WELLINGTON,MED STUDENT) Blood Pressure Mean: 101 Progress Note : Time: 19:24 Progress Note Seen and evaluated. Beginning sepsis workup. Will swab for flu and admin 1L LR. (DALIA WELLINGTONMED STUDENT) Progress Note : Progress Note I have seen and evaluated the patient and agree with above except as indicated. I have directed the plan of care. Evaluation as above. Sepsis order set initiated. LR 1 L bolus ordered. Influenza screen ordered. Monitor patient. 2023: Left hilar pneumonia noted. Lactic acid okay. While findings of sepsis there is no findings of severe sepsis or septic shock and patient doesn't require high-volume fluid resuscitation. We will initiate antibiotics and admission. 2027: I did discuss the case with Dr. Wilkinson. She accepts patient for admission, inpatient status. We will initiate cefepime 1 g IV now. We well continue hydration in the hospital and repeat labs in the a.m. All findings and concerns discussed with patient and family who agree with plan. Patient doing better overall now. (ROSELIA AMAYA MD) Departure Communication (Admissions) Time/Spoke to Admitting Phy: 20:28 (ROSELIA AMAYA MD) Impression Primary Impression: Pneumonia involving left lung Qualified Codes: J18.9 - Pneumonia, unspecified organism Disposition: ADMITTED INPATIENT Condition: Stable Admissions Decision to Admit Reason: Admit from ER (General) Decision to Admit/Date: Jun 28, 2019 Time/Decision to Admit Time: 20:28 (ROSELIA AMAYA MD) Departure-Patient Inst. Referrals: [facility] (PCP/Family) Primary Care Physician DALIA WELLINGTON MED STUDENT Jun 28, 2019 19:20 ROSELIA AMAYA MD Jun 28, 2019 20:27
[2019-06-28 19:46] LABS: BASOPHILS % (AUTO) 0 % (0-10); EOSINOPHILS % (AUTO) 0 % (0-10); HEMATOCRIT 26 % (35-52); HEMOGLOBIN 8.2 G/DL (11.5-16.0); LYMPHOCYTES # (AUTO) 0.3 X 10^3 (1.0-4.0); LYMPHOCYTES % (AUTO) 4 % (12-44); MEAN CORPUSCULAR HEMOGLOBIN 27 PG (25-34); MEAN CORPUSCULAR HGB CONC 31 G/DL (32-36); MEAN CORPUSCULAR VOLUME 86 FL (80-99); MEAN PLATELET VOLUME 10.6 FL (7.4-10.4); MONOCYTES # (AUTO) 0.4 X 10^3 (0.0-1.0); MONOCYTES % (AUTO) 5 % (0-12); NEUTROPHILS % (AUTO) 91 % (42-75); PLATELET COUNT 172 10^3/uL (130-400); WHITE BLOOD COUNT 7.7 10^3/uL (4.3-11.0)
[2019-06-28 19:57] LABS: INR 1.3 (0.8-1.4); PROTHROMBIN TIME PATIENT 16.3 SEC (12.2-14.7)
[2019-06-28 20:00] LABS: BAND NEUTROPHILS 4 %; BASOPHILS % (MANUAL) 0 %; EOSINOPHILS % (MANUAL) 0 %; LYMPHOCYTES % (MANUAL) 3 %; MONOCYTES % (MANUAL) 7 %; NEUTROPHILS % (MANUAL) 85 %; REACTIVE LYMPHOCYTES 1 %
[2019-06-28 20:01] LABS: ANISOCYTOSIS SLIGHT; ELLIPT/OVALOCYTES SLIGHT; HYPOCHROMASIA SLIGHT; MICROCYTOSIS SLIGHT; POLYCHROMASIA SLIGHT; TEAR DROP CELLS SLIGHT
[2019-06-28 20:04] LABS: ALBUMIN 3.4 GM/DL (3.2-4.5); BILIRUBIN,TOTAL 1.1 MG/DL (0.1-1.0); CALCIUM 8.9 MG/DL (8.5-10.1); POTASSIUM 3.7 MMOL/L (3.6-5.0); TOTAL PROTEIN 6.6 GM/DL (6.4-8.2)
--- NOTE | 2019-06-28 20:17 | Diagnostic Imaging Report ---
INDICATION: Fever, shortness of breath. COMPARISON: 05/16/2019. FINDINGS: Single view of the chest demonstrates cardiac enlargement with central vascular congestion. There is no infiltrate in the left hilum and base. There is no pneumothorax or effusion. Osseous structures are normal. IMPRESSION: 1. Cardiac enlargement with central vascular congestion. 2. New infiltrate left hilum and base. Follow-up recommended. Dictated by: Dictated on workstation # [id number]
[2019-06-28] MEDS ORDERED: CEFEPIME INJECTION 1,000 MG in WATER (STERILE) FOR INJECTION 10 ML IV ONE (20:45)
[2019-06-28] MEDS ORDERED: CEFEPIME 1 GM (MAXIPIME) VIAL ONE (21:10)
[2019-06-28] MEDS ORDERED: WATER (STERILE) FOR INJECTION 10 ML ONE (21:11)
--- NOTE | 2019-06-28 21:30 | NUR ---
MARY ANNE BARROW admitted to room 431-1, with an admitting diagnosis of pneumonia, on 06/28/19 from [place] via cart, accompanied by staff.MARY ANNE BARROW introduced to surroundings, call light, bed controls, phone, TV, temperature control, lights, meal times, smoking policy, visitor policy, side rail policy, bathrooms and showers. Patient Rights given to patient in the handbook. MARY ANNE BARROW verbalizes understanding that [facility] is not responsible for the loss or damage to any personal effects or valuables that are kept in the patients posession during their hospitalization. Patient and/or family were informed about the Rapid Response Team and its purpose.
[2019-06-28 21:43] VITALS: BP 110/70
[2019-06-28] MEDS: LACTATED RINGERS 1,000 ML IV SCH (22:13)
[2019-06-28] MEDS ORDERED: ACETAMINOPHEN 325 MG TABLET PO PRN (22:30)
[2019-06-28] MEDS ORDERED: ONDANSETRON 4 MG/2 ML (SDV) Z0FRAN IV PRN (22:30)
--- NOTE | 2019-06-28 22:53 | NUR ---
pt temp 38.3, no improvement after Tylenol, HR 101, RR 28, B/P 108/70, complaining of 8/[address] kaur notified, new order received, see order history.
[2019-06-28] MEDS: IBUPROFEN TABLET 200 MG TAB PO PRN (23:02)
[2019-06-29] VITALS (8 sets, daily range): BP systolic 99–124; BP diastolic 60–73
[2019-06-29] MEDS: CEFEPIME INJECTION 1,000 MG in WATER (STERILE) FOR INJECTION 10 ML IV SCH ×4 (02:29→19:49)
[2019-06-29] MEDS ORDERED: RT-ALBUTEROL/IPRATROPIUM 3 ML (DUONEB) VIAL INH PRN (03:15)
[2019-06-29 05:13] LABS: BASOPHILS % (AUTO) 0 % (0-10); EOSINOPHILS % (AUTO) 0 % (0-10); HEMATOCRIT 26 % (35-52); LYMPHOCYTES # (AUTO) 0.3 X 10^3 (1.0-4.0); LYMPHOCYTES % (AUTO) 5 % (12-44); MEAN CORPUSCULAR HEMOGLOBIN 27 PG (25-34); MEAN CORPUSCULAR HGB CONC 31 G/DL (32-36); MEAN CORPUSCULAR VOLUME 87 FL (80-99); MEAN PLATELET VOLUME 10.1 FL (7.4-10.4); MONOCYTES # (AUTO) 0.4 X 10^3 (0.0-1.0); MONOCYTES % (AUTO) 7 % (0-12); NEUTROPHILS # (AUTO) 4.4 X 10^3 (1.8-7.8); NEUTROPHILS % (AUTO) 87 % (42-75); PLATELET COUNT 127 10^3/uL (130-400)
[2019-06-29 05:42] LABS: ALANINE AMINOTRANSFERASE 17 U/L (0-55); ALKALINE PHOSPHATASE 96 U/L (40-136); BILIRUBIN,TOTAL 1.1 MG/DL (0.1-1.0); BUN/CREATININE RATIO 24; CALCIUM 8.6 MG/DL (8.5-10.1); CARBON DIOXIDE 18 MMOL/L (21-32); CHLORIDE 107 MMOL/L (98-107); GFR ESTIMATED > 60; GLUCOSE 143 MG/DL (70-105); POTASSIUM 3.7 MMOL/L (3.6-5.0); SODIUM 135 MMOL/L (135-145)
[2019-06-29] MEDS: LACTATED RINGERS 1,000 ML IV SCH ×2 (07:02→13:29)
[2019-06-29] MEDS: IBUPROFEN TABLET 200 MG TAB PO PRN ×2 (08:28→20:51)
[2019-06-29] MEDS: RT-ALBUTEROL/IPRATROPIUM 3 ML (DUONEB) VIAL INH SCH ×3 (09:14→19:54)
--- NOTE | 2019-06-29 12:31 | History & Physical-Hospitalist ---
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 She reports she had a PNA 2 weeks ago and was in the hospital and feels like she did 2 weeks ago. Patient appears to be jaundiced and very end stage liver disease. I reviewed the extensive problem list from hospital stay 04/2019 for left leg cellulitis. Source: patient, RN/MD, old records Exam Limitations: no limitations Date Seen 06/29/19 Time Seen by a Provider: 10:30 Attending Physician Dulce Wilkinson DO [facility] [place] Referring Physician Date of Admission Jun 28, 2019 at 20:28 Home Medications & Allergies Home Medications Reviewed patient Home Medication Reconciliation performed by pharmacy medication reconciliations transportation technician and/or nursing. Patients Allergies have been reviewed. Allergies Allergies Coded Allergies hydrocodone (Verified Allergy, Unknown, 07/08/18) hydrochlorothiazide (Verified Adverse Reaction, Unknown, DIARRHEA, 06/28/19) Past Bipaygt-Angpqb-Ikelct Hx Past Med/Social Hx: Reviewed Nursing Past Med/Soc Hx, Reviewed and Corrections made Patient Social History Marrital Status: cohabiting Employed/Student: unemployed Alcohol Use: Denies Use Recreational Drug Use: Yes (PAST HX METH) 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 Smoking Status: Current Everyday Smoker Type Used: Cigarettes 2nd Hand Smoke Exposure: Yes Recent Foreign Travel: No Contact w/other who traveled: No Recent Hopitalizations: No Recent Infectious Disease Expo: No Immunizations Up To Date Tetanus Booster (TDap): More than 5yrs Date of Influenza Vaccine: Mar 29, 2019 Seasonal Allergies Seasonal Allergies: No Past Medical History Surgeries: Section, Renal, Tubal Ligation Cardiac: Chronic Edema/Swelling, Hypertension, Peripheral Vascular Neurological: Neuropathy Menopausal Genitourinary: Kidney Stones Gastrointestinal: Hepatitis, Cirrhosis Musculoskeletal: Arthritis, Rheumatoid Arthritis Endocrine: Diabetes, Non-Insulin dep Psychosocial: Anxiety History of Blood Disorders: No Family History Reviewed Nursing Family Hx Heart Disease, Cancer, Diabetes Review of Systems Constitutional: see HPI, dizziness, fever, malaise, weakness Respiratory: cough, dyspnea on exertion Psychiatric/Neurological: Anxiety, Depressed All Other Systems Reviewed Negative Unless Noted: Yes Physical Exam Physical Exam Vital Signs Vital Signs - First Documented 12/31/19 12/31/19 1/1/20 18:36 20:00 03:02 Temp 38.1 Pulse 121 Resp 16 B/P (MAP) 145/79 (101) Pulse Ox 97 O2 Delivery Room Air O2 Flow Rate 2.00 FiO2 28 Capillary Refill : Less Than 3 Seconds Height, Weight, BMI Height: 5'3.00" Weight: 159lbs. 0oz. 72.652337oy; 27.16 BMI Method:Stated General Appearance: Anxious, Chronically ill, Mild Distress, Thin, Other (jaundiced) Eyes: Right Eye Normal Inspection, Right Eye PERRL HEENT: PERRL/EOMI, Normal ENT Inspection, Pharynx Normal, Moist Mucous Membranes Neck: Full Range of Motion, Normal Inspection, Non Tender Respiratory: Chest Non Tender, No Accessory Muscle Use, No Respiratory Distress, Crackles, Decreased Breath Sounds Cardiovascular: Regular Rate, Rhythm, No Edema, No Gallop, No JVD, No Murmur, Normal Peripheral Pulses Gastrointestinal: Normal Bowel Sounds, No Organomegaly, No Pulsatile Mass, Non Tender, Soft, Other (fluid wave) Back: Normal Inspection, No CVA Tenderness, No Vertebral Tenderness Extremity: Normal Capillary Refill, Normal Inspection, Normal Range of Motion, Non Tender, No Calf Tenderness, No Pedal Edema Neurologic/Psychiatric: Alert, Oriented x3, No Motor/Sensory Deficits, Normal Mood/Affect Skin: Normal Color, Warm/Dry Lymphatic: No Adenopathy Results Results/Procedures Labs Laboratory Tests 06/28/19 19:35 06/29/19 04:55 Patient resulted labs reviewed. 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
[2019-06-29] MEDS ORDERED: ONDANSETRON 4 MG/2 ML (SDV) Z0FRAN IVP PRN (16:30)
[2019-06-29] MEDS ORDERED: ALPRAZolam 0.25 MG (XANAX) TAB PO PRN (16:30)
[2019-06-29] MEDS ORDERED: MELATONIN 3 MG TABLET PO PRN (16:30)
[2019-06-29] MEDS ORDERED: ACETAMINOPHEN 500 MG TAB (TYLENOL) PO PRN (16:30)
[2019-06-29] MEDS ORDERED: LOPERAMIDE 2 MG (IMODIUM) TABLET PO PRN (16:30)
[2019-06-29] MEDS ORDERED: DOCUSATE SODIUM 100 MG (COLACE) CAP PO PRN (16:30)
[2019-06-29] MEDS ORDERED: diphenhydrAMINE 25 MG TAB (BENADRYL) PO PRN (16:30)
[2019-06-29] MEDS ORDERED: CALCIUM CARBONATE 500 MG (TUMS) TAB.CHEW PO PRN (16:30)
[2019-06-29] MEDS: ENOXAPARIN 40 MG/0.4 ML (LOVENOX) SYR SC SCH (16:53)
[2019-06-29] MEDS: SENNA W/DOCUSATE (SENOKOT S) TABLET PO SCH (19:49)
[2019-06-30] MEDS: LACTATED RINGERS 1,000 ML IV SCH ×2 (00:04→13:33)
[2019-06-30] MEDS: CEFEPIME INJECTION 1,000 MG in WATER (STERILE) FOR INJECTION 10 ML IV SCH ×4 (01:53→20:11)
[2019-06-30] MEDS: RT-ALBUTEROL/IPRATROPIUM 3 ML (DUONEB) VIAL INH SCH ×4 (03:13→21:40)
[2019-06-30 04:30] VITALS: BP 114/56
[2019-06-30 05:46] LABS: BASOPHILS % (AUTO) 0 % (0-10); EOSINOPHILS # (AUTO) 0.1 10^3/uL (0.0-0.3); EOSINOPHILS % (AUTO) 2 % (0-10); HEMATOCRIT 24 % (35-52); HEMOGLOBIN 7.1 G/DL (11.5-16.0); LYMPHOCYTES # (AUTO) 0.5 X 10^3 (1.0-4.0); LYMPHOCYTES % (AUTO) 16 % (12-44); MEAN CORPUSCULAR HEMOGLOBIN 27 PG (25-34); MEAN CORPUSCULAR HGB CONC 30 G/DL (32-36); MEAN CORPUSCULAR VOLUME 89 FL (80-99); MEAN PLATELET VOLUME 10.7 FL (7.4-10.4); MONOCYTES # (AUTO) 0.2 X 10^3 (0.0-1.0); MONOCYTES % (AUTO) 6 % (0-12); NEUTROPHILS # (AUTO) 2.1 X 10^3 (1.8-7.8); NEUTROPHILS % (AUTO) 75 % (42-75); PLATELET COUNT 135 10^3/uL (130-400); RED CELL DISTRIBUTION WIDTH 16.6 % (10.0-14.5); WHITE BLOOD COUNT 2.8 10^3/uL (4.3-11.0)
[2019-06-30 05:57] LABS: INR 1.3 (0.8-1.4); PROTHROMBIN TIME PATIENT 16.3 SEC (12.2-14.7)
[2019-06-30 06:07] LABS: ALANINE AMINOTRANSFERASE 15 U/L (0-55); ALBUMIN 2.8 GM/DL (3.2-4.5); ALKALINE PHOSPHATASE 83 U/L (40-136); AMMONIA 46 UMOL/L (11-32); BILIRUBIN,TOTAL 0.4 MG/DL (0.1-1.0); BUN/CREATININE RATIO 41; CALCIUM 8.1 MG/DL (8.5-10.1); CARBON DIOXIDE 19 MMOL/L (21-32); CHLORIDE 109 MMOL/L (98-107); CREATININE SERUM 0.73 MG/DL (0.60-1.30); GFR ESTIMATED > 60; GLUCOSE 147 MG/DL (70-105); POTASSIUM 3.6 MMOL/L (3.6-5.0); SODIUM 139 MMOL/L (135-145); TOTAL PROTEIN 5.5 GM/DL (6.4-8.2)
[2019-06-30 08:00] VITALS: BP 118/58
[2019-06-30] MEDS: SENNA W/DOCUSATE (SENOKOT S) TABLET PO SCH ×2 (08:29→20:12)
[2019-06-30] MEDS ORDERED: ALBU2.5V4 NEB (09:31)
[2019-06-30] MEDS ORDERED: GABA-486 PO (09:31)
[2019-06-30] MEDS ORDERED: LOSA50TA63 PO (09:31)
[2019-06-30] MEDS ORDERED: POTA10TA36 PO (09:31)
[2019-06-30] MEDS ORDERED: CELE-63 PO (09:31)
[2019-06-30] MEDS ORDERED: ASPI-479 PO (09:31)
[2019-06-30] MEDS ORDERED: HYDR25TA4 PO (09:55)
[2019-06-30] MEDS ORDERED: FOLI1TAB24 PO (09:55)
[2019-06-30] MEDS ORDERED: METH2.5T PO (09:57)
--- NOTE | 2019-06-30 09:58 | NUR ---
WENT OVER THE EXT MED HX WITH THE PATIENT. SHE VERIFIED WHAT SHE IS TAKING HOWEVER SHE IS PAST DUE FOR REFILL ON MOST OF HER MEDICATIONS. THESE FILL DATES ARE THE SAME SHE HAD THE LAST TIME SHE WAS ADMITTED. IN ADDITION TO WHAT IS SHOWN ON THE EXT MED HX NATALIE FILLED METHOTREXATE 2.5MG #16 TABS FOR 28 DAYS 6-. SHE STATES SHE STOPPED TAKING THE METFORMIN AND DOES NOT TAKE INSULIN AT HOME. SHE ALSO STATES SHE HAS NOT BEEN TAKING FISH OIL OTC RECENTLY.
--- NOTE | 2019-06-30 11:24 | NUR ---
CM/SS visited with patient to assess needs upon discharge. Plan: The patient states that it is planned for a discharge tomorrow. She verbalized that she would have a ride for discharge. 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 The patient reported that she did not have any needs at this time.
--- NOTE | 2019-06-30 11:39 | Progress Note - Hospitalist ---
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 She reports she had a PNA 2 weeks ago and was in the hospital and feels like she did 2 weeks ago. Patient appears to be jaundiced and very end stage liver disease. I reviewed the extensive problem list from hospital stay 04/2019 for left leg cellulitis. Subjective/Events-last exam Pt feeling much better today, no longer confused/somnolent Still complains of cough and fever Denies chills, headache, constipation, diarrhea Would like to go home tomorrow Requesting work note Focused Exam Lactate Level 06/28/19 19:35: Lactic Acid Level 1.41 Objective Exam Vital Signs Vital Signs Date Time Temp Pulse Resp B/P (MAP) Pulse Ox O2 Delivery O2 Flow Rate FiO2 06/30/19 08:38 97 Room Air 06/30/19 08:00 36.4 98 16 118/58 (78) 06/29/19 19:54 1.00 06/29/19 03:02 28 Capillary Refill : NONE General Appearance: No Apparent Distress, WD/WN HEENT: Pharynx Normal, Moist Mucous Membranes Neck: Non Tender, Supple Respiratory: Chest Non Tender, Normal Breath Sounds, No Accessory Muscle Use, No Respiratory Distress, Crackles Cardiovascular: Regular Rate, Rhythm, No Edema, No Gallop, No Murmur, Normal Peripheral Pulses Gastrointestinal: Non Tender, Soft Extremity: No Calf Tenderness, No Pedal Edema Neurologic/Psychiatric: Alert, Oriented x3 Skin: Normal Color, Cool, Damp Lymphatic: No Adenopathy (supra/infraclavicular, A/P cervical ) Results/Procedures Lab Laboratory Tests 06/30/19 05:40 Patient resulted labs reviewed. Assessment/Plan Assessment and Plan Assess & Plan/Chief Complaint Assessment: Hilar pneumonia Altered mental status - resolved Cirrhosis Hep C positive Anemia mild hyperammonemia Plan: continue IV abx will consider discharge with oral abx tomorrow Clinical Quality Measures DVT/VTE Risk/Contraindication: Risk Factor Score Per Nursin RFS Level Per Nursing on Admit: 4+=Very High DULCE WILKINSON DO 06/30/19 1612: Subjective Subjective/Events-last exam Coarseness remains but much improved lungs. Needs a work slip, she works for [employer]. PT and OT will be ordered. Will discharge to home on Thursday. Review of Systems General: Fatigue Pulmonary: Cough Objective Exam General Appearance: No Apparent Distress, WD/WN, Chronically ill Respiratory: Chest Non Tender, Lungs Clear, Normal Breath Sounds, No Accessory Muscle Use, No Respiratory Distress, Decreased Breath Sounds Cardiovascular: Regular Rate, Rhythm, No Edema, No Gallop, No JVD, No Murmur, Normal Peripheral Pulses Neurologic/Psychiatric: Alert, Oriented x3, No Motor/Sensory Deficits, Normal Mood/Affect Assessment/Plan Assessment and Plan Assess & Plan/Chief Complaint Discharge home tomorrow Initiate PT and OT Diagnosis/Problems Diagnosis/Problems (1) Pneumonia involving left lung Status: Acute Qualifiers: Qualified Codes: J18.9 - Pneumonia, unspecified organism (2) Diabetes Status: Chronic (3) NIDDM (4) IV drug abuse Status: Acute Supervisory-Addendum Brief Verification & Attestation Participated in pt care: history, MDM, physical Personally performed: exam, history, MDM, supervision of care Care discussed with: Medical Student Procedures: n/a Results interpretation: Verified all documentation Verification and Attestation of Medical Student E/M Service A medical student performed and documented this service in my presence. I reviewed and verified all information documented by the medical student and made modifications to such information, when appropriate. I personally performed the physical exam and medical decision making. Dulce Wilkinson, Jun 30, 2019,21:09 DALIA WELLINGTON,MED STUDENT Jun 30, 2019 11:39 DULCE WILKINSON DO Jun 30, 2019 16:12
--- NOTE | 2019-06-30 11:50 | Occupational Therapy Eval ---
OT Evaluation-General/PLF Medical Diagnosis Admission Date Jun 28, 2019 at 20:28 Medical Diagnosis: PNA, fever Onset Date: Jun 28, 2019 Therapy Diagnosis Therapy Diagnosis: Decreased ADL function Height/Weight Height (Feet): 5 Height (Inches): 3.00 Weight (Pounds): 159 Weight (Ounces): 0 Precautions Precautions/Isolations: Fall Prevention, Standard Precautions, Pressure Ulcer Weight Bear Status Weight Bearing Restriction: Weight Bearing/Tolerated Referral Physician: Dulce Wilkinson Referral Reason: Activity Tolerance, Self Care, Evaluation/Treatment, Strengthening/ROM Medical History Additional Medical History chronic edema, HTN, PVD, nuropathy, kidney stones, hepatitis, cirrhosis, arthritis, RA, NID DM, anxiety, Meth use. 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 She reports she had a PNA 2 weeks ago and was in the hospital and feels like she did 2 weeks ago. Patient appears to be jaundiced and very end stage liver disease. I reviewed the extensive problem list from hospital stay 04/2019 for left leg cellulitis. Reviewed History: Yes Social History Home: Single Level Current Living Status: Significant Other Entry Into Home: Stairs Without Railing Steps Into Home: 2 ADL-Prior Level of Function SCALE: Activities may be completed with or without assistive devices. 5-Bazkdwpclq-uhywqyn completes the activity by him/herself with no assistance from a helper. 5-Set-up or Clean-up Assistance-helper sets up or cleans up; patient completes activity. [place] assists only prior to or following the activity. 4-Supervision or Touching Assistance-helper provides verbal cues and/or touching/steadying and/or contact guard assistance as patient completes activity. Assistance may be provided throughout the activity or intermittently. 3-Partial/Moderate Assistance-helper does LESS THAN HALF the effort. [place] lifts, holds or supports trunk or limbs, but provides less than half the effort. 2-Substantial/Maximal Assistance-helper does MORE THAN HALF the effort. [place] lifts or holds trunk or limbs and provides more than half the effort. 2-Aotqmbstn-xkhmsh does ALL the effort. Patient does none of the effort to complete the activity. Or, the assistance of 2 or more helpers is required for the patient to complete the activity. If activity was not attempted, code reason: 7-Patient Refused. 9-Not Applicable-not attempted and the patient did not perform the activity before the current illness, exacerbation or injury. 10-Not Attempted due to Environmental Limitations-(lack of equipment, weather restraints, etc.). 88-Not Attempted due to Medical Conditions or Safety Concerns. ADL PLOF Comments Pt states IND without AE Self Care: Independent Functional Cognition: Independent DME/Equipment Comments No DME Occupation: [employer] [place] [facility] [address] Self: Yes OT Current Status Subjective Pt seen in bed, denies pain or SOB, states a bit of fatigue. Pt agreeable to OT eval/ treat. Mental Status/Objective Patient Orientation: Person, Place, Situation, Normal For Age Attachments: IV Current Glasses/Contacts: No Hearing Aids: No Dentures/Partials: No Hand Dominance: Right Upper Extremity ROM WFL BUE Upper Extremity Coordination WFL BUE Upper Extremity Sensation Denies paresthesias. Upper Extremity Strength WFL (4/5 BUE) ADL-Treatment Eating (QC): 6 Oral Hygiene (QC): 7 Shower/Bathe Self (QC): 7 Upper Body Dressing (QC): 6 (per pt) Lower Body Dressing (QC): 6 (per pt) On/Off Footwear (QC): 6 Other Treatments Pt seen in bed, educated of OT role and educated on benefits of sitting throughout the day due to pneumonia dx. Pt agrees to sit in recliner chair, bed mob and sit to stand with IND without AE. Pt sits in recliner, completes eval and states IND with all ADLs, denies showering as she is waiting on with clothing items. Pt states annoyance with IV within neck and tape placement, pt notified to tell nursing. No skilled OT needed. Pt left in recliner chair with call light in reach, all needs met. Education OT Patient Education: Correct positioning, Safety issues Teaching Recipient: Patient Teaching Methods: Demonstration, Discussion Response to Teaching: Verbalize Understanding, Return Demonstration OT Printer Slotter Helper Goals Printer Slotter Helper Goals 1=Demonstrate adherence to instructed precautions during ADL tasks. 2=Patient will verbalize/demonstrate understanding of assistive devices/modifications for ADL. 3=Patient will improve strength/tolerance for activity to enable patient to perform ADL's. OT Education/Plan Problem List/Assessment Assessment: No Skilled OT Needs ID'd Discharge Recommendations Plan/Recommendations: Discharge/Goals Met Treatment Plan/Plan of Care Treatment,Training & Education: Yes Plan of Care: OTHER (eval only) Treatment Duration: Jun 30, 2019 Frequency: 1 time per week (eval only) Time/GCodes Start Time: 11:00 Stop Time: 11:09 Total Time Billed (hr/min): 9 Billed Treatment Time 1, EVL (9) NIXON CHAND OTR Jun 30, 2019 11:50
[2019-06-30 12:00] VITALS: BP 121/60
--- NOTE | 2019-06-30 13:33 | Physical Therapy Evaluation ---
PT Evaluation-General Medical Diagnosis Admission Date Jun 28, 2019 at 20:28 Medical Diagnosis: PNA, fever Onset Date: Jun 28, 2019 Therapy Diagnosis Therapy Diagnosis: weakness Height/Weight Height (Feet): 5 Height (Inches): 3.00 Weight (Pounds): 159 Weight (Ounces): 0 Precautions Precautions/Isolations: Fall Prevention, Standard Precautions, Pressure Ulcer Weight Bear Status Right Lower Extremity: Right Full Weight Bearing Left Lower Extremity: Left Full Weight Bearing Referral Physician: Dulce Wilkinson Reason for Referral: Evaluation/Treatment Medical History Current History Pt admitted with a dx of pneumonia. Reviewed History: Yes Social History Home: Single Level Current Living Status: Significant Other Entry Into Home: Stairs Without Railing PT Steps Into Home: 2 Prior Prior Level of Function SCALE: Activities may be completed with or without assistive devices. 9-Cuqmoyccfz-npcpxbf completes the activity by him/herself with no assistance from a helper. 5-Set-up or Clean-up Assistance-helper sets up or cleans up; patient completes activity. [place] assists only prior to or following the activity. 4-Supervision or Touching Assistance-helper provides verbal cues and/or touching/steadying and/or contact guard assistance as patient completes activity. Assistance may be provided throughout the activity or intermittently. 3-Partial/Moderate Assistance-helper does LESS THAN HALF the effort. [place] lifts, holds or supports trunk or limbs, but provides less than half the effort. 2-Substantial/Maximal Assistance-helper does MORE THAN HALF the effort. [place] lifts or holds trunk or limbs and provides more than half the effort. 1-Nijhckkiz-dpygzr does ALL the effort. Patient does none of the effort to complete the activity. Or, the assistance of 2 or more helpers is required for the patient to complete the activity. If activity was not attempted, code reason: 7-Patient Refused. 9-Not Applicable-not attempted and the patient did not perform the activity before the current illness, exacerbation or injury. 10-Not Attempted due to Environmental Limitations-(lack of equipment, weather restraints, etc.). 88-Not Attempted due to Medical Conditions or Safety Concerns. 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 Active and indep with all mobility. PT Evaluation-Current Subjective Agrees to PT. Reports she has been getting up and down in her room without assist. However, after PT eval, pt fatigued and notes, "I didn't realize I was this week." Pt/Family Goals pt reports she hope to discharge tomorrow. Objective Patient Orientation: Person, Place, Time, Situation Attachments: IV ROM/Strength ROM Lower Extremities WNL Strength Lower Extremities WFL Integumentary/Posture Integumentary intact Bowel Incontinence: No Bladder Incontinence: No Posture normal and symmetrical Neuromuscular (Tone, Coordination, Reflexes) intact and functional Sensory Vision: Functional Hearing: Functional Hand Dominance: Right Sensation Right Lower Extremit: Intact Sensation Left Lower Extremity: Intact Transfers Sit to Stand (QC): 6 Pt up in chair when this PT arrived. Reports she is able to get in/out of bed without assist. Gait Does the Patient Walk?: Yes Mode of Locomotion: Walk Anticipated Mode of Locomotion: Walk Walk 150 ft (QC): 5 Comments/Gait Description pt walked 200 ft without AD without assist; pt fatigued and slightly SOA upon return to her room.. Balance Sitting Static: Good Sitting Dynamic: Good Standing Static: Good Standing Dynamic: Good Assessment/Needs Pt presents with decreased functional activity tolerance due to pneumonia and recent hospital stay. She is likely to discharge tomorrow, but will follow for a few days to ensure she is getting up to move to increase functional strength and activity tolerance. Rehab Potential: Good PT Bun Icer Goals Bun Icer Goals PT Nursing Home Goals Time Frame: Jul 07, 2019 Sit to Lying (QC): 6 Lying-Sitting on Side/Bed(QC): 6 Sit to Stand (QC): 6 Walk 150 ft (QC): 6 PT Plan Problem List Problem List: Activity Tolerance, Functional Strength, Safety Treatment/Plan Treatment Plan: Continue Plan of Care Treatment Plan: Education, Functional Activity [place], Functional Strength, Gait, Safety, Therapeutic Exercise, Transfers Treatment Duration: Jul 07, 2019 Frequency: 6 times per week Estimated Hrs Per Day: .25 hour per day Patient and/or Family Agrees t: Yes Safety Risks/Education Patient Education: Safety Issues Teaching Recipient: Patient Teaching Methods: Discussion Response to Teaching: Verbalize Understanding Time/GCodes Time In: 1140 Time Out: 1200 Total Billed Treatment Time: 20 Total Billed Treatment visit EVM 20 WONG HIGGINS PT Jun 30, 2019 13:33
[2019-06-30 16:00] VITALS: BP 123/62
[2019-06-30] MEDS: ENOXAPARIN 40 MG/0.4 ML (LOVENOX) SYR SC SCH (16:17)
[2019-06-30] MEDS: IBUPROFEN TABLET 200 MG TAB PO PRN (16:19)
[2019-06-30 20:00] VITALS: BP 115/62
[2019-07-01] VITALS (11 sets, daily range): BP systolic 101–131; BP diastolic 49–75
[2019-07-01] MEDS: RT-ALBUTEROL/IPRATROPIUM 3 ML (DUONEB) VIAL INH SCH (02:31)
[2019-07-01] MEDS: CEFEPIME INJECTION 1,000 MG in WATER (STERILE) FOR INJECTION 10 ML IV SCH ×2 (02:37→08:13)
[2019-07-01] MEDS: LACTATED RINGERS 1,000 ML IV SCH (02:37)
[2019-07-01 06:20] LABS: BASOPHILS % (AUTO) 0 % (0-10); EOSINOPHILS # (AUTO) 0.1 10^3/uL (0.0-0.3); EOSINOPHILS % (AUTO) 3 % (0-10); LYMPHOCYTES # (AUTO) 0.5 X 10^3 (1.0-4.0); LYMPHOCYTES % (AUTO) 18 % (12-44); MEAN CORPUSCULAR HGB CONC 30 G/DL (32-36); MEAN CORPUSCULAR VOLUME 89 FL (80-99); MEAN PLATELET VOLUME 11.3 FL (7.4-10.4); MONOCYTES # (AUTO) 0.1 X 10^3 (0.0-1.0); MONOCYTES % (AUTO) 4 % (0-12); NEUTROPHILS # (AUTO) 1.9 X 10^3 (1.8-7.8); NEUTROPHILS % (AUTO) 75 % (42-75); PLATELET COUNT 167 10^3/uL (130-400); RED CELL DISTRIBUTION WIDTH 16.4 % (10.0-14.5); WHITE BLOOD COUNT 2.6 10^3/uL (4.3-11.0)
[2019-07-01 06:26] LABS: MEAN CORPUSCULAR HEMOGLOBIN 26 PG (25-34)
[2019-07-01 06:27] LABS: HEMATOCRIT 20 % (35-52); HEMOGLOBIN 5.8 G/DL (11.5-16.0)
[2019-07-01 06:33] LABS: ALANINE AMINOTRANSFERASE 12 U/L (0-55); ALBUMIN 2.5 GM/DL (3.2-4.5); ALKALINE PHOSPHATASE 70 U/L (40-136); BILIRUBIN,TOTAL 0.2 MG/DL (0.1-1.0); BUN/CREATININE RATIO 61; CALCIUM 7.7 MG/DL (8.5-10.1); CARBON DIOXIDE 18 MMOL/L (21-32); CHLORIDE 115 MMOL/L (98-107); CREATININE SERUM 0.66 MG/DL (0.60-1.30); GFR ESTIMATED > 60; GLUCOSE 147 MG/DL (70-105); POTASSIUM 4.1 MMOL/L (3.6-5.0); SODIUM 142 MMOL/L (135-145); TOTAL PROTEIN 5.1 GM/DL (6.4-8.2)
[2019-07-01] MEDS ORDERED: NS IV 500 ML 500 ML IV SCH (06:45)
--- NOTE | 2019-07-01 08:00 | NUR ---
MARY ANNE BARROW admitted to room 431-1, with an admitting diagnosis of closed head injury on eliquis, on 06/28/19 from ED via stretcher, accompanied by staff. MARY ANNE BARROW introduced to surroundings, call light, bed controls, phone, TV, temperature control, lights, meal times, smoking policy, visitor policy, side rail policy, bathrooms and showers. Patient Rights given to patient in the handbook. MARY ANNE BARROW verbalizes understanding that [facility] is not responsible for the loss or damage to any personal effects or valuables that are kept in the patients possession during their hospitalization. The following Patient Care Plans were discussed with the patient: Discharge Planning, pain management, medications, and dehydration. MARY ANNE BARROW verbalizes understanding of Interdisciplinary Patient Education. Patient and/or family were informed about the Rapid Response Team and its purpose.
[2019-07-01] MEDS: SENNA W/DOCUSATE (SENOKOT S) TABLET PO SCH (08:13)
[2019-07-01] MEDS ORDERED: NS IV 500 ML 500 ML ONE (08:37)
--- NOTE | 2019-07-01 09:36 | Physician Query Clarification ---
PQ-Uncertain Diagnosis Admission/Discharge Admission Date: Jun 28, 2019 at 20:28 Discharge Date: The medical record reflects the following clinical scenario: History/Risk Factors: Pneumonia, Cirrhosis liver, chronic hepatitis C Clinical Findings: T38.1, P121, R16, Bp 145/79, WBC 7.7>2.8, Lactic acid 1.41 Treatment: Septic order set Question: Is Sepsis a clinically valid diagnosis? Sepsis was documented in the the ER record with no further documentation in the medical record. Please document a response in Progress Note or Discharge Summary. 1. Yes, clinically valid, condition resolved. 2. No, condition ruled out. 3. Other, with explanation of clinical findings. 4. Undetermined, no explanation for clinical findings. PHYSICIAN RESPONSE Diagnosis clinically valid: Yes, Conditon resolved Please remember a lack of response to the above will prompt a phone page by CDI/Coding staff. In responding to this query, please exercise your independent professional judgment. The purpose of this communication is to more accurately reflect the complexity of your patients condition. The fact that a question is asked does not imply that any particular answer is desired or expected. Thank you for your timely response to this clarification. Requestors name: Sonny THIS PHYSICIAN QUERY FORM IS A PERMANENT PART OF THE MEDICAL RECORD SONNY KING Jul 01, 2019 09:36 MIGUEL HEART DO Jul 01, 2019 11:20
--- NOTE | 2019-07-01 11:04 | Physical Therapy Progress Note ---
Therapy Progress Note Patient receiving PRBC and adamantly declined PT. PT will attempt later today. 1 ref MICHAELA BAUM PT Jul 01, 2019 11:04
[2019-07-01] MEDS ORDERED: CEFD300C3 PO (11:12)
[2019-07-01] MEDS: IBUPROFEN TABLET 200 MG TAB PO PRN (11:31)
--- NOTE | 2019-07-01 11:49 | Discharge Summary ---
DALIA WELLINGTON,MED STUDENT 07/01/19 1149: Diagnosis/Chief Complaint Date of Admission Jun 28, 2019 at 20:28 Date of Discharge Discharge Date: Jul 01, 2019 Admission Diagnosis Assessment: PNA ESLD Meth user Anemia chronic Jaundice Plan: Abx [facility]ive [facility] Discharge Diagnosis (1) Pneumonia involving left lung Status: Acute (2) Diabetes Status: Chronic (3) NIDDM (4) IV drug abuse Status: Acute Discharge Summary Discharge Physical Exam Allergies: Coded Allergies: hydrocodone (Verified Allergy, Unknown, 07/08/18) hydrochlorothiazide (Verified Adverse Reaction, Unknown, DIARRHEA, 06/28/19) Vitals & I&Os Vital Signs Date Time Temp Pulse Resp B/P (MAP) Pulse Ox O2 Delivery O2 Flow Rate FiO2 07/01/19 11:35 36.6 104 20 125/75 100 Room Air 06/29/19 19:54 1.00 06/29/19 03:02 28 General Appearance: No Apparent Distress, WD/WN, Chronically ill HEENT: Pharynx Normal, Moist Mucous Membranes Respiratory: Chest Non Tender, Lungs Clear, Normal Breath Sounds, No Accessory Muscle Use, No Respiratory Distress Cardiovascular: Regular Rate, Rhythm, No Edema, No Gallop, No Murmur, Normal Peripheral Pulses Gastrointestinal: Non Tender, Soft, Distended (her norm ); No Guarding, No Hepatomegaly, No Rebound Extremity: No Calf Tenderness, No Pedal Edema Skin: Normal Color, Warm/Dry Neurologic/Psychiatric: Alert, Oriented x3 Hospital Course Pt presented to ED with altered mental status, fever, cough and malaise. Family in room endorsed several weeks of illness. Chest x ray revealed hilar pneumonia and patient was admitted for fluid resuscitation, IV antibiotic therapy and monitoring. Patient returned to previous mentation after one day. On final day of hospital stay, patient developed anemia requiring blood transfusion and was discharged after completion with instructions to continue therapy with oral antibiotics. Labs (last 24 hrs) Laboratory Tests 07/01/19 05:35: White Blood Count 2.6L, Red Blood Count 2.19L, Hemoglobin 5.8*L, Hematocrit 20*L , Mean Corpuscular Volume 89, Mean Corpuscular Hemoglobin 26, Mean Corpuscular Hemoglobin Concent 30L, Red Cell Distribution Width 16.4H, Platelet Count 167, Mean Platelet Volume 11.3H, Neutrophils (%) (Auto) 75, Lymphocytes (%) (Auto) 18, Monocytes (%) (Auto) 4, Eosinophils (%) (Auto) 3, Basophils (%) (Auto) 0, Neutrophils # (Auto) 1.9, Lymphocytes # (Auto) 0.5L, Monocytes # (Auto) 0.1, Eosinophils # (Auto) 0.1, Basophils # (Auto) 0.0, Sodium Level 142, Potassium Level 4.1, Chloride Level 115H, Carbon Dioxide Level 18L, Anion Gap 9, Blood Urea Nitrogen 40H, Creatinine 0.66, Estimat Glomerular Filtration Rate > 60, BUN/Creatinine Ratio 61, Glucose Level 147H, Calcium Level 7.7L, Corrected Calcium 8.9, Total Bilirubin 0.2, Aspartate Amino Transf (AST/SGOT) 14, Alanine Aminotransferase (ALT/SGPT) 12, Alkaline Phosphatase 70, Total Protein 5.1L, Albumin 2.5L Microbiology 06/28/19 Blood Culture - Preliminary, Resulted No growth 06/28/19 Influenza Types A,B Antigen (NIKKO) - Final, Complete Patient resulted labs reviewed. Pending Labs Laboratory Tests 07/01/19 05:35: White Blood Count 2.6, Red Blood Count 2.19, Hemoglobin 5.8, Hematocrit 20, Mean Corpuscular Volume 89, Mean Corpuscular Hemoglobin 26, Mean Corpuscular Hemoglobin Concent 30, Red Cell Distribution Width 16.4, Platelet Count 167, Mean Platelet Volume 11.3, Neutrophils (%) (Auto) 75, Lymphocytes (%) (Auto) 18, Monocytes (%) (Auto) 4, Eosinophils (%) (Auto) 3, Basophils (%) (Auto) 0, Neutrophils # (Auto) 1.9, Lymphocytes # (Auto) 0.5, Monocytes # (Auto) 0.1, Eosinophils # (Auto) 0.1, Basophils # (Auto) 0.0, Sodium Level 142, Potassium Level 4.1, Chloride Level 115, Carbon Dioxide Level 18, Anion Gap 9, Blood Urea Nitrogen 40, Creatinine 0.66, Estimat Glomerular Filtration Rate > 60, B UN/Creatinine Ratio 61, Glucose Level 147, Calcium Level 7.7, Corrected Calcium 8.9, Total Bilirubin 0.2, Aspartate Amino Transf (AST/SGOT) 14, Alanine Aminotransferase (ALT/SGPT) 12, Alkaline Phosphatase 70, Total Protein 5.1, Albumin 2.5 Discharge Home Medications: Active Scripts Active Cefdinir 300 Mg Capsule 300 Mg PO BID Reported Methotrexate (Methotrexate Sodium) 2.5 Mg Tablet 10 Mg PO SA LAST FILLED #16 TABLETS 12-17-18 TAKES 4 (2.5MG) TABLETS Hydrochlorothiazide 25 Mg Tablet 25 Mg PO DAILY LAST FILLED #30 12-17-18 Folic Acid 1 Mg Tablet 1 Mg PO DAILY LAST FILLED #30 12-17-18 Adult Low Dose Aspirin EC (Aspirin) 81 Mg Tablet.dr 81 Mg PO DAILY LAST FILLED #30 05-13-19 Gabapentin 100 Mg Capsule 100 Mg PO BID LAST FILLED #60 04-04-19 Celecoxib 200 Mg Capsule 200 Mg PO DAILY LAST FILLED #30 05-11-19 Losartan Potassium 50 Mg Tablet 50 Mg PO DAILY LAST FILLED #30 05-11-19 Potassium Chloride 10 Meq Tab.er.prt 10 Meq PO DAILY LAST FILLED #30 05-11-19 Albuterol Sulfate 2.5 Mg/3 Ml Vial.neb 2.5 Mg NEB Q4H PRN Instructions to patient/family Please see electronic discharge instructions given to patient. Clinical Quality Measures DVT/VTE Risk/Contraindication: Risk Factor Score Per Nursin RFS Level Per Nursing on Admit: 4+=Very High DULCE HEART DO 07/01/19 4146: Diagnosis/Chief Complaint Discharge Diagnosis (1) Pneumonia involving left lung Status: Acute (2) Methamphetamine use Status: Acute Discharge Summary Discharge Physical Exam Allergies: Coded Allergies: hydrocodone (Verified Allergy, Unknown, 07/08/18) hydrochlorothiazide (Verified Adverse Reaction, Unknown, DIARRHEA, 06/28/19) General Appearance: No Apparent Distress, WD/WN, Chronically ill Respiratory: Lungs Clear Neurologic/Psychiatric: Alert, Oriented x3 Hospital Course Was the Problem List Reviewed?: Yes PNA in stage liver disease Hospital course: Pt had a lengthy hospital course for 4 days for pneumonia with in stage liver disease provided supportive care with IV fluids nebulizer treatments antitussives and required 2 units of blood transfusions the day of discharge and pt is a very in stage status I recommend her a visit with hospice as SABINO miller had told her there is nothing more they can do for liver disease. Discussion & Recommendations Discharge Planning: <30 minutes discharge planning Supervisory-Addendum Brief Verification & Attestation Participated in pt care: history, MDM, physical Personally performed: exam, history, MDM, supervision of care Care discussed with: Medical Student Procedures: n/a Results interpretation: Verified all documentation Verification and Attestation of Medical Student E/M Service A medical student performed and documented this service in my presence. I reviewed and verified all information documented by the medical student and made modifications to such information, when appropriate. I personally performed the physical exam and medical decision making. Dulce Heart, Jul 01, 2019,21:45 Problem Qualifiers (1) Pneumonia involving left lung: Pneumonia type: due to unspecified organism Lung location: unspecified part of lung Qualified Codes: J18.9 - Pneumonia, unspecified organism DALIA WELLINGTON,SHANTEL RAYMUNDO Jul 01, 2019 11:49 DULCE HEART DO Jul 01, 2019 17:34
--- NOTE | 2019-07-01 13:35 | NUR ---
CM/SS visited with patient to follow up prior to discharge. Plan: The patient will discharge to home with significant other. The patient states that her significant other that is in the room at visit will be able to transport the patient home. The patient did have questions about resources available in the area and specific questions about food stamps. CM/SS directed the patient to call the [facility] office in [facility] due to patient being discharged today to get a Medicaid application to see if she qualifies for assistance. The patient verbalized understanding. The patient also reports that she is going to contact her employer to see about collecting her short term disability insurance for the time she was unable to work. She states that she had no other concerns at this time.
--- NOTE | 2019-07-01 13:41 | NUR ---
"RD ASSESSMENT PMHx: HTN; hepatitis; cirrhosis; DM; RA; ESLD; hx of IV meth use PT INTERACTION: Pt was semi-awake and pleasant during nutrition assessment. Pt states current appetite is poor and has been for the past couple of days. Note ave PO intake of 45% x2d, per chart review. Pt states following a regular diet at home, and has no issues with chewing/swallowing food. Pt states no recent issues with n/v/c at this time, and had recent issues with diarrhea. Note last BM on 06/30 and pt currently on bowel regimen of senna BID, per chart review. Pt states recent 22# wt loss x4mon. Note 8# wt loss x6w, per chart review. ABNORMAL NUTRITION-RELATED LAB VALUES LOW: Ca 7.7; Pro 5.1; alb 2.5 HIGH: Cl 115; BUN 40; glu 140 Est. kcal needs: 1344-3600 kcal | 20-25 kcal/kg Est. Pro needs: 54-67 g Pro | 0.8-1.0 g Pro/kg PES STATEMENT: Inadequate oral intake (NI-2.1) related to loss of appetite | diarrhea as evidenced by pt interview | avg PO intake 45% x2d INTERVENTION: Continue with current diet order of Regular diet. Pt may need to be placed on consistent CHO diet, if blood glucose levels remain elevated. Add Glucerna (vanilla) to trays TID for increased kcal intake. Provides 220 kcal and 10 g Pro per serving. Will continue to follow and reassess as pt needs and status change. MONITOR/EVALUATE: PO Intake; Plan of Care; Hydration Status; Weight Status; Lab Values Escobar Miner, , RD, LD"
== END 2019-07-01 15:30 | disposition home or self-care (01) | DRG 871 ==
LOC: EDUNIT# 18:28 → ER 18:29 → 4TH 20:28
PROVIDERS: ADMIT Internal Medicine; ATTEND Internal Medicine
DX: A41.9 Sepsis, unspecified organism (principal); J18.9 Pneumonia, unspecified organism; D61.818 Other pancytopenia; K74.60 Unspecified cirrhosis of liver; B18.2 Chronic viral hepatitis C; E11.40 Type 2 diabetes mellitus with diabetic neuropathy, unspecified; I10 Essential (primary) hypertension; F15.90 Other stimulant use, unspecified, uncomplicated; F10.10 Alcohol abuse, uncomplicated; F17.210 Nicotine dependence, cigarettes, uncomplicated; F41.9 Anxiety disorder, unspecified; F32.9 Major depressive disorder, single episode, unspecified; D64.9 Anemia, unspecified; M06.9 Rheumatoid arthritis, unspecified; M19.90 Unspecified osteoarthritis, unspecified site; E11.51 Type 2 diabetes mellitus with diabetic peripheral angiopathy without gangrene; Z56.0 Unemployment, unspecified
CPT/HCPCS: 36415; 71045; 80053; 82140; 83605; 85007; 85025; 85027; 85610; 85730; 86850; 86900; 86901; 86920; 87040; 87804; 94640; 94760; 96361; 96374

== ENCOUNTER 2019-07-03 12:43 | Emergency (ER) | payer BC ==
[~2019-07-03] VITALS: Ht 160 cm; Wt 65.3 kg
[~2019-07-03 12:43] MED LIST changes: +ALBU2.5V4 NEB; +ASPI-479 PO; +CEFD300C3 PO
[2019-07-03 13:08] VITALS: BP 109/57
--- NOTE | 2019-07-03 13:20 | NUR ---
Attempting IV start, pt report horrible stick history and encountered an IV in side of her neck in [place]. Pt refuses that site.
--- NOTE | 2019-07-03 13:35 | Diagnostic Imaging Report ---
INDICATION: Cough and weakness COMPARISON: 06/28/2019 and 05/16/2019 TECHNIQUE: Frontal and lateral radiograph of the chest are obtained dated 07/03/2019. FINDINGS: The cardiac silhouette is mildly enlarged, though similar to the prior examination. Minimal central pulmonary vascular congestion, appearing slightly less prominent than the prior examination. Previously noted opacities within the left perihilar region extending into the left lung base are again noted, though slightly improved since the prior exam. Linear opacities within the left lung base have slightly increased. The right lung appears clear. No significant pleural effusion. No pneumothorax. Scattered osseous degenerative changes without acute osseous abnormality. IMPRESSION: Improving though persistent left perihilar and left basilar infiltrates with focal atelectasis within the left mid lung. Recommend continued radiographic follow-up to ensure resolution as underlying obstructing mass lesion is not excluded. Stable mild cardiomegaly with improved minimal pulmonary vascular congestion. Dictated by: Dictated on workstation # [id number]
--- NOTE | 2019-07-03 13:45 | NUR ---
2nd RN has been attempting IV start unsuccessful at getting into veins. Pt has refused the EJ site.
--- NOTE | 2019-07-03 14:00 | NUR ---
Lab has been called to attempt a simple lab venipuncture for starting a work up.
--- NOTE | 2019-07-03 14:07 | ED General ---
General Chief Complaint: General Problems/Pain Stated Complaint: PNEUMONIA SYMPTOMS History of Present Illness Date Seen by Provider: Jul 03, 2019 Time Seen by Provider: 14:00 Initial Comments 59 yo female recently in hospital with pneumonia in fact discharged 2 d ago Rx'd antibiotics not taking she says because developed diarrhea hx of IV drugs advanced liver disease hep C presents with cough VS stable O2 sat 100% apparently male friend took BP at home 117/ felt that was worrisome, and this precipitated visit Allergies and Home Medications Allergies Coded Allergies: hydrocodone (Verified Allergy, Unknown, 07/08/18) hydrochlorothiazide (Verified Adverse Reaction, Unknown, DIARRHEA, 06/28/19) Home Medications Albuterol Sulfate 2.5 Mg/3 Ml Vial.neb, 2.5 MG NEB Q4H PRN for SHORTNESS OF BHANU TH, (Reported) Aspirin 81 Mg Tablet.dr, 81 MG PO DAILY, (Reported) LAST FILLED #30 05-13-19 Cefdinir 300 Mg Capsule, 300 MG PO BID Prescribed by: MIGUEL HEART on 07/01/19 1112 Celecoxib 200 Mg Capsule, 200 MG PO DAILY, (Reported) LAST FILLED #30 05-11-19 Folic Acid 1 Mg Tablet, 1 MG PO DAILY, (Reported) LAST FILLED #30 12-17-18 Gabapentin 100 Mg Capsule, 100 MG PO BID, (Reported) LAST FILLED #60 04-04-19 Hydrochlorothiazide 25 Mg Tablet, 25 MG PO DAILY, (Reported) LAST FILLED #30 12-17-18 Losartan Potassium 50 Mg Tablet, 50 MG PO DAILY, (Reported) LAST FILLED #30 05-11-19 Potassium Chloride 10 Meq Tab.er.prt, 10 MEQ PO DAILY, (Reported) LAST FILLED #30 05-11-19 Patient Home Medication List Home Medication List Reviewed: Yes Past Ipullmr-Eaqsmz-Wlxpve Hx Patient Social History 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 Type Used: Cigarettes 2nd Hand Smoke Exposure: Yes Recent Foreign Travel: No Contact w/Someone Who Travel: No Recent Hopitalizations: No Immunizations Up To Date Tetanus Booster (TDap): More than 5yrs Date of Influenza Vaccine: Mar 29, 2019 Seasonal Allergies Seasonal Allergies: No Past Medical History Surgeries: Yes (LITHOTRIPSY; FACIAL RECONSTRUCTION; X 1-TWINS) Section, Renal, Tubal Ligation Respiratory: No Cardiac: Yes (VASCULITIS OF LEGS) Chronic Edema/Swelling, Hypertension, Peripheral Vascular Neurological: Yes Neuropathy 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 0oz. 72.841594nn; 27.16 BMI Method:Stated Progress/Results/Core Measures Suspected Sepsis SIRS Temperature: Pulse: Respiratory Rate: Blood Pressure / Mean: Results/Orders My Orders Orders - GAVIOTA HOWE MD Chest Pa/Lat (2 View) (07/03/19 13:12) Blood Culture (07/03/19 13:12) Lactic Acid Analyzer (07/03/19 13:12) Iv Heplock-Insert (Order) (07/03/19 13:12) Cbc With Automated Diff (07/03/19 13:12) Comprehensive Metabolic Panel (07/03/19 13:12) Vital Signs/I&O Capillary Refill : Departure Impression Condition: Against Medical Advice (pt refused further attempted blood draws or IV starts and decided to sign out AMA only CXR done which showed mild improvement from recent) Departure-Patient Inst. Referrals: [facility] (PCP/Family) Primary Care Physician GAVIOTA HOWE MD Jul 03, 2019 14:06
--- NOTE | 2019-07-03 14:15 | NUR ---
Lab to desk to report unable to draw as sites limited and no blood flash from any sticks attempted. Dr Schneider being notified. Pt told lab no lower extremity lab draws.
--- NOTE | 2019-07-03 14:20 | NUR ---
Noted patient opened door to her room and walked away towards the exit door. This RN followed patient and requested to stop to talk about departure decision AMA. Pt agreeable to sign the forms. Pt states, "My boyfriend made me come and I think I shouldn't of." "I am interfering with my sister's visit with he son home from the [place] serving in ." Female cell tester is with patient. Pt denies new discomfort or problem. Pt is sore in left side rib cage from coughing. Pt states she had stopped antibiotic for getting diarrhea but was educated the typical side effects can occur of upset stomach and loose stools. Pt told to keep all follow up arrangements post discharge and return to ED for new or worsening concerns/problems. Dr Brodys hearing this conversation from a room.
== END 2019-07-03 14:25 | disposition left against medical advice (07) ==
LOC: EDUNIT# 12:43 → ER FS 12:44
DX: R05 Cough (principal); I10 Essential (primary) hypertension; E11.40 Type 2 diabetes mellitus with diabetic neuropathy, unspecified; F41.9 Anxiety disorder, unspecified; B19.20 Unspecified viral hepatitis C without hepatic coma; M06.9 Rheumatoid arthritis, unspecified; Z87.442 Personal history of urinary calculi; Z87.01 Personal history of pneumonia (recurrent); Z88.5 Allergy status to narcotic agent; Z88.8 Allergy status to other drugs, medicaments and biological substances; Z79.82 Long term (current) use of aspirin; Z77.22 Contact with and (suspected) exposure to environmental tobacco smoke (acute) (chronic); Z98.51 Tubal ligation status; Z82.49 Family history of ischemic heart disease and other diseases of the circulatory system
CPT/HCPCS: 71046

== ENCOUNTER 2020-01-08 12:20 | Emergency (ER) | payer BC, MEDICAID ==
[~2020-01-08] VITALS: Ht 160 cm; Wt 58.9 kg
[2020-01-08] MEDS ORDERED: ONDANSETRON 4 MG/2 ML (SDV) Z0FRAN IVP ONE (13:00)
[2020-01-08] MEDS: LACTATED RINGERS 1,000 ML IV SCH ×2 (13:33→15:03)
[2020-01-08 13:35] LABS: BASOPHILS % (AUTO) 0 % (0-10); EOSINOPHILS # (AUTO) 0.1 10^3/uL (0.0-0.3); EOSINOPHILS % (AUTO) 1 % (0-10); HEMATOCRIT 39 % (35-52); HEMOGLOBIN 12.5 G/DL (11.5-16.0); LYMPHOCYTES # (AUTO) 0.5 X 10^3 (1.0-4.0); LYMPHOCYTES % (AUTO) 5 % (12-44); MEAN CORPUSCULAR HEMOGLOBIN 25 PG (25-34); MEAN CORPUSCULAR HGB CONC 32 G/DL (32-36); MEAN CORPUSCULAR VOLUME 79 FL (80-99); MEAN PLATELET VOLUME 11.5 FL (7.4-10.4); MONOCYTES # (AUTO) 0.4 X 10^3 (0.0-1.0); MONOCYTES % (AUTO) 5 % (0-12); NEUTROPHILS # (AUTO) 7.9 X 10^3 (1.8-7.8); NEUTROPHILS % (AUTO) 89 % (42-75); PLATELET COUNT 331 10^3/uL (130-400); RED CELL DISTRIBUTION WIDTH 15.3 % (10.0-14.5); WHITE BLOOD COUNT 8.9 10^3/uL (4.3-11.0)
--- NOTE | 2020-01-08 13:37 | ED GI ---
General Chief Complaint: Abdominal/GI Problems Stated Complaint: VOMITING / DIARRHEA Nursing Triage Note: pt amb to rm 6 with complaint of abd pain, n/v and cramping x1 week. states feels dehydrated. Sepsis Screen: No Definite Risk Source of Information: Patient Exam Limitations: No Limitations History of Present Illness Date Seen by Provider: Jan 08, 2020 Time Seen by Provider: 13:35 Initial Comments To ER with epigastric abdominal cramping, nausea vomiting diarrhea for one week without blood or mucus in the diarrhea. Timing/Duration: 1 Week Severity/Quality: Cramping Location: Epigastric Radiation: No Radiation Activities at Onset: None Associated Symptoms: Nausea/Vomiting Allergies and Home Medications Allergies Coded Allergies: hydrocodone (Verified Allergy, Unknown, 07/08/18) hydrochlorothiazide (Verified Adverse Reaction, Unknown, DIARRHEA, 06/28/19) Home Medications Albuterol Sulfate 2.5 Mg/3 Ml Vial.neb, 2.5 MG NEB Q4H PRN for SHORTNESS OF B REATH, (Reported) Aspirin 81 Mg Tablet.dr, 81 MG PO DAILY, (Reported) LAST FILLED #30 05-13-19 Cefdinir 300 Mg Capsule, 300 MG PO BID Prescribed by: MIGUEL HEART on 07/01/19 1112 Celecoxib 200 Mg Capsule, 200 MG PO DAILY, (Reported) LAST FILLED #30 05-11-19 Folic Acid 1 Mg Tablet, 1 MG PO DAILY, (Reported) LAST FILLED #30 12-17-18 Gabapentin 100 Mg Capsule, 100 MG PO BID, (Reported) LAST FILLED #60 04-04-19 Hydrochlorothiazide 25 Mg Tablet, 25 MG PO DAILY, (Reported) LAST FILLED #30 12-17-18 Losartan Potassium 50 Mg Tablet, 50 MG PO DAILY, (Reported) LAST FILLED #30 05-11-19 Potassium Chloride 10 Meq Tab.er.prt, 10 MEQ PO DAILY, (Reported) LAST FILLED #30 05-11-19 Patient Home Medication List Home Medication List Reviewed: Yes Review of Systems Review of Systems Constitutional: see HPI EENTM: No Symptoms Reported Respiratory: No Symptoms Reported Cardiovascular: No Symptoms Reported Gastrointestinal: See HPI, Abdominal Pain, Diarrhea, Nausea, Vomiting Genitourinary: No Symptoms Reported Musculoskeletal: no symptoms reported Skin: no symptoms reported Psychiatric/Neurological: No Symptoms Reported Endocrine: No Symptoms Reported Hematologic/Lymphatic: No Symptoms Reported Past Mpbznmk-Tbssll-Dnqkut Hx Patient Social History Alcohol Use: Denies Use Recreational Drug Use: Yes (marijuana) 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 Smoking Status: Current Everyday Smoker Type Used: Cigarettes 2nd Hand Smoke Exposure: Yes Recent Foreign Travel: No Contact w/Someone Who Travel: No Recent Infectious Disease Expo: No Recent Hopitalizations: No Immunizations Up To Date Tetanus Booster (TDap): More than 5yrs Date of Influenza Vaccine: Apr 29, 2019 Seasonal Allergies Seasonal Allergies: No Past Medical History Surgeries: Yes (LITHOTRIPSY; FACIAL RECONSTRUCTION; X 1-TWINS) Section, Renal, Tubal Ligation Respiratory: No Cardiac: Yes (VASCULITIS OF LEGS) Chronic Edema/Swelling, Hypertension, Peripheral Vascular Neurological: Yes 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 Genitourinary: Yes Kidney Stones Gastrointestinal: Yes (HEPATITIS C--NO TREATMENT) Hepatitis, Cirrhosis Musculoskeletal: Yes Arthritis, Rheumatoid Arthritis Endocrine: Yes Diabetes, Non-Insulin dep HEENT: No Cancer: No Psychosocial: Yes Anxiety Integumentary: Yes (CHRONIC LEG EDEMA AND CELLULITIS ; VASCULITIS) Blood Disorders: No Family Medical History Heart Disease, Cancer, Diabetes Physical Exam Vital Signs Vital Signs - First Documented 01/08/20 13:07 Temp 36.4 Pulse 99 Resp 20 B/P (MAP) 183/116 (138) Pulse Ox 100 O2 Delivery Room Air Capillary Refill : Less Than 3 Seconds Height/Weight/BMI Height: 5'3.00" Weight: 159lbs. 0oz. 72.968071rm; 23.00 BMI Method:Stated General Appearance: WD/WN, no apparent distress, thin HEENT: PERRL/EOMI, normal ENT inspection Respiratory: lungs clear, normal breath sounds, no respiratory distress, no accessory muscle use Cardiovascular: regular rate, rhythm, no murmur Gastrointestinal: normal bowel sounds, non tender, soft Extremities: normal range of motion, non-tender Neurologic/Psychiatric: alert, normal mood/affect, oriented x 3 Skin: normal color, warm/dry Progress/Results/Core Measures Results/Orders Lab Results Laboratory Tests Test 01/08/20 13:28 Range/Units White Blood Count 8.9 4.3-11.0 10^3/uL Red Blood Count 4.92 4.35-5.85 10^6/uL Hemoglobin 12.5 11.5-16.0 G/DL Hematocrit 39 35-52 % Mean Corpuscular Volume 79 L 80-99 FL Mean Corpuscular Hemoglobin 25 25-34 PG Mean Corpuscular Hemoglobin Concent 32 32-36 G/DL Red Cell Distribution Width 15.3 H 10.0-14.5 % Platelet Count 331 130-400 10^3/uL Mean Platelet Volume 11.5 H 7.4-10.4 FL Neutrophils (%) (Auto) 89 H 42-75 % Lymphocytes (%) (Auto) 5 L 12-44 % Monocytes (%) (Auto) 5 0-12 % Eosinophils (%) (Auto) 1 0-10 % Basophils (%) (Auto) 0 0-10 % Neutrophils # (Auto) 7.9 H 1.8-7.8 X 10^3 Lymphocytes # (Auto) 0.5 L 1.0-4.0 X 10^3 Monocytes # (Auto) 0.4 0.0-1.0 X 10^3 Eosinophils # (Auto) 0.1 0.0-0.3 10^3/uL Basophils # (Auto) 0.0 0.0-0.1 10^3/uL Neutrophils % (Manual) 94 % Lymphocytes % (Manual) 5 % Monocytes % (Manual) 1 % Eosinophils % (Manual) 0 % Basophils % (Manual) 0 % Band Neutrophils 0 % Blood Morphology Comment NORMAL Sodium Level 131 L 135-145 MMOL/L Potassium Level 3.5 L 3.6-5.0 MMOL/L Chloride Level 102 98-107 MMOL/L Carbon Dioxide Level 15 L 21-32 MMOL/L Anion Gap 14 5-14 MMOL/L Blood Urea Nitrogen 33 H 7-18 MG/DL Creatinine 0.82 0.60-1.30 MG/DL Estimat Glomerular Filtration Rate > 60 BUN/Creatinine Ratio 40 Glucose Level 297 H 70-105 MG/DL Calcium Level 8.4 L 8.5-10.1 MG/DL Corrected Calcium 9.1 8.5-10.1 MG/DL Total Bilirubin 0.5 0.1-1.0 MG/DL Aspartate Amino Transf (AST/SGOT) 16 5-34 U/L Alanine Aminotransferase (ALT/SGPT) 16 0-55 U/L Alkaline Phosphatase 170 H 40-136 U/L Total Protein 6.3 L 6.4-8.2 GM/DL Albumin 3.1 L 3.2-4.5 GM/DL Lipase 22 8-78 U/L My Orders Orders - ORLANDO TURK APRN Cbc With Automated Diff (01/08/20 12:55) Comprehensive Metabolic Panel (01/08/20 12:55) Lipase (01/08/20 12:55) Ua Culture If Indicated (01/08/20 12:55) Ed Iv/Invasive Line Start (01/08/20 12:55) Lactated Ringers (Lr 1000 Ml Iv Solution (01/08/20 13:00) Ondansetron Injection (Zofran Injectio (01/08/20 13:00) Manual Differential (01/08/20 13:28) Lactated Ringers (Lr 1000 Ml Iv Solution (01/08/20 14:15) Ct Abdomen/Pelvis Wo (01/08/20 14:11) Medications Given in ED Current Medications Medications Dose Ordered Sig/Rosario Route Start Time Stop Time Status Last Admin Dose Admin Ondansetron HCl 8 mg ONCE ONCE IVP 01/08/20 13:00 01/08/20 13:01 DC 01/08/20 13:33 8 MG Vital Signs/I&O 01/08/20 13:07 Temp 36.4 Pulse 99 Resp 20 B/P (MAP) 183/116 (138) Pulse Ox 100 O2 Delivery Room Air Blood Pressure Mean: 138 Diagnostic Imaging Diagonstic Imaging: CT Plain Films/CT/US/NM/MRI: other Comments NAME: MARY ANNE BARROW [facility] REC#: [id number] PT STATUS: REG ER : 1960 PHYSICIAN: ORLANDO TURK APRN ADMIT DATE: 01/08/20/ER Draft Date of Exam:01/08/20 CT ABDOMEN/PELVIS WO PROCEDURE: CT abdomen and pelvis without contrast. TECHNIQUE: Multiple contiguous axial images were obtained through the abdomen and pelvis without the use of intravenous contrast. Auto Exposure Controls were utilized during the CT exam to meet ALARA standards for radiation dose reduction. Indication: Abdominal pain with nausea vomiting cramping for one week. Comparison: None. Discussion: Atelectasis noted within the lung bases. Normal heart size. No pleural or pericardial fluid. Cholelithiasis is noted. There is mild perihepatic ascites. Trace ascites is also noted within the pelvis. Gallbladder wall is thickened which could be due to acute cholecystitis or reactive changes from the ascites. The spleen is enlarged measuring 13.3 cm. Inflammatory changes noted along the duodenum which is indeterminate. Multiple thick-walled small bowel loops are noted diffusely throughout the abdomen, likely infectious or inflammatory. The terminal ileum is involved. The appendix is normal. Liquid stool is noted within the colon. Uterus and urinary bladder are unremarkable. No acute osseous abnormality. 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 Impression: 1. Mild ascites. 2. Cholelithiasis with thick-walled gallbladder which could be due to adjacent ascites or cholecystitis. 3. Diffusely thick-walled small bowel noted entirely throughout the abdomen which is likely due to an infectious or inflammatory process. No pneumatosis or pneumoperitoneum 4. Mild splenomegaly. Dictated on workstation # [id number] Dict: 01/08/20 1436 Trans: 01/08/20 1444 [facility] [id number] Interpreted by: SHANE SHARMA MD Electronically signed by: Departure Communication (Admissions) Have cholelithiasis seen on CT as well as some ascites. She has known hepatitis C. The gallbladder is a thick-walled appearance which could be related to ascites or cholecystitis. However this is almost certainly related to the ascites as she has absolutely no tenderness to even deep palpation in the right upper quadrant. Given the thick-walled appearance of the small bowel loops co nsistent with an infectious process and her one-week history of persistent nausea diarrhea I will give her Cipro plus Flagyl and have her follow-up with surgery. Impression Primary Impression: Nausea vomiting and diarrhea Additional Impressions: Chronic hepatitis C mild ascites Asymptomatic cholelithiasis Disposition: 01 HOME, SELF-CARE Condition: Stable Departure-Patient Inst. Decision time for Depature: 14:57 Referrals: [facility] (PCP/Family) Primary Care Physician ELLIE HAWLEY BRETT D DO KIDO, TAKAAKI MD Patient Instructions: No Instuctions Given Add. Discharge Instructions: This nausea vomiting and diarrhea could be from a bacterial or a viral cause. Take the antibiotics as directed. Return to ER for any worsening symptoms bloody stools fevers or intolerable pain. Call one of the surgeons listed for further evaluation of the gallstone. All discharge instructions reviewed with patient and/or family. Voiced understanding. Scripts Ondansetron (Ondansetron Odt) 4 Mg Tab.rapdis 4 MG PO Q6H PRN for NAUSEA/VOMITING, #8 TAB 0 Refills Prov: ORLANDO TURK APRN 01/08/20 Metronidazole (Flagyl) 500 Mg Tablet 500 MG PO TID, #21 TAB Prov: ORLANDO TURK APRN 01/08/20 Ciprofloxacin HCl (Ciprofloxacin HCl) 500 Mg Tablet 500 MG PO BID, #14 TAB Prov: ORLANDO TURK APRN 01/08/20 ORLANDO TURK APRN Jan 08, 2020 13:37
[2020-01-08 13:46] LABS: ALBUMIN 3.1 GM/DL (3.2-4.5); CHLORIDE 102 MMOL/L (98-107); POTASSIUM 3.5 MMOL/L (3.6-5.0); SODIUM 131 MMOL/L (135-145)
[2020-01-08 13:47] LABS: CALCIUM 8.4 MG/DL (8.5-10.1)
[2020-01-08 13:48] LABS: GLUCOSE 297 MG/DL (70-105); TOTAL PROTEIN 6.3 GM/DL (6.4-8.2)
[2020-01-08 13:49] LABS: CARBON DIOXIDE 15 MMOL/L (21-32)
[2020-01-08 13:50] LABS: BILIRUBIN,TOTAL 0.5 MG/DL (0.1-1.0)
[2020-01-08 13:52] LABS: ALKALINE PHOSPHATASE 170 U/L (40-136); CREATININE SERUM 0.82 MG/DL (0.60-1.30); GFR ESTIMATED > 60
[2020-01-08 13:53] LABS: BUN/CREATININE RATIO 40
[2020-01-08 13:55] LABS: ALANINE AMINOTRANSFERASE 16 U/L (0-55); LIPASE 22 U/L (8-78)
[2020-01-08] MEDS ORDERED: LACTATED RINGERS 1,000 ML IV SCH (14:15)
[2020-01-08 14:34] LABS: BAND NEUTROPHILS 0 %; BASOPHILS % (MANUAL) 0 %; EOSINOPHILS % (MANUAL) 0 %; LYMPHOCYTES % (MANUAL) 5 %; MONOCYTES % (MANUAL) 1 %; NEUTROPHILS % (MANUAL) 94 %; RBC MORPH NORMAL
--- NOTE | 2020-01-08 14:45 | Diagnostic Imaging Report ---
PROCEDURE: CT abdomen and pelvis without contrast. TECHNIQUE: Multiple contiguous axial images were obtained through the abdomen and pelvis without the use of intravenous contrast. Auto Exposure Controls were utilized during the CT exam to meet ALARA standards for radiation dose reduction. Indication: Abdominal pain with nausea vomiting cramping for one week. Comparison: None. Discussion: Atelectasis noted within the lung bases. Normal heart size. No pleural or pericardial fluid. Cholelithiasis is noted. There is mild perihepatic ascites. Trace ascites is also noted within the pelvis. Gallbladder wall is thickened which could be due to acute cholecystitis or reactive changes from the ascites. The spleen is enlarged measuring 13.3 cm. Inflammatory changes noted along the duodenum which is indeterminate. Multiple thick-walled small bowel loops are noted diffusely throughout the abdomen, likely infectious or inflammatory. The terminal ileum is involved. The appendix is normal. Liquid stool is noted within the colon. Uterus and urinary bladder are unremarkable. No acute osseous abnormality. 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 Impression: 1. Mild ascites. 2. Cholelithiasis with thick-walled gallbladder which could be due to adjacent ascites or cholecystitis. 3. Diffusely thick-walled small bowel noted entirely throughout the abdomen which is likely due to an infectious or inflammatory process. No pneumatosis or pneumoperitoneum 4. Mild splenomegaly. Dictated by: Dictated on workstation # [id number]
[2020-01-08] MEDS ORDERED: ONDA4TAB11 PO (15:00)
[2020-01-08] MEDS ORDERED: CIPR500T4 PO (15:00)
[2020-01-08] MEDS ORDERED: METR500T PO (15:00)
[2020-01-08 15:26] VITALS: BP 183/116
== END 2020-01-08 15:26 | disposition home or self-care (01) ==
LOC: EDUNIT# 12:20 → ER 12:21
DX: B18.2 Chronic viral hepatitis C (principal); R19.7 Diarrhea, unspecified; R18.8 Other ascites; K80.80 Other cholelithiasis without obstruction; I10 Essential (primary) hypertension; E11.40 Type 2 diabetes mellitus with diabetic neuropathy, unspecified; M06.9 Rheumatoid arthritis, unspecified; F17.210 Nicotine dependence, cigarettes, uncomplicated; Z79.1 Long term (current) use of non-steroidal anti-inflammatories (NSAID); Z88.5 Allergy status to narcotic agent; Z82.49 Family history of ischemic heart disease and other diseases of the circulatory system; Z88.8 Allergy status to other drugs, medicaments and biological substances; Z79.82 Long term (current) use of aspirin
CPT/HCPCS: 36415; 74176; 80053; 83690; 85007; 85027

== ENCOUNTER → 2020-05-29 | Outpatient (CLI) | payer MEDICAID ==
[~2020-05-29] MED LIST changes: +ASPI-1238 PO; -ASPI-983 PO; +CATHETER FLUSH 10 ML SYR IV PRN; +CIPR500T4 PO; +HOLD METFORMIN - RECEIVED CONTRAST 20 ML VIAL IV SCH; +IOHEXOL 350 MG/ML 100 ML (OMNIPAQUE 350) VIAL IV ONE; +LEVO750T9 PO; +METR500T PO; +NS 100 ML (IVPB) BAG IV ONE; +ONDA4TAB11 PO; +RT-ALBUINH IH
[2020-05-29 10:34] LABS: WHITE BLOOD COUNT 3.5 10^3/uL (4.3-11.0)
[2020-05-29 10:35] LABS: BASOPHILS % (AUTO) 0 % (0-10); EOSINOPHILS % (AUTO) 1 % (0-10); HEMATOCRIT 30 % (35-52); HEMOGLOBIN 8.7 G/DL (11.5-16.0); LYMPHOCYTES # (AUTO) 0.4 X 10^3 (1.0-4.0); LYMPHOCYTES % (AUTO) 12 % (12-44); MEAN CORPUSCULAR HEMOGLOBIN 24 PG (25-34); MEAN CORPUSCULAR HGB CONC 29 G/DL (32-36); MEAN CORPUSCULAR VOLUME 83 FL (80-99); MEAN PLATELET VOLUME 9.9 FL (7.4-10.4); MONOCYTES # (AUTO) 0.2 X 10^3 (0.0-1.0); MONOCYTES % (AUTO) 5 % (0-12); NEUTROPHILS # (AUTO) 2.8 X 10^3 (1.8-7.8); NEUTROPHILS % (AUTO) 81 % (42-75); PLATELET COUNT 130 10^3/uL (130-400)
[2020-05-29 10:37] LABS: ALANINE AMINOTRANSFERASE 32 U/L (0-55); ALKALINE PHOSPHATASE 225 U/L (40-136); BILIRUBIN,TOTAL 0.4 MG/DL (0.1-1.0); BUN/CREATININE RATIO 24; CALCIUM 8.8 MG/DL (8.5-10.1); CARBON DIOXIDE 23 MMOL/L (21-32); CHLORIDE 107 MMOL/L (98-107); CREATININE SERUM 0.71 MG/DL (0.60-1.30); GFR ESTIMATED > 60; GLUCOSE 191 MG/DL (70-105); POTASSIUM 4.8 MMOL/L (3.6-5.0); SODIUM 137 MMOL/L (135-145); TOTAL PROTEIN 6.9 GM/DL (6.4-8.2)
[2020-05-29 11:16] LABS: INR 1.1 (0.8-1.4); PROTHROMBIN TIME PATIENT 14.7 SEC (12.2-14.7)
[2020-05-29 15:01] LABS: AMMONIA 52 UMOL/L (11-32)
--- NOTE | 2020-05-29 16:35 | Diagnostic Imaging Report ---
EXAMINATION: CT Chest without contrast. TECHNIQUE: Multiple contiguous axial images were obtained through the chest without the use of intravenous contrast. All CT scans use one or more of the following dose optimizing techniques: automated exposure control, MA and/or KvP adjustment based on a patient size and exam type, or iterative reconstruction. HISTORY: COPD COMPARISON: None available. FINDINGS: Axial source images are not available on PACS, these were able to be viewed on the 3-D viewer. There is no edema or pneumonia. No pleural effusion. No pneumothorax. No suspicious nodules. There is left base atelectasis or scarring. There is no axillary or supraclavicular lymphadenopathy. There is no mediastinal lymphadenopathy. Heart size is normal. There are mild coronary artery calcifications. No pericardial effusion. Aorta is normal in caliber. Limited views of the upper abdomen show ascites and splenomegaly. Liver surface is nodular consistent with cirrhosis. There are no suspicious osseous lesions. IMPRESSION: 1. No acute abnormality in the chest. 2. Cirrhotic appearing liver with splenomegaly and ascites. Dictated by: Dictated on workstation # [id number]
[2020-05-29 21:56] LABS: HEPATITIS C ANTIBODY C Reactive (Non-Reactive)
== END ==
LOC: RAD FS 09:32
PROVIDERS: ATTEND Pediatrics
DX: J44.9 Chronic obstructive pulmonary disease, unspecified (principal); I85.10 Secondary esophageal varices without bleeding; B19.20 Unspecified viral hepatitis C without hepatic coma; R18.8 Other ascites; R16.1 Splenomegaly, not elsewhere classified
CPT/HCPCS: 36415; 71250; 80053; 80074; 82105; 82140; 82607; 82728; 82746; 83540; 85025; 85610; 86703; 87522

== ENCOUNTER 2020-07-06 19:42 | Emergency (ER) | payer MEDICAID ==
[~2020-07-06] VITALS: Ht 160 cm; Wt 75.0 kg
[~2020-07-06 19:42] MED LIST changes: -CATHETER FLUSH 10 ML SYR IV PRN; -HOLD METFORMIN - RECEIVED CONTRAST 20 ML VIAL IV SCH; -IOHEXOL 350 MG/ML 100 ML (OMNIPAQUE 350) VIAL IV ONE; -NS 100 ML (IVPB) BAG IV ONE
--- NOTE | 2020-07-06 20:09 | ED Abdominal Pain ---
General Chief Complaint: Abdominal/GI Problems Stated Complaint: ABD PAIN Nursing Triage Note: Pt is here with abdominal pain and bloating; states she was dx with liver failure in May. Sepsis Screen: No Definite Risk Source of Information: Patient Exam Limitations: No Limitations History of Present Illness Date Seen by Provider: Jul 06, 2020 Time Seen by Provider: 20:00 Initial Comments This is a 60-year-old female who presented to the ER with complaints of intermittent sharp epigastric pain that radiates into her back and nausea x1 week. She has a history of gallstones and is concerned this may be the cause. Also reports history of liver failure with cirrhosis and abdominal acites. States she has an appointment with a liver specialist at on August 02. Denies use of alcohol, but does admit to smoking meth yesterday. Also admits to not taking her home medications as prescribed, but has used her home Zofran with some relief. Currently she is not having any pain. Denies fever, chills, cough, shortness of breath, chest pain, vomiting, dysuria, or hematuria. Allergies and Home Medications Allergies Coded Allergies: hydrocodone (Verified Allergy, Unknown, 07/08/18) hydrochlorothiazide (Verified Adverse Reaction, Unknown, DIARRHEA, 06/28) Home Medications Albuterol Sulfate 2.5 Mg/3 Ml Vial.neb, 2.5 MG NEB Q4H PRN for SHORTNESS OF BREATH, (Reported) Albuterol Sulfate 1 Puff Puff, 2 PUFF IH Q4H 1 PUFF = 90 MCG Prescribed by: LELE CONTRERAS on 02/03/20 183 Aspirin 81 Mg Tablet.dr, 81 MG PO DAILY, (Reported) LAST FILLED #30 05-13-19 Cefdinir 300 Mg Capsule, 300 MG PO BID Prescribed by: MIGUEL HEART on 07/01/19 1112 Celecoxib 200 Mg Capsule, 200 MG PO DAILY, (Reported) LAST FILLED #30 05-11-19 Ciprofloxacin HCl 500 Mg Tablet, 500 MG PO BID Prescribed by: ORLANDO UTRK on 01/08/20 1500 Folic Acid 1 Mg Tablet, 1 MG PO DAILY, (Reported) LAST FILLED #30 12-17-18 Gabapentin 100 Mg Capsule, 100 MG PO BID, (Reported) LAST FILLED #60 04-04-19 Hydrochlorothiazide 25 Mg Tablet, 25 MG PO DAILY, (Reported) LAST FILLED #30 12-17-18 Levofloxacin 750 Mg Tablet, 750 MG PO DAILY Prescribed by: LELE CONTRERAS on 02/03/201831 Levofloxacin 500 Mg Tablet, 500 MG PO DAILY Prescribed by: SHERRI ORLANDO on 07/06/202158 Losartan Potassium 50 Mg Tablet, 50 MG PO DAILY, (Reported) LAST FILLED #30 05-11-19 Metronidazole 500 Mg Tablet, 500 MG PO TID Prescribed by: ORLANDO TURK on 01/08/20 1500 Ondansetron 4 Mg Tab.rapdis, 4 MG PO Q6H PRN for NAUSEA/VOMITING Prescribed by: ORLANDO TURK on 01/08/20 1500 Potassium Chloride 10 Meq Tab.er.prt, 10 MEQ PO DAILY, (Reported) LAST FILLED #30 05-11-19 Patient Home Medication List Home Medication List Reviewed: Yes Review of Systems Review of Systems Constitutional: no symptoms reported EENTM: No Symptoms Reported Respiratory: Other (occ. 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 states last use 8 months ago Smoking Status: Current Everyday Smoker Type Used: Cigarettes 2nd Hand Smoke Exposure: Yes Recent Foreign Travel: No Contact w/Someone Who Travel: No Recent Infectious Disease Expo: No Recent Hopitalizations: No Immunizations Up To Date Tetanus Booster (TDap): More than 5yrs Date of Influenza Vaccine: Apr 29, 2019 Seasonal Allergies Seasonal Allergies: No Past Medical History Surgeries: Yes (LITHOTRIPSY; FACIAL RECONSTRUCTION; X 1-TWINS) Section, Renal, Tubal Ligation Respiratory: Yes Pneumonia Cardiac: Yes (VASCULITIS OF LEGS) Chronic Edema/Swelling, Hypertension, Peripheral Vascular Neurological: Yes Neuropathy 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 Genitourinary: Yes Kidney Stones Gastrointestinal: Yes (HEPATITIS C--NO TREATMENT) Hepatitis, Cirrhosis Musculoskeletal: Yes Arthritis, Rheumatoid Arthritis Endocrine: Yes Diabetes, Non-Insulin dep HEENT: No Cancer: No Psychosocial: Yes Anxiety Integumentary: Yes (CHRONIC LEG EDEMA AND CELLULITIS ; VASCULITIS) Blood Disorders: No Family Medical History Heart Disease, Cancer, Diabetes Physical Exam Vital Signs Vital Signs - First Documented 07/06/20 19:49 Temp 36.5 Pulse 105 Resp 20 B/P (MAP) 195/105 (135) Pulse Ox 100 O2 Delivery Room Air Capillary Refill : Less Than 3 Seconds Height/Weight/BMI Height: 5'3.00" Weight: 159lbs. 0oz. 72.768709is; 29.00 BMI Method:Stated General Appearance: WD/WN, no apparent distress HEENT: PERRL/EOMI, pharynx normal; No scleral icterus (R), No scleral icterus (L) Neck: full range of motion, supple Respiratory: lungs clear, normal breath sounds Cardiovascular: normal peripheral pulses, regular rate, rhythm, systolic murmur Peripheral Pulses: 2+ Dorsalis Pedis (R), 2+ Left Dors-Pedis (L), 2+ Radial Pulses (R), 2+ Radial Pulses (L) Gastrointestinal: normal bowel sounds, soft, distended Extremities: normal range of motion, non-tender, no pedal edema, normal capillary refill Neurologic/Psychiatric: no motor/sensory deficits, alert, normal mood/affect, oriented x 3 Skin: normal color, warm/dry Focused Exam Lactate Level 07/06/20 20:00: Lactic Acid Level 1.52 Lactic Acid Level Laboratory Tests Test 07/06/20 20:00 Lactic Acid Level 1.52 MMOL/L (0.50-2.00) Progress/Results/Core Measures Results/Orders Lab Results Laboratory Tests Test 07/06/20 20:00 Range/Units White Blood Count 3.4 L 4.3-11.0 10^3/uL Red Blood Count 3.90 3.80-5.11 10^6/uL Hemoglobin 9.1 L 11.5-16.0 g/dL Hematocrit 31 L 35-52 % Mean Corpuscular Volume 80 80-99 fL Mean Corpuscular Hemoglobin 23 L 25-34 pg Mean Corpuscular Hemoglobin Concent 29 L 32-36 g/dL Red Cell Distribution Width 15.7 H 10.0-14.5 % Platelet Count 230 130-400 10^3/uL Mean Platelet Volume 9.1 9.0-12.2 fL Immature Granulocyte % (Auto) 0 % Neutrophils (%) (Auto) 80 H 42-75 % Lymphocytes (%) (Auto) 12 12-44 % Monocytes (%) (Auto) 6 0-12 % Eosinophils (%) (Auto) 2 0-10 % Basophils (%) (Auto) 0 0-10 % Neutrophils # (Auto) 2.7 1.8-7.8 10^3/uL Lymphocytes # (Auto) 0.4 L 1.0-4.0 10^3/uL Monocytes # (Auto) 0.2 0.0-1.0 10^3/uL Eosinophils # (Auto) 0.1 0.0-0.3 10^3/uL Basophils # (Auto) 0.0 0.0-0.1 10^3/uL Immature Granulocyte # (Auto) 0.0 0.0-0.1 10^3/uL Prothrombin Time 15.3 H 12.2-14.7 SEC INR Comment 1.2 0.8-1.4 Activated Partial Thromboplast Time 27 24-35 SEC Urine Color YELLOW Urine Clarity CLEAR Urine pH 7.0 5-9 Urine Specific [place] 1.010 L 1.016-1.022 Urine Protein TRACE H NEGATIVE Urine Glucose (UA) NEGATIVE NEGATIVE Urine Ketones NEGATIVE NEGATIVE Urine Nitrite NEGATIVE NEGATIVE Urine Bilirubin NEGATIVE NEGATIVE Urine Urobilinogen 0.2 < = 1.0 MG/DL Urine Leukocyte Esterase NEGATIVE NEGATIVE Urine RBC (Auto) 2+ H NEGATIVE Urine RBC 10-25 H /HPF Urine WBC NONE /HPF Urine Squamous Epithelial Cells 0-2 /HPF Urine Crystals NONE /LPF Urine Bacteria NEGATIVE /HPF Urine Casts NONE /LPF Urine Mucus SMALL H /LPF Urine Culture Indicated NO Sodium Level 140 135-145 MMOL/L Potassium Level 3.6 3.6-5.0 MMOL/L Chloride Level 107 98-107 MMOL/L Carbon Dioxide Level 25 21-32 MMOL/L Anion Gap 8 5-14 MMOL/L Blood Urea Nitrogen 13 7-18 MG/DL Creatinine 0.80 0.60-1.30 MG/DL Estimat Glomerular Filtration Rate > 60 BUN/Creatinine Ratio 16 Glucose Level 167 H 70-105 MG/DL Lactic Acid Level 1.52 0.50-2.00 MMOL/L Calcium Level 8.3 L 8.5-10.1 MG/DL Corrected Calcium 9.0 8.5-10.1 MG/DL Total Bilirubin 0.4 0.1-1.0 MG/DL Aspartate Amino Transf (AST/SGOT) 28 5-34 U/L Alanine Aminotransferase (ALT/SGPT) 24 0-55 U/L Alkaline Phosphatase 169 H 40-136 U/L Troponin I < 0.028 <0.028 NG/ML Total Protein 7.7 6.4-8.2 GM/DL Albumin 3.1 L 3.2-4.5 GM/DL Lipase 57 8-78 U/L Urine Opiates Screen NEGATIVE NEGATIVE Urine Oxycodone Screen NEGATIVE NEGATIVE Urine Methadone Screen NEGATIVE NEGATIVE Urine Propoxyphene Screen NEGATIVE NEGATIVE Urine Barbiturates Screen NEGATIVE NEGATIVE Ur Tricyclic Antidepressants Screen NEGATIVE NEGATIVE Urine Phencyclidine Screen NEGATIVE NEGATIVE Urine Amphetamines Screen POSITIVE H NEGATIVE Urine Methamphetamines Screen POSITIVE H NEGATIVE Urine Benzodiazepines Screen NEGATIVE NEGATIVE Urine Cocaine Screen NEGATIVE NEGATIVE Urine Cannabinoids Screen POSITIVE H NEGATIVE My Orders Orders - SHERRI ORLANDO EMPLOYMENT PROGRAMS ANALYST Cbc With Automated Diff (07/06/20 20:00) Comprehensive Metabolic Panel (07/06/20 20:00) Troponin I (07/06/20 20:00) Ekg Tracing (07/06/20 20:00) Protime With Inr (07/06/20 20:00) Partial Thromboplastin Time (07/06/20 20:00) Lipase (07/06/20 20:00) Iv Heplock-Insert (Order) (07/06/20 20:00) Drug Screen Stat (Urine) (07/06/20 20:00) Chest Pa/Lat (2 View) (07/06/20 20:17) Lactic Acid Analyzer (07/06/20 20:22) Ondansetron Injection (Zofran Injectio (07/06/20 20:30) Ct Abdomen/Pelvis Wo (07/06/20 20:32) Medications Given in ED Vital Signs/I&O 07/06/20 07/06/20 19:49 22:17 Temp 36.5 Pulse 105 91 Resp 20 18 B/P (MAP) 195/105 (135) 203/110 Pulse Ox 100 98 O2 Delivery Room Air Room Air Blood Pressure Mean: 135 Progress Progress Note : Progress Note Patient examined. Pain is described as typical colic gallbladder pain, however she does not have pain at this time, only nausea. Zofran 4mg IV ordered. Labs reviewed. Hgb stable, no WCB elevation, troponin neg, lipase neg. CXR stable with no infiltrates or fluid. CT abd/pelvis shows incidental gallstones in gallbladder and diffuse edema in the mesentery and bowel wall thickening. This could be infectious or from low albumin and cirrhosis. Reviewed case with Dr. Patino. Recommend patient follow up with surgeon at d/t her being a poor surgical candidate d/t h/o of liver cirrhosis with acities. Will place on Levaquin and have her follow up with as previously scheduled. Blood pressure elevated through ED course. States she has not been taking her medications as prescribed. Offered to give her antihypertensive medications here, she declined stating she would take her meds when she goes home. Reviewed discharge plan and she is agreeable with plan. Diagnostic Imaging Diagonstic Imaging: CT Plain Films/CT/US/NM/MRI: abdomen, pelvis Comments NAME: MARY ANNE BARROW [facility] REC#: [id number] PT STATUS: REG ER : 1960 PHYSICIAN: SHERRI ORLANDO EMPLOYMENT PROGRAMS ANALYST ADMIT DATE: 07/06/20/ER Signed Date of Exam:07/06/20 CT ABDOMEN/PELVIS WO INDICATION: Epigastric pain, history of liver failure. TECHNIQUE: Multiple contiguous axial images were obtained through the abdomen and pelvis without the use of intravenous contrast. Auto Exposure Controls were utilized during the CT exam to meet ALARA standards for radiation dose reduction. Comparison made to 01/08/2020. The visualized portions of the lung bases showed some mild atelectatic changes. There is no pleural fluid or free intraperitoneal air. There is moderate ascites, mildly increased in quantity compared to the previous study. The liver shows no focal lesion without contrast, the liver shows a nodular contour suspicious for cirrhosis. There is splenomegaly. There is no adrenal lesion or overt pancreatic lesion. Kidneys appear unremarkable. There is diffuse edema in the mesentery and diffuse bowel wall thickening, bowel wall thickening appears more focally prominent in the left lower quadrant but this appeared similar on the prior study as well. There are incidental gallstones in the gallbladder, similar to the prior study. IMPRESSION: Findings compatible with cirrhosis of the liver with splenomegaly. There is diffuse ascites of moderate severity which is increased compared to the prior study. There is diffuse mesenteric edema which appears worsened compared to the prior study. There is diffuse small bowel wall thickening, more focally prominent in the left lower quadrant, but appearing similar to the prior study. There are incidental gallstones in the gallbladder. Dictated by: Dictated on workstation # [id number] Dict: 07/06/202117 Trans: 07/06/202141 CV [id number] Interpreted by: KERRY GALLEGOS MD Electronically signed by: KERRY GALLEGOS MD 07/06/202141 Diagonstic Imaging: Xray Plain Films/CT/US/NM/MRI: chest Comments NAME: MARY ANNE BARROW [facility] REC#: [id number] PT STATUS: REG ER : 1960 PHYSICIAN: SHERRI ORLANDO APRN ADMIT DATE: 07/06/20/ER Signed Date of Exam:07/06/20 CHEST PA/LAT (2 VIEW) INDICATION: Liver failure and painful inspiration. PA and lateral chest obtained at 8:27 p.m. and compared to 02/03/2020. Heart is mildly enlarged. Mediastinal silhouette is unremarkable. There is some mild linear scarring or atelectasis in the lung bases but the aeration of the lung bases is improved compared to the previous study. There is no pneumothorax or pleural fluid. IMPRESSION: Mild bibasilar scarring or atelectasis with improved aeration of both lung bases compared to 02/03/2020. No consolidation or pleural fluid. Dictated by: Dictated on workstation # [id number] Dict: 07/06/202030 Trans: 07/06/202142 CV [id number] Interpreted by: KERRY GALLEGOS MD Electronically signed by: KERRY GALLEGOS MD 07/06/202142 Departure Communication (Admissions) Time/Spoke to Consulting Phy: 21:[address] Patino. Impression Primary Impression: Cholelithiasis Additional Impression: Cirrhosis of liver Disposition: HOME, SELF-CARE Condition: Improved Departure-Patient Inst. Decision time for Depature: 21:51 Referrals: [facility] [place] (PCP) Primary Care Physician MATTHIEU VALENZUELA MD (Family) Primary Care Physician Patient Instructions: Cirrhosis, Gallstones Add. Discharge Instructions: Plan: 1. Discharge home. To keep follow up with liver specialist on Aug 02 as previously scheduled. 2. Clear liquid diet for the next 2-3 days. Avoid fatty, greasy foods as this can worsen your symptoms. 3. Stop smoking methamphetamines and take your medications as directed. 4. Follow up with your primary care provider if your symptoms persist. 5. Take antibiotics daily as directed. 6. Return for any new or concerning symptoms. All discharge instructions reviewed with patient and/or family. Voiced understanding. Scripts Levofloxacin (Levofloxacin) 500 Mg Tablet 500 MG PO DAILY for 7 Days, #7 TAB 0 Refills Prov: SHERRI ORLANDO EMPLOYMENT PROGRAMS ANALYST 07/06/20 SHERRI ORLANDO EMPLOYMENT PROGRAMS ANALYST Jul 06, 2020 20:09
--- NOTE | 2020-07-06 20:10 | NUR ---
Pt here with increasing abdominal pain today; states she was diagnosed with liver failure in May. Pt states that she had onset of epigastric pain today, worse than normal. Pt has marked bloating to abd. Pt admits to using meth. Pt to room and onto monitor where she is noted to be hypertensive. Rain at bedside. EKG obtained, IV started and blood drawn. Labs sent; will continue to monitor.
[2020-07-06 20:13] LABS: BASOPHILS % (AUTO) 0 % (0-10); EOSINOPHILS # (AUTO) 0.1 10^3/uL (0.0-0.3); EOSINOPHILS % (AUTO) 2 % (0-10); HEMATOCRIT 31 % (35-52); HEMOGLOBIN 9.1 g/dL (11.5-16.0); LYMPHOCYTES # (AUTO) 0.4 10^3/uL (1.0-4.0); LYMPHOCYTES % (AUTO) 12 % (12-44); MEAN CORPUSCULAR HEMOGLOBIN 23 pg (25-34); MEAN CORPUSCULAR HGB CONC 29 g/dL (32-36); MEAN CORPUSCULAR VOLUME 80 fL (80-99); MEAN PLATELET VOLUME 9.1 fL (9.0-12.2); MONOCYTES # (AUTO) 0.2 10^3/uL (0.0-1.0); MONOCYTES % (AUTO) 6 % (0-12); NEUTROPHILS # (AUTO) 2.7 10^3/uL (1.8-7.8); NEUTROPHILS % (AUTO) 80 % (42-75); PLATELET COUNT 230 10^3/uL (130-400); WHITE BLOOD COUNT 3.4 10^3/uL (4.3-11.0)
[2020-07-06 20:14] LABS: BILIRUBIN,URINE NEGATIVE (NEGATIVE); CLARITY,URINE CLEAR; COLOR,URINE YELLOW; GLUCOSE, URINE (UA) NEGATIVE (NEGATIVE); KETONES,URINE NEGATIVE (NEGATIVE); LEUKOCYTE ESTERASE ,URINE NEGATIVE (NEGATIVE); NITRITE,URINE NEGATIVE (NEGATIVE); PROTEIN,URINE TRACE (NEGATIVE)
[2020-07-06 20:22] LABS: INR 1.2 (0.8-1.4); PROTHROMBIN TIME PATIENT 15.3 SEC (12.2-14.7)
[2020-07-06 20:23] LABS: BACTERIA,URINE NEGATIVE /HPF; SQUAMOUS EPITHELIAL CELL,UR 0-2 /HPF
--- NOTE | 2020-07-06 20:24 | NUR ---
Pt to radiology by w/c.
[2020-07-06 20:26] LABS: BENZODIAZEPINES SCREEN URINE NEGATIVE (NEGATIVE); COCAINE SCREEN URINE NEGATIVE (NEGATIVE)
[2020-07-06 20:27] LABS: AMPHETAMINE SCREEN, URINE POSITIVE (NEGATIVE); BARBITURATE SCREEN URINE NEGATIVE (NEGATIVE); CANNABINOID SCREEN, URINE POSITIVE (NEGATIVE); METHADONE STAT NEGATIVE (NEGATIVE); METHAMPHETAMINE SCREEN URINE S POSITIVE (NEGATIVE); OPIATE SCREEN URINE NEGATIVE (NEGATIVE); OXYCODONE STAT NEGATIVE (NEGATIVE); PROPOXYPHENE STAT NEGATIVE (NEGATIVE); TRICYCLIC ANTIDEPRESSANTS SCRE NEGATIVE (NEGATIVE)
[2020-07-06 20:30] LABS: ALANINE AMINOTRANSFERASE 24 U/L (0-55); ALBUMIN 3.1 GM/DL (3.2-4.5); ALKALINE PHOSPHATASE 169 U/L (40-136); BILIRUBIN,TOTAL 0.4 MG/DL (0.1-1.0); BUN/CREATININE RATIO 16; CALCIUM 8.3 MG/DL (8.5-10.1); CARBON DIOXIDE 25 MMOL/L (21-32); CHLORIDE 107 MMOL/L (98-107); GFR ESTIMATED > 60; GLUCOSE 167 MG/DL (70-105); POTASSIUM 3.6 MMOL/L (3.6-5.0); SODIUM 140 MMOL/L (135-145); TOTAL PROTEIN 7.7 GM/DL (6.4-8.2)
[2020-07-06] MEDS ORDERED: ONDANSETRON 4 MG/2 ML (SDV) Z0FRAN IVP ONE (20:30)
--- NOTE | 2020-07-06 20:42 | Diagnostic Imaging Report ---
INDICATION: Liver failure and painful inspiration. PA and lateral chest obtained at 8:27 p.m. and compared to 02/03/2020. Heart is mildly enlarged. Mediastinal silhouette is unremarkable. There is some mild linear scarring or atelectasis in the lung bases but the aeration of the lung bases is improved compared to the previous study. There is no pneumothorax or pleural fluid. IMPRESSION: Mild bibasilar scarring or atelectasis with improved aeration of both lung bases compared to 02/03/2020. No consolidation or pleural fluid. Dictated by: Dictated on workstation # [id number]
--- NOTE | 2020-07-06 20:50 | NUR ---
Shortly after administering the Zofran IV pt noted to have urticaria-like welp proximal to her IV site. Pt reports itching to these areas. IV d/c'd and warm compress to the site. Provider notified and to room for eval. Will continue to monitor.
--- NOTE | 2020-07-06 20:50 | NUR ---
Pt to CT
[2020-07-06] MEDS ORDERED: meTOprolol 5 MG/5 ML (LOPRESSOR) VIAL IV ONE (21:00)
--- NOTE | 2020-07-06 21:27 | Diagnostic Imaging Report ---
INDICATION: Epigastric pain, history of liver failure. TECHNIQUE: Multiple contiguous axial images were obtained through the abdomen and pelvis without the use of intravenous contrast. Auto Exposure Controls were utilized during the CT exam to meet ALARA standards for radiation dose reduction. Comparison made to 01/08/2020. The visualized portions of the lung bases showed some mild atelectatic changes. There is no pleural fluid or free intraperitoneal air. There is moderate ascites, mildly increased in quantity compared to the previous study. The liver shows no focal lesion without contrast, the liver shows a nodular contour suspicious for cirrhosis. There is splenomegaly. There is no adrenal lesion or overt pancreatic lesion. Kidneys appear unremarkable. There is diffuse edema in the mesentery and diffuse bowel wall thickening, bowel wall thickening appears more focally prominent in the left lower quadrant but this appeared similar on the prior study as well. There are incidental gallstones in the gallbladder, similar to the prior study. IMPRESSION: Findings compatible with cirrhosis of the liver with splenomegaly. There is diffuse ascites of moderate severity which is increased compared to the prior study. There is diffuse mesenteric edema which appears worsened compared to the prior study. There is diffuse small bowel wall thickening, more focally prominent in the left lower quadrant, but appearing similar to the prior study. There are incidental gallstones in the gallbladder. Dictated by: Dictated on workstation # [id number]
[2020-07-06] MEDS ORDERED: LEVO500T80 PO (21:59)
[2020-07-06 22:17] VITALS: BP 203/110
== END 2020-07-06 22:12 | disposition home or self-care (01) ==
LOC: EDUNIT# 19:42 → ER 19:44
DX: K80.20 Calculus of gallbladder without cholecystitis without obstruction (principal); K74.60 Unspecified cirrhosis of liver; I10 Essential (primary) hypertension; E11.40 Type 2 diabetes mellitus with diabetic neuropathy, unspecified; F17.210 Nicotine dependence, cigarettes, uncomplicated; Z80.9 Family history of malignant neoplasm, unspecified; Z88.5 Allergy status to narcotic agent; Z88.8 Allergy status to other drugs, medicaments and biological substances; Z79.82 Long term (current) use of aspirin
CPT/HCPCS: 36415; 71046; 74176; 80053; 80306; 81000; 83605; 83690; 84484; 85025; 85610; 85730; 93005

== ENCOUNTER → 2020-10-08 | Outpatient (CLI) | payer MEDICAID ==
[~2020-10-08] MED LIST changes: -CIPR500T4 PO; +CIPR500T5 PO; -CLIN150C17 PO; +CLIN150C18 PO; -FOLI1TAB24 PO; +FOLI1TAB33 PO; +LEVO500T80 PO
--- NOTE | 2020-10-08 09:37 | Diagnostic Imaging Report ---
REASON FOR EXAM: Hepatitis C.. Followup. COMPARISON: 07/06/2020. TECHNIQUE: Complete abdominal sonogram. FINDINGS: The liver demonstrates a micronodular contour with heterogeneous echotexture. No focal hepatic lesions are seen. No intra or extrahepatic biliary dilatation is present. The common bile duct is nondilated and measures 6 cm. Cholelithiasis is present. There is gallbladder wall thickening measuring 0.5 cm. No pericholecystic fluid is seen.. Sonographic Pantoja's sign is negative. The visualized portions of the head and proximal body of the pancreas are within normal limits. The distal body and tail are not well visualized due to overlying bowel gas. Both kidneys are normal in size and echogenicity. The cortical thickness and the corticomedullary differentiation is well maintained. The right kidney measures 10.1 cm. The left kidney measures 10.7 cm. There is no evidence of calculi, focal mass or hydronephrosis. Splenomegaly is noted with the spleen measuring 20 cm craniocaudal. No focal splenic lesions are seen. The visualized upper aorta and IVC are normal in course and caliber. There is no ascites in the upper abdomen. IMPRESSION: 1. Cirrhotic morphology of the liver, consistent with a history of hepatitis C. No focal hepatic lesions are seen. Recommend continued followup as indicated. 2. Stigmata of portal hypertension with marked splenomegaly. The portal vein is patent and demonstrates hepatopetal flow. No ascites is present. 3. Cholelithiasis with gallbladder wall thickening. The sonographic Pantoja sign is negative. Dictated by: Dictated on workstation # [id number]
== END ==
LOC: RAD FS 07:52
PROVIDERS: ATTEND Internal Medicine
DX: B18.2 Chronic viral hepatitis C (principal); K80.20 Calculus of gallbladder without cholecystitis without obstruction; K82.8 Other specified diseases of gallbladder; K76.6 Portal hypertension; K74.60 Unspecified cirrhosis of liver
CPT/HCPCS: 76700

== ENCOUNTER → 2021-04-16 | Outpatient (CLI) | payer MEDICAID ==
[~2021-04-16] MED LIST changes: -CLIN150C18 PO; +CLIN150C20 PO; -SULF1TAB35 PO; +SULF1TAB38 PO
[2021-04-16 14:21] LABS: HEMATOCRIT 29 % (35-52); HEMOGLOBIN 8.1 g/dL (11.5-16.0); MEAN CORPUSCULAR HEMOGLOBIN 20 pg (25-34); MEAN CORPUSCULAR HGB CONC 28 g/dL (32-36); MEAN CORPUSCULAR VOLUME 73 fL (80-99); WHITE BLOOD COUNT 2.9 10^3/uL (4.3-11.0)
[2021-04-16 14:22] LABS: BASOPHILS % (AUTO) 0 % (0-10); EOSINOPHILS # (AUTO) 0.1 10^3/uL (0.0-0.3); EOSINOPHILS % (AUTO) 3 % (0-10); LYMPHOCYTES # (AUTO) 0.4 X 10^3 (1.0-4.0); LYMPHOCYTES % (AUTO) 14 % (12-44); MONOCYTES # (AUTO) 0.3 X 10^3 (0.0-1.0); MONOCYTES % (AUTO) 10 % (0-12); NEUTROPHILS # (AUTO) 2.1 X 10^3 (1.8-7.8); NEUTROPHILS % (AUTO) 72 % (42-75); PLATELET COUNT 71 10^3/uL (130-400)
[2021-04-16 14:23] LABS: SMEAR SCAN COMMENT DECREASED PLT COUNT
[2021-04-16 14:25] LABS: BASOPHILS % (MANUAL) 1 %; EOSINOPHILS % (MANUAL) 2 %; LYMPHOCYTES % (MANUAL) 14 %; MONOCYTES % (MANUAL) 6 %; NEUTROPHILS % (MANUAL) 77 %
[2021-04-16 14:26] LABS: ANISOCYTOSIS MODERATE; ELLIPT/OVALOCYTES MODERATE; HYPOCHROMASIA MARKED; MICROCYTOSIS MARKED; PLATELET ESTIMATE DECREASED; POIKILOCYTOSIS MODERATE; POLYCHROMASIA MODERATE; RBC MORPH ABNORMAL; TEAR DROP CELLS SLIGHT
== END ==
LOC: LAB FS 13:11
PROVIDERS: ATTEND Pediatrics
DX: D50.0 Iron deficiency anemia secondary to blood loss (chronic) (principal)
CPT/HCPCS: 36415; 85007; 85027

== ENCOUNTER 2021-06-18 13:15 | Outpatient (CLI) | payer MEDICAID ==
[~2021-06-18] VITALS: Ht 164.5 cm; Wt 68.1 kg
[~2021-06-18 13:15] MED LIST changes: -LEVO500T80 PO; +LEVO500T81 PO; -POTA10TA36 PO; +POTA10TA37 PO
[2021-06-18] MEDS ORDERED: IRON DEXTRAN 25 MG/NS 6.25 ML TOTAL VOLUME IV ONE ×3 (13:30)
[2021-06-18] MEDS ORDERED: IRON DEXTRAN 1,000 MG/NS 250 ML IVPB IV ONE ×2 (13:45)
[2021-06-18 13:52] VITALS: BP 141/69
== END 2021-06-18 16:10 | disposition home or self-care (01) ==
LOC: SDC 13:15
PROVIDERS: ATTEND Pediatrics
DX: D50.9 Iron deficiency anemia, unspecified (principal)
CPT/HCPCS: 96365

== ENCOUNTER → 2021-07-18 | Outpatient (CLI) | payer BC, MEDICAID | LOC: WOUNDCARE 13:24 | PROVIDERS: ATTEND Family Medicine | DX: T65.222A Toxic effect of tobacco cigarettes, intentional self-harm, initial encounter (principal); I73.89 Other specified peripheral vascular diseases; L97.222 Non-pressure chronic ulcer of left calf with fat layer exposed; L03.116 Cellulitis of left lower limb; R73.9 Hyperglycemia, unspecified; F15.19 Other stimulant abuse with unspecified stimulant-induced disorder | CPT/HCPCS: 11042; A6197; G0463 ==

== ENCOUNTER → 2021-07-18 | Outpatient (CLI) | payer MEDICAID ==
--- NOTE | 2021-07-18 15:58 | Diagnostic Imaging Report ---
INDICATION: Left calf pain AP and lateral views of the left tibia and fibula show no fracture, dislocation or other acute abnormalities. There are no radiopaque foreign objects seen. IMPRESSION: Unremarkable left tibia and fibula. Dictated by: Dictated on workstation # [id number]
== END ==
LOC: RAD 15:09
PROVIDERS: ATTEND Family Medicine
DX: L97.222 Non-pressure chronic ulcer of left calf with fat layer exposed (principal); T65.222A Toxic effect of tobacco cigarettes, intentional self-harm, initial encounter; I73.89 Other specified peripheral vascular diseases; L03.116 Cellulitis of left lower limb; R73.9 Hyperglycemia, unspecified; F15.19 Other stimulant abuse with unspecified stimulant-induced disorder
CPT/HCPCS: 73590

== ENCOUNTER → 2021-07-24 | Outpatient (CLI) | payer MEDICAID | LOC: WOUNDCARE 13:11 | PROVIDERS: ATTEND Family Medicine | DX: I96 Gangrene, not elsewhere classified (principal); L97.222 Non-pressure chronic ulcer of left calf with fat layer exposed; R73.9 Hyperglycemia, unspecified; L03.116 Cellulitis of left lower limb; F15.19 Other stimulant abuse with unspecified stimulant-induced disorder; T65.222A Toxic effect of tobacco cigarettes, intentional self-harm, initial encounter | CPT/HCPCS: 11042; G0463 ==

== ENCOUNTER → 2021-08-06 | Outpatient (CLI) | payer MEDICAID ==
[~2021-08-06] VITALS: Ht 160 cm; Wt 70.9 kg
[~2021-08-06] MED LIST changes: +IRON DEXTRAN 1,000 MG/NS 250 ML IVPB IV ONE; +IRON DEXTRAN 25 MG/NS 6.25 ML TOTAL VOLUME IV ONE
[2021-08-06 15:54] VITALS: BP 150/82
== END ==
LOC: SDC 13:02 → EDSTATUS 13:04
PROVIDERS: ATTEND Pediatrics
DX: D50.0 Iron deficiency anemia secondary to blood loss (chronic) (principal)
CPT/HCPCS: 96365

== ENCOUNTER → 2021-08-07 | Outpatient (CLI) | payer MEDICAID ==
[~2021-08-07] MED LIST changes: -IRON DEXTRAN 1,000 MG/NS 250 ML IVPB IV ONE; -IRON DEXTRAN 25 MG/NS 6.25 ML TOTAL VOLUME IV ONE
== END ==
LOC: WOUNDCARE 09:49
PROVIDERS: ATTEND Family Medicine
DX: T65.222A Toxic effect of tobacco cigarettes, intentional self-harm, initial encounter (principal); I73.89 Other specified peripheral vascular diseases; L97.222 Non-pressure chronic ulcer of left calf with fat layer exposed; D89.1 Cryoglobulinemia; I73.00 Raynaud's syndrome without gangrene; F15.19 Other stimulant abuse with unspecified stimulant-induced disorder; R73.9 Hyperglycemia, unspecified
CPT/HCPCS: 11104; A6207; G0463

== ENCOUNTER → 2021-08-12 | Outpatient (CLI) | payer MEDICAID | LOC: WOUNDCARE 13:57 | PROVIDERS: ATTEND Family Medicine | DX: T65.222A Toxic effect of tobacco cigarettes, intentional self-harm, initial encounter (principal); F15.19 Other stimulant abuse with unspecified stimulant-induced disorder; I73.89 Other specified peripheral vascular diseases; L97.222 Non-pressure chronic ulcer of left calf with fat layer exposed; R73.9 Hyperglycemia, unspecified; D89.1 Cryoglobulinemia; I73.01 Raynaud's syndrome with gangrene | CPT/HCPCS: 11042; G0463 ==

== ENCOUNTER → 2021-08-19 | Outpatient (CLI) | payer MEDICAID | LOC: WOUNDCARE 13:53 | PROVIDERS: ATTEND Family Medicine | DX: I96 Gangrene, not elsewhere classified (principal); T65.222A Toxic effect of tobacco cigarettes, intentional self-harm, initial encounter; F15.19 Other stimulant abuse with unspecified stimulant-induced disorder; L97.222 Non-pressure chronic ulcer of left calf with fat layer exposed; R73.9 Hyperglycemia, unspecified; D89.1 Cryoglobulinemia | CPT/HCPCS: 11042; A6021; G0463 ==

== ENCOUNTER → 2021-08-26 | Outpatient (CLI) | payer MEDICAID | LOC: WOUNDCARE 12:22 | PROVIDERS: ATTEND Family Medicine | DX: T65.222A Toxic effect of tobacco cigarettes, intentional self-harm, initial encounter (principal); I73.89 Other specified peripheral vascular diseases; L97.522 Non-pressure chronic ulcer of other part of left foot with fat layer exposed; R73.9 Hyperglycemia, unspecified; D89.1 Cryoglobulinemia; I87.312 Chronic venous hypertension (idiopathic) with ulcer of left lower extremity; I73.01 Raynaud's syndrome with gangrene; F15.19 Other stimulant abuse with unspecified stimulant-induced disorder | CPT/HCPCS: 11042; G0463 ==

== ENCOUNTER → 2021-09-02 | Outpatient (CLI) | payer MEDICAID | LOC: WOUNDCARE 12:26 | PROVIDERS: ATTEND Family Medicine | DX: T65.222A Toxic effect of tobacco cigarettes, intentional self-harm, initial encounter (principal); F15.19 Other stimulant abuse with unspecified stimulant-induced disorder; L97.222 Non-pressure chronic ulcer of left calf with fat layer exposed; D89.1 Cryoglobulinemia; I73.00 Raynaud's syndrome without gangrene; R73.9 Hyperglycemia, unspecified | CPT/HCPCS: 11042; G0463 ==

== ENCOUNTER → 2021-09-09 | Outpatient (CLI) | payer MEDICAID | LOC: WOUNDCARE 13:29 | PROVIDERS: ATTEND Family Medicine | DX: T65.222A Toxic effect of tobacco cigarettes, intentional self-harm, initial encounter (principal); F15.19 Other stimulant abuse with unspecified stimulant-induced disorder; I73.89 Other specified peripheral vascular diseases; L97.222 Non-pressure chronic ulcer of left calf with fat layer exposed; D89.1 Cryoglobulinemia; I73.01 Raynaud's syndrome with gangrene; R73.9 Hyperglycemia, unspecified | CPT/HCPCS: 11042; G0463 ==

== ENCOUNTER → 2021-09-16 | Outpatient (CLI) | payer MEDICAID | LOC: WOUNDCARE 12:36 | PROVIDERS: ATTEND Family Medicine | DX: T65.222A Toxic effect of tobacco cigarettes, intentional self-harm, initial encounter (principal); F15.19 Other stimulant abuse with unspecified stimulant-induced disorder; I73.89 Other specified peripheral vascular diseases; L97.222 Non-pressure chronic ulcer of left calf with fat layer exposed; R73.9 Hyperglycemia, unspecified; D89.1 Cryoglobulinemia; I73.01 Raynaud's syndrome with gangrene | CPT/HCPCS: 11042; G0463 ==

== ENCOUNTER → 2021-09-23 | Outpatient (CLI) | payer MEDICAID | LOC: WOUNDCARE 12:38 | PROVIDERS: ATTEND Family Medicine | DX: T65.222A Toxic effect of tobacco cigarettes, intentional self-harm, initial encounter (principal); F15.19 Other stimulant abuse with unspecified stimulant-induced disorder; I73.89 Other specified peripheral vascular diseases; L97.222 Non-pressure chronic ulcer of left calf with fat layer exposed; R73.9 Hyperglycemia, unspecified; D89.1 Cryoglobulinemia; I73.00 Raynaud's syndrome without gangrene; I87.312 Chronic venous hypertension (idiopathic) with ulcer of left lower extremity | CPT/HCPCS: 11042; G0463 ==

== ENCOUNTER → 2021-09-30 | Outpatient (CLI) | payer MEDICAID | LOC: WOUNDCARE 12:42 | PROVIDERS: ATTEND Family Medicine | DX: T65.222A Toxic effect of tobacco cigarettes, intentional self-harm, initial encounter (principal); F15.19 Other stimulant abuse with unspecified stimulant-induced disorder; I73.89 Other specified peripheral vascular diseases; L97.222 Non-pressure chronic ulcer of left calf with fat layer exposed; R73.9 Hyperglycemia, unspecified; D89.1 Cryoglobulinemia; I73.00 Raynaud's syndrome without gangrene; I87.312 Chronic venous hypertension (idiopathic) with ulcer of left lower extremity | CPT/HCPCS: 11042; G0463 ==

== ENCOUNTER → 2021-10-07 | Outpatient (CLI) | payer MEDICAID | LOC: WOUNDCARE 12:34 | PROVIDERS: ATTEND Family Medicine | DX: T65.222A Toxic effect of tobacco cigarettes, intentional self-harm, initial encounter (principal); I73.89 Other specified peripheral vascular diseases; L97.522 Non-pressure chronic ulcer of other part of left foot with fat layer exposed; D89.1 Cryoglobulinemia; I87.312 Chronic venous hypertension (idiopathic) with ulcer of left lower extremity; I73.01 Raynaud's syndrome with gangrene; R73.9 Hyperglycemia, unspecified; F15.19 Other stimulant abuse with unspecified stimulant-induced disorder | CPT/HCPCS: 11042; G0463 ==

== ENCOUNTER → 2021-10-16 | Outpatient (CLI) | payer MEDICAID | LOC: WOUNDCARE 13:17 | PROVIDERS: ATTEND Family Medicine | DX: T65.222A Toxic effect of tobacco cigarettes, intentional self-harm, initial encounter (principal); F15.959 Other stimulant use, unspecified with stimulant-induced psychotic disorder, unspecified; I73.9 Peripheral vascular disease, unspecified; R73.9 Hyperglycemia, unspecified; D89.1 Cryoglobulinemia; I73.00 Raynaud's syndrome without gangrene | CPT/HCPCS: 99212 ==

== ENCOUNTER 2021-11-09 23:32 | Emergency (ER) | payer MEDICAID, MEDICARE ==
[~2021-11-09] VITALS: Ht 160 cm; Wt 68.2 kg
--- NOTE | 2021-11-10 00:06 | ED Back Pain ---
General Chief Complaint: Back Problems Stated Complaint: LOWER BACK/RT SIDE PAIN Source of Information: Patient Exam Limitations: No Limitations History of Present Illness Date Seen by Provider: November 10, 2021 Time Seen by Provider: 23:38 Initial Comments 61-year-old female with past medical history of diabetes, hypertension coming in due to right flank pain. Is been going on for couple days, worsening today. Sharp, intermittent, goes around her waist somewhat and radiation. No nausea, vomiting, diarrhea, fever, chills, chest pain, shortness of breath, weakness, numbness, dysuria, vaginal bleeding, or any other concerns. She is had pain similar to this which she says felt similar to prior kidney stone. She took ibuprofen more than 8 hours ago which helped. Allergies and Home Medications Allergies Coded Allergies: hydrocodone (Verified Allergy, Unknown, 07/08/18) hydrochlorothiazide (Verified Adverse Reaction, Unknown, DIARRHEA, 06/28/19) Patient Home Medication List Home Medication List Reviewed: Yes Albuterol Sulfate (Albuterol Sulfate) 2.5 Mg/3 Ml Vial.neb, 2.5 MG NEB Q4H PRN for SHORTNESS OF BREATH, (Reported) Entered as Reported by: RYAN LONGORIA on 06/30/19 0931 Albuterol Sulfate (Proair Hfa) 1 Puff Puff, 2 PUFF IH Q4H Prescribed by: LELE CONTRERAS on 02/03/20 183 Aspirin (Adult Low Dose Aspirin EC) 81 Mg Tablet.dr, 81 MG PO DAILY, (Reported) Entered as Reported by: RYAN LONGORIA on 06/30/19 0931 Cefdinir (Cefdinir) 300 Mg Capsule, 300 MG PO BID Prescribed by: MIGUEL HEART on 07/01/19 1112 Celecoxib (Celecoxib) 200 Mg Capsule, 200 MG PO DAILY, (Reported) Entered as Reported by: RYAN LONGORIA on 06/30/19 0931 Ciprofloxacin HCl (Ciprofloxacin HCl) 500 Mg Tablet, 500 MG PO BID Prescribed by: ORLANDO TURK on 01/08/20 1500 Folic Acid (Folic Acid) 1 Mg Tablet, 1 MG PO DAILY, (Reported) Entered as Reported by: RYAN LONGORIA on 06/30/19 0955 Gabapentin (Gabapentin) 100 Mg Capsule, 100 MG PO BID, (Reported) Entered as Reported by: RYAN LONGORIA on 06/30/19930 Hydrochlorothiazide (Hydrochlorothiazide) 25 Mg Tablet, 25 MG PO DAILY, (Reported) Entered as Reported by: RYAN LONGORIA on 06/30/19 09 Levofloxacin (Levaquin) 750 Mg Tablet, 750 MG PO DAILY Prescribed by: LELE CONTRERAS on 02/03/20 1832 Levofloxacin (Levofloxacin) 500 Mg Tablet, 500 MG PO DAILY Prescribed by: SHERRI [place]LANDO on 07/06/202158 Losartan Potassium (Losartan Potassium) 50 Mg Tablet, 50 MG PO DAILY, (Reported) Entered as Reported by: RYAN LONGORIA on 06/30/19930 Metronidazole (Flagyl) 500 Mg Tablet, 500 MG PO TID Prescribed by: ORLANDO TURK on 01/08/20 1500 Ondansetron (Ondansetron Odt) 4 Mg Tab.rapdis, 4 MG PO Q6H PRN for NAUSEA/VOMITING Prescribed by: ORLANDO TURK on 01/08/20 1500 Potassium Chloride (Potassium Chloride) 10 Meq Tab.er.prt, 10 MEQ PO DAILY, (Reported) Entered as Reported by: RYAN LONGORIA on 06/30/19930 Review of Systems Constitutional: No chills, No fever EENTM: No blurred vision Respiratory: no symptoms reported Cardiovascular: no symptoms reported Gastrointestinal: no symptoms reported Genitourinary: No dysuria, No frequency, No hematuria, No hesitancy; other (Right flank pain) : No Musculoskeletal: back pain Skin: no symptoms reported Psychiatric/Neurological: No Symptoms Reported All Other Systems Reviewed Negative Unless Noted: Yes Past Kwdcevo-Uxuhdj-Qwhdnr Hx Patient Social History Tobacco Use?: Yes Tobacco type used: Cigarettes Substance use?: No Alcohol Use?: No Immunizations Up To Date Tetanus Booster (TDap): More than 5yrs Seasonal Allergies Seasonal Allergies: No Past Medical History Surgeries: Yes (LITHOTRIPSY; FACIAL RECONSTRUCTION; X 1-TWINS) Section, Renal, Tubal Ligation Respiratory: Yes Pneumonia Cardiac: Yes (VASCULITIS OF LEGS) Chronic Edema/Swelling, Hypertension, Peripheral Vascular Neurological: Yes 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 0oz. 72.276993hw; 29.00 BMI Method:Stated General Appearance: No Apparent Distress, WD/WN HEENT: PERRL/EOMI, Normal ENT Inspection, Pharynx Normal Neck: Full Range of Motion, Normal Inspection, Non Tender, Supple Cardiovascular: Regular Rate, Rhythm, No Edema, Normal Peripheral Pulses Respiratory: Chest Non Tender, Lungs Clear, Normal Breath Sounds, No Accessory Muscle Use, No Respiratory Distress Gastrointestinal: Normal Bowel Sounds, Non Tender, Soft; No Distended, No Guarding Back: Normal Inspection, No Vertebral Tenderness, CVA Tenderness (R) Extremity: Normal Capillary Refill, Normal Inspection, Normal Range of Motion, Non Tender, No Calf Tenderness, No Pedal Edema Neurologic/Psychiatric: Alert, No Motor/Sensory Deficits, Normal Mood/Affect Skin: Normal Color, Warm/Dry Lymphatic: No Adenopathy Progress/Results/Core Measures Results/Orders Lab Results Laboratory Tests Test 11/10/21 00:00 Range/Units Urine Color YELLOW Urine Clarity CLEAR Urine pH 6.0 5-9 Urine Specific Warba >=1.030 1.016-1.022 Urine Protein TRACE H NEGATIVE Urine Glucose (UA) NEGATIVE NEGATIVE Urine Ketones TRACE H NEGATIVE Urine Nitrite NEGATIVE NEGATIVE Urine Bilirubin NEGATIVE NEGATIVE Urine Urobilinogen 0.2 < = 1.0 MG/DL Urine Leukocyte Esterase NEGATIVE NEGATIVE Urine RBC (Auto) NEGATIVE NEGATIVE Urine RBC 5-10 H /HPF Urine WBC 2-5 /HPF Urine Squamous Epithelial Cells 2-5 /HPF Urine Crystals PRESENT H /LPF Urine Calcium Oxalate Crystals MODERATE H /LPF Urine Bacteria FEW H /HPF Urine Casts PRESENT /LPF Urine Hyaline Casts 2-5 H /LPF Urine Mucus MODERATE H /LPF Urine Culture Indicated NO My Orders Orders - MACHELLE DE DIOS MD Ua Culture If Indicated (11/10/21 00:02) Ct Abdomen/Pelvis Wo (11/10/21 00:02) Acetaminophen Tablet (Tylenol Tablet) (11/10/21 00:15) Ibuprofen Tablet (Motrin Tablet) (11/10/21 00:15) Medications Given in ED Current Medications Medications Dose Ordered Sig/Rosario Route Start Time Stop Time Status Last Admin Dose Admin Acetaminophen 1,000 mg ONCE ONCE PO 11/10/21 00:15 11/10/21 00:16 DC 11/10/21 00:12 1,000 MG Ibuprofen 400 mg ONCE ONCE PO 11/10/21 00:15 11/10/21 00:16 DC 11/10/21 00:12 400 MG Progress Progress Note : Progress Note 61-year-old female with above history coming in due to right flank pain. ABCs were intact and vitals were stable on presentation. Physical exam with right flank pain but otherwise no abnormalities. She was given ibuprofen and Tylenol for pain control. CT abdomen and pelvis without contrast ordered to assess for kidney stone versus some other etiology. Urinalysis also ordered. CT with signs of cirrhosis and splenomegaly. There is also some very mild inflammation in the upper abdomen around the pancreatic head and duodenum which could be focal pancreatitis or duodenitis per the CT reports from stat rad. I did repeat abdominal exam and she has absolutely no abdominal tenderness making this unlikely. On repeat she does have some suprapubic pressure that she is experiencing. This mixed with the bacteria found in her urine, we will start her on antibiotics. I believe she is stable for discharge with outpatient foll ow-up. She was sent home with strict return precautions Departure Impression Primary Impression: Right flank pain Additional Impression: UTI (urinary tract infection) Qualified Codes: N30.01 - Acute cystitis with hematuria Disposition: HOME, SELF-CARE Condition: Stable Departure-Patient Inst. Decision time for Depature: 00:50 Referrals: MATTHIEU VALENZUELA MD (PCP) Primary Care Physician Patient Instructions: Flank Pain (DC) Add. Discharge Instructions: Possible you have a brewing infection, we will start you on some antibiotics. Take ibuprofen and/or Tylenol as needed for pain. If pain persist, call your regular doctor on Thursday morning for follow-up. Scripts Famotidine (Pepcid) 40 Mg Tablet 40 MG PO DAILY for 14 Days, #14 TAB Prov: MACHELLE DE DIOS MD 11/10/21 Amoxicillin/Potassium Clav (Amox Tr-K Clv 875-125 mg Tab) 875 Mg-125 Mg Tablet 1 EACH PO BID for 5 Days, #10 TAB Prov: MACHELLE DE DIOS MD 11/10/21 Work/School Note: Work Release Form Date Seen in the Emergency Department: November 10, 2021 Return to Work: November 11, 2021 Restrictions: No Restrictions MACHELLE DE DIOS MD November 10, 2021 00:06
[2021-11-10 00:09] LABS: BILIRUBIN,URINE NEGATIVE (NEGATIVE); CLARITY,URINE CLEAR; COLOR,URINE YELLOW; GLUCOSE, URINE (UA) NEGATIVE (NEGATIVE); KETONES,URINE TRACE (NEGATIVE); LEUKOCYTE ESTERASE ,URINE NEGATIVE (NEGATIVE); NITRITE,URINE NEGATIVE (NEGATIVE); PROTEIN,URINE TRACE (NEGATIVE)
[2021-11-10 00:11] LABS: BACTERIA,URINE FEW /HPF; CALCIUM OXALATE CRYSTALS,UR MODERATE /LPF
[2021-11-10] MEDS ORDERED: ACETAMINOPHEN 500 MG TAB (TYLENOL) PO ONE (00:15)
[2021-11-10] MEDS ORDERED: IBUPROFEN TABLET 200 MG TAB PO ONE (00:15)
[2021-11-10] MEDS ORDERED: AMOX1TAB12 PO (00:52)
[2021-11-10] MEDS ORDERED: AUGMENTIN 875 MG TAB (AMOXICILLIN/CLAVULANATE) PO STA (00:52)
[2021-11-10] MEDS ORDERED: FAMO40TA72 PO (00:52)
[2021-11-10 00:58] VITALS: BP 158/61
--- NOTE | 2021-11-10 08:00 | Diagnostic Imaging Report ---
PROCEDURE: CT abdomen and pelvis without contrast. TECHNIQUE: Multiple contiguous axial images were obtained through the abdomen and pelvis without the use of intravenous contrast. Auto Exposure Controls were utilized during the CT exam to meet ALARA standards for radiation dose reduction. INDICATION: Right flank pain. COMPARISON: 07/06/2020 FINDINGS: Included portions of the lung bases are clear. Heart is mildly enlarged. Note is made of diminished attenuation to the intravascular contents suggestive of underlying anemia. CT ABDOMEN: There is vupu-mg-pvgokend stranding of the right upper abdominal quadrant epicentered around the pancreatic head extending to the 2nd and 3rd portions of duodenum as well as along the central mesenteric fat. Note is made of multiple gallstones within the lumen of the gallbladder. The spleen is enlarged. It measures 14.7 x 7.9 x 20 cm. This was present previously. No focal splenic masses are seen on this noncontrast exam There is trace ascites within the right paracolic gutter. Overall, degree of ascites is improved compared to prior exam. There is no loculated fluid collection or free air. The kidneys and adrenal glands have an unremarkable noncontrast CT appearance as well. Liver shows mild macronodular appearance to its external contour. No definite focal hepatic masses are seen on this noncontrast exam. Several mildly prominent central mesenteric and retroperitoneal lymph nodes are identified. Largest of these is seen interposed between the left common iliac artery and left psoas muscle. It measures 2.1 x 1 cm. Osseous structures show age-related degenerative changes. No acute bony abnormalities are seen. CT PELVIS: Urinary bladder is unopacified and minimally distended. Urinary bladder wall is mildly thickened in appearance. It measures 6 mm. There is trace free fluid within the pelvis. There is no loculated fluid collection or free air. Osseous structures show no acute abnormalities. IMPRESSION: 1. Mild stranding in the upper abdomen epicentered around the pancreatic head. Findings are concerning for acute pancreatitis. Given the presence of cholelithiasis, gallstone pancreatitis should be considered. 2. Small amount of free fluid in the right upper abdominal quadrant. No loculated fluid collection. 3. Moderate splenomegaly. Conceivably, this could be a sequela of underlying cirrhosis and portal venous hypertension. However, multiple mildly enlarged mesenteric and retroperitoneal lymph nodes are identified within the abdomen. Underlying lymphoproliferative process such as lymphoma should also be considered. 4. Mild thickened appearance to the urinary bladder wall. This may be artifact and related to incomplete distention. Cystitis may have a similar appearance. Clinical correlation is advised. Dictated by: Dictated on workstation # [id number]
== END 2021-11-10 00:58 | disposition home or self-care (01) ==
LOC: EDUNIT# 23:32 → ER FS 23:35
DX: N30.01 Acute cystitis with hematuria (principal); F17.210 Nicotine dependence, cigarettes, uncomplicated; Z87.442 Personal history of urinary calculi
CPT/HCPCS: 74176; 81000

== ENCOUNTER 2021-11-12 19:12 | Emergency (ER) | payer MEDICAID, MEDICARE | END 2021-11-12 20:03 | disposition left against medical advice (07) | LOC: EDUNIT# 19:12 → ER 19:16 | DX: E61.1 Iron deficiency (principal) ==

== ENCOUNTER → 2021-11-12 | Outpatient (CLI) | payer MEDICAID ==
[~2021-11-12] MED LIST changes: +AMOX1TAB12 PO; +FAMO40TA72 PO
[2021-11-12 13:26] LABS: BASOPHILS % (AUTO) 1 % (0-10); EOSINOPHILS # (AUTO) 0.1 10^3/uL (0.0-0.3); EOSINOPHILS % (AUTO) 3 % (0-10); HEMATOCRIT 21 % (35-52); LYMPHOCYTES # (AUTO) 0.4 10^3/uL (1.0-4.0); LYMPHOCYTES % (AUTO) 15 % (12-44); MEAN CORPUSCULAR HEMOGLOBIN 20 pg (25-34); MEAN CORPUSCULAR HGB CONC 27 g/dL (32-36); MEAN CORPUSCULAR VOLUME 73 fL (80-99); MONOCYTES # (AUTO) 0.2 10^3/uL (0.0-1.0); MONOCYTES % (AUTO) 7 % (0-12); NEUTROPHILS # (AUTO) 1.8 10^3/uL (1.8-7.8); NEUTROPHILS % (AUTO) 75 % (42-75); PLATELET COUNT 108 10^3/uL (130-400); WHITE BLOOD COUNT 2.4 10^3/uL (4.3-11.0)
[2021-11-12 13:31] LABS: INR 1.1 (0.8-1.4); PROTHROMBIN TIME PATIENT 14.1 SEC (12.2-14.7)
[2021-11-12 13:41] LABS: CALCIUM 8.5 MG/DL (8.5-10.1); CREATININE SERUM 0.76 MG/DL (0.60-1.30)
[2021-11-12 13:42] LABS: ALBUMIN 3.9 GM/DL (3.2-4.5); BILIRUBIN,TOTAL 0.3 MG/DL (0.1-1.0); TOTAL PROTEIN 6.1 GM/DL (6.4-8.2)
[2021-11-12 13:50] LABS: HEMOGLOBIN 5.7 g/dL (11.5-16.0)
== END ==
LOC: LAB FS 12:20
PROVIDERS: ATTEND Pediatrics
DX: K74.60 Unspecified cirrhosis of liver (principal); D50.0 Iron deficiency anemia secondary to blood loss (chronic)
CPT/HCPCS: 36415; 80053; 82728; 83540; 83550; 85025; 85610

== ENCOUNTER → 2021-11-15 | Outpatient (CLI) | payer MEDICAID, MEDICARE | LOC: LAB FS 16:09 | PROVIDERS: ATTEND Pediatrics | DX: K74.60 Unspecified cirrhosis of liver (principal) | CPT/HCPCS: 36415; 84590 ==

== ENCOUNTER 2021-11-27 18:01 | Emergency (ER) | payer MEDICAID, MEDICARE ==
[~2021-11-27] VITALS: Ht 160 cm; Wt 68.0 kg
[~2021-11-27 18:01] MED LIST changes: -ACETAMINOPHEN 500 MG TAB (TYLENOL) ONE; -ACETAMINOPHEN 500 MG TAB (TYLENOL) PO ONE; -NS IV 500 ML 500 ML IV SCH; -NS IV 500 ML 500 ML ONE; -diphenhydrAMINE 50 MG/ML INJ (BENADRYL) IVP ONE; -diphenhydrAMINE 50 MG/ML INJ (BENADRYL) ONE
[2021-11-27 18:54] LABS: BASOPHILS % (AUTO) 0 % (0-10)
[2021-11-27 18:56] LABS: EOSINOPHILS # (AUTO) 0.1 10^3/uL (0.0-0.3); EOSINOPHILS % (AUTO) 3 % (0-10); LYMPHOCYTES # (AUTO) 0.4 10^3/uL (1.0-4.0); LYMPHOCYTES % (AUTO) 14 % (12-44); MEAN CORPUSCULAR HEMOGLOBIN 19 pg (25-34); MEAN CORPUSCULAR HGB CONC 26 g/dL (32-36); MEAN CORPUSCULAR VOLUME 70 fL (80-99); MONOCYTES # (AUTO) 0.2 10^3/uL (0.0-1.0); MONOCYTES % (AUTO) 9 % (0-12); NEUTROPHILS % (AUTO) 74 % (42-75); PLATELET COUNT 83 10^3/uL (130-400); WHITE BLOOD COUNT 2.7 10^3/uL (4.3-11.0)
--- NOTE | 2021-11-27 18:56 | ED General ---
General Chief Complaint: COVID19 Suspect/Confirmed Stated Complaint: SOB, RAPID HEART RATE, WEAKNESS Nursing Triage Note: C/O SOB AND WEAKNESS, [facility] TOLD HER TO COME TO THE ED FOR THESE SYMPTOMS. PATIENT REPORTS SHE HAD A 5.7 HGB ON THE October. Source of Information: Patient Exam Limitations: No Limitations History of Present Illness Date Seen by Provider: Nov 27, 2021 Time Seen by Provider: 18:29 Initial Comments Patient to the ER by private conveyance chief complaint of the last week or 2 she has been very weak ran down. She is not having any bloody stools hemoptysis, chest pain or shortness of air. She went to the ER at [facility] and they told her she might have a UTI and put her on antibiotics but also discovered that her blood was low with a hemoglobin of 5. They sent her to the ER here at [place] however it was too busy so she did not get seen and went home. She represents today because her blood levels have not been addressed yet. She does have history of kidney stones and was having some flank pain at the time. Patient has a history of cirrhosis and splenomegaly and falls at . She had an ultrasound recently done but has not got the results. She called today for results of her ultrasound and they told her to just come out to the ER to get worked up for her hemoglobin of 5. There are no urine micro results from her visit to [facility] from 2 weeks ago available. She is on Celebrex and takes ibuprofen as necessary for pain. She is not on a blood thinner. She had colonoscopy at [facility] almost 10 years ago which was unremarkable. She has had a recent upper endoscopy at which found esophageal varices. Allergies and Home Medications Allergies Coded Allergies: hydrocodone (Verified Allergy, Unknown, 11/27/21) hydrochlorothiazide (Verified Adverse Reaction, Unknown, DIARRHEA, 11/27/21) Patient Home Medication List Home Medication List Reviewed: Yes Albuterol Sulfate (Albuterol Sulfate) 2.5 Mg/3 Ml Vial.neb, 2.5 MG NEB Q4H PRN for SHORTNESS OF BREATH, (Reported) Entered as Reported by: RYAN LONGORIA on 06/30/19 0931 Albuterol Sulfate (Proair Hfa) 1 Puff Puff, 2 PUFF IH Q4H Prescribed by: LELE CONTRERAS on 8/7/20 1832 Amoxicillin/Potassium Clav (Amox Tr-K Clv 875-125 mg Tab) 875 Mg-125 Mg Tablet, 1 EACH PO BID Prescribed by: MACHELLE DE DIOS on 11/10/21 005 Aspirin (Adult Low Dose Aspirin EC) 81 Mg Tablet.dr, 81 MG PO DAILY, (Reported) Entered as Reported by: RYAN LONGORIA on 06/30/19 09 Cefdinir (Cefdinir) 300 Mg Capsule, 300 MG PO BID Prescribed by: MIGUEL HEART on 07/01/19 111 Celecoxib (Celecoxib) 200 Mg Capsule, 200 MG PO DAILY, (Reported) Entered as Reported by: RYAN LONGORIA on 06/30/19930 Ciprofloxacin HCl (Ciprofloxacin HCl) 500 Mg Tablet, 500 MG PO BID Prescribed by: ORLANDO TURK on 01/08/201499 Famotidine (Pepcid) 40 Mg Tablet, 40 MG PO DAILY Prescribed by: MACHELLE DE DIOS on 11/10/2151 Folic Acid (Folic Acid) 1 Mg Tablet, 1 MG PO DAILY, (Reported) Entered as Reported by: RYAN LONGORIA on 06/30/19954 Gabapentin (Gabapentin) 100 Mg Capsule, 100 MG PO BID, (Reported) Entered as Reported by: RYAN LONGORIA on 06/30/19930 Hydrochlorothiazide (Hydrochlorothiazide) 25 Mg Tablet, 25 MG PO DAILY, (Reported) Entered as Reported by: RYAN LONGORIA on 06/30/19954 Levofloxacin (Levaquin) 750 Mg Tablet, 750 MG PO DAILY Prescribed by: LELE CONTRERAS on 02/03/201831 Levofloxacin (Levofloxacin) 500 Mg Tablet, 500 MG PO DAILY Prescribed by: SHERRI [place]LANDO on 07/06/202158 Losartan Potassium (Losartan Potassium) 50 Mg Tablet, 50 MG PO DAILY, (Reported) Entered as Reported by: RYAN LONGORIA on 06/30/19930 Metronidazole (Flagyl) 500 Mg Tablet, 500 MG PO TID Prescribed by: ORLANDO TURK on 01/08/201499 Ondansetron (Ondansetron Odt) 4 Mg Tab.rapdis, 4 MG PO Q6H PRN for NAUSEA/VOMITING Prescribed by: ORLANDO TURK on 01/08/20 1500 Potassium Chloride (Potassium Chloride) 10 Meq Tab.er.prt, 10 MEQ PO DAILY, (Reported) Entered as Reported by: RYAN LONGORIA on 06/30/19 0931 Review of Systems Review of Systems Constitutional: No chills, No diaphoresis EENTM: No ear discharge, No hearing loss Respiratory: No cough, No short of breath Cardiovascular: No chest pain, No edema Gastrointestinal: No abdominal pain, No constipation, No diarrhea Genitourinary: No dysuria, No frequency Musculoskeletal: No back pain, No joint pain All Other Systems Reviewed Negative Unless Noted: Yes Past Qscvfnq-Ezlhbj-Oqyhpu Hx Patient Social History Tobacco Use?: Yes Tobacco type used: Cigarettes Use of E-Cig and/or Vaping dev: No Substance use?: Yes Substance type: Methamphetamine Substance frequency: Couple times a week Alcohol Use?: No Pt feels they are or have been: No Immunizations Up To Date Tetanus Booster (TDap): More than 5yrs First/Initial COVID19 Vaccinat: unvaccinated Second COVID19 Vaccination Leon: unvaccinated Third COVID19 Vaccination Date: unvaccinated Seasonal Allergies Seasonal Allergies: No Past Medical History Surgery/Hospitalization HX: DM?, Renal calculi Surgeries: Yes (LITHOTRIPSY; FACIAL RECONSTRUCTION; X 1-TWINS) Section, Renal, Tubal Ligation Respiratory: Yes Pneumonia Cardiac: Yes (VASCULITIS OF LEGS) Chronic Edema/Swelling, Hypertension, Peripheral Vascular Neurological: Yes Neuropathy 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 Genitourinary: Yes Kidney Stones Gastrointestinal: Yes (HEPATITIS C--NO TREATMENT) Hepatitis, Cirrhosis Musculoskeletal: Yes Arthritis, Rheumatoid Arthritis Endocrine: Yes Diabetes, Non-Insulin dep HEENT: No Cancer: No Psychosocial: Yes Anxiety Integumentary: Yes (CHRONIC LEG EDEMA AND CELLULITIS ; VASCULITIS) Blood Disorders: No Family Medical History Heart Disease, Cancer, Diabetes Physical Exam Vital Signs Vital Signs - First Documented 11/27/21 18:14 Temp 36.3 Pulse 109 Resp 20 B/P (MAP) 166/83 (110) Pulse Ox 100 O2 Delivery Room Air Capillary Refill : Less Than 3 Seconds Height, Weight, BMI Height: 5'3.00" Weight: 159lbs. 0oz. 72.589860ln; 26.00 BMI Method:Stated General Appearance: No Apparent Distress, WD/WN Eyes: Bilateral Eye Normal Inspection, Bilateral Eye PERRL, Bilateral Eye EOMI HEENT: PERRL/EOMI, Pharynx Normal, Moist Mucous Membranes Neck: Full Range of Motion, Normal Inspection Respiratory: Lungs Clear, Normal Breath Sounds, No Accessory Muscle Use, No Respiratory Distress Cardiovascular: Regular Rate, Rhythm, No Edema, Normal Peripheral Pulses Gastrointestinal: Normal Bowel Sounds, Non Tender, Soft Extremity: Normal Capillary Refill, Normal Inspection, No Pedal Edema Neurologic/Psychiatric: Alert, Oriented x3, No Motor/Sensory Deficits Skin: Warm/Dry, Pallor Progress/Results/Core Measures Suspected Sepsis SIRS Temperature: Pulse: 109 Respiratory Rate: 20 Laboratory Tests 11/27/21 18:40: White Blood Count 2.7L Blood Pressure 166 /83 Mean: 110 Laboratory Tests 11/27/21 18:40: Creatinine 0.80, INR Comment 1.2, Platelet Count 83L, Total Bilirubin 0.5 Results/Orders Lab Results Laboratory Tests Test 11/27/21 18:12 11/27/21 18:40 Range/Units Influenza Type A (RT-PCR) Not Detected Not Detecte Influenza Type B (RT-PCR) Not Detected Not Detecte SARS-CoV-2 RNA (RT-PCR) Not Detected Not Detecte White Blood Count 2.7 L 4.3-11.0 10^3/uL Red Blood Count 2.80 L 3.80-5.11 10^6/uL Hemoglobin 5.2 *L 11.5-16.0 g/dL Hematocrit 20 *L 35-52 % Mean Corpuscular Volume 70 L 80-99 fL Mean Corpuscular Hemoglobin 19 L 25-34 pg Mean Corpuscular Hemoglobin Concent 26 L 32-36 g/dL Red Cell Distribution Width 17.7 H 10.0-14.5 % Platelet Count 83 L 130-400 10^3/uL Mean Platelet Volume 9.0-12.2 fL Immature Granulocyte % (Auto) 0 % Neutrophils (%) (Auto) 74 42-75 % Lymphocytes (%) (Auto) 14 12-44 % Monocytes (%) (Auto) 9 0-12 % Eosinophils (%) (Auto) 3 0-10 % Basophils (%) (Auto) 0 0-10 % Neutrophils # (Auto) 2.0 1.8-7.8 10^3/uL Lymphocytes # (Auto) 0.4 L 1.0-4.0 10^3/uL Monocytes # (Auto) 0.2 0.0-1.0 10^3/uL Eosinophils # (Auto) 0.1 0.0-0.3 10^3/uL Basophils # (Auto) 0.0 0.0-0.1 10^3/uL Immature Granulocyte # (Auto) 0.0 0.0-0.1 10^3/uL Percent Immature Platelet Fraction 4.3 0.0-7.6 % Prothrombin Time 15.1 H 12.2-14.7 SEC INR Comment 1.2 0.8-1.4 Activated Partial Thromboplast Time 27 24-35 SEC Sodium Level 139 135-145 MMOL/L Potassium Level 3.4 L 3.6-5.0 MMOL/L Chloride Level 106 98-107 MMOL/L Carbon Dioxide Level 21 21-32 MMOL/L Anion Gap 12 5-14 MMOL/L Blood Urea Nitrogen 13 7-18 MG/DL Creatinine 0.80 0.60-1.30 MG/DL Estimat Glomerular Filtration Rate 85 BUN/Creatinine Ratio 16 Glucose Level 203 H 70-105 MG/DL Calcium Level 8.8 8.5-10.1 MG/DL Corrected Calcium 9.1 8.5-10.1 MG/DL Total Bilirubin 0.5 0.1-1.0 MG/DL Aspartate Amino Transf (AST/SGOT) 24 5-34 U/L Alanine Aminotransferase (ALT/SGPT) 24 0-55 U/L Alkaline Phosphatase 96 40-136 U/L C-Reactive Protein High Sensitivity 0.18 0.00-0.50 MG/DL Total Protein 6.1 L 6.4-8.2 GM/DL Albumin 3.6 3.2-4.5 GM/DL My Orders Orders - NADER MCKOY 19 Inhouse Test (11/27/21 18:17) Influenza A And B By Pcr (11/27/21 18:17) Cbc With Automated Diff (11/27/21 18:48) Comprehensive Metabolic Panel (11/27/21 18:48) Hs C Reactive Protein (11/27/21 18:48) Type And Screen (11/27/21 18:48) Protime With Inr (11/27/21 18:56) Partial Thromboplastin Time (11/27/21 18:56) Vital Signs/I&O 11/27/21 18:14 Temp 36.3 Pulse 109 Resp 20 B/P (MAP) 166/83 (110) Pulse Ox 100 O2 Delivery Room Air Capillary Refill : Less Than 3 Seconds Blood Pressure Mean: 110 Progress Note : Time: 18:55 Progress Note We will initiate an IV and obtain some labs. Illness 5.7 2 weeks ago. Type and screen. She already has an ongoing work-up for her cirrhosis at . Departure Impression Primary Impression: Anemia Qualified Codes: D50.0 - Iron deficiency anemia secondary to blood loss (chronic) Disposition: HOME, SELF-CARE Condition: Stable Departure-Patient Inst. Decision time for Depature: 19:58 Referrals: ELLIE HAWLEY JULIE A MD (PCP/Family) Primary Care Physician Patient Instructions: Anemia, Possibly From Low Iron, Adult ED Add. Discharge Instructions: We have performed iron studies which will be back in a few days. You can fol low-up with your primary care doctor for these results. Call Dr. Hawley, general surgery and request a follow-up appointment sometime this week or next to discuss possible colonoscopy. Return to the ER promptly for chest pain, shortness of air or other worrisome symptoms. All discharge instructions reviewed with patient and/or family. Voiced understanding. Copy Copies To 1: ELLIE HAWLEY TITUS J Nov 27, 2021 18:56
[2021-11-27 18:57] LABS: HEMATOCRIT 20 % (35-52); HEMOGLOBIN 5.2 g/dL (11.5-16.0)
[2021-11-27 19:09] LABS: ALBUMIN 3.6 GM/DL (3.2-4.5); POTASSIUM 3.4 MMOL/L (3.6-5.0)
[2021-11-27 19:10] LABS: CALCIUM 8.8 MG/DL (8.5-10.1)
[2021-11-27 19:12] LABS: INR 1.2 (0.8-1.4); PROTHROMBIN TIME PATIENT 15.1 SEC (12.2-14.7); TOTAL PROTEIN 6.1 GM/DL (6.4-8.2)
[2021-11-27 19:13] LABS: BILIRUBIN,TOTAL 0.5 MG/DL (0.1-1.0)
[2021-11-27 19:15] LABS: CREATININE SERUM 0.8 MG/DL (0.60-1.30)
[2021-11-27 20:16] VITALS: BP 151/71
== END 2021-11-27 20:15 | disposition home or self-care (01) ==
LOC: EDUNIT# 18:01 → ER 18:04
DX: D50.0 Iron deficiency anemia secondary to blood loss (chronic) (principal); F17.210 Nicotine dependence, cigarettes, uncomplicated; Z20.822 Contact with and (suspected) exposure to COVID-19; Z28.310 Unvaccinated for COVID-19
CPT/HCPCS: 36415; 80053; 82728; 83540; 83550; 85025; 85610; 85730; 86141; 86850; 86900; 86901; 86920; 87636

== ENCOUNTER → 2021-11-27 | Outpatient (CLI) | payer MEDICAID, MEDICARE ==
[~2021-11-27] MED LIST changes: +ACETAMINOPHEN 500 MG TAB (TYLENOL) ONE; +ACETAMINOPHEN 500 MG TAB (TYLENOL) PO ONE; +NS IV 500 ML 500 ML IV SCH; +NS IV 500 ML 500 ML ONE; +diphenhydrAMINE 50 MG/ML INJ (BENADRYL) IVP ONE; +diphenhydrAMINE 50 MG/ML INJ (BENADRYL) ONE
[2021-11-27 21:21] VITALS: BP 144/65
[2021-11-27 21:37] VITALS: BP 154/76
[2021-11-27 21:38] VITALS: BP 155/76
[2021-11-28 00:10] VITALS: BP 144/65
== END ==
LOC: LAB 20:06
PROVIDERS: ATTEND Emergency Medicine
DX: H65.20 Chronic serous otitis media, unspecified ear (principal)
CPT/HCPCS: 86850; 86900; 86901; 86920; P9016

== ENCOUNTER → 2021-12-09 | Outpatient (CLI) | payer MEDICARE, MEDICAID ==
[~2021-12-09] VITALS: Ht 160 cm; Wt 68.1 kg
[~2021-12-09] MED LIST changes: +IRON DEXTRAN 1,000 MG/NS 250 ML IVPB IV ONE; +IRON DEXTRAN 25 MG/NS 6.25 ML TOTAL VOLUME IV NR
[2021-12-09 13:09] VITALS: BP 141/70
== END ==
LOC: SDC 11:01
PROVIDERS: ATTEND Pediatrics
DX: D50.0 Iron deficiency anemia secondary to blood loss (chronic) (principal)
CPT/HCPCS: 96365

== ENCOUNTER → 2022-08-02 | Outpatient (CLI) | payer MEDICARE, MEDICAID ==
[~2022-08-02] MED LIST changes: +ALBU8.5H6 IH; -IRON DEXTRAN 1,000 MG/NS 250 ML IVPB IV ONE; -IRON DEXTRAN 25 MG/NS 6.25 ML TOTAL VOLUME IV NR; +LEVO-55 PO; -LEVO500T81 PO; +POTA-177 PO; -POTA10TA37 PO; -RT-ALBUINH IH
--- NOTE | 2022-08-02 14:53 | Diagnostic Imaging Report ---
INDICATION: Cough and pneumonia. TIME OF EXAM: 1:37 PM. COMPARISON: Correlation is made with prior chest from 07/06/2020. Heart size is normal. There is some linear atelectasis or scarring in the left base. Otherwise, lungs are clear. No effusion or pneumothorax is detected. IMPRESSION: Left basilar atelectasis or scarring. The study is otherwise unremarkable. Dictated by: Dictated on workstation # [id number]
== END ==
LOC: RAD FS 13:19
PROVIDERS: ATTEND Nurse Practitioner
DX: J44.1 Chronic obstructive pulmonary disease with (acute) exacerbation (principal)
CPT/HCPCS: 71046

== ENCOUNTER 2022-09-15 13:12 | Outpatient (RCR) | payer MEDICARE, MEDICAID ==
[2022-09-09 14:15] VITALS: BP 168/84
[~2022-09-15] VITALS: Ht 160 cm; Wt 68.2 kg
[~2022-09-15 13:12] MED LIST changes: +IRON DEXTRAN 1,000 MG/NS 250 ML IVPB IV ONE; +IRON DEXTRAN 25 MG/NS 6.25 ML TOTAL VOLUME IV ONE
[2022-09-15] MEDS ORDERED: IRON DEXTRAN 25 MG/NS 6.25 ML TOTAL VOLUME IV ONE ×3 (13:45)
[2022-09-15] MEDS ORDERED: IRON DEXTRAN 1,000 MG/NS 250 ML IVPB IV ONE ×2 (14:00)
[2022-09-15 14:18] VITALS: BP 156/74
== END 2022-09-26 | disposition home or self-care (01) ==
LOC: SDC 13:12
PROVIDERS: ATTEND Pediatrics
DX: D50.0 Iron deficiency anemia secondary to blood loss (chronic) (principal)

== ENCOUNTER 2023-01-01 11:56 | Outpatient (RCR) | payer MEDICARE, MEDICAID ==
[~2023-01-01] VITALS: Ht 160 cm; Wt 71.4 kg
[~2023-01-01 11:56] MED LIST changes: -IRON DEXTRAN 1,000 MG/NS 250 ML IVPB IV ONE; -IRON DEXTRAN 25 MG/NS 6.25 ML TOTAL VOLUME IV ONE; +POTA-330 PO; -POTA-51 PO
[2023-01-01] MEDS ORDERED: IRON DEXTRAN 25 MG/NS 6.25 ML TOTAL VOLUME IV ONE ×3 (12:15)
[2023-01-01] MEDS ORDERED: IRON DEXTRAN 1,000 MG/NS 250 ML IVPB IV ONE ×2 (12:15)
[2023-01-01 13:31] VITALS: BP 169/80
== END 2023-01-26 | disposition home or self-care (01) ==
LOC: SDC 11:56
PROVIDERS: ATTEND Pediatrics
DX: D50.9 Iron deficiency anemia, unspecified (principal)
CPT/HCPCS: 96365

== ENCOUNTER 2023-02-13 05:32 | Emergency (ER) | payer MEDICARE, MEDICAID ==
[~2023-02-13] VITALS: Ht 160 cm; Wt 68.0 kg
--- NOTE | 2023-02-13 05:57 | ED General ---
General Chief Complaint: General Problems/Pain Stated Complaint: BLOOD SUGAR 400,STAGE 4 CIRRHOSIS OF LIVER,SOB Nursing Triage Note: elevated glucose, low iron, headache, nausea, red legs x1 day. History of Present Illness Date Seen by Provider: Feb 13, 2023 Time Seen by Provider: 05:57 Initial Comments 63-year-old female presents with headache, bilateral red legs x1 day. Elevated blood sugar. Patient has been on insulin and metformin in the past but reports that her primary care provider took her off of it. Patient has not checked her blood sugars for months. She has not follow-up with her primary care provider for couple months. Reports that she just has some generalized malaise for the last couple days. She denies a history of headaches. She does report history of stage IV liver cirrhosis. She is also want her "iron checked" because she has a history of low iron. Patient reports her blood sugar at home was 404. They do not know what it typically runs because they have not checked in months. Allergies and Home Medications Allergies Coded Allergies: clindamycin (Verified Allergy, Unknown, 12/09/21) hydrocodone (Verified Allergy, Unknown, 11/27/21) hydrochlorothiazide (Verified Adverse Reaction, Unknown, DIARRHEA, 11/27/21) Patient Home Medication List Home Medication List Reviewed: Yes Albuterol Sulfate (Albuterol Sulfate) 2.5 Mg/3 Ml Vial.neb, 2.5 MG NEB Q4H PRN for SHORTNESS OF BREATH, (Reported) Entered as Reported by: RYAN LONGORIA on 06/30/19930 Albuterol Sulfate (Ventolin Hfa) 1 Puff Puff, 2 PUFF IH Q4H Prescribed by: LELE CONTRERAS on 02/03/20 183 Aspirin (Adult Low Dose Aspirin EC) 81 Mg Tablet.dr, 81 MG PO DAILY, (Reported) Entered as Reported by: RYAN LONGORIA on 06/30/19930 Celecoxib (Celecoxib) 200 Mg Capsule, 200 MG PO DAILY, (Reported) Entered as Reported by: RYAN LONGORIA on 06/30/19930 Cephalexin (Cephalexin) 500 Mg Tablet, 500 MG PO QID Prescribed by: VIJAYA HARDING on 02/13/23 0838 Famotidine (Pepcid) 40 Mg Tablet, 40 MG PO DAILY Prescribed by: MACHELLE DE DIOS on 11/10/21 0052 Folic Acid (Folic Acid) 1 Mg Tablet, 1 MG PO DAILY, (Reported) Entered as Reported by: RYAN LONGORIA on 06/30/19954 Gabapentin (Gabapentin) 100 Mg Capsule, 100 MG PO BID, (Reported) Entered as Reported by: RYAN LONGORIA on 06/30/19930 Hydrochlorothiazide (Hydrochlorothiazide) 25 Mg Tablet, 25 MG PO DAILY, (Reported) Entered as Reported by: RYAN LONGORIA on 06/30/19954 Losartan Potassium (Losartan Potassium) 50 Mg Tablet, 50 MG PO DAILY, (Reported) Entered as Reported by: RYAN LONGORIA on 06/30/19930 Potassium Chloride (Potassium Chloride) 10 Meq Tab.er.prt, 10 MEQ PO DAILY, (Reported) Entered as Reported by: RYAN LONGORIA on 06/30/19930 Review of Systems Review of Systems Constitutional: malaise EENTM: nose congestion Respiratory: No cough Cardiovascular: No chest pain Gastrointestinal: No abdominal pain, No vomiting Skin: see HPI, change in color Psychiatric/Neurological: No Symptoms Reported Past [id number] Hx Patient Social History Tobacco Use?: Yes Substance use?: Yes Substance type: Methamphetamine Alcohol Use?: Yes Pt feels they are or have been: No Immunizations Up To Date Tetanus Booster (TDap): More than 5yrs First/Initial COVID19 Vaccinat: unvaccinated Second COVID19 Vaccination Leon: unvaccinated Third COVID19 Vaccination Date: unvaccinated Seasonal Allergies Seasonal Allergies: No Past Medical History Surgery/Hospitalization HX: DM?, Renal calculi Surgeries: Yes (LITHOTRIPSY; FACIAL RECONSTRUCTION; X 1-TWINS) Section, Renal, Tubal Ligation Respiratory: Yes Pneumonia Cardiac: Yes (VASCULITIS OF LEGS) Chronic Edema/Swelling, Hypertension, Peripheral Vascular Neurological: Yes Neuropathy [employer] History: Menopausal Genitourinary: Yes Kidney Stones Gastrointestinal: Yes (HEPATITIS C--NO TREATMENT) Hepatitis, Cirrhosis Musculoskeletal: Yes Arthritis, Rheumatoid Arthritis Endocrine: Yes Diabetes, Non-Insulin dep HEENT: No Cancer: No Psychosocial: Yes Anxiety Integumentary: Yes (CHRONIC LEG EDEMA AND CELLULITIS ; VASCULITIS) Blood Disorders: No Family Medical History Heart Disease, Cancer, Diabetes Physical Exam Vital Signs Vital Signs - First Documented 02/13/23 05:51 Temp 37.7 Pulse 93 Resp 18 B/P (MAP) 158/71 (100) Pulse Ox 98 O2 Delivery Room Air Capillary Refill : Less Than 3 Seconds Height, Weight, BMI Height: 5'3.00" Weight: 159lbs. 0oz. [id number]; 26.00 BMI Method:Stated General Appearance: No Apparent Distress, WD/WN Respiratory: Lungs Clear, Normal Breath Sounds Cardiovascular: Regular Rate, Rhythm, No Edema Gastrointestinal: Non Tender, Soft; No Tenderness Extremity: Swelling (mildd bilatral ) Neurologic/Psychiatric: Alert, Oriented x3 Skin: Other (bilateral lower ext chronic changes, with new warmth/erythema) Focused Exam Lactate Level 02/13/23 06:14: Lactic Acid Level 2.76*H 02/13/23 07:50: Lactic Acid Level 1.65 Lactic Acid Level Laboratory Tests Test 02/13/23 06:14 02/13/23 07:50 Lactic Acid Level 2.76 MMOL/L (0.50-2.00) *H 1.65 MMOL/L (0.50-2.00) Progress/Results/Core Measures Suspected Sepsis SIRS Temperature: Pulse: 93 Respiratory Rate: 18 Laboratory Tests 02/13/23 06:14: White Blood Count 3.5L Blood Pressure 158 /71 Mean: 100 02/13/23 06:14: Lactic Acid Level 2.76*H 02/13/23 07:50: Lactic Acid Level 1.65 Laboratory Tests 02/13/23 06:14: Creatinine 0.91, Platelet Count 65L, Total Bilirubin 0.6 Results/Orders Lab Results Laboratory Tests Test 02/13/23 05:52 02/13/23 06:14 02/13/23 06:20 02/13/23 07:50 Range/Units Glucometer 320 H 70-110 MG/DL White Blood Count 3.5 L 4.3-11.0 10^3/uL Red Blood Count 4.04 3.80-5.11 10^6/uL Hemoglobin 10.0 L 11.5-16.0 g/dL Hematocrit 34 L 35-52 % Mean Corpuscular Volume 83 80-99 fL Mean Corpuscular Hemoglobin 25 25-34 pg Mean Corpuscular Hemoglobin Concent 30 L 32-36 g/dL Red Cell Distribution Width 20.8 H 10.0-14.5 % Platelet Count 65 L 130-400 10^3/uL Mean Platelet Volume 9.0-12.2 fL Immature Granulocyte % (Auto) 0 % Neutrophils (%) (Auto) 80 H 42-75 % Lymphocytes (%) (Auto) 8 L 12-44 % Monocytes (%) (Auto) 8 0-12 % Eosinophils (%) (Auto) 4 0-10 % Basophils (%) (Auto) 0 0-10 % Neutrophils # (Auto) 2.8 1.8-7.8 10^3/uL Lymphocytes # (Auto) 0.3 L 1.0-4.0 10^3/uL Monocytes # (Auto) 0.3 0.0-1.0 10^3/uL Eosinophils # (Auto) 0.1 0.0-0.3 10^3/uL Basophils # (Auto) 0.0 0.0-0.1 10^3/uL Immature Granulocyte # (Auto) 0.0 0.0-0.1 10^3/uL Percent Immature Platelet Fraction 3.7 0.0-7.6 % Sodium Level 137 135-145 MMOL/L Potassium Level 3.6 3.6-5.0 MMOL/L Chloride Level 105 98-107 MMOL/L Carbon Dioxide Level 23 21-32 MMOL/L Anion Gap 9 5-14 MMOL/L Blood Urea Nitrogen 7 7-18 MG/DL Creatinine 0.91 0.60-1.30 MG/DL Estimat Glomerular Filtration Rate 72 BUN/Creatinine Ratio 8 Glucose Level 367 H 70-105 MG/DL Lactic Acid Level 2.76 *H 1.65 0.50-2.00 MMOL/L Calcium Level 8.4 L 8.5-10.1 MG/DL Corrected Calcium 8.6 8.5-10.1 MG/DL Magnesium Level 1.5 L 1.6-2.4 MG/DL Total Bilirubin 0.6 0.1-1.0 MG/DL Aspartate Amino Transf (AST/SGOT) 24 5-34 U/L Alanine Aminotransferase (ALT/SGPT) 21 0-55 U/L Alkaline Phosphatase 104 40-136 U/L Total Protein 6.3 L 6.4-8.2 GM/DL Albumin 3.7 3.2-4.5 GM/DL Smear Scan YES Influenza Type A (RT-PCR) Not Detected Not Detecte Influenza Type B (RT-PCR) Not Detected Not Detecte SARS-CoV-2 RNA (RT-PCR) Not Detected Not Detecte Test 02/13/23 08:35 Range/Units Urine Color YELLOW Urine Clarity CLEAR Urine pH 6.0 5-9 Urine Specific [place] >=1.030 1.016-1.022 Urine Protein 1+ H NEGATIVE Urine Glucose (UA) 3+ H NEGATIVE Urine Ketones NEGATIVE NEGATIVE Urine Nitrite POSITIVE H NEGATIVE Urine Bilirubin NEGATIVE NEGATIVE Urine Urobilinogen 0.2 < = 1.0 MG/DL Urine Leukocyte Esterase NEGATIVE NEGATIVE Urine RBC (Auto) TRACE H NEGATIVE Urine RBC 0-2 /HPF Urine WBC 5-10 H /HPF Urine Squamous Epithelial Cells 0-2 /HPF Urine Crystals NONE /LPF Urine Bacteria FEW H /HPF Urine Casts NONE /LPF Urine Mucus SMALL H /LPF Urine Culture Indicated YES My Orders Orders - HARDING,VIJAYA L DO Cbc With Automated Diff (02/13/23 06:03) Comprehensive Metabolic Panel (02/13/23 06:03) Lactic Acid Analyzer (02/13/23 06:03) Magnesium (02/13/23 06:03) Ua Culture If Indicated (02/13/23 06:03) Blood Culture (02/13/23 06:03) Influenza A And B By Pcr (02/13/23 06:03) Covid 19 Inhouse Test (02/13/23 06:03) Ceftriaxone Iv/Im (Ceftriaxone Iv/Im) (02/13/23 06:03) Ns Iv 1000 Ml (Sodium Chloride 0.9%) (02/13/23 06:03) Urine Culture (02/13/23 08:35) Vital Signs/I&O 02/13/23 05:51 Temp 37.7 Pulse 93 Resp 18 B/P (MAP) 158/71 (100) Pulse Ox 98 O2 Delivery Room Air Capillary Refill : Less Than 3 Seconds Blood Pressure Mean: 100 Point of Care Testing Finger Stick Blood Glucose: 320 Blood Glucose Action Taken: RN and physician notified. Progress Note : Progress Note Diagnostic studies were ordered reviewed and interpreted by me. She did have a slight initial elevated lactic acid however plan IV fluids and treatment it returned to a normal level. Patient has mild cellulitis of her bilateral lower extremities that is superficial along with a likely urinary tract infection. Patient was treated with 1 g IV Rocephin while in the ER. Patient be started on Keflex which should treat both her cellulitis and her urinary tract infection. Patient likely with mild diabetes. Recommend she follow-up with her primary care provider this week for further evaluation recheck of her symptoms and discussion of further treatment and evaluation for diabetes. This time there is no indication for hospitalization. Patient does not have any physical or significant findings for early sepsis. Patient was stable and discharged home. Departure Impression Primary Impression: Cellulitis of both lower extremities Additional Impressions: Hyperglycemia, unspecified Pancytopenia Urinary tract infection Qualified Codes: N30.00 - Acute cystitis without hematuria Disposition: HOME, SELF-CARE Condition: Stable Departure-Patient Inst. Referrals: MATTHIEU VALENZUELA MD (PCP/Family) Primary Care Physician Patient Instructions: Cellulitis (Skin Infection), Adult (DC), High Blood Sugar, Adult ED, Urinary Tract Infection, Adult ED Add. Discharge Instructions: Follow-up with Dr. Valenzuela by the end of the week for recheck of all your symptoms All discharge instructions reviewed with patient and/or family. Voiced unde rstanding. Scripts Cephalexin (Cephalexin) 500 Mg Tablet 500 MG PO QID for 10 Days, #40 TAB Prov: VIJAYA HARDING DO 02/13/23 VIJAYA HARDING DO Feb 13, 2023 05:57
[2023-02-13] MEDS ORDERED: cefTRIAXone IV/IM 1,000 MG in NS (IVPB) 50 ML 50 ML IV STA (06:03)
[2023-02-13] MEDS ORDERED: NS IV 1000 ML 1,000 ML IV STA (06:03)
[2023-02-13 06:37] LABS: BASOPHILS % (AUTO) 0 % (0-10); MONOCYTES # (AUTO) 0.3 10^3/uL (0.0-1.0)
[2023-02-13 06:39] LABS: EOSINOPHILS # (AUTO) 0.1 10^3/uL (0.0-0.3); EOSINOPHILS % (AUTO) 4 % (0-10); HEMATOCRIT 34 % (35-52); LYMPHOCYTES # (AUTO) 0.3 10^3/uL (1.0-4.0); LYMPHOCYTES % (AUTO) 8 % (12-44); MEAN CORPUSCULAR HEMOGLOBIN 25 pg (25-34); MEAN CORPUSCULAR HGB CONC 30 g/dL (32-36); MEAN CORPUSCULAR VOLUME 83 fL (80-99); MONOCYTES % (AUTO) 8 % (0-12); NEUTROPHILS # (AUTO) 2.8 10^3/uL (1.8-7.8); NEUTROPHILS % (AUTO) 80 % (42-75); PLATELET COUNT 65 10^3/uL (130-400); WHITE BLOOD COUNT 3.5 10^3/uL (4.3-11.0)
[2023-02-13 06:45] LABS: ALBUMIN 3.7 GM/DL (3.2-4.5); SMEAR SCAN COMMENT YES
[2023-02-13 06:46] LABS: POTASSIUM 3.6 MMOL/L (3.6-5.0)
[2023-02-13 06:47] LABS: CALCIUM 8.4 MG/DL (8.5-10.1)
[2023-02-13 06:48] LABS: TOTAL PROTEIN 6.3 GM/DL (6.4-8.2)
[2023-02-13 06:50] LABS: BILIRUBIN,TOTAL 0.6 MG/DL (0.1-1.0)
[2023-02-13 06:51] LABS: CREATININE SERUM 0.91 MG/DL (0.60-1.30)
[2023-02-13 06:54] LABS: MAGNESIUM 1.5 MG/DL (1.6-2.4)
[2023-02-13] MEDS ORDERED: CEPH500T PO (08:38)
[2023-02-13 09:17] LABS: CLARITY,URINE CLEAR; COLOR,URINE YELLOW
[2023-02-13 09:18] LABS: BACTERIA,URINE FEW /HPF; BILIRUBIN,URINE NEGATIVE (NEGATIVE); GLUCOSE, URINE (UA) 3+ (NEGATIVE); KETONES,URINE NEGATIVE (NEGATIVE); LEUKOCYTE ESTERASE ,URINE NEGATIVE (NEGATIVE); NITRITE,URINE POSITIVE (NEGATIVE); PROTEIN,URINE 1+ (NEGATIVE); RBC,URINE 0-2 /HPF; SQUAMOUS EPITHELIAL CELL,UR 0-2 /HPF
[2023-02-13 09:50] VITALS: BP 159/91
== END 2023-02-13 09:50 | disposition home or self-care (01) ==
LOC: EDUNIT# 05:32 → ER 05:42
DX: L03.116 Cellulitis of left lower limb (principal); L03.115 Cellulitis of right lower limb; D61.818 Other pancytopenia; N39.0 Urinary tract infection, site not specified; E11.65 Type 2 diabetes mellitus with hyperglycemia; Z88.1 Allergy status to other antibiotic agents; Z20.822 Contact with and (suspected) exposure to COVID-19; Z28.310 Unvaccinated for COVID-19
CPT/HCPCS: 36415; 80053; 81000; 82947; 83605; 83735; 85025; 87040; 87088; 87636

== ENCOUNTER 2023-05-06 12:03 | Day surgery (SDC) | payer MEDICARE, MEDICAID ==
[~2023-05-06] VITALS: Ht 160 cm; Wt 68.2 kg
[~2023-05-06 12:03] MED LIST changes: -CELE-63 PO; +CELE-91 PO; +CEPH500T PO
[2023-05-06] MEDS ORDERED: IRON DEXTRAN 25 MG/NS 6.25 ML TOTAL VOLUME IV ONE ×3 (12:30)
[2023-05-06] MEDS ORDERED: IRON DEXTRAN 1,000 MG/NS 250 ML IVPB IV ONE ×2 (12:45)
[2023-05-06 14:35] VITALS: BP 172/82
== END 2023-05-06 14:35 | disposition home or self-care (01) ==
LOC: SDC 12:03
PROVIDERS: ATTEND Pediatrics
DX: D50.9 Iron deficiency anemia, unspecified (principal)
CPT/HCPCS: 96365